=== PATIENT | male | born 1960 | race Caucasian/White ===

== ENCOUNTER 2016-08-04 09:12 | Inpatient (IN) | payer SELFPAY ==
[~2016-08-04] VITALS: Ht 175.3 cm; Wt 77.0 kg
[~2016-08-04 09:12] MED LIST: ANTI25TA2 PO; GLIP5 PO; GLUCTAB PO; LISI-360 PO; NOVORP2 SQ
[2016-08-04 09:14] VITALS: BP 140/90; PULSE 118; RESP 20; TEMP 98.6; O2SAT 99
[2016-08-04 09:53] LABS: AUTOMATED NEUTROPHIL # 10.4 TH/MM3 (1.8-7.7); BASOPHIL # 0.1 TH/MM3 (0-0.2); BASOPHIL % 0.4 % (0.0-2.0); EOSINOPHIL # 0.1 TH/MM3 (0-0.4); EOSINOPHIL % 0.9 % (0.0-4.0); HEMATOCRIT 39.4 % (39.0-51.0); HEMO FLAGS DIFF FINAL; LYMPHOCYTE # 1.9 TH/MM3 (1.0-4.8); MEAN CELL VOLUME 96.5 FL (80.0-100.0); MEAN CORPUSCULAR HEMOGLOBIN 32.5 PG (27.0-34.0); MEAN CORPUSCULAR HGB CONC 33.6 % (32.0-36.0); NEUT % 76.7 % (16.0-70.0); PLATELET COUNT 185 TH/MM3 (150-450); RED BLOOD COUNT 4.09 MIL/MM3 (4.50-5.90); RED CELL DISTRIBUTION WIDTH 13.2 % (11.6-17.2); WHITE BLOOD COUNT 13.6 TH/MM3 (4.0-11.0)
[2016-08-04 10:08] LABS: ANION GAP 11 MEQ/L (5-15); AST (GOT) 29 U/L (15-37); BICARBONATE 26.6 MEQ/L (21.0-32.0); BLOOD UREA NITROGEN 12 MG/DL (7-18); CHLORIDE 95 MEQ/L (98-107); GLOMERULAR FILTRATION RATE 100 ML/MIN (>89); POTASSIUM 4.1 MEQ/L (3.5-5.1); SODIUM (NA) 133 MEQ/L (136-145)
[2016-08-04 10:11] LABS: ALKALINE PHOSPHATASE 133 U/L (45-117); ALT (GPT) 22 U/L (12-78); TOTAL BILIRUBIN ADULT 1.5 MG/DL (0.2-1.0)
--- NOTE | 2016-08-04 10:43 | PD ---
HPI Chief Complaint: Syncope/Near-Syncope Time Seen by Provider: 10:19 Travel History International Travel<30 days: No Contact w/Intl Traveler<30days: No Traveled to known affect area: No History of Present Illness HPI This is a 55 year old male who presents to the emergency department with 6 months of hemoptysis with rust colored sputum, shortness of breath, worse with exertion, improved with rest associated with 25 pounds weight loss and generalized fatigue. Patient has a long smoking history. He has no primary care physician and doesn't have insurance. PFSH Past Medical History Cancer: No Cardiovascular Problems: Yes Diabetes: Yes Diminished Hearing: No Endocrine: Yes Gastrointestinal Disorders: No Genitourinary: No Hypertension: Yes (STATES SISTER HAS CHECKED IT OVER THE YEARS AND TOLD HIM IT WAS HIGH.) Implanted Vascular Access Dvce: No Musculoskeletal: No Neurologic: Yes Reproductive: No Respiratory: No Immunizations Current: Yes Social History Alcohol Use: Yes (1 [employer] DAILY) Tobacco Use: Yes (1 PPD) Substance Use: No Allergies-Medications (Allergen,Severity, Reaction): Coded Allergies: No Known Allergies (Unverified , 03/22/13) Reported Meds & Prescriptions Reported Meds & Active Scripts Active No Active Prescriptions or Reported Medications Review of Systems Except as stated in HPI: all other systems reviewed are Neg Physical Exam Narrative GENERAL: Thin in no acute distress SKIN: Focused skin assessment warm and dry. HEAD: Atraumatic. Normocephalic. EYES: Pupils equal and round. No injection or drainage. ENT: Moist mucous membranes NECK: Trachea midline. CARDIOVASCULAR: Regular rate and rhythm. No murmur appreciated. RESPIRATORY: Clear to auscultation. Breath sounds equal bilaterally. GASTROINTESTINAL: Abdomen soft, non-tender, nondistended. MUSCULOSKELETAL: No obvious deformities. NEUROLOGICAL: Awake and alert. No obvious cranial nerve deficits. Moving all extremities. PSYCHIATRIC: Appropriate mood and affect; insight and judgment normal. Data Data Last Documented VS Vital Signs Date Time Temp Pulse Resp B/P Pulse Ox O2 Delivery O2 Flow Rate FiO2 08/04/16 10:36 19 96 08/04/16 09:14 98.6 118 140/90 Room Air Orders Electrocardiogram (08/04/16 09:25) Complete Blood Count With Diff (08/04/16 09:25) Comprehensive Metabolic Panel (08/04/16 09:25) Iv Access Insert/Monitor (08/04/16 09:25) Ct Pulmonary Angiogram (08/04/16 ) B-Type Natriuretic Peptide (08/04/16 10:53) Iohexol 350 Inj (Omnipaque 350 Inj) (08/04/16 12:05) Admit Order (Ed Use Only) (08/04/16 13:24) Labs Laboratory Tests Test 08/04/16 08/04/16 09:34 10:55 White Blood Count 13.6 TH/MM3 Red Blood Count 4.09 MIL/MM3 Hemoglobin 13.3 GM/DL Hematocrit 39.4 % Mean Corpuscular Volume 96.5 FL Mean Corpuscular Hemoglobin 32.5 PG Mean Corpuscular Hemoglobin 33.6 % Concent Red Cell Distribution Width 13.2 % Platelet Count 185 TH/MM3 Mean Platelet Volume 9.7 FL Neutrophils (%) (Auto) 76.7 % Lymphocytes (%) (Auto) 14.0 % Monocytes (%) (Auto) 8.0 % Eosinophils (%) (Auto) 0.9 % Basophils (%) (Auto) 0.4 % Neutrophils # (Auto) 10.4 TH/MM3 Lymphocytes # (Auto) 1.9 TH/MM3 Monocytes # (Auto) 1.1 TH/MM3 Eosinophils # (Auto) 0.1 TH/MM3 Basophils # (Auto) 0.1 TH/MM3 CBC Comment DIFF FINAL Differential Comment Sodium Level 133 MEQ/L Potassium Level 4.1 MEQ/L Chloride Level 95 MEQ/L Carbon Dioxide Level 26.6 MEQ/L Anion Gap 11 MEQ/L Blood Urea Nitrogen 12 MG/DL Creatinine 0.80 MG/DL Estimat Glomerular Filtration 100 ML/MIN Rate Random Glucose 283 MG/DL Calcium Level 9.0 MG/DL Total Bilirubin 1.5 MG/DL Aspartate Amino Transf 29 U/L (AST/SGOT) Alanine Aminotransferase 22 U/L (ALT/SGPT) Alkaline Phosphatase 133 U/L Total Protein 9.0 GM/DL Albumin 2.6 GM/DL B-Type Natriuretic Peptide 52 PG/ML MDM Medical Decision Making Medical Screen Exam Complete: Yes Emergency Medical Condition: Yes Interpretation(s) Last [address] Angiography 08/04/16 0000 Signed Impressions: Service Date/Time: Thursday, August 04, 2016 11:47 - CONCLUSION: 1. No evidence of pulmonary embolism. 2. 5.5 cm right middle lobe mass suspicious for malignancy with possible metastatic adenopathy. This would be accessible to percutaneous biopsy. PET/CT scan is recommended to further evaluation if clinically indicated. Akash Wagner MD Differential Diagnosis Lung cancer, pulmonary embolism, pneumonia, abscess Narrative Course This is a 55-year-old male who presents to the emergency department with increasing cough with rest colored sputum associated with weight loss and malaise. CT scan was performed which demonstrates likely lung cancer with a 5 cm mass in the right lung. I spoke to Dr. Cm and he thought it was reasonable to observe the patient for a biopsy and to initiate contact with oncology given his limited resources. Diagnosis Primary Impression: Lung mass Admitting Information Admitting Physician Requests: Observation Scripts No Active Prescriptions or Reported Meds Rupali Vizcaino MD August 04, 2016 10:43
[2016-08-04] MEDS ORDERED: IOHEXOL 350 MG/ML 10 ML VIAL (for RAD DIAG) IV ONE (12:05)
--- NOTE | 2016-08-04 12:24 | EKG ---
Date Performed: 08/04/2016 Time Performed: 09:30:57 PTAGE: 55 years EKG: SINUS TACHYCARDIA ABNORMAL RHYTHM ECG PREVIOUS TRACING : 11/12/2012 18.56 DOCTOR: Quincy Youngblood Interpretating Date/Time 08/04/2016 12:22:35
--- NOTE | 2016-08-04 12:32 | RADRPT ---
EXAM DATE/TIME: 08/04/2016 11:47 [facility] COMPARISON: No previous studies available for comparison. INDICATIONS : Coughing up blood for three months. IV CONTRAST: 50 cc Omnipaque 350 (iohexol) IV RADIATION DOSE: 23.11 CTDIvol (mGy) MEDICAL HISTORY : Cardiovascular disease. Hypertension. Diabetes mellitus type 2. SURGICAL HISTORY : None. ENCOUNTER: Initial ACUITY: 3 months PAIN SCALE: 0/10 LOCATION: chest TECHNIQUE: Volumetric scanning of the chest was performed using a pulmonary embolism protocol MIP images were re constructed. Using automated exposure control and adjustment of the mA and/or kV according to patien t size, radiation dose was kept as low as reasonably achievable to obtain optimal diagnostic quality images. FINDINGS: Examination of the pulmonary vasculature demonstrates good filling of the main, lobar and segmental b ranches. There are no filling defects to suggest pulmonary embolism. Multiplanar reconstructions are also unremarkable. There is a 5.5 x 4.6 cm bilobular mass in the right middle lobe a portion of which demonstrate cavita tion characteristic of malignancy. This would be accessible to percutaneous biopsy. PET/CT scan is re commended to further evaluation if clinically indicated. There are borderline enlarged right paratrac heal and precarinal nodes. CONCLUSION: 1. No evidence of pulmonary embolism. 2. 5.5 cm right middle lobe mass suspicious for malignancy with possible metastatic adenopathy. This would be accessible to percutaneous biopsy. PET/CT scan is recommended to further evaluation if clini aubrey indicated. Akash Wagner MD on August 04, 2016 at 12:25 Board Certified Radiologist. This report was verified electronically.
[2016-08-04] MEDS ORDERED: ONDANSETRON HCL 4 MG/2 ML VIAL IVP PRN (13:45)
[2016-08-04] MEDS: DOCUSATE SODIUM 100 MG CAP PO SCH ×2 (13:45→21:00)
[2016-08-04] MEDS ORDERED: NALOXONE HCL 0.4 MG/ML AMP IV PRN (13:45)
[2016-08-04] MEDS ORDERED: BISACODYL 10 MG SUPP RECTAL PRN (13:45)
[2016-08-04] MEDS ORDERED: ACETAMINOPHEN 325 MG TAB PO PRN (13:45)
[2016-08-04] MEDS ORDERED: SODIUM CHLORIDE 0.9% FLUSH 10 ML FLUSH IV FLUSH PRN (13:45)
--- NOTE | 2016-08-04 13:50 | HHI.HP ---
[facility]ician No Primary Care Physician Admission Diagnosis lung mass Diagnoses: Chief Complaint: Hemoptysis Travel History International Travel<30 Days: No Contact w/Intl Traveler <30 Da: No Traveled to Known Affected Are: No History of Present Illness This is a 55 year old male who presents to the emergency department with 6 months of hemoptysis with rust colored sputum, shortness of breath, worse with exertion, improved with rest associated with 25 pounds weight loss and generalized fatigue. Patient has a long smoking history. He has no primary care physician and doesn't have insurance. Patient seen in ER, as per patient he states he started with Hemoptysis three months ago but was improving with time, he has productive cough, worsening Fatigue, and weakness with exertion. Shortness of breath. states has no insurance and no Medical Doctor, do not take anything for Diabetes. Review of Systems Respiratory: COMPLAINS OF: Hemoptysis Past Family Social History Past Medical History DM II Past Surgical History denies surgical history Reported Medications Reported Meds & Active Scripts Active No Active Prescriptions or Reported Medications Allergies: Coded Allergies: No Known Allergies (Unverified , 03/22/13) Active Ordered Medications Current Medications Medications (Trade) Dose Ordered Sig/Ernestina Route Start Time Stop Time Status Last Admin (NS 1000 ml Inj) 1,000 ml @ 100 mls/hr Q10H IV 08/04/16 13:31 UNV (NS Flush) 2 ml UNSCH PRN IV FLUSH 08/04/16 13:45 UNV (NS Flush) 2 ml BID IV FLUSH 08/04/16 21:00 UNV (Tylenol) 650 mg Q4H PRN PO 08/04/16 13:45 UNV (Zofran Inj) 4 mg Q6H PRN IVP 08/04/16 13:45 UNV Family History Father with Dementia and DM II Mother with CAD Brother with Cancer but he does not know which one. Social History Lives with his Mother Alcohol abuse 1 pint of liquor daily Tobacco dependence one pack per day since he was 14 years of age. Physical Exam Vital Signs Vital Signs Date Time Temp Pulse Resp B/P Pulse Ox O2 Delivery O2 Flow Rate FiO2 08/04/16 10:36 19 96 08/04/16 09:14 98.6 118 20 140/90 99 Room Air Physical Exam GENERAL: Thin in no acute distress SKIN: Focused skin assessment warm and dry. HEAD: Atraumatic. Normocephalic. EYES: Pupils equal and round. No injection or drainage. ENT: Moist mucous membranes NECK: Trachea midline. CARDIOVASCULAR: Regular rate and rhythm. No murmur appreciated. RESPIRATORY: Clear to auscultation. Breath sounds equal bilaterally. GASTROINTESTINAL: Abdomen soft, non-tender, nondistended. MUSCULOSKELETAL: No obvious deformities. NEUROLOGICAL: Awake and alert. No obvious cranial nerve deficits. Moving all extremities. PSYCHIATRIC: Appropriate mood and affect; insight and judgment normal. Laboratory Laboratory Tests Test 08/04/16 08/04/16 09:34 10:55 White Blood Count 13.6 Red Blood Count 4.09 Hemoglobin 13.3 Hematocrit 39.4 Mean Corpuscular Volume 96.5 Mean Corpuscular Hemoglobin 32.5 Mean Corpuscular Hemoglobin 33.6 Concent Red Cell Distribution Width 13.2 Platelet Count 185 Mean Platelet Volume 9.7 Neutrophils (%) (Auto) 76.7 Lymphocytes (%) (Auto) 14.0 Monocytes (%) (Auto) 8.0 Eosinophils (%) (Auto) 0.9 Basophils (%) (Auto) 0.4 Neutrophils # (Auto) 10.4 Lymphocytes # (Auto) 1.9 Monocytes # (Auto) 1.1 Eosinophils # (Auto) 0.1 Basophils # (Auto) 0.1 CBC Comment DIFF FINAL Differential Comment Sodium Level 133 Potassium Level 4.1 Chloride Level 95 Carbon Dioxide Level 26.6 Anion Gap 11 Blood Urea Nitrogen 12 Creatinine 0.80 Estimat Glomerular Filtration 100 Rate Random Glucose 283 Calcium Level 9.0 Total Bilirubin 1.5 Aspartate Amino Transf 29 (AST/SGOT) Alanine Aminotransferase 22 (ALT/SGPT) Alkaline Phosphatase 133 Total Protein 9.0 Albumin 2.6 B-Type Natriuretic Peptide 52 Result Diagram: 08/04/16 0934 08/04/[address] Angiography 08/04/16 0000 Signed Impressions: Service Date/Time: Thursday, August 04, 2016 11:47 - CONCLUSION: 1. No evidence of pulmonary embolism. 2. 5.5 cm right middle lobe mass suspicious for malignancy with possible metastatic adenopathy. This would be accessible to percutaneous biopsy. PET/CT scan is recommended to further evaluation if clinically indicated. Akash Wagner MD Assessment and Plan Assessment and Plan 1. Hemoptysis secondary to #2 2. Lung mass status post CTA has no pulmonary emboli, 5.5 CM right middle lobe mass suspicious for malignancy with possible Metastatic adenopathy. accessible to percutaneous biopsy. PET/CT scan recommended. extension specialist following doctor Chew. bronchodilator, Mucolytic and incentive spirometry 3 Tobacco dependence strongly recommended to stop smoking 4. Tobacco dependence strongly recommended to stop drinking alcohol CIWA protocol started 5. DM II started Insulin sliding scale will hold on long lasting insulin due to probable procedure tomorrow. Hemoglobin A1C As Always a pleasure to talk about Cases with Emergency Medicine Specialist Doctor Rupali Vizcaino her Input and Recommendations where highly appreciated. DVT prophylaxis SCDs. Code Status full Code. Discussed Condition With Patient and ER specialist. Physician Certification 2 Midnight Certification Type: Admission for Inpatient Services Order for Inpatient Services The services are ordered in accordance with Medicare regulations or non- Medicare payer requirements, as applicable. In the case of services not specified as inpatient-only, they are appropriately provided as inpatient services in accordance with the 2-midnight benchmark. Estimated LOS (days): 4 days is the estimated time the patient will need to remain in the hospital, assuming treatment plan goals are met and no additional complications. Post-Hospital Plan: Not yet determined Emil Powers MD August 04, 2016 13:49
[2016-08-04] MEDS ORDERED: HEPARIN SODIUM - SQ 10,000 UNITS/ML VIAL SQ SCH (14:00)
[2016-08-04] MEDS ORDERED: GLUCAGON 1 MG/ML VIAL OTHER PRN (14:15)
[2016-08-04] MEDS ORDERED: DEXTROSE 50% IN WATER 50 ML VIAL(D50) IV PUSH PRN (14:15)
[2016-08-04 14:59] LABS: APTT (PATIENT) 27.1 SEC (24.3-30.1); INTERNATIONAL NORMALIZED RATIO 1.3 RATIO; PROTHROMBIN TIME - PATIENT 14.9 SEC (9.8-11.6)
[2016-08-04] MEDS: SODIUM CHLOR 0.9% 1000 ML INJ 1,000 ML IV SCH ×2 (15:20→21:56)
[2016-08-04] MEDS: RESP: ALBUTEROL 2.5 MG/IPRATROPIUM 0.5 MG NEB (SCH) NEB ×2 (15:54→20:25)
[2016-08-04 17:13] LABS: FREE T4 1.33 NG/DL (0.76-1.46); HDL CHOLESTEROL 16.9 MG/DL (40.0-60.0); LDL CHOLESTEROL 101 MG/DL (0-99)
[2016-08-04] MEDS: THIAMINE INJ 100 MG in SODIUM CHLORIDE 0.9% INJ 100 ML IV SCH (17:23)
[2016-08-04] MEDS: INSULIN NovoLIN REGULAR SUPPLEMENTAL SCALE SQ SCH ×2 (17:40→22:07)
[2016-08-04 17:42] LABS: BLOOD, URINE NEG (NEG); COMMENT (UR) CULT NOT INDICATED; CULTURE IF INDICATED CULT NOT INDICATED; GLUCOSE,URINE 1000 mg/dL (NEG); KETONE, URINE 40 mg/dL (NEG); NITRITE,URINE NEG (NEG); SQUAMOUS EPITHELIAL CELL URINE <1 /hpf (0-5); URINE COLOR YELLOW (YELLW/STRAW)
[2016-08-04 17:58] LABS: HEMOGLOBIN A1a 1.4 %; HEMOGLOBIN Ao 75.2 %; HEMOGLOBIN F 2.7 %; HEMOGLOBIN LA1C 3.3 %
[2016-08-04] MEDS: MULTIVITAMIN INJ 10 ML, FOLIC ACID INJ 1 MG in SODIUM CHLORID 0.9% 500 ML INJ 500 ML IV SCH (19:12)
[2016-08-04 19:33] VITALS: BP 129/78; PULSE 106; RESP 18; O2SAT 97
[2016-08-04 20:00] VITALS: BP 131/78; PULSE 107; RESP 16; TEMP 98.7; O2SAT 93
[2016-08-04] MEDS ORDERED: DIATRIZOATE MEGLUM/DIATRIZOATE SOD 9 ML CUP PO ONE (20:00)
--- NOTE | 2016-08-04 20:40 | MB ---
cc: DILIP ANDERSON M.D. DATE OF CONSULTATION 08/04/[address] Patel REASON FOR CONSULTATION Oncology consulted to render opinion regarding patient with a lung mass. HISTORY OF PRESENT ILLNESS The patient is a 55-year-old male with more than 40 pack-year smoking history. Presented to the hospital with complaint of hemoptysis which has been going on for at least 3 months. 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 He has increased weakness and fatigue. He has increased weakness and fatigue. He has dyspnea on exertion and shortness of breath. He has lost about 25 pounds over the last few months. He also complained of pain in his kruse, thigh and arm which has been going on for more than three months. He denies any fever or chills, night sweats. Denies any chest pressure, palpitation. Denies any headache. Denies any visual changes. Denies nausea, vomiting, diarrhea, abdominal pain. Denies any dysuria, hematuria. He has lost his job and he has no insurance. He does not see a primary physician. He presented to the hospital and CT showed right middle lobe lung mass. PAST MEDICAL HISTORY 1. Diabetes mellitus. 2. Peripheral neuropathy. PAST SURGICAL HISTORY None. FAMILY HISTORY Brother had some kind of metastatic cancer involving the bone. Mother has coronary artery disease. Father had dementia. He has two daughters both healthy. SOCIAL HISTORY Lives with his mother and girlfriend. He used to drink a pint a day, now he drinks about four beer a day. He smoked about pack a day for at least 40 years. 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 ALLERGIES NO KNOWN DRUG ALLERGIES. CURRENT MEDICATIONS 1. Thiamine. 2. Guaifenesin. 3. Multivitamin. REVIEW OF SYSTEMS CONSTITUTIONAL: He has lost about 25 pounds. He has increased weakness. EYES: Denies any blurred vision, double vision. EAR, NOSE, AND THROAT: He denies mouth sores, voice changes. CARDIOVASCULAR: Denies any chest pressure, palpitations. RESPIRATORY: As above. GASTROINTESTINAL: Denies any nausea or vomiting, diarrhea or abdominal pain. GENITOURINARY: Denies any dysuria, hematuria. MUSCULOSKELETAL: As above. ENDOCRINE: Negative. HEMATOLOGIC: Negative. PSYCHIATRIC: Negative. NEUROLOGICAL: Negative. DERMATOLOGIC: He noted a cystic lesion on his scalp a few weeks ago. PHYSICAL EXAMINATION VITAL SIGNS: Afebrile. Blood pressure 140/90. O2 saturation 99% on room air. GENERAL: He is alert and oriented times three, in no acute distress. HEENT: Atraumatic, normocephalic. Pupils equal, round and reactive to light. Extraocular muscles intact. No scleral icterus. Oropharynx moist mucosa, no lesion, no thrush, no mucositis. NECK: No thyromegaly, no palpable mass. LYMPHATICS: No palpable cervical, clavicular, axillary or inguinal lymph nodes. CARDIOVASCULAR: Regular S1, S2. No murmur. LUNGS: Slight decreased breath sounds on the right upper lobe. No wheezing or rhonchi. ABDOMEN: Soft, nontender. Positive bowel sounds. I could not palpate liver or spleen. EXTREMITIES: No clubbing, cyanosis or edema. BACK: No paravertebral tenderness. SKIN: No rash or petechiae. NEUROLOGIC: Nonfocal. LABORATORY DATA Reviewed. ASSESSMENT 1. Right middle lobe lung mass measured 5.5 cm with central cavitation. CT also showed borderline enlarged right paratracheal and precarinal lymph node. He has more than 40 pack-year smoking history. This is a primary bronchogenic carcinoma until proven otherwise. Clinically he also complained of pain in his extremities which could be bone metastasis or hypertrophic osteoarthropathy. He also has significant constitutional symptom with weight loss. Clinically he has had hemoptysis for last 3 months. His hemoglobin is still normal. At this point I recommend getting a complete staging with CT of the abdomen, pelvis as well as bone scan. We will consult radiology to biopsy right middle lobe lung mass. He has no insurance. He will need a director of casework to help with discharge planning and arrange for followup outpatient clinic for treatment. 2. Diabetes mellitus. 3. Peripheral neuropathy due to diabetes. 4. Tobacco dependence. 5. Alcohol abuse. He has cut back to four beers a day. RECOMMENDATIONS 1. Extensive discussion with the patient, his girlfriend and his mother. Their questions were answered. 2. Arrange for a CT abdomen and pelvis as well as bone scan. 3. Consult radiology to biopsy the right lung mass. 4. Consult director of casework to arrange for outpatient followup. Thank you Dr. Patel for asking me to see this patient. MD REINA Mendes /7:13 PM /8:07 PM [email or web address]
[2016-08-04 20:45] VITALS: PULSE 106
[2016-08-04] MEDS: guaiFENesin E.R. 600 MG TAB PO SCH (21:53)
[2016-08-04] MEDS: LORazepam 2 MG/ML VIAL IV PUSH PRN (21:53)
[2016-08-04] MEDS: SODIUM CHLORIDE 0.9% FLUSH 10 ML FLUSH IV FLUSH SCH (21:54)
[2016-08-04] MEDS: INSULIN DETEMIR 100 UNITS/ML VIAL SQ SCH (22:08)
[2016-08-05] VITALS (14 sets, daily range): BP systolic 87–132; BP diastolic 55–88; PULSE 95–108; RESP 18–20; TEMP 98.2–99.7; O2SAT 93–99
[2016-08-05] MEDS: RESP: ALBUTEROL 2.5 MG/IPRATROPIUM 0.5 MG NEB (SCH) NEB ×6 (00:53→21:14)
[2016-08-05] MEDS ORDERED: IOHEXOL 350 MG/ML 10 ML VIAL (for RAD DIAG) IV ONE (01:25)
--- NOTE | 2016-08-05 01:56 | RADRPT ---
EXAM DATE/TIME: 08/05/2016 01:22 [facility] COMPARISON: CT PULMONARY ANGIOGRAM, August 04, 2016, 11:47. INDICATIONS : Evaluate for metastatic disease. Cavitary lung mass is a presumed carcinoma. IV CONTRAST: 50 cc Omnipaque 350 (iohexol) IV ORAL CONTRAST: Prescribed oral contrast ingested. RADIATION DOSE: 6.96 CTDIvol (mGy) MEDICAL HISTORY : Cardiovascular disease. Hypertension. Diabetes mellitus type 2. SURGICAL HISTORY : None. ENCOUNTER: Initial ACUITY: 1 day PAIN SCALE: 0/10 LOCATION: abdomen TECHNIQUE: Volumetric scanning of the abdomen and pelvis was performed. Using automated exposure control and ad justment of the mA and/or kV according to patient size, radiation dose was kept as low as reasonably achievable to obtain optimal diagnostic quality images. FINDINGS: LOWER LUNGS: The known cavitary mass in the right lung base is partially visualized. There is a mass or adenopathy in the right cardiophrenic angle region. LIVER: Liver is mildly inhomogeneous and decreased in attenuation mild lobular contours most characteristic of cirrhosis. There is no focal mass. There is a small amount of surrounding ascitic fluid. The gallb ladder is unremarkable. There is no biliary ductal dilatation. There is no dilation of the biliary tr ee. No calcified gallstones. SPLEEN: Normal size without lesion. PANCREAS: Within normal limits. KIDNEYS: Normal in size and shape. There is no mass, stone or hydronephrosis. ADRENAL GLANDS: Within normal limits. VASCULAR: There is no aortic aneurysm. BOWEL/MESENTERY: There are multiple gastric varices. The stomach and colon demonstrate no acute abnormality. There ar e multiple loops of nondilated air containing small bowel. There several small air-fluid levels. Ther e is no focal inflammatory change. There is no free intraperitoneal air or fluid. ABDOMINAL WALL: Within normal limits. RETROPERITONEUM: There is no lymphadenopathy. BLADDER: No wall thickening or mass. REPRODUCTIVE: Within normal limits. INGUINAL: There is no lymphadenopathy or hernia. MUSCULOSKELETAL: Within normal limits for patient age. CONCLUSION: 1. Cirrhotic appearing liver with fatty infiltration. 2. Multiple gastric varices. 3. Nonspecific, nonobstructive bowel gas pattern most consistent with an ileus. 4. The known cavitary mass and probable adenopathy are again visualized in the anterior right lung ba se. Vickey Medina MD on August 05, 2016 at 1:50 Board Certified Radiologist. This report was verified electronically.
[2016-08-05] MEDS: INSULIN NovoLIN REGULAR SUPPLEMENTAL SCALE SQ SCH ×4 (06:09→21:43)
[2016-08-05] MEDS ORDERED: LIDOCAINE 1%/EPINEPHrine 1:100,000 SOLN 20 ML VIAL ONE (08:27)
[2016-08-05] MEDS ORDERED: SODIUM BICARB 8.4% (PED) INJ 10 MEQ/10 ML SYR ONE (08:28)
[2016-08-05] MEDS ORDERED: FLUMAZENIL 0.5 MG/5 ML VIAL IV PUSH PRN (08:45)
[2016-08-05] MEDS ORDERED: LORazepam 2 MG TAB PO PRN (08:45)
[2016-08-05] MEDS ORDERED: chlordiazePOXIDE 25 MG CAP PO PRN (08:45)
[2016-08-05] MEDS ORDERED: LORazepam 2 MG/ML VIAL IV PUSH PRN ×4 (08:45)
[2016-08-05] MEDS ORDERED: LORazepam 1 MG TAB PO PRN (08:45)
[2016-08-05] MEDS: SODIUM CHLOR 0.9% 1000 ML INJ 1,000 ML IV SCH ×2 (08:46→18:01)
[2016-08-05] MEDS: SODIUM CHLORIDE 0.9% FLUSH 10 ML FLUSH IV FLUSH SCH ×2 (08:46→21:00)
[2016-08-05] MEDS: DOCUSATE SODIUM 100 MG CAP PO SCH ×2 (08:46→21:44)
[2016-08-05] MEDS ORDERED: fentaNYL CITRATE 250 MCG/5 ML AMP ONE (09:16)
[2016-08-05] MEDS ORDERED: MIDAZOLAM HCL 5 MG/5 ML VIAL ONE (09:16)
--- NOTE | 2016-08-05 09:23 | PD.ONC.PN ---
Subjective Subjective Remarks Afebrile overnight. Patient seen in room after lung mass biopsy and bone scan. he is anxious to know what the results of the biopsy are. Objective Data Date Time Temp Pulse Resp B/P Pulse Ox O2 Delivery O2 Flow Rate FiO2 08/05/16 07:51 98.3 104 18 114/58 98 08/05/16 04:00 98.3 108 18 132/88 99 08/05/16 00:57 98 21 08/05/16 00:00 98.2 99 18 115/72 98 08/04/16 20:45 106 08/04/16 20:00 98.7 107 16 131/78 93 08/04/16 19:33 106 18 129/78 97 Room Air 08/04/16 10:36 19 96 08/04/16 09:14 98.6 118 20 140/90 99 Room Air Result Diagram: 08/04/16 0934 08/04/16 0934 Laboratory Results Laboratory Tests Test 08/04/16 08/04/16 08/04/16 08/04/16 09:34 10:55 14:35 17:30 White Blood Count 13.6 TH/MM3 Red Blood Count 4.09 MIL/MM3 Hemoglobin 13.3 GM/DL Hematocrit 39.4 % Mean Corpuscular Volume 96.5 FL Mean Corpuscular Hemoglobin 32.5 PG Mean Corpuscular Hemoglobin 33.6 % Concent Red Cell Distribution Width 13.2 % Platelet Count 185 TH/MM3 Mean Platelet Volume 9.7 FL Neutrophils (%) (Auto) 76.7 % Lymphocytes (%) (Auto) 14.0 % Monocytes (%) (Auto) 8.0 % Eosinophils (%) (Auto) 0.9 % Basophils (%) (Auto) 0.4 % Neutrophils # (Auto) 10.4 TH/MM3 Lymphocytes # (Auto) 1.9 TH/MM3 Monocytes # (Auto) 1.1 TH/MM3 Eosinophils # (Auto) 0.1 TH/MM3 Basophils # (Auto) 0.1 TH/MM3 CBC Comment DIFF FINAL Differential Comment Sodium Level 133 MEQ/L Potassium Level 4.1 MEQ/L Chloride Level 95 MEQ/L Carbon Dioxide Level 26.6 MEQ/L Anion Gap 11 MEQ/L Blood Urea Nitrogen 12 MG/DL Creatinine 0.80 MG/DL Estimat Glomerular Filtration 100 ML/MIN Rate Random Glucose 283 MG/DL Hemoglobin A1c 12.2 % Calcium Level 9.0 MG/DL Total Bilirubin 1.5 MG/DL Aspartate Amino Transf 29 U/L (AST/SGOT) Alanine Aminotransferase 22 U/L (ALT/SGPT) Alkaline Phosphatase 133 U/L Total Protein 9.0 GM/DL Albumin 2.6 GM/DL Triglycerides Level 119 MG/DL Cholesterol Level 142 MG/DL LDL Cholesterol 101 MG/DL HDL Cholesterol 16.9 MG/DL Cholesterol/HDL Ratio 8.40 RATIO Free Thyroxine 1.33 NG/DL Thyroid Stimulating Hormone 1.570 uIU/ML 3rd Gen B-Type Natriuretic Peptide 52 PG/ML Prothrombin Time 14.9 SEC Prothromb Time International 1.3 RATIO Ratio Activated Partial 27.1 SEC Thromboplast Time Urine Color YELLOW Urine Turbidity CLEAR Urine pH 8.0 Urine Specific [place] 1.042 Urine Protein TRACE mg/dL Urine Glucose (UA) 1000 mg/dL Urine Ketones 40 mg/dL Urine Occult Blood NEG Urine Nitrite NEG Urine Bilirubin NEG Urine Urobilinogen 2.0 MG/DL Urine Leukocyte Esterase NEG Urine RBC 1 /hpf Urine WBC LESS THAN 1 /hpf Urine Squamous Epithelial <1 /hpf Cells Microscopic Urinalysis Comment CULT NOT INDICATED Imaging Studies Last 24 hours Impressions Abdomen/Pelvis CT 08/05/16 0000 Signed Impressions: Service Date/Time: July 01:22 - CONCLUSION: 1. Cirrhotic appearing liver with fatty infiltration. 2. Multiple gastric varices. 3. Nonspecific, nonobstructive bowel gas pattern most consistent with an ileus. 4. The known cavitary mass and probable adenopathy are again visualized in the anterior right lung base. Vickey Medina MD Administered Medications Medications (Trade) Dose Ordered Sig/Ernestina Route PRN Reason Start Time Stop Time Status Last Admin Dose Admin Sodium Chloride (NS 1000 ml Inj) 1,000 ml @ 100 mls/hr Q10H IV 08/04/16 13:31 08/04/16 21:56 Sodium Chloride (NS Flush) 2 ml BID IV FLUSH 08/04/16 21:00 08/04/16 21:54 Insulin Detemir (Levemir Inj) 10 units HS SQ 08/04/16 21:00 08/04/16 22:08 Guaifenesin 600 mg 600 mg BID PO 08/04/16 21:00 08/04/16 21:53 Multivitamins 10 ml/Folic Acid 1 mg/Sodium Chloride 510.2 ml @ 125 mls/hr Q24H IV 08/04/16 17:00 08/09/16 16:59 08/04/16 19:12 Thiamine HCl/ Sodium Chloride (Thiamine Inj/NS Inj) 101 ml @ 100 mls/hr Q24H IV 08/04/16 16:00 08/06/16 17:01 08/04/16 17:23 Lorazepam (Ativan Inj) 1 mg Q6H PRN IV PUSH MODERATE TO SEVERE ANXIETY 08/04/16 15:45 08/04/16 21:53 Objective Remarks GENERAL: Middle aged male, sitting up in bed eating lunch SKIN: Warm and dry. HEAD: Normocephalic. EYES: No scleral icterus. No injection or drainage. NECK: Supple, trachea midline. CARDIOVASCULAR: Regular rate and rhythm RESPIRATORY: diminished at bases, on 2L O2 via NC GASTROINTESTINAL: Abdomen soft, non-tender, nondistended. MUSCULOSKELETAL: No cyanosis NEURO: awake and alert. normal speech. Assessment/Plan Problem List: (1) Lung mass Status: Acute Plan: --Right middle lobe lung mass measured 5.5 cm with central cavitation. --CT also showed borderline enlarged right paratracheal and precarinal lymph node. ++40 pack-year smoking history. --is a primary bronchogenic carcinoma until proven otherwise. --Clinically he also complained of pain in his extremities which co --CT c/a/p: -- bone scan. --biopsy right middle lobe lung mass through IR --case management consulted--patient without insurance. Assessment 55y/o male with a lung mass. Presented to the hospital with complaint of hemoptysis x3 months + 25lb weight loss h/o Diabetes mellitus. Peripheral neuropathy. Plan 1. biopsy in IR today 2. await pathology 3. await bone scan Attending Statement The exam, history, and the medical decision-making described in the above note were completed with the assistance of the mid-level provider. I reviewed and agree with the findings presented. I attest that I had a [id number] encounter with the patient on the same day, and personally performed and documented my assessment and findings in the medical record.Reviewed CT with pt. CT noted cirrhotic liver with gastric varices. Possibly ETOH induced. Surveillance Sensor Operator to abstain from etoh. Check hepatitis panel. Await biopsy of lung lesion. Bone scan pending. Charlee Chaudhary August 05, 2016 09:23 Osvaldo Cm MD August 05, 2016 16:37
--- NOTE | 2016-08-05 10:40 | RADRPT ---
EXAM DATE/TIME: 08/05/2016 09:21 [facility] COMPARISON: No previous studies available for comparison. INDICATIONS : Right lung mass. SEDATION TIME: 20 minutes BIOPSY SITE: Right lung MEDICATION(S): 1.) 4 mg midazolam (Versed) IV 2.) 200 mcg fentanyl (Sublimaze) IV DEVICE(S): 1.) 18 gauge Temno core biopsy needle 9cm MEDICAL HISTORY : Hypertension, smoker, diabetes SURGICAL HISTORY : None. ENCOUNTER: Initial ACUITY: 1 day PAIN SCORE: 0/10 LOCATION: Right chest A total of three core specimen(s) were obtained and sent to the laboratory for pathologic evaluation. PROCEDURE: 1. CT guided lung biopsy. 2. Conscious sedation with continuous EKG and oximetry monitoring. Prior to the procedure informed consent was obtained. Any appropriate prior imaging studies were rev iewed. Using automated exposure control and adjustment of the mA and/or kV according to patient size, radiation dose was kept as low as reasonably achievable to obtain optimal diagnostic quality images. The site was prepped in a sterile fashion. Full sterile technique was used, including cap, mask, adolfo rile gloves and gown and a large sterile sheet. Hand hygiene and 2% chlorhexidine and/or betadine/al cohol prep was utilized per protocol for cutaneous antisepsis. The skin and subcutaneous tissues wer e infiltrated with local anesthetic solution. With CT guidance the previously identified target was localized. Biopsy was performed using the presc ribed needle as above. Adequate hemostasis was obtained with compression at the puncture site. Follow-up CT scan reveals no pneumothorax. Conscious sedation was performed with the prescribed dosages and duration as above in the presence of an independent trained radiology nurse to assist in the monitoring of the patient. EKG and oximetry remained stable throughout the procedure. The patient tolerated the procedure well and there were no complications. The patient was sent to Radiology Outpatient Unit in stable condition. CONCLUSION: Uncomplicated CT guided biopsy. Akash Wagner MD on August 05, 2016 at 10:39 Board Certified Radiologist. This report was verified electronically.
--- NOTE | 2016-08-05 11:18 | HHI.PR ---
Subjective Remarks This is a 55 year old male who presents to the emergency department with 6 months of hemoptysis with rust colored sputum, shortness of breath, worse with exertion, improved with rest associated with 25 pounds weight loss and generalized fatigue. Patient has a long smoking history. He has no primary care physician and doesn't have insurance. Patient seen in ER, as per patient he states he started with Hemoptysis three months ago but was improving with time, he has productive cough, worsening Fatigue, and weakness with exertion. Shortness of breath. states has no insurance and no Medical Doctor, do not take anything for Diabetes. 08/05: Stable in his bedroom status post CT guided biopsy no complaint, discussed with nurse miss Flores, no nausea, vomit or diarrhea. Objective Vital Signs Date Time Temp Pulse Resp B/P Pulse Ox O2 Delivery O2 Flow Rate FiO2 08/05/16 10:15 96 Nasal Cannula 2.00 08/05/16 07:58 103 08/05/16 07:51 98.3 104 18 114/58 98 08/05/16 04:00 98.3 108 18 132/88 99 08/05/16 00:57 98 21 08/05/16 00:00 98.2 99 18 115/72 98 08/04/16 20:45 106 08/04/16 20:00 98.7 107 16 131/78 93 08/04/16 19:33 106 18 129/78 97 Room Air I/O 08/04/16 08/04/16 08/04/16 08/05/16 08/05/16 08/05/16 07:00 15:00 23:00 07:00 15:00 23:00 Intake Total 321 ml 822 ml Balance 321 ml 822 ml Intake IV Total 321 ml 822 ml Result Diagram: 08/04/16 0934 08/04/16 0934 Imaging Last Impressions Abdomen/Pelvis CT 08/05/16 0000 Signed Impressions: Service Date/Time: July 01:22 - CONCLUSION: 1. Cirrhotic appearing liver with fatty infiltration. 2. Multiple gastric varices. 3. Nonspecific, nonobstructive bowel gas pattern most consistent with an ileus. 4. The known cavitary mass and probable adenopathy are again visualized in the anterior right lung base. Vickey Medina MD Lung Biopsy CT 08/04/16 0000 Signed Impressions: Service Date/Time: July 09:21 - CONCLUSION: Uncomplicated CT guided biopsy. Akash Wagner MD CT Angiography 08/04/16 0000 Signed Impressions: Service Date/Time: Thursday, August 04, 2016 11:47 - CONCLUSION: 1. No evidence of pulmonary embolism. 2. 5.5 cm right middle lobe mass suspicious for malignancy with possible metastatic adenopathy. This would be accessible to percutaneous biopsy. PET/CT scan is recommended to further evaluation if clinically indicated. Akash Wagner MD Procedures Status post Transbronchial Lung Biopsy Other Results Laboratory Tests Test 08/04/16 08/04/16 08/04/16 08/04/16 09:34 10:55 14:35 17:30 White Blood Count 13.6 TH/MM3 Red Blood Count 4.09 MIL/MM3 Hemoglobin 13.3 GM/DL Hematocrit 39.4 % Mean Corpuscular Volume 96.5 FL Mean Corpuscular Hemoglobin 32.5 PG Mean Corpuscular Hemoglobin 33.6 % Concent Red Cell Distribution Width 13.2 % Platelet Count 185 TH/MM3 Mean Platelet Volume 9.7 FL Neutrophils (%) (Auto) 76.7 % Lymphocytes (%) (Auto) 14.0 % Monocytes (%) (Auto) 8.0 % Eosinophils (%) (Auto) 0.9 % Basophils (%) (Auto) 0.4 % Neutrophils # (Auto) 10.4 TH/MM3 Lymphocytes # (Auto) 1.9 TH/MM3 Monocytes # (Auto) 1.1 TH/MM3 Eosinophils # (Auto) 0.1 TH/MM3 Basophils # (Auto) 0.1 TH/MM3 CBC Comment DIFF FINAL Differential Comment Sodium Level 133 MEQ/L Potassium Level 4.1 MEQ/L Chloride Level 95 MEQ/L Carbon Dioxide Level 26.6 MEQ/L Anion Gap 11 MEQ/L Blood Urea Nitrogen 12 MG/DL Creatinine 0.80 MG/DL Estimat Glomerular Filtration 100 ML/MIN Rate Random Glucose 283 MG/DL Hemoglobin A1c 12.2 % Calcium Level 9.0 MG/DL Total Bilirubin 1.5 MG/DL Aspartate Amino Transf 29 U/L (AST/SGOT) Alanine Aminotransferase 22 U/L (ALT/SGPT) Alkaline Phosphatase 133 U/L Total Protein 9.0 GM/DL Albumin 2.6 GM/DL Triglycerides Level 119 MG/DL Cholesterol Level 142 MG/DL LDL Cholesterol 101 MG/DL HDL Cholesterol 16.9 MG/DL Cholesterol/HDL Ratio 8.40 RATIO Free Thyroxine 1.33 NG/DL Thyroid Stimulating Hormone 1.570 uIU/ML 3rd Gen B-Type Natriuretic Peptide 52 PG/ML Prothrombin Time 14.9 SEC Prothromb Time International 1.3 RATIO Ratio Activated Partial 27.1 SEC Thromboplast Time Urine Color YELLOW Urine Turbidity CLEAR Urine pH 8.0 Urine Specific [place] 1.042 Urine Protein TRACE mg/dL Urine Glucose (UA) 1000 mg/dL Urine Ketones 40 mg/dL Urine Occult Blood NEG Urine Nitrite NEG Urine Bilirubin NEG Urine Urobilinogen 2.0 MG/DL Urine Leukocyte Esterase NEG Urine RBC 1 /hpf Urine WBC LESS THAN 1 /hpf Urine Squamous Epithelial <1 /hpf Cells Microscopic Urinalysis Comment CULT NOT INDICATED Objective Remarks GENERAL: Thin in no acute distress SKIN: Focused skin assessment warm and dry. HEAD: Atraumatic. Normocephalic. EYES: Pupils equal and round. No injection or drainage. ENT: Moist mucous membranes NECK: Trachea midline. CARDIOVASCULAR: Regular rate and rhythm. No murmur appreciated. RESPIRATORY: Clear to auscultation. Breath sounds equal bilaterally. GASTROINTESTINAL: Abdomen soft, non-tender, nondistended. MUSCULOSKELETAL: No obvious deformities. NEUROLOGICAL: Awake and alert. No obvious cranial nerve deficits. Moving all extremities. PSYCHIATRIC: Appropriate mood and affect; insight and judgment normal. Medications and IVs Current Medications Medications (Trade) Dose Ordered Sig/Ernestina Route Start Time Stop Time Status Last Admin (NS 1000 ml Inj) 1,000 ml @ 100 mls/hr Q10H IV 08/04/16 13:31 08/04/16 21:56 (NS Flush) 2 ml UNSCH PRN IV FLUSH 08/04/16 13:45 (NS Flush) 2 ml BID IV FLUSH 08/04/16 21:00 08/04/16 21:54 (Tylenol) 650 mg Q4H PRN PO 08/04/16 13:45 (Zofran Inj) 4 mg Q6H PRN IVP 08/04/16 13:45 (Dulcolax Supp) 10 mg DAILY PRN RECTAL 08/04/16 13:45 (Colace) 100 mg Q12HR PO 08/04/16 13:45 (Narcan Inj) 0.4 mg UNSCH PRN IV 08/04/16 13:45 (Levemir Inj) 10 units HS SQ 08/04/16 21:00 08/04/16 22:08 (D50w (Vial) Inj) 25 ml UNSCH PRN IV PUSH 08/04/16 14:15 (Glucagon Inj) 1 mg UNSCH PRN OTHER 08/04/16 14:15 Guaifenesin 600 mg 600 mg BID PO 08/04/16 21:00 08/04/16 21:53 Multivitamins 10 ml/Folic Acid 1 mg/Sodium Chloride 510.2 ml @ 125 mls/hr Q24H IV 08/04/16 17:00 08/09/16 16:59 08/04/16 19:12 (Thiamine Inj/NS Inj) 101 ml @ 100 mls/hr Q24H IV 08/04/16 16:00 08/06/16 17:01 08/04/16 17:23 (Vitamin B1) 100 mg DAILY PO 08/07/16 09:00 (Ativan Inj) 1 mg Q6H PRN IV PUSH 08/04/16 15:45 08/04/16 21:53 (Romazicon Inj) 0.2 mg Q1M PRN IV PUSH 08/05/16 08:45 (Ativan) 1 mg Q4H PRN PO 08/05/16 08:45 (Ativan Inj) 1 mg Q4H PRN IV PUSH 08/05/16 08:45 (Ativan) 2 mg Q2H PRN PO 08/05/16 08:45 (Ativan Inj) 2 mg Q2H PRN IV PUSH 08/05/16 08:45 (Ativan Inj) 2 mg Q1H PRN IV PUSH 08/05/16 08:45 (Ativan Inj) 2 mg Q15M PRN IV PUSH 08/05/16 08:45 (Librium) 25 mg TID PRN PO 08/05/16 08:45 A/P Assessment and Plan 1. Hemoptysis secondary to #2 2. Lung mass status post CTA has no pulmonary emboli, 5.5 CM right middle lobe mass suspicious for malignancy with possible Metastatic adenopathy. Status post CT guided percutaneous biopsy . PET/CT scan recommended. administrative program specialist following doctor Chew. bronchodilator, Mucolytic and incentive spirometry. 3 Tobacco dependence strongly recommended to stop smoking 4. Alcohol abuse and dependence strongly recommended to stop drinking alcohol CIWA protocol started 5. DM II started Insulin sliding scale will hold on long lasting insulin due to probable procedure tomorrow. Hemoglobin A1C 12.2 Poorly controlled continue insulin will follow he will start to eat again. DVT prophylaxis SCDs. Code Status full Code. Discussed Condition With Patient and nurse Miss Dominique all questions answered to the best of my abilities. Discharge Planning Once cleared by administrative program specialist. Emil Powers MD August 05, 2016 11:17
--- NOTE | 2016-08-05 12:29 | RADRPT ---
EXAM DATE/TIME: 08/05/2016 11:47 [facility] COMPARISON: No previous studies available for comparison. INDICATIONS : Post right side lung bx MEDICAL HISTORY : Cardiovascular disease. Hypertension Diabetes mellitus type II. SURGICAL HISTORY : None. ENCOUNTER: Initial ACUITY: 1 day PAIN SCORE: 0/10 LOCATION: Bilateral chest FINDINGS: The cardiac silhouette is normal in transverse diameter. The mass in the right base is unchanged. The re is no evidence of pneumothorax. The left lung is free of acute parenchymal opacity. CONCLUSION: 1. There is no evidence of pneumothorax. Akash Wagner MD on August 05, 2016 at 12:27 Board Certified Radiologist. This report was verified electronically.
[2016-08-05] MEDS: guaiFENesin E.R. 600 MG TAB PO SCH ×2 (14:10→21:44)
[2016-08-05] MEDS: LORazepam 2 MG/ML VIAL IV PUSH PRN ×2 (14:16→22:36)
[2016-08-05 14:33] LABS: AUTOMATED NEUTROPHIL # 8.8 TH/MM3 (1.8-7.7); BASOPHIL % 0.3 % (0.0-2.0); EOSINOPHIL # 0.1 TH/MM3 (0-0.4); EOSINOPHIL % 1.1 % (0.0-4.0); HEMATOCRIT 38.3 % (39.0-51.0); HEMO FLAGS DIFF FINAL; LYMPH % 16.3 % (9.0-44.0); LYMPHOCYTE # 1.9 TH/MM3 (1.0-4.8); MEAN CELL VOLUME 97.8 FL (80.0-100.0); MEAN CORPUSCULAR HEMOGLOBIN 32.1 PG (27.0-34.0); MEAN CORPUSCULAR HGB CONC 32.8 % (32.0-36.0); NEUT % 74.3 % (16.0-70.0); PLATELET COUNT 160 TH/MM3 (150-450); RED BLOOD COUNT 3.91 MIL/MM3 (4.50-5.90); RED CELL DISTRIBUTION WIDTH 13.2 % (11.6-17.2); WHITE BLOOD COUNT 11.8 TH/MM3 (4.0-11.0)
[2016-08-05 14:41] LABS: INTERNATIONAL NORMALIZED RATIO 1.3 RATIO; PROTHROMBIN TIME - PATIENT 14.7 SEC (9.8-11.6)
[2016-08-05 14:58] LABS: POTASSIUM 3.6 MEQ/L (3.5-5.1)
[2016-08-05] MEDS: THIAMINE INJ 100 MG in SODIUM CHLORIDE 0.9% INJ 100 ML IV SCH (15:27)
[2016-08-05] MEDS: MULTIVITAMIN INJ 10 ML, FOLIC ACID INJ 1 MG in SODIUM CHLORID 0.9% 500 ML INJ 500 ML IV SCH (15:27)
[2016-08-05] MEDS ORDERED: POTASSIUM CHLORIDE 20 MEQ CONTROLLED RELEASE TAB PO ONE (17:45)
[2016-08-05] MEDS: INSULIN DETEMIR 100 UNITS/ML VIAL SQ SCH (21:41)
[2016-08-05] MEDS: oxyCODONE/ACETAMINOPHEN 5 MG/325 MG TAB PO PRN (21:44)
[2016-08-06] VITALS (8 sets, daily range): BP systolic 99–127; BP diastolic 59–78; PULSE 88–108; RESP 16–20; TEMP 97.6–99.1; O2SAT 92–96
[2016-08-06] MEDS: RESP: ALBUTEROL 2.5 MG/IPRATROPIUM 0.5 MG NEB (SCH) NEB ×6 (00:33→19:20)
[2016-08-06] MEDS: oxyCODONE/ACETAMINOPHEN 5 MG/325 MG TAB PO PRN ×4 (01:55→18:35)
[2016-08-06] MEDS: SODIUM CHLOR 0.9% 1000 ML INJ 1,000 ML IV SCH (01:55)
[2016-08-06] MEDS: INSULIN NovoLIN REGULAR SUPPLEMENTAL SCALE SQ SCH ×4 (06:22→22:09)
[2016-08-06] MEDS: guaiFENesin E.R. 600 MG TAB PO SCH ×2 (09:00→22:04)
[2016-08-06] MEDS: DOCUSATE SODIUM 100 MG CAP PO SCH ×2 (09:00→22:04)
[2016-08-06] MEDS: SODIUM CHLORIDE 0.9% FLUSH 10 ML FLUSH IV FLUSH SCH ×2 (09:00→22:05)
--- NOTE | 2016-08-06 10:01 | HHI.PR ---
Subjective Remarks This is a 55 year old male who presents to the emergency department with 6 months of hemoptysis with rust colored sputum, shortness of breath, worse with exertion, improved with rest associated with 25 pounds weight loss and generalized fatigue. Patient has a long smoking history. He has no primary care physician and doesn't have insurance. Patient seen in ER, as per patient he states he started with Hemoptysis three months ago but was improving with time, he has productive cough, worsening Fatigue, and weakness with exertion. Shortness of breath. states has no insurance and no Medical Doctor, do not take anything for Diabetes. 08/05: Status post CT guided percutaneous Lung Biopsy. 08/06: Stable in her bedroom, no new issues, awaiting for pathology report and plan of care by specialists, his Girlfriend Miss Cortez in the room No nausea, vomit or diarrhea. Objective Vital Signs Date Time Temp Pulse Resp B/P Pulse Ox O2 Delivery O2 Flow Rate FiO2 08/06/16 08:00 97.7 103 16 99/65 95 08/06/16 04:00 Room Air 08/06/16 04:00 98.5 104 20 110/70 93 08/06/16 03:48 96 21 08/06/16 00:35 94 21 08/06/16 00:00 99.1 108 20 109/59 96 08/06/16 00:00 Room Air 08/05/16 21:17 98 21 08/05/16 20:29 108 08/05/16 20:00 99.3 107 20 116/70 94 08/05/16 20:00 Room Air 08/05/16 16:00 99.7 104 18 132/85 97 08/05/16 11:30 95 20 120/84 94 08/05/16 11:30 94 Nasal Cannula 2.00 08/05/16 11:00 97 Nasal Cannula 2.00 08/05/16 11:00 96 20 111/74 97 08/05/16 10:30 98 20 90/56 95 08/05/16 10:30 95 Nasal Cannula 2.00 08/05/16 10:15 100 18 90/56 94 08/05/16 10:15 96 Nasal Cannula 2.00 I/O 08/05/16 08/05/16 08/05/16 08/06/16 08/06/16 08/06/16 07:00 15:00 23:00 07:00 15:00 23:00 Intake Total 822 ml 120 ml 1877 ml 1171 ml Balance 822 ml 120 ml 1877 ml 1171 ml Intake Oral 120 ml 1000 ml 360 ml IV Total 822 ml 877 ml 811 ml # Voids 2 3 3 # Bowel Movements 0 0 0 Result Diagram: 08/05/16 1419 08/05/16 1419 Imaging Last Impressions Chest X-Ray 08/05/16 0000 Signed Impressions: Service Date/Time: July 11:47 - CONCLUSION: 1. There is no evidence of pneumothorax. Akash Wagner MD Abdomen/Pelvis CT 08/05/16 0000 Signed Impressions: Service Date/Time: July 01:22 - CONCLUSION: 1. Cirrhotic appearing liver with fatty infiltration. 2. Multiple gastric varices. 3. Nonspecific, nonobstructive bowel gas pattern most consistent with an ileus. 4. The known cavitary mass and probable adenopathy are again visualized in the anterior right lung base. Vickey Medina MD Lung Biopsy CT 08/04/16 0000 Signed Impressions: Service Date/Time: July 09:21 - CONCLUSION: Uncomplicated CT guided biopsy. Akash Wagner MD CT Angiography 08/04/16 0000 Signed Impressions: Service Date/Time: Thursday, August 04, 2016 11:47 - CONCLUSION: 1. No evidence of pulmonary embolism. 2. 5.5 cm right middle lobe mass suspicious for malignancy with possible metastatic adenopathy. This would be accessible to percutaneous biopsy. PET/CT scan is recommended to further evaluation if clinically indicated. Akash Wagner MD Procedures Status post Percutaneous CT guided Lung Biopsy 08/05/16 Other Results Laboratory Tests Test 08/04/16 08/04/16 08/04/16 08/04/16 09:34 10:55 14:35 17:30 Hemoglobin A1c 12.2 % Total Bilirubin 1.5 MG/DL Aspartate Amino Transf 29 U/L (AST/SGOT) Alanine Aminotransferase 22 U/L (ALT/SGPT) Alkaline Phosphatase 133 U/L Total Protein 9.0 GM/DL Albumin 2.6 GM/DL Triglycerides Level 119 MG/DL Cholesterol Level 142 MG/DL LDL Cholesterol 101 MG/DL HDL Cholesterol 16.9 MG/DL Cholesterol/HDL Ratio 8.40 RATIO Free Thyroxine 1.33 NG/DL Thyroid Stimulating Hormone 1.570 uIU/ML 3rd Gen B-Type Natriuretic Peptide 52 PG/ML Activated Partial 27.1 SEC Thromboplast Time Urine Color YELLOW Urine Turbidity CLEAR Urine pH 8.0 Urine Specific [place] 1.042 Urine Protein TRACE mg/dL Urine Glucose (UA) 1000 mg/dL Urine Ketones 40 mg/dL Urine Occult Blood NEG Urine Nitrite NEG Urine Bilirubin NEG Urine Urobilinogen 2.0 MG/DL Urine Leukocyte Esterase NEG Urine RBC 1 /hpf Urine WBC LESS THAN 1 /hpf Urine Squamous Epithelial <1 /hpf Cells Microscopic Urinalysis Comment CULT NOT INDICATED Test 08/05/16 14:19 White Blood Count 11.8 TH/MM3 Red Blood Count 3.91 MIL/MM3 Hemoglobin 12.6 GM/DL Hematocrit 38.3 % Mean Corpuscular Volume 97.8 FL Mean Corpuscular Hemoglobin 32.1 PG Mean Corpuscular Hemoglobin 32.8 % Concent Red Cell Distribution Width 13.2 % Platelet Count 160 TH/MM3 Mean Platelet Volume 9.1 FL Neutrophils (%) (Auto) 74.3 % Lymphocytes (%) (Auto) 16.3 % Monocytes (%) (Auto) 8.0 % Eosinophils (%) (Auto) 1.1 % Basophils (%) (Auto) 0.3 % Neutrophils # (Auto) 8.8 TH/MM3 Lymphocytes # (Auto) 1.9 TH/MM3 Monocytes # (Auto) 0.9 TH/MM3 Eosinophils # (Auto) 0.1 TH/MM3 Basophils # (Auto) 0.0 TH/MM3 CBC Comment DIFF FINAL Differential Comment Prothrombin Time 14.7 SEC Prothromb Time International 1.3 RATIO Ratio Sodium Level 134 MEQ/L Potassium Level 3.6 MEQ/L Chloride Level 98 MEQ/L Carbon Dioxide Level 28.0 MEQ/L Anion Gap 8 MEQ/L Blood Urea Nitrogen 8 MG/DL Creatinine 0.74 MG/DL Estimat Glomerular Filtration 110 ML/MIN Rate Random Glucose 244 MG/DL Calcium Level 8.8 MG/DL Objective Remarks GENERAL: Thin in no acute distress SKIN: Focused skin assessment warm and dry. HEAD: Atraumatic. Normocephalic. EYES: Pupils equal and round. No injection or drainage. ENT: Moist mucous membranes NECK: Trachea midline. CARDIOVASCULAR: Regular rate and rhythm. No murmur appreciated. RESPIRATORY: Clear to auscultation. Breath sounds equal bilaterally. GASTROINTESTINAL: Abdomen soft, non-tender, nondistended. MUSCULOSKELETAL: No obvious deformities. NEUROLOGICAL: Awake and alert. No obvious cranial nerve deficits. Moving all extremities. PSYCHIATRIC: Appropriate mood and affect; insight and judgment normal. Medications and IVs Current Medications Medications (Trade) Dose Ordered Sig/Ernestina Route Start Time Stop Time Status Last Admin (NS 1000 ml Inj) 1,000 ml @ 100 mls/hr Q10H IV 08/04/16 13:31 08/06/16 01:55 (NS Flush) 2 ml UNSCH PRN IV FLUSH 08/04/16 13:45 (NS Flush) 2 ml BID IV FLUSH 08/04/16 21:00 08/06/16 09:00 (Tylenol) 650 mg Q4H PRN PO 08/04/16 13:45 (Zofran Inj) 4 mg Q6H PRN IVP 08/04/16 13:45 (Dulcolax Supp) 10 mg DAILY PRN RECTAL 08/04/16 13:45 (Colace) 100 mg Q12HR PO 08/04/16 13:45 08/06/16 09:00 (Narcan Inj) 0.4 mg UNSCH PRN IV 08/04/16 13:45 (Levemir Inj) 10 units HS SQ 08/04/16 21:00 08/05/16 21:41 (D50w (Vial) Inj) 25 ml UNSCH PRN IV PUSH 08/04/16 14:15 (Glucagon Inj) 1 mg UNSCH PRN OTHER 08/04/16 14:15 Guaifenesin 600 mg 600 mg BID PO 08/04/16 21:00 08/06/16 09:00 Multivitamins 10 ml/Folic Acid 1 mg/Sodium Chloride 510.2 ml @ 125 mls/hr Q24H IV 08/04/16 17:00 08/09/16 16:59 08/05/16 15:27 (Thiamine Inj/NS Inj) 101 ml @ 100 mls/hr Q24H IV 08/04/16 16:00 08/06/16 17:01 08/05/16 15:27 (Vitamin B1) 100 mg DAILY PO 08/07/16 09:00 (Ativan Inj) 1 mg Q6H PRN IV PUSH 08/04/16 15:45 08/05/16 22:36 (Romazicon Inj) 0.2 mg Q1M PRN IV PUSH 08/05/16 08:45 (Ativan) 1 mg Q4H PRN PO 08/05/16 08:45 08/06/16 01:55 (Ativan Inj) 1 mg Q4H PRN IV PUSH 08/05/16 08:45 (Ativan) 2 mg Q2H PRN PO 08/05/16 08:45 (Ativan Inj) 2 mg Q2H PRN IV PUSH 08/05/16 08:45 (Ativan Inj) 2 mg Q1H PRN IV PUSH 08/05/16 08:45 (Ativan Inj) 2 mg Q15M PRN IV PUSH 08/05/16 08:45 (Librium) 25 mg TID PRN PO 08/05/16 08:45 (Percocet 5-325 Mg) 1 tab Q4H PRN PO 08/05/16 12:00 08/06/16 06:02 A/P Assessment and Plan 1. Hemoptysis secondary to #2 2. Lung mass status post CTA has no pulmonary emboli, 5.5 CM right middle lobe mass suspicious for malignancy with possible Metastatic adenopathy. Status post CT guided percutaneous biopsy . PET/CT scan recommended. materials specialist following doctor Chew. bronchodilator, Mucolytic and incentive spirometry. 3 Tobacco dependence strongly recommended to stop smoking 4. Alcohol abuse and dependence strongly recommended to stop drinking alcohol CIWA protocol started 5. DM II Poorly controlled Hemoglobin A1C 12.2 Uncontrolled blood sugar, increased Levemir to 15 units BID, started on Scheduled Regular Insulin to 5 units with every meal and continue Moderate sliding scale. DVT prophylaxis SCDs. Code Status full Code. Discussed Condition With Patient and nurse Miss Knott and with his Girlfriend Miss Cortez, all questions answered to the best of my abilities. Discharge Planning Once cleared by materials specialist. Emil Powers MD August 06, 2016 10:01
[2016-08-06] MEDS ORDERED: INSULIN DETEMIR 100 UNITS/ML VIAL SQ SCH (10:15)
--- NOTE | 2016-08-06 11:05 | PD.ONC.PN ---
Subjective Subjective Remarks Afebrile overnight. Patient complaining of pain in shins and forearms. He is eager to know the results of his biopsy. Denies bowel or bladder disturbance. Objective Data Date Time Temp Pulse Resp B/P Pulse Ox O2 Delivery O2 Flow Rate FiO2 08/06/16 08:00 97.7 103 16 99/65 95 08/06/16 07:00 95 Room Air 08/06/16 04:00 Room Air 08/06/16 04:00 98.5 104 20 110/70 93 08/06/16 03:48 96 21 08/06/16 00:35 94 21 08/06/16 00:00 99.1 108 20 109/59 96 08/06/16 00:00 Room Air 08/05/16 21:17 98 21 08/05/16 20:29 108 08/05/16 20:00 99.3 107 20 116/70 94 08/05/16 20:00 Room Air 08/05/16 16:00 99.7 104 18 132/85 97 08/05/16 11:30 95 20 120/84 94 08/05/16 11:30 94 Nasal Cannula 2.00 08/06/16 08/06/16 08/06/16 07:00 15:00 23:00 Intake Total 1171 ml Balance 1171 ml Result Diagram: 08/05/16 1419 08/05/16 1419 Laboratory Results Laboratory Tests Test 08/05/16 14:19 White Blood Count 11.8 TH/MM3 Red Blood Count 3.91 MIL/MM3 Hemoglobin 12.6 GM/DL Hematocrit 38.3 % Mean Corpuscular Volume 97.8 FL Mean Corpuscular Hemoglobin 32.1 PG Mean Corpuscular Hemoglobin 32.8 % Concent Red Cell Distribution Width 13.2 % Platelet Count 160 TH/MM3 Mean Platelet Volume 9.1 FL Neutrophils (%) (Auto) 74.3 % Lymphocytes (%) (Auto) 16.3 % Monocytes (%) (Auto) 8.0 % Eosinophils (%) (Auto) 1.1 % Basophils (%) (Auto) 0.3 % Neutrophils # (Auto) 8.8 TH/MM3 Lymphocytes # (Auto) 1.9 TH/MM3 Monocytes # (Auto) 0.9 TH/MM3 Eosinophils # (Auto) 0.1 TH/MM3 Basophils # (Auto) 0.0 TH/MM3 CBC Comment DIFF FINAL Differential Comment Prothrombin Time 14.7 SEC Prothromb Time International 1.3 RATIO Ratio Sodium Level 134 MEQ/L Potassium Level 3.6 MEQ/L Chloride Level 98 MEQ/L Carbon Dioxide Level 28.0 MEQ/L Anion Gap 8 MEQ/L Blood Urea Nitrogen 8 MG/DL Creatinine 0.74 MG/DL Estimat Glomerular Filtration 110 ML/MIN Rate Random Glucose 244 MG/DL Calcium Level 8.8 MG/DL Hepatitis A IgM Antibody NEGATIVE Hepatitis B Surface Antigen NEGATIVE Hepatitis B Core IgM Antibody NEGATIVE Hepatitis C Antibody NEGATIVE Administered Medications Medications (Trade) Dose Ordered Sig/Ernestina Route PRN Reason Start Time Stop Time Status Last Admin Dose Admin Sodium Chloride (NS Flush) 2 ml BID IV FLUSH 08/04/16 21:00 08/06/16 09:00 Docusate Sodium (Colace) 100 mg Q12HR PO 08/04/16 13:45 08/06/16 09:00 Insulin Detemir (Levemir Inj) 10 units HS SQ 08/04/16 21:00 08/05/16 21:41 Guaifenesin 600 mg 600 mg BID PO 08/04/16 21:00 08/06/16 09:00 Multivitamins 10 ml/Folic Acid 1 mg/Sodium Chloride 510.2 ml @ 125 mls/hr Q24H IV 08/04/16 17:00 08/09/16 16:59 08/05/16 15:27 Thiamine HCl/ Sodium Chloride (Thiamine Inj/NS Inj) 101 ml @ 100 mls/hr Q24H IV 08/04/16 16:00 08/06/16 17:01 08/05/16 15:27 Lorazepam (Ativan Inj) 1 mg Q6H PRN IV PUSH MODERATE TO SEVERE ANXIETY 08/04/16 15:45 08/05/16 22:36 Lorazepam (Ativan) 1 mg Q4H PRN PO CIWA 8 - 10 08/05/16 08:45 08/06/16 01:55 Oxycodone/ Acetaminophen (Percocet 5-325 Mg) 1 tab Q4H PRN PO PAIN SCALE 1 TO 10 08/05/16 12:00 08/06/16 06:02 Objective Remarks GENERAL: Middle aged male, sitting up in bed eating lunch SKIN: Warm and dry. HEAD: Normocephalic. EYES: No scleral icterus. No injection or drainage. NECK: Supple, trachea midline. CARDIOVASCULAR: Regular rate and rhythm RESPIRATORY: diminished at bases, on 2L O2 via NC GASTROINTESTINAL: Abdomen soft, non-tender, nondistended. MUSCULOSKELETAL: No cyanosis NEURO: awake and alert. normal speech. moving extremities. Assessment/Plan Problem List: (1) Lung mass Status: Acute Plan: --Right middle lobe lung mass measured 5.5 cm with central cavitation. --CT also showed borderline enlarged right paratracheal and precarinal lymph node. ++40 pack-year smoking history. --is a primary bronchogenic carcinoma until proven otherwise. --CT c/a/p: cirrhotic liver with fatty infiltration -- bone scan. --biopsy right middle lobe lung mass through IR --case management consulted--patient without insurance. Assessment 55y/o male with a lung mass. Presented to the hospital with complaint of hemoptysis x3 months + 25lb weight loss h/o Diabetes mellitus. Peripheral neuropathy. Plan 1. consult radiation oncology 2. await bone scan 3. continue supportive care Attending Statement The exam, history, and the medical decision-making described in the above note were completed with the assistance of the mid-level provider. I reviewed and agree with the findings presented. I attest that I had a [id number] encounter with the patient on the same day, and personally performed and documented my assessment and findings in the medical record. Hemoptysis stable. Bone scan pending. Final path pending. Will likely need XRT for hemoptysis. Consult Radiation oncology. Discussed with Dr. Wiseman. Charlee Chaudhary August 06, 2016 11:05 Osvaldo Cm MD August 06, 2016 18:50
--- NOTE | 2016-08-06 15:44 | RADRPT ---
EXAM DATE/TIME: 08/05/2016 12:27 [facility] COMPARISON: No previous studies available for comparison. PRIOR BONE SCANS: No correlative bone scan available for comparison. INDICATIONS : Lung cancer. DOSE: 31.7 mCi Tc99m MDP IV IMAGING: SPECT/CT imaging with fusion was performed. RADIATION DOSE: 4.67 CTDIvol (mGy) MEDICAL HISTORY : Diabetes mellitus type 2. Hypertension. Hypercholesterolemia. Smoker. SURGICAL HISTORY : None. ENCOUNTER: Initial ACUITY: 1 day PAIN SCALE: 0/10 LOCATION: Lungs. TECHNIQUE: Three hours post intravenous administration of radiotracer, whole body bone scan imaging was performe d. FINDINGS: Images demonstrate a homogeneous pattern of uptake in the soft tissue. No hyperemic areas are identi fied. Whole body bone scan demonstrates increased uptake in the right ribs laterally no evidence one of these is associated with an old fracture and no discrete mass is identified and this is likely tr aumatic. The kidneys and bladder appear normal. To further evaluate the rib abnormalities, SPECT imaging was performed in sagittal, axial and coronal planes. Attenuation correction was performed with computed tomography and both the attenuation alondra ection and non-attenuation corrected data sets were reviewed. The CT images demonstrate fracture at o ne of the levels with the other demonstrate increased activity at the costochondral junction. CONCLUSION: 1. No evidence of metastatic disease. 2. Traumatic changes involving the right ribs Akash Wagner MD on August 06, 2016 at 14:23 Board Certified Radiologist. This report was verified electronically.
[2016-08-06] MEDS: THIAMINE INJ 100 MG in SODIUM CHLORIDE 0.9% INJ 100 ML IV SCH (16:00)
[2016-08-06] MEDS: MULTIVITAMIN INJ 10 ML, FOLIC ACID INJ 1 MG in SODIUM CHLORID 0.9% 500 ML INJ 500 ML IV SCH (18:36)
[2016-08-06] MEDS: INSULIN DETEMIR 100 UNITS/ML VIAL SQ SCH (22:08)
[2016-08-06] MEDS: LORazepam 2 MG/ML VIAL IV PUSH PRN (22:10)
[2016-08-07] VITALS (7 sets, daily range): BP systolic 107–138; BP diastolic 71–83; PULSE 94–99; RESP 16–22; TEMP 97.9–98.6; O2SAT 91–96
[2016-08-07] MEDS: oxyCODONE/ACETAMINOPHEN 5 MG/325 MG TAB PO PRN ×4 (06:28→21:50)
[2016-08-07] MEDS: INSULIN NovoLIN REGULAR SUPPLEMENTAL SCALE SQ SCH ×4 (06:28→21:00)
[2016-08-07] MEDS: RESP: ALBUTEROL 2.5 MG/IPRATROPIUM 0.5 MG NEB (SCH) NEB ×5 (07:50→20:00)
[2016-08-07] MEDS: THIAMINE HCL 100 MG TAB PO SCH (09:00)
[2016-08-07] MEDS: SODIUM CHLORIDE 0.9% FLUSH 10 ML FLUSH IV FLUSH SCH ×2 (09:00→21:00)
[2016-08-07] MEDS: DOCUSATE SODIUM 100 MG CAP PO SCH ×2 (09:06→21:51)
[2016-08-07] MEDS: guaiFENesin E.R. 600 MG TAB PO SCH ×2 (09:06→21:51)
[2016-08-07] MEDS: INSULIN DETEMIR 100 UNITS/ML VIAL SQ SCH ×2 (09:40→21:54)
[2016-08-07] MEDS: INSULIN HUMAN REGULAR 1,000 UNITS/10 ML VIAL SQ SCH ×3 (09:41→16:33)
--- NOTE | 2016-08-07 11:23 | HHI.PR ---
Subjective Remarks This is a 55 year old male who presents to the emergency department with 6 months of hemoptysis with rust colored sputum, shortness of breath, worse with exertion, improved with rest associated with 25 pounds weight loss and generalized fatigue. Patient has a long smoking history. He has no primary care physician and doesn't have insurance. Patient seen in ER, as per patient he states he started with Hemoptysis three months ago but was improving with time, he has productive cough, worsening Fatigue, and weakness with exertion. Shortness of breath. states has no insurance and no Medical Doctor, do not take anything for Diabetes. 08/05: Status post CT guided percutaneous Lung Biopsy. 08/06: Stable in her bedroom, no new issues, awaiting for pathology report and plan of care by specialists, his Girlfriend Miss Cortez in the room 08/07: No signs of withdrawal, no complaint, no nausea, vomit or diarrhea. Objective Vital Signs Date Time Temp Pulse Resp B/P Pulse Ox O2 Delivery O2 Flow Rate FiO2 08/07/16 08:00 Room Air 08/07/16 07:50 97.9 96 20 125/82 91 08/07/16 04:00 98.6 99 20 135/83 93 08/07/16 04:00 Room Air 08/07/16 00:11 98.2 96 16 107/71 93 08/07/16 00:00 Room Air 08/06/16 20:00 Room Air 08/06/16 20:00 98.3 95 16 127/78 93 08/06/16 20:00 91 08/06/16 16:00 98.1 93 16 121/64 92 08/06/16 12:00 97.6 88 16 123/71 93 I/O 08/06/16 08/06/16 08/06/16 08/07/16 08/07/16 08/07/16 07:00 15:00 23:00 07:00 15:00 23:00 Intake Total 1171 ml 648 ml 720 ml 750 ml Output Total 300 ml Balance 1171 ml 648 ml 720 ml 450 ml Intake Oral 360 ml 648 ml 720 ml 750 ml IV Total 811 ml Output Urine Total 300 ml # Voids 3 2 2 # Bowel Movements 0 0 0 Result Diagram: 08/05/16 1419 08/05/16 1419 Imaging Last Impressions SPECT Scan-Bone Nuclear Medicine 08/05/16 0000 Signed Impressions: Service Date/Time: July 12:27 - CONCLUSION: 1. No evidence of metastatic disease. 2. Traumatic changes involving the right ribs Akash Wagner MD Chest X-Ray 08/05/16 0000 Signed Impressions: Service Date/Time: July 11:47 - CONCLUSION: 1. There is no evidence of pneumothorax. Akash Wagner MD Abdomen/Pelvis CT 08/05/16 0000 Signed Impressions: Service Date/Time: July 01:22 - CONCLUSION: 1. Cirrhotic appearing liver with fatty infiltration. 2. Multiple gastric varices. 3. Nonspecific, nonobstructive bowel gas pattern most consistent with an ileus. 4. The known cavitary mass and probable adenopathy are again visualized in the anterior right lung base. Vickey Medina MD Lung Biopsy CT 08/04/16 0000 Signed Impressions: Service Date/Time: July 09:21 - CONCLUSION: Uncomplicated CT guided biopsy. Akash Wagner MD CT Angiography 08/04/16 0000 Signed Impressions: Service Date/Time: Thursday, August 04, 2016 11:47 - CONCLUSION: 1. No evidence of pulmonary embolism. 2. 5.5 cm right middle lobe mass suspicious for malignancy with possible metastatic adenopathy. This would be accessible to percutaneous biopsy. PET/CT scan is recommended to further evaluation if clinically indicated. Akash Wagner MD Procedures Status post Percutaneous CT guided Lung Biopsy 08/05/16 Other Results Laboratory Tests Test 08/04/16 08/04/16 08/04/16 08/04/16 09:34 10:55 14:35 17:30 Hemoglobin A1c 12.2 % Total Bilirubin 1.5 MG/DL Aspartate Amino Transf 29 U/L (AST/SGOT) Alanine Aminotransferase 22 U/L (ALT/SGPT) Alkaline Phosphatase 133 U/L Total Protein 9.0 GM/DL Albumin 2.6 GM/DL Triglycerides Level 119 MG/DL Cholesterol Level 142 MG/DL LDL Cholesterol 101 MG/DL HDL Cholesterol 16.9 MG/DL Cholesterol/HDL Ratio 8.40 RATIO Free Thyroxine 1.33 NG/DL Thyroid Stimulating Hormone 1.570 uIU/ML 3rd Gen B-Type Natriuretic Peptide 52 PG/ML Activated Partial 27.1 SEC Thromboplast Time Urine Color YELLOW Urine Turbidity CLEAR Urine pH 8.0 Urine Specific [place] 1.042 Urine Protein TRACE mg/dL Urine Glucose (UA) 1000 mg/dL Urine Ketones 40 mg/dL Urine Occult Blood NEG Urine Nitrite NEG Urine Bilirubin NEG Urine Urobilinogen 2.0 MG/DL Urine Leukocyte Esterase NEG Urine RBC 1 /hpf Urine WBC LESS THAN 1 /hpf Urine Squamous Epithelial <1 /hpf Cells Microscopic Urinalysis Comment CULT NOT INDICATED Test 08/05/16 14:19 White Blood Count 11.8 TH/MM3 Red Blood Count 3.91 MIL/MM3 Hemoglobin 12.6 GM/DL Hematocrit 38.3 % Mean Corpuscular Volume 97.8 FL Mean Corpuscular Hemoglobin 32.1 PG Mean Corpuscular Hemoglobin 32.8 % Concent Red Cell Distribution Width 13.2 % Platelet Count 160 TH/MM3 Mean Platelet Volume 9.1 FL Neutrophils (%) (Auto) 74.3 % Lymphocytes (%) (Auto) 16.3 % Monocytes (%) (Auto) 8.0 % Eosinophils (%) (Auto) 1.1 % Basophils (%) (Auto) 0.3 % Neutrophils # (Auto) 8.8 TH/MM3 Lymphocytes # (Auto) 1.9 TH/MM3 Monocytes # (Auto) 0.9 TH/MM3 Eosinophils # (Auto) 0.1 TH/MM3 Basophils # (Auto) 0.0 TH/MM3 CBC Comment DIFF FINAL Differential Comment Prothrombin Time 14.7 SEC Prothromb Time International 1.3 RATIO Ratio Sodium Level 134 MEQ/L Potassium Level 3.6 MEQ/L Chloride Level 98 MEQ/L Carbon Dioxide Level 28.0 MEQ/L Anion Gap 8 MEQ/L Blood Urea Nitrogen 8 MG/DL Creatinine 0.74 MG/DL Estimat Glomerular Filtration 110 ML/MIN Rate Random Glucose 244 MG/DL Calcium Level 8.8 MG/DL Hepatitis A IgM Antibody NEGATIVE Hepatitis B Surface Antigen NEGATIVE Hepatitis B Core IgM Antibody NEGATIVE Hepatitis C Antibody NEGATIVE Objective Remarks GENERAL: Thin in no acute distress SKIN: Focused skin assessment warm and dry. HEAD: Atraumatic. Normocephalic. EYES: Pupils equal and round. No injection or drainage. ENT: Moist mucous membranes NECK: Trachea midline. CARDIOVASCULAR: Regular rate and rhythm. No murmur appreciated. RESPIRATORY: Clear to auscultation. Breath sounds equal bilaterally. GASTROINTESTINAL: Abdomen soft, non-tender, nondistended. MUSCULOSKELETAL: No obvious deformities. NEUROLOGICAL: Awake and alert. No obvious cranial nerve deficits. Moving all extremities. PSYCHIATRIC: Appropriate mood and affect; insight and judgment normal. Medications and IVs Current Medications Medications (Trade) Dose Ordered Sig/Ernestina Route Start Time Stop Time Status Last Admin (NS Flush) 2 ml UNSCH PRN IV FLUSH 08/04/16 13:45 (NS Flush) 2 ml BID IV FLUSH 08/04/16 21:00 08/07/16 09:00 (Tylenol) 650 mg Q4H PRN PO 08/04/16 13:45 (Zofran Inj) 4 mg Q6H PRN IVP 08/04/16 13:45 (Dulcolax Supp) 10 mg DAILY PRN RECTAL 08/04/16 13:45 (Colace) 100 mg Q12HR PO 08/04/16 13:45 08/07/16 09:06 (Narcan Inj) 0.4 mg UNSCH PRN IV 08/04/16 13:45 (D50w (Vial) Inj) 25 ml UNSCH PRN IV PUSH 08/04/16 14:15 (Glucagon Inj) 1 mg UNSCH PRN OTHER 08/04/16 14:15 Guaifenesin 600 mg 600 mg BID PO 08/04/16 21:00 08/07/16 09:06 (Mvi-12 Inj/ Folvite Inj/NS 500 ml Inj) 510.2 ml @ 125 mls/hr Q24H IV 08/04/16 17:00 08/09/16 16:59 08/06/16 18:36 (Vitamin B1) 100 mg DAILY PO 08/07/16 09:00 08/07/16 09:00 (Ativan Inj) 1 mg Q6H PRN IV PUSH 08/04/16 15:45 08/06/16 22:10 (Romazicon Inj) 0.2 mg Q1M PRN IV PUSH 08/05/16 08:45 (Ativan) 1 mg Q4H PRN PO 08/05/16 08:45 08/06/16 01:55 (Ativan Inj) 1 mg Q4H PRN IV PUSH 08/05/16 08:45 (Ativan) 2 mg Q2H PRN PO 08/05/16 08:45 (Ativan Inj) 2 mg Q2H PRN IV PUSH 08/05/16 08:45 (Ativan Inj) 2 mg Q1H PRN IV PUSH 08/05/16 08:45 (Ativan Inj) 2 mg Q15M PRN IV PUSH 08/05/16 08:45 (Percocet 5-325 Mg) 1 tab Q4H PRN PO 08/05/16 12:00 08/07/16 06:28 (Levemir Inj) 15 units HS SQ 08/06/16 21:00 08/06/16 22:08 (Levemir Inj) 15 units DAILYAC SQ 08/07/16 08:00 08/07/16 09:40 (NovoLIN R INJ) 5 units TIDAC SQ 08/07/16 08:00 08/07/16 09:41 (Librium) 10 mg TID PRN PO 08/07/16 11:30 UNV A/P Assessment and Plan 1. Hemoptysis secondary to #2 2. Lung mass status post CTA has no pulmonary emboli, 5.5 CM right middle lobe mass suspicious for malignancy with possible Metastatic adenopathy. Status post CT guided percutaneous biopsy . PET/CT scan recommended. psychiatric specialist following doctor Chew. bronchodilator, Mucolytic and incentive spirometry. 3 Tobacco dependence strongly recommended to stop smoking 4. Alcohol abuse and dependence strongly recommended to stop drinking alcohol CIWA protocol started, no signs of Withdrawal 5. DM II Poorly controlled Hemoglobin A1C 12.2 better control today continue Levemir to 15 units BID, Schedule Regular Insulin to 5 units with every meal and continue Moderate sliding scale. DVT prophylaxis SCDs. Code Status full Code. Discussed Condition With Patient, all questions answered to the best of my abilities. Removed Telemetry and Encourage activity. Discharge Planning Once cleared by psychiatric specialist. Emil Powers MD August 07, 2016 11:23
[2016-08-07] MEDS: MULTIVITAMIN INJ 10 ML, FOLIC ACID INJ 1 MG in SODIUM CHLORID 0.9% 500 ML INJ 500 ML IV SCH (16:44)
[2016-08-07] MEDS: chlordiazePOXIDE 25 MG CAP PO PRN (21:51)
[2016-08-08] VITALS: BP 96/56; PULSE 92; RESP 20; O2SAT 96
[2016-08-08] MEDS: RESP: ALBUTEROL 2.5 MG/IPRATROPIUM 0.5 MG NEB (SCH) NEB ×4 (01:04→12:35)
[2016-08-08] MEDS: oxyCODONE/ACETAMINOPHEN 5 MG/325 MG TAB PO PRN ×5 (02:27→20:08)
[2016-08-08] MEDS: INSULIN NovoLIN REGULAR SUPPLEMENTAL SCALE SQ SCH ×4 (05:23→20:08)
[2016-08-08 06:00] VITALS: BP 110/60; PULSE 95; RESP 20; TEMP 98.6; O2SAT 96
[2016-08-08 08:00] VITALS: BP 112/69; PULSE 95; RESP 18; TEMP 97.9; O2SAT 94
[2016-08-08] MEDS: INSULIN HUMAN REGULAR 1,000 UNITS/10 ML VIAL SQ SCH ×3 (08:00→16:20)
[2016-08-08] MEDS: SODIUM CHLORIDE 0.9% FLUSH 10 ML FLUSH IV FLUSH SCH ×2 (08:42→20:08)
[2016-08-08] MEDS: guaiFENesin E.R. 600 MG TAB PO SCH ×2 (08:42→20:08)
[2016-08-08] MEDS: THIAMINE HCL 100 MG TAB PO SCH (08:42)
[2016-08-08] MEDS: DOCUSATE SODIUM 100 MG CAP PO SCH ×2 (08:42→20:08)
[2016-08-08] MEDS: INSULIN DETEMIR 100 UNITS/ML VIAL SQ SCH ×2 (08:46→20:08)
[2016-08-08 12:00] VITALS: BP 113/68; PULSE 90; RESP 18; TEMP 98.2; O2SAT 94
--- NOTE | 2016-08-08 15:23 | HHI.PR ---
Subjective Remarks patient no pain complains, no further hemoptysis but having dark yellow colored sputum no pain complains at this moment Objective Vitals Vital Signs Date Time Temp Pulse Resp B/P Pulse Ox O2 Delivery O2 Flow Rate FiO2 08/08/16 12:00 98.2 90 18 113/68 94 08/08/16 08:00 Room Air 2.00 08/08/16 08:00 97.9 95 18 112/69 94 08/08/16 06:00 98.6 95 20 110/60 96 08/08/16 00:00 92 20 96/56 96 08/07/16 21:30 Room Air 08/07/16 20:00 98.3 99 22 118/76 95 08/07/16 15:50 98.1 94 20 138/81 96 I/O 08/07/16 08/07/16 08/07/16 08/08/16 08/08/16 08/08/16 07:00 15:00 23:00 07:00 15:00 23:00 Intake Total 750 ml 480 ml 242 ml 80 ml Output Total 300 ml 200 ml 600 ml Balance 450 ml 280 ml 242 ml -520 ml Intake Oral 750 ml 480 ml 240 ml IV Total 2 ml 80 ml Output Urine Total 300 ml 200 ml 600 ml # Voids 3 2 # Bowel Movements 0 0 0 Result Diagram: 08/05/16 1419 08/05/16 1419 Imaging Last Impressions SPECT Scan-Bone Nuclear Medicine 08/05/16 0000 Signed Impressions: Service Date/Time: July 12:27 - CONCLUSION: 1. No evidence of metastatic disease. 2. Traumatic changes involving the right ribs Akash Wagner MD Chest X-Ray 08/05/16 0000 Signed Impressions: Service Date/Time: July 11:47 - CONCLUSION: 1. There is no evidence of pneumothorax. Akash Wagner MD Abdomen/Pelvis CT 08/05/16 0000 Signed Impressions: Service Date/Time: July 01:22 - CONCLUSION: 1. Cirrhotic appearing liver with fatty infiltration. 2. Multiple gastric varices. 3. Nonspecific, nonobstructive bowel gas pattern most consistent with an ileus. 4. The known cavitary mass and probable adenopathy are again visualized in the anterior right lung base. Vickey Medina MD Lung Biopsy CT 08/04/16 0000 Signed Impressions: Service Date/Time: July 09:21 - CONCLUSION: Uncomplicated CT guided biopsy. Akash Wagner MD CT Angiography 08/04/16 0000 Signed Impressions: Service Date/Time: Thursday, August 04, 2016 11:47 - CONCLUSION: 1. No evidence of pulmonary embolism. 2. 5.5 cm right middle lobe mass suspicious for malignancy with possible metastatic adenopathy. This would be accessible to percutaneous biopsy. PET/CT scan is recommended to further evaluation if clinically indicated. Akash Wagner MD Objective Remarks awake and alert, NAD anicteric no supraclavicular or axillary lymphadenopathy no rales or wheezes regular rhythm abdomen soft, nontender extremities no edema, no calf tenderness neuro exam- unremarkable Procedures CT guided lung biopsy A/P Assessment and Plan 55 years old male, smoke, chronic cough + weight loss admitted for 1. Hemoptysis secondary to #2- no further episodes 2. Lung mass status post CTA has no pulmonary emboli, 5.5 CM right middle lobe mass suspicious for malignancy with possible Metastatic adenopathy. Status post CT guided percutaneous biopsy . PET/CT scan recommended. plant specialist following doctor Chew. bronchodilator, Mucolytic and incentive spirometry. pathology still pending 3 Tobacco dependence strongly recommended to stop smoking 4. Alcohol abuse and dependence strongly recommended to stop drinking alcohol CIWA protocol started, no signs of Withdrawal 5. DM II Poorly controlled Hemoglobin A1C 12.2 better control today continue Levemir to 15 units BID, Schedule Regular Insulin to 5 units with every meal and continue Moderate sliding scale. dietitian consult and diabetes teaching/education continue current regimen and adjust patient up and ambulating- encouraged consult field nurse case manager- needs resources- self pay DVT prophylaxis JASPREETsEvelyn Dillon MD August 08, 2016 3:23 pm
[2016-08-08 16:00] VITALS: BP 132/64; PULSE 88; RESP 18; TEMP 97.9; O2SAT 93
[2016-08-08] MEDS: MULTIVITAMIN INJ 10 ML, FOLIC ACID INJ 1 MG in SODIUM CHLORID 0.9% 500 ML INJ 500 ML IV SCH (16:20)
[2016-08-08 20:00] VITALS: BP 130/81; PULSE 93; RESP 18; TEMP 98.5; O2SAT 96
[2016-08-09] VITALS: BP 110/72; PULSE 119; PULSE 90; RESP 18; TEMP 98.6; O2SAT 94
[2016-08-09] MEDS: oxyCODONE/ACETAMINOPHEN 5 MG/325 MG TAB PO PRN ×6 (00:14→20:46)
[2016-08-09 04:00] VITALS: BP 98/58; PULSE 90; RESP 18; TEMP 98.6; O2SAT 95
[2016-08-09] MEDS: INSULIN NovoLIN REGULAR SUPPLEMENTAL SCALE SQ SCH ×4 (04:23→20:46)
[2016-08-09 08:00] VITALS: BP 110/63; PULSE 90; RESP 16; TEMP 98.1; O2SAT 96
[2016-08-09] MEDS: INSULIN DETEMIR 100 UNITS/ML VIAL SQ SCH ×2 (08:00→20:50)
[2016-08-09] MEDS: INSULIN HUMAN REGULAR 1,000 UNITS/10 ML VIAL SQ SCH ×3 (08:00→16:28)
[2016-08-09] MEDS: THIAMINE HCL 100 MG TAB PO SCH (08:09)
[2016-08-09] MEDS: guaiFENesin E.R. 600 MG TAB PO SCH (08:09)
[2016-08-09] MEDS: SODIUM CHLORIDE 0.9% FLUSH 10 ML FLUSH IV FLUSH SCH ×2 (09:00→20:46)
[2016-08-09] MEDS: DOCUSATE SODIUM 100 MG CAP PO SCH ×2 (09:00→20:46)
--- NOTE | 2016-08-09 11:23 | PD.ONC.PN ---
Subjective Subjective Remarks Afebrile overnight. Patient resting comfortably without complaint. pathology remains pending. Objective Data Date Time Temp Pulse Resp B/P Pulse Ox O2 Delivery O2 Flow Rate FiO2 08/09/16 08:00 98.1 90 16 110/63 96 08/09/16 04:00 98.6 90 18 98/58 95 08/09/16 00:00 98.6 90 18 110/72 94 08/08/16 21:35 Room Air 08/08/16 20:00 98.5 93 18 130/81 96 08/08/16 16:00 97.9 88 18 132/64 93 08/08/16 12:00 98.2 90 18 113/68 94 08/09/16 08/09/16 08/09/16 07:00 15:00 23:00 Intake Total 240 ml Balance 240 ml Result Diagram: 08/05/16 1419 08/05/16 1419 Administered Medications Medications (Trade) Dose Ordered Sig/Ernestina Route PRN Reason Start Time Stop Time Status Last Admin Dose Admin Sodium Chloride (NS Flush) 2 ml BID IV FLUSH 08/04/16 21:00 08/08/16 20:08 Docusate Sodium (Colace) 100 mg Q12HR PO 08/04/16 13:45 08/08/16 20:08 Guaifenesin 600 mg 600 mg BID PO 08/04/16 21:00 08/09/16 08:09 Multivitamins/ Folic Acid/Sodium Chloride (Mvi-12 Inj/ Folvite Inj/NS 500 ml Inj) 510.2 ml @ 125 mls/hr Q24H IV 08/04/16 17:00 08/09/16 16:59 08/08/16 16:20 Thiamine HCl (Vitamin B1) 100 mg DAILY PO 08/07/16 09:00 08/09/16 08:09 Oxycodone/ Acetaminophen (Percocet 5-325 Mg) 1 tab Q4H PRN PO PAIN SCALE 1 TO 10 08/05/16 12:00 08/09/16 08:10 Insulin Detemir (Levemir Inj) 15 units HS SQ 08/06/16 21:00 08/07/16 21:54 Insulin Detemir (Levemir Inj) 15 units DAILYAC SQ 08/07/16 08:00 08/08/16 08:46 Insulin Human Regular (NovoLIN R INJ) 5 units TIDAC SQ 08/07/16 08:00 08/08/16 16:20 Chlordiazepoxide (Librium) 10 mg TID PRN PO SEVERE ANXIETY OR AGITATION 08/07/16 12:00 08/07/16 21:51 Objective Remarks GENERAL: Middle aged male, lying in bed. SKIN: Warm and dry. HEAD: Normocephalic. EYES: No scleral icterus. No injection or drainage. NECK: Supple, trachea midline. CARDIOVASCULAR: Regular rate and rhythm RESPIRATORY: diminished at bases, occasional rhonchi GASTROINTESTINAL: Abdomen soft, non-tender, nondistended. MUSCULOSKELETAL: No cyanosis NEURO: aox3. normal speech. moving all extremities. Assessment/Plan Problem List: (1) Lung mass Status: Acute Plan: --Right middle lobe lung mass measured 5.5 cm with central cavitation. --CT also showed borderline enlarged right paratracheal and precarinal lymph node. ++40 pack-year smoking history. --is a primary bronchogenic carcinoma until proven otherwise. --CT c/a/p: cirrhotic liver with fatty infiltration --bone scan: no mets --biopsy right middle lobe lung mass through IR --case management consulted--patient without insurance. Assessment 55y/o male with a lung mass. Presented to the hospital with complaint of hemoptysis x3 months + 25lb weight loss h/o Diabetes mellitus. Peripheral neuropathy. Plan 1. await pathology 2. will consult IR for port placement once pathology returns Attending Statement The exam, history, and the medical decision-making described in the above note were completed with the assistance of the mid-level provider. I reviewed and agree with the findings presented. I attest that I had a [id number] encounter with the patient on the same day, and personally performed and documented my assessment and findings in the medical record. Mild hemoptysis stable. Await final path. Likely will need Chemo/XRT if he has lung cancer. Will consult IR for port placement. Discussed with radiation oncology . Charlee Chaudhary August 09, 2016 11:23 Osvaldo Cm MD August 09, 2016 11:48
[2016-08-09 12:00] VITALS: BP 100/63; PULSE 93; RESP 18; TEMP 97.8; O2SAT 96
--- NOTE | 2016-08-09 14:18 | RC ---
cc: SHILOH FRANK MD,MD REENA VAZQUEZ,DILIP HINSON MD, M.D. DATE OF SERVICE August 06, 2016 DATE OF [address] Cm DIAGNOSIS Probable locally advanced lung carcinoma unknown type at the present time. STAGE Most likely a T4 N2 M0, grouping IIIB CHIEF COMPLAINT Hemoptysis, shortness of breath, loss of weight. REASON FOR VISIT The patient being evaluated for possible definitive radiotherapy treatment options. HISTORY OF PRESENT ILLNESS This 55-year-old white male which according to him, probably last three months, started having hemoptysis, usually more pronounced in the morning and as the day went through it got better. He also started complaining of increased weakness, increased shortness of breath, loss of weight. Due to the progressive symptoms he decided to come into the hospital and was evaluated and noted to have a lung mass. A biopsy has been performed and it is pending. I have discussed this case with Dr. Cm for possible radiation therapy and there is no need for emergent radiation therapy. I have been asked to see the patient in consult for recommendations regarding radiotherapy. PAST MEDICAL HISTORY As above. Also: 1. History of peripheral neuropathy. 2. And diabetes mellitus. MEDICATIONS 1. Thiamine. 2. Insulin. 3. Oxycodone. 4. Flumazenil. 5. Ativan. 6. Librium. 7. Nasonex. ALLERGIES NO KNOWN DRUG ALLERGIES. FAMILY HISTORY Brother with some sort of metastatic carcinoma. Does not remember. Father also apparently had some sort of carcinoma but apparently of dementia. I believe he stated also had a sister which had some sort carcinoma but he does not recall the type. SOCIAL HISTORY The patient says he drinks four beers a day. He also smokes a pack of cigarettes per day and has done so for the last 40 years. REVIEW OF SYSTEMS CONSTITUTIONAL: The patient admits to decrease in appetite and loss of weight. Denies any fevers or chills. ALLERGIES Has not had an allergic reaction recently. EYES: Unremarkable. ENT: Unremarkable. NECK: Unremarkable. INTEGUMENT: Unremarkable. CARDIOVASCULAR: Unremarkable. Denies any chest pain. No clinical signs of OR. No palpitations. RESPIRATORY: The patient with shortness of breath with exertion. Also with hemoptysis, more so in the morning than in the afternoon. GASTROINTESTINAL: Unremarkable. GENITOURINARY: Unremarkable. MUSCULOSKELETAL: The patient states that he feels like he has bone pain in the bilateral arms as well as the bilateral thighs. This has been going on for about three months. NEUROLOGIC: The patient says he has some headaches once in a while. Denies any nausea or vomiting. No motor function deficits. No decrease in cognitive functions. PSYCHIATRIC: Denies any suicidal thoughts or depression. ENDOCRINE: Diabetes. HEMATOLOGIC: Unremarkable. DERMATOLOGIC: Unremarkable. PHYSICAL EXAMINATION GENERAL: The patient alert and oriented times three. No major acute distress or discomfort at the present time. VITAL SIGNS: Temperature 98.5, pulse 104, respiratory rate 20, blood pressure 110/70, pulse ox 93% on oxygen. LUNGS: To auscultation there is decreased ventilatory respiratory effort which is quite noticeable but is equal and bilateral. Perhaps more in the right upper lobe but this is minimal compared to the other side. No rhonchus or wheezes were detected. HEART: Appears to be regular rate and rhythm. No murmurs. NECK: Palpation of the neck and bilateral supraclavicular areas free. ABDOMEN: To palpation of the abdominal cavity no hepatosplenomegaly was palpated. No pain elicited. NODES: Inguinal areas are free. EXTREMITIES: No lower extremity edema detected. NEUROLOGIC: The patient with no neurological deficit. Cognitive functions preserved. Motor functions preserved. Surgical pathology: biopsy of the lung performed, pending. IMAGING Radiology, repeat angiography 08/04/2016. Impression. No evidence of pulmonary embolism. A 5.5 right middle lobe mass suspicious for malignancy with possible metastatic adenopathy. This will be accessible to percutaneous biopsy. PET scan is recommended for evaluation and clinically indicated. Bone scan 08/06/2016. Impression. No evidence of metastatic disease, traumatic changes along the right ribs. Abdomen and pelvis CT. Impression. Cirrhotic appearing liver with fatty infiltration, multiple gastric varices. Nonspecific, nonobstructive bowel gas pattern most consistent with an ileus. And known cavitary mass and probable adenopathy are again visualized anterior to the right lung base. ASSESSMENT A 55-year-old white male diagnosis of locally advanced lung carcinoma. Biopsies pending. The patient being evaluated for possible radiotherapy treatment options. DISCUSSION AND PLAN An extensive discussion with the patient in regards to his present symptoms and condition. I have reviewed the CT of the chest. I discussed this case with Dr. Cm. I advised the patient that in his case surgical resection would not be a possibility and that if he has disease confined to the chest, then he could consider definite curative radiotherapy for cure. I explored the merits of the radiation therapy as well as the side effects and complications of the radiation therapy to include but not limited to weakness and fatigue,decreased blood counts, edema of the skin, necrosis of the skin, difficulty and pain when swallowing, esophageal strictures, lung damage, lung fibrosis, lung pneumonitis , the possibility of becoming oxygen dependent and pulmonary cripple, heart damage, nerve damage, spinal cord damage, bleeding. After a thorough discussion, he understood what was explained. He said that he wanted to be as aggressive as possible, wanted to get treated. I advised the patient if he continues to have issues with headaches to let me know and I will perform MRI of the brain. Probably we will wait until the patient get discharged since his hemoptysis has been somewhat stable and perform a PET scan also as part of the workup. The patient advised that I would also like to obtain a pulmonary function test. Per discussion we will proceed accordingly. The patient advised that if I could be of any further assistance to please let me know. Dr. Cm thank you much for referral of the patient and allowing me to participate in his care. Should you have any questions or concerns please do not hesitate to contact me. Shiloh Frank MD Radiation Oncologist CHRISTY SANTANA/ROBBIE /6:08 PM /2:10 PM VALERIA
[2016-08-09 16:00] VITALS: BP 117/81; PULSE 88; RESP 16; TEMP 98.5; O2SAT 94
--- NOTE | 2016-08-09 17:04 | HHI.PR ---
Subjective Remarks good readings with blood sugars minimal blood streaked sputum no cough or chest discomforts Objective Vitals Vital Signs Date Time Temp Pulse Resp B/P Pulse Ox O2 Delivery O2 Flow Rate FiO2 08/09/16 12:00 97.8 93 18 100/63 96 08/09/16 08:00 98.1 90 16 110/63 96 08/09/16 04:00 98.6 90 18 98/58 95 08/09/16 00:00 98.6 90 18 110/72 94 08/08/16 21:35 Room Air 08/08/16 20:00 98.5 93 18 130/81 96 I/O 08/08/16 08/08/16 08/08/16 08/09/16 08/09/16 08/09/16 07:00 15:00 23:00 07:00 15:00 23:00 Intake Total 80 ml 480 ml 742 ml 240 ml Output Total 600 ml Balance -520 ml 480 ml 742 ml 240 ml Intake Oral 480 ml 240 ml 240 ml IV Total 80 ml 502 ml Output Urine Total 600 ml # Voids 2 1 1 # Bowel Movements 0 0 0 Result Diagram: 08/05/16 1419 08/05/16 1419 Imaging Last Impressions SPECT Scan-Bone Nuclear Medicine 08/05/16 0000 Signed Impressions: Service Date/Time: July 12:27 - CONCLUSION: 1. No evidence of metastatic disease. 2. Traumatic changes involving the right ribs Akash Wagner MD Chest X-Ray 08/05/16 0000 Signed Impressions: Service Date/Time: July 11:47 - CONCLUSION: 1. There is no evidence of pneumothorax. Akash Wagner MD Abdomen/Pelvis CT 08/05/16 0000 Signed Impressions: Service Date/Time: July 01:22 - CONCLUSION: 1. Cirrhotic appearing liver with fatty infiltration. 2. Multiple gastric varices. 3. Nonspecific, nonobstructive bowel gas pattern most consistent with an ileus. 4. The known cavitary mass and probable adenopathy are again visualized in the anterior right lung base. Vickey Medina MD Lung Biopsy CT 08/04/16 0000 Signed Impressions: Service Date/Time: July 09:21 - CONCLUSION: Uncomplicated CT guided biopsy. Akash Wagner MD CT Angiography 08/04/16 0000 Signed Impressions: Service Date/Time: Thursday, August 04, 2016 11:47 - CONCLUSION: 1. No evidence of pulmonary embolism. 2. 5.5 cm right middle lobe mass suspicious for malignancy with possible metastatic adenopathy. This would be accessible to percutaneous biopsy. PET/CT scan is recommended to further evaluation if clinically indicated. Akash Wagner MD Objective Remarks awake and alert, NAD anicteric no supraclavicular or axillary lymphadenopathy no rales or wheezes regular rhythm abdomen soft, nontender extremities no edema, no calf tenderness neuro exam- unremarkable Procedures CT guided lung biopsy A/P Assessment and Plan 55 years old male, smoke, chronic cough + weight loss admitted for Hemoptysis secondary to #2- no further episodes Lung mass status post CTA has no pulmonary emboli, 5.5 CM right middle lobe mass suspicious for malignancy with possible Metastatic adenopathy. Status post CT guided percutaneous biopsy . PET/CT scan recommended. physical medicine specialist following doctor Chew. bronchodilator, Mucolytic and incentive spirometry. pathology still pending. plan for port Tobacco dependence strongly recommended to stop smoking Alcohol abuse and dependence strongly recommended to stop drinking alcohol CIWA protocol started, no signs of Withdrawal DM II Poorly controlled Hemoglobin A1C 12.2 better control continue Levemir to 15 units BID, Schedule Regular Insulin to 5 units with every meal and continue Moderate sliding scale. dietitian consult and diabetes teaching/education- done continue current regimen and adjust patient up and ambulating- encouraged consult corrections caseworker- needs resources- self pay DVT prophylaxis SCDs.- up and ambulating Evelyn Dove MD August 09, 2016 17:04
[2016-08-09 20:00] VITALS: BP 107/63; PULSE 90; RESP 18; TEMP 98.6; O2SAT 94
[2016-08-09] MEDS: CHLORPHENIR/HYDROCOD LIQUID 8 MG/10 MG/5 ML CUP PO SCH (20:43)
[2016-08-09] MEDS: chlordiazePOXIDE 25 MG CAP PO PRN (20:46)
[2016-08-10 00:56] VITALS: BP 109/66; PULSE 93; RESP 18; TEMP 97.9; O2SAT 95
[2016-08-10] MEDS: oxyCODONE/ACETAMINOPHEN 5 MG/325 MG TAB PO PRN ×6 (01:17→21:53)
[2016-08-10 04:00] VITALS: BP 113/74; PULSE 88; RESP 18; TEMP 97.9; O2SAT 95
[2016-08-10] MEDS: INSULIN NovoLIN REGULAR SUPPLEMENTAL SCALE SQ SCH ×4 (06:49→22:36)
[2016-08-10 08:00] VITALS: BP 108/67; PULSE 86; RESP 18; TEMP 97.9; O2SAT 92
[2016-08-10] MEDS: THIAMINE HCL 100 MG TAB PO SCH (08:15)
[2016-08-10] MEDS: CHLORPHENIR/HYDROCOD LIQUID 8 MG/10 MG/5 ML CUP PO SCH ×2 (08:15→21:54)
[2016-08-10] MEDS: DOCUSATE SODIUM 100 MG CAP PO SCH ×2 (08:16→21:54)
[2016-08-10] MEDS: INSULIN DETEMIR 100 UNITS/ML VIAL SQ SCH ×2 (08:23→22:35)
[2016-08-10] MEDS: SODIUM CHLORIDE 0.9% FLUSH 10 ML FLUSH IV FLUSH SCH ×2 (08:24→22:11)
[2016-08-10 08:51] LABS: AUTOMATED NEUTROPHIL # 7.6 TH/MM3 (1.8-7.7); BASOPHIL # 0.1 TH/MM3 (0-0.2); BASOPHIL % 0.6 % (0.0-2.0); EOSINOPHIL # 0.3 TH/MM3 (0-0.4); EOSINOPHIL % 2.3 % (0.0-4.0); HEMATOCRIT 35.3 % (39.0-51.0); HEMO FLAGS DIFF FINAL; LYMPH % 15.6 % (9.0-44.0); LYMPHOCYTE # 1.7 TH/MM3 (1.0-4.8); MEAN CELL VOLUME 98.3 FL (80.0-100.0); MEAN CORPUSCULAR HEMOGLOBIN 31.7 PG (27.0-34.0); MEAN CORPUSCULAR HGB CONC 32.2 % (32.0-36.0); MONO % 13.2 % (0.0-8.0); NEUT % 68.3 % (16.0-70.0); PLATELET COUNT 158 TH/MM3 (150-450); RED BLOOD COUNT 3.59 MIL/MM3 (4.50-5.90); RED CELL DISTRIBUTION WIDTH 13.3 % (11.6-17.2); WHITE BLOOD COUNT 11.1 TH/MM3 (4.0-11.0)
--- NOTE | 2016-08-10 10:00 | HHI.PR ---
Subjective Remarks no complains, no further hemoptysis up ambulating, no chest pains or shortness of breath Objective Vitals Vital Signs Date Time Temp Pulse Resp B/P Pulse Ox O2 Delivery O2 Flow Rate FiO2 08/10/16 08:00 97.9 86 18 108/67 92 08/10/16 04:00 97.9 88 18 113/74 95 08/10/16 00:56 97.9 93 18 109/66 95 08/09/16 20:11 Room Air 08/09/16 20:00 98.6 90 18 107/63 94 08/09/16 16:00 98.5 88 16 117/81 94 08/09/16 12:00 97.8 93 18 100/63 96 I/O 08/09/16 08/09/16 08/09/16 08/10/16 08/10/16 08/10/16 07:00 15:00 23:00 07:00 15:00 23:00 Intake Total 240 ml 600 ml 2 ml Balance 240 ml 600 ml 2 ml Intake Oral 240 ml 600 ml IV Total 2 ml # Voids 1 4 4 3 # Bowel Movements 0 1 0 0 Result Diagram: 08/10/16 0808 Imaging Last Impressions SPECT Scan-Bone Nuclear Medicine 08/05/16 0000 Signed Impressions: Service Date/Time: July 12:27 - CONCLUSION: 1. No evidence of metastatic disease. 2. Traumatic changes involving the right ribs Akash Wagner MD Chest X-Ray 08/05/16 0000 Signed Impressions: Service Date/Time: July 11:47 - CONCLUSION: 1. There is no evidence of pneumothorax. Akash Wagner MD Abdomen/Pelvis CT 08/05/16 0000 Signed Impressions: Service Date/Time: July 01:22 - CONCLUSION: 1. Cirrhotic appearing liver with fatty infiltration. 2. Multiple gastric varices. 3. Nonspecific, nonobstructive bowel gas pattern most consistent with an ileus. 4. The known cavitary mass and probable adenopathy are again visualized in the anterior right lung base. Vickey Medina MD Lung Biopsy CT 08/04/16 0000 Signed Impressions: Service Date/Time: July 09:21 - CONCLUSION: Uncomplicated CT guided biopsy. Akash Wagner MD CT Angiography 08/04/16 0000 Signed Impressions: Service Date/Time: Thursday, August 04, 2016 11:47 - CONCLUSION: 1. No evidence of pulmonary embolism. 2. 5.5 cm right middle lobe mass suspicious for malignancy with possible metastatic adenopathy. This would be accessible to percutaneous biopsy. PET/CT scan is recommended to further evaluation if clinically indicated. Akash Wagner MD Objective Remarks awake and alert, NAD anicteric no supraclavicular or axillary lymphadenopathy no rales or wheezes regular rhythm abdomen soft, nontender extremities no edema, no calf tenderness neuro exam- unremarkable Procedures CT guided lung biopsy A/P Assessment and Plan 55 years old male, smoke, chronic cough + weight loss admitted for Hemoptysis secondary to #2- no further episodes Lung mass status post CTA has no pulmonary emboli, 5.5 CM right middle lobe mass suspicious for malignancy with possible Metastatic adenopathy. Status post CT guided percutaneous biopsy . PET/CT scan recommended. certified technician specialist following doctor Chew. bronchodilator, pathology still pending. plan for port eventually Tobacco dependence strongly recommended to stop smoking Alcohol abuse and dependence strongly recommended to stop drinking alcohol CIWA protocol started, no signs of Withdrawal DM II uncontrolled. Hemoglobin A1C 12.2 better control continue Levemir to 15 units BID, Schedule Regular Insulin to 5 units with every meal and continue Moderate sliding scale. dietitian consult and diabetes teaching/education- done BS reviewed. We will DC scheduled Novolog tid AC. Monitor on BId scheduled Levemir patient up and ambulating- encouraged d/w [place]yler director case- needs resources- self pay- application place DVT prophylaxis SCDs.- up and ambulating Evelyn Dove MD August 10, 2016 9:59 am
--- NOTE | 2016-08-10 11:15 | PD.ONC.PN ---
Subjective Subjective Remarks Afebrile overnight. Patient resting comfortably in bed. No complaints. Waiting on pathology. Objective Data Date Time Temp Pulse Resp B/P Pulse Ox O2 Delivery O2 Flow Rate FiO2 08/10/16 08:00 97.9 86 18 108/67 92 08/10/16 04:00 97.9 88 18 113/74 95 08/10/16 00:56 97.9 93 18 109/66 95 08/09/16 20:11 Room Air 08/09/16 20:00 98.6 90 18 107/63 94 08/09/16 16:00 98.5 88 16 117/81 94 08/09/16 12:00 97.8 93 18 100/63 96 08/10/16 08/10/16 08/10/16 06:59 14:59 22:59 Intake Total 2 ml Balance 2 ml Result Diagram: 08/10/16 0808 Laboratory Results Laboratory Tests Test 08/10/16 08:08 White Blood Count 11.1 TH/MM3 Red Blood Count 3.59 MIL/MM3 Hemoglobin 11.4 GM/DL Hematocrit 35.3 % Mean Corpuscular Volume 98.3 FL Mean Corpuscular Hemoglobin 31.7 PG Mean Corpuscular Hemoglobin 32.2 % Concent Red Cell Distribution Width 13.3 % Platelet Count 158 TH/MM3 Mean Platelet Volume 9.2 FL Neutrophils (%) (Auto) 68.3 % Lymphocytes (%) (Auto) 15.6 % Monocytes (%) (Auto) 13.2 % Eosinophils (%) (Auto) 2.3 % Basophils (%) (Auto) 0.6 % Neutrophils # (Auto) 7.6 TH/MM3 Lymphocytes # (Auto) 1.7 TH/MM3 Monocytes # (Auto) 1.5 TH/MM3 Eosinophils # (Auto) 0.3 TH/MM3 Basophils # (Auto) 0.1 TH/MM3 CBC Comment DIFF FINAL Differential Comment Administered Medications Medications (Trade) Dose Ordered Sig/Ernestina Route PRN Reason Start Time Stop Time Status Last Admin Dose Admin Sodium Chloride (NS Flush) 2 ml BID IV FLUSH 08/04/16 21:00 08/10/16 08:24 Docusate Sodium (Colace) 100 mg Q12HR PO 08/04/16 13:45 08/10/16 08:16 Thiamine HCl (Vitamin B1) 100 mg DAILY PO 08/07/16 09:00 5/23/17 08:15 Oxycodone/ Acetaminophen (Percocet 5-325 Mg) 1 tab Q4H PRN PO PAIN SCALE 1 TO 10 08/05/16 12:00 08/10/16 09:50 Insulin Detemir (Levemir Inj) 15 units HS SQ 08/06/16 21:00 08/09/16 20:50 Insulin Detemir (Levemir Inj) 15 units DAILYAC SQ 08/07/16 08:00 08/10/16 08:23 Chlordiazepoxide (Librium) 10 mg TID PRN PO SEVERE ANXIETY OR AGITATION 08/07/16 12:00 08/09/16 20:46 Chlorphenir/ Hydrocodone Polistirex (Tussionex Liq) 5 ml Q12HR PO 08/09/16 21:00 08/10/16 08:15 Objective Remarks GENERAL: Middle aged male, upright in bed dressed in street clothes SKIN: Warm and dry. HEAD: Normocephalic. EYES: No scleral icterus. No injection or drainage. NECK: Supple, trachea midline. CARDIOVASCULAR: Regular rate and rhythm RESPIRATORY: diminished at bases, scattered rhonchi GASTROINTESTINAL: Abdomen soft, non-tender, nondistended. MUSCULOSKELETAL: No cyanosis NEURO: awake and alert, normal speech. moving all extremities. Assessment/Plan Problem List: (1) Lung mass Status: Acute Plan: --Right middle lobe lung mass measured 5.5 cm with central cavitation. --CT also showed borderline enlarged right paratracheal and precarinal lymph node. ++40 pack-year smoking history. --is a primary bronchogenic carcinoma until proven otherwise. --CT c/a/p: cirrhotic liver with fatty infiltration --bone scan: no mets --biopsy right middle lobe lung mass through IR --case management consulted--patient without insurance. Assessment 55y/o male with a lung mass. Presented to the hospital with complaint of hemoptysis x3 months + 25lb weight loss h/o Diabetes mellitus. Peripheral neuropathy. Plan 1. awaiting pathology--UPDATE: Dr. Cm spoke with pathology, the pathology is inconclusive, may or may not be malignancy. will consult CTS for their opinion about possible resection 2. supportive care 3. once pathology returns--will consult IR for port Attending Statement The exam, history, and the medical decision-making described in the above note were completed with the assistance of the mid-level provider. I reviewed and agree with the findings presented. I attest that I had a [id number] encounter with the patient on the same day, and personally performed and documented my assessment and findings in the medical record. Hemoptysis stable. Discussed with pathology at tumor board. The biopsy +spindle cells and hemorrhage. FUrther stains pending but it could be an organizing pneumonia and not malignancy. Will consult CT surgery to see if pt will need resection of this mass. Charlee Chaudhary August 10, 2016 11:14 Osvaldo Cm MD August 10, 2016 16:39
[2016-08-10 12:00] VITALS: BP 113/58; PULSE 94; RESP 18; TEMP 97.8; O2SAT 93
[2016-08-10 16:00] VITALS: BP 128/80; PULSE 93; RESP 18; TEMP 98.1; O2SAT 98
[2016-08-10 20:00] VITALS: BP 105/58; PULSE 98; RESP 21; TEMP 97.6; O2SAT 97
[2016-08-11] VITALS: BP_SYST 110; BP_SYST 92; BP_DIAS 54; BP_DIAS 59; PULSE 96; RESP 20; TEMP 98.6; O2SAT 96
[2016-08-11] MEDS: oxyCODONE/ACETAMINOPHEN 5 MG/325 MG TAB PO PRN ×5 (03:03→20:48)
[2016-08-11 04:00] VITALS: BP 104/50; PULSE 95; RESP 20; TEMP 98.6; O2SAT 98
[2016-08-11] MEDS: INSULIN NovoLIN REGULAR SUPPLEMENTAL SCALE SQ SCH ×4 (06:04→20:36)
[2016-08-11 08:00] VITALS: BP 90/60; PULSE 94; RESP 18; TEMP 98; O2SAT 97
[2016-08-11] MEDS: CHLORPHENIR/HYDROCOD LIQUID 8 MG/10 MG/5 ML CUP PO SCH ×2 (08:57→20:38)
[2016-08-11] MEDS: DOCUSATE SODIUM 100 MG CAP PO SCH ×3 (08:57→20:36)
[2016-08-11] MEDS: THIAMINE HCL 100 MG TAB PO SCH (08:57)
[2016-08-11] MEDS: INSULIN DETEMIR 100 UNITS/ML VIAL SQ SCH ×2 (08:59→20:53)
[2016-08-11] MEDS: SODIUM CHLORIDE 0.9% FLUSH 10 ML FLUSH IV FLUSH SCH ×2 (08:59→20:39)
[2016-08-11 12:00] VITALS: BP 122/77; PULSE 89; RESP 18; TEMP 98.3; O2SAT 97
--- NOTE | 2016-08-11 15:09 | HHI.PR ---
Subjective Remarks cough minimal sputum, no hemoptysis Objective Vitals Vital Signs Date Time Temp Pulse Resp B/P Pulse Ox O2 Delivery O2 Flow Rate FiO2 08/11/16 12:00 98.3 89 18 122/77 97 08/11/16 08:45 Room Air 08/11/16 08:00 98.0 94 18 90/60 97 08/11/16 04:00 98.6 95 20 104/50 98 08/11/16 00:00 98.6 96 20 92/54 96 110/59 08/10/16 21:30 Room Air 08/10/16 20:00 97.6 98 21 105/58 97 08/10/16 16:00 98.1 93 18 128/80 98 I/O 08/10/16 08/10/16 08/10/16 08/11/16 08/11/16 08/11/16 07:00 15:00 23:00 07:00 15:00 23:00 Intake Total 2 ml 960 ml 2 ml 4 ml Balance 2 ml 960 ml 2 ml 4 ml Intake Oral 960 ml IV Total 2 ml 2 ml 4 ml # Voids 3 3 # Bowel Movements 0 1 Result Diagram: 08/10/16 0808 Imaging Last Impressions SPECT Scan-Bone Nuclear Medicine 08/05/16 0000 Signed Impressions: Service Date/Time: July 12:27 - CONCLUSION: 1. No evidence of metastatic disease. 2. Traumatic changes involving the right ribs Akash Wagner MD Chest X-Ray 08/05/16 0000 Signed Impressions: Service Date/Time: July 11:47 - CONCLUSION: 1. There is no evidence of pneumothorax. Akash Wagner MD Abdomen/Pelvis CT 08/05/16 0000 Signed Impressions: Service Date/Time: July 01:22 - CONCLUSION: 1. Cirrhotic appearing liver with fatty infiltration. 2. Multiple gastric varices. 3. Nonspecific, nonobstructive bowel gas pattern most consistent with an ileus. 4. The known cavitary mass and probable adenopathy are again visualized in the anterior right lung base. Vickey Medina MD Lung Biopsy CT 08/04/16 0000 Signed Impressions: Service Date/Time: July 09:21 - CONCLUSION: Uncomplicated CT guided biopsy. Akash Wagner MD CT Angiography 08/04/16 0000 Signed Impressions: Service Date/Time: Thursday, August 04, 2016 11:47 - CONCLUSION: 1. No evidence of pulmonary embolism. 2. 5.5 cm right middle lobe mass suspicious for malignancy with possible metastatic adenopathy. This would be accessible to percutaneous biopsy. PET/CT scan is recommended to further evaluation if clinically indicated. Akash Wagner MD Objective Remarks awake and alert, NAD anicteric no supraclavicular or axillary lymphadenopathy no rales or wheezes regular rhythm abdomen soft, nontender extremities no edema, no calf tenderness neuro exam- unremarkable Procedures CT guided lung biopsy A/P Assessment and Plan 55 years old male, smoke, chronic cough + weight loss admitted for Hemoptysis secondary to #2- no further episodes Lung mass status post CTA has no pulmonary emboli, 5.5 CM right middle lobe mass suspicious for malignancy with possible Metastatic adenopathy. Status post CT guided percutaneous biopsy .- pathology inconclusive Dr. Cm ff. CTS consulted for evaluation Tobacco dependence strongly recommended to stop smoking.- likely with underlying COPD. get PFTs Alcohol abuse and dependence strongly recommended to stop drinking alcohol CIWA protocol started, no signs of Withdrawal DM II uncontrolled. Hemoglobin A1C 12.2- good readings continue Levemir to 15 units BID, diabetes teaching/education- done BS reviewed. We will DC scheduled Novolog tid AC. Monitor on BId scheduled Levemir patient up and ambulating- encouraged d/w Twyler test case developer- needs resources- self pay- application place DVT prophylaxis SCDs.- up and ambulating Evelyn Dove MD August 11, 2016 15:09
--- NOTE | 2016-08-11 15:35 | MB ---
cc: SHANNA SANCHEZ MD DATE OF CONSULTATION: 08/11/2016 DATE OF : 1960 HISTORY OF PRESENT ILLNESS A 55-year-old male who presented to the emergency room complaining of increased weakness and fatigue. He has a [id number] history of tobacco abuse. He complained of hemoptysis which has been going on for the last three months, usually starts in the morning when he coughs up bright red blood and then throughout the day gets more like a anya color. He has lost about 25 pounds over the last few months. Denies having any fever, chills, night sweats, has been complaining of some pain in his shins, thighs and arms. No nausea, vomiting, diarrhea. Apparently he has lost his job and has no current insurance, no primary care physician. They did a CT of his chest which showed a 5.5 cm right middle lobe mass suspicious for malignancy with probably metastatic adenopathy. He underwent a CT-guided lung biopsy of the right lung mass which per the notes from Dr. Cm did speak to the pathology and at this point the path is inconclusive per his notes. CT abdomen and pelvis shows some cirrhotic liver with fatty infiltration. Bone scan was negative, no evidence for metastasis. At this point Dr. Cm felt this was primary bronchogenic carcinoma unless proven otherwise. We were consulted to evaluate for possible resection and reevaluation for biopsy. PAST MEDICAL HISTORY 1. Diabetes mellitus. 2. Peripheral neuropathy. ALLERGIES He has no known allergies. MEDICATIONS No home medications. FAMILY HISTORY His brother has some type of metastatic cancer involving the bone. Mother has coronary artery disease. Father had dementia. He has two daughters whom are relatively healthy. SOCIAL HISTORY Lives with his mother and girlfriend. He used to drink heavily, a pint a day, now drinks about four beers a day. He has smoked for at least 40 years. He used to work in [employer] until he lost his job. REVIEW OF SYSTEMS GENERAL: In general he has lost about 25 pounds, has increased weakness and fatigue. HEENT: No blurred vision or hearing loss. RESPIRATORY: Positive for occasional cough. He does have some hemoptysis. CARDIOVASCULAR: No chest pain or paroxysmal nocturnal dyspnea. GASTROINTESTINAL: No diarrhea or vomiting. GENITOURINARY: No burning frequency, urgency. DOUBLE END SEWER: No history of TIA, CVA, seizure disorder. ENDOCRINE: Positive for diabetes and some neuropathy. PHYSICAL EXAMINATION VITAL SIGNS: Blood pressure 122/70, heart rate 80, afebrile. GENERAL: Patient is awake and alert, in no acute distress. HEENT: Normocephalic, atraumatic. Pupils equal and reactive. Oral mucosa pink and moist. NECK: Supple. No JVD. HEART: Heart sounds S1, S2, regular rate and rhythm. No rubs, murmurs or gallops. LUNGS: Clear to auscultation. No wheezes, rales or rhonchi. ABDOMEN: Soft, nontender. No masses or organomegaly. EXTREMITIES: No cyanosis, clubbing or edema. LABORATORY Lab work shows hemoglobin of 11, hematocrit 35, white cell count of 11, platelet count of 158, sodium 134, potassium 3.6, BUN of 8, creatinine 0.74, glucose 244, TSH 1.5, INR 1.3. Urinalysis unremarkable. Hepatitis negative. Path report completely pending except for the inconclusive report from pathology to Dr. Cm. IMPRESSION This is a 55-year-old male with a right middle lobe lung mass measuring 5.5 cm with central cavitation, also some right paratracheal and pericarinal lymph nodes, and long-term tobacco abuse. RECOMMENDATIONS At this time do recommend PET scan if possible, if not patient needs to undergo PFTs to evaluate for possible need for right thoracotomy with possible middle lobe lobectomy, upper lobe lobectomy and related procedures. Will await his pulmonary function testing at this time. by Dr. Seaman will be covering for Dr. Shanna Sanchez and further plan pending as per the outcome of the PFTs. Dictated by: PARKER Morris Shanna VALERO /1:56 PM /3:37 PM
[2016-08-11 16:00] VITALS: BP 108/78; PULSE 89; RESP 18; TEMP 98.2; O2SAT 97
--- NOTE | 2016-08-11 16:17 | PD.ONC.PN ---
Subjective Subjective Remarks Hemoptysis no change. No SOB. Objective Data Date Time Temp Pulse Resp B/P Pulse Ox O2 Delivery O2 Flow Rate FiO2 08/11/16 12:00 98.3 89 18 122/77 97 08/11/16 08:45 Room Air 08/11/16 08:00 98.0 94 18 90/60 97 08/11/16 04:00 98.6 95 20 104/50 98 08/11/16 00:00 98.6 96 20 92/54 96 110/59 08/10/16 21:30 Room Air 08/10/16 20:00 97.6 98 21 105/58 97 08/11/16 08/11/16 08/11/16 07:00 15:00 23:00 Intake Total 4 ml Balance 4 ml Result Diagram: 08/10/16 0808 Administered Medications Medications (Trade) Dose Ordered Sig/Ernestina Route PRN Reason Start Time Stop Time Status Last Admin Dose Admin Sodium Chloride (NS Flush) 2 ml BID IV FLUSH 08/04/16 21:00 08/11/16 08:59 Docusate Sodium (Colace) 100 mg Q12HR PO 08/04/16 13:45 08/10/16 21:54 Thiamine HCl (Vitamin B1) 100 mg DAILY PO 08/07/16 09:00 08/11/16 08:57 Oxycodone/ Acetaminophen (Percocet 5-325 Mg) 1 tab Q4H PRN PO PAIN SCALE 1 TO 10 08/05/16 12:00 08/11/16 12:18 Insulin Detemir (Levemir Inj) 15 units HS SQ 08/06/16 21:00 08/10/16 22:35 Insulin Detemir (Levemir Inj) 15 units DAILYAC SQ 08/07/16 08:00 08/11/16 08:59 Chlorphenir/ Hydrocodone Polistirex (Tussionex Liq) 5 ml Q12HR PO 08/09/16 21:00 08/11/16 08:57 Chlordiazepoxide (Librium) 10 mg TID PRN PO SEVERE ANXIETY/AGITATION 08/10/16 21:15 08/10/16 22:38 Objective Remarks GENERAL: Well-nourished, well-developed patient. SKIN: Warm and dry. HEAD: Normocephalic. EYES: No scleral icterus. No injection or drainage. NECK: Supple, trachea midline. No JVD or lymphadenopathy. LYMPHATIC: No adenopathy. CARDIOVASCULAR: Regular rate and rhythm without murmurs. RESPIRATORY: Breath sounds equal bilaterally. No accessory muscle use. Cough intermittently. GASTROINTESTINAL: Abdomen soft, non-tender, nondistended. EXTREMITIES: No cyanosis, or edema. MUSCULOSKELETAL: Adequate muscle tone. NEUROLOGICAL: No obvious focal deficit. Awake, alert, and oriented x3. PSYCHIATRIC: Appropriate mood and affect; insight and judgment normal. Assessment/Plan Problem List: (1) Lung mass Status: Acute Plan: --Final path is pending. Discussed with pathologist at the tumor board , preliminary path showed some spindle cells with hemorrhages but inconclusive for malignancy. Further staining is pending. Discussed with pt and he is frustrated that the path is still not finalized yet. --Right middle lobe lung mass measured 5.5 cm with central cavitation. --CT also showed borderline enlarged right paratracheal and precarinal lymph node. ++40 pack-year smoking history. --is a primary bronchogenic carcinoma until proven otherwise. --CT c/a/p: cirrhotic liver with fatty infiltration --bone scan: no mets --biopsy right middle lobe lung mass through IR --case management consulted--patient without insurance. Assessment 55y/o male with a lung mass. Presented to the hospital with complaint of hemoptysis x3 months + 25lb weight loss h/o Diabetes mellitus. Peripheral neuropathy. Plan 1. awaiting pathology, the preliminary pathology is inconclusive, may or may not be malignancy. will consult CTS for their opinion about possible resection given pt's symptoms. Discussed with pt. 2. supportive care Osvaldo Cm MD August 11, 2016 16:17
[2016-08-11 20:00] VITALS: BP 92/64; PULSE 94; RESP 18; TEMP 99.2; O2SAT 95
[2016-08-12] VITALS (8 sets, daily range): BP systolic 89–114; BP diastolic 53–74; PULSE 87–100; RESP 12–16; TEMP 97.7–99.1; O2SAT 92–97
[2016-08-12] MEDS: oxyCODONE/ACETAMINOPHEN 5 MG/325 MG TAB PO PRN ×5 (01:34→21:02)
[2016-08-12] MEDS: INSULIN NovoLIN REGULAR SUPPLEMENTAL SCALE SQ SCH ×5 (04:04→21:01)
[2016-08-12 07:46] LABS: AUTOMATED NEUTROPHIL # 7.3 TH/MM3 (1.8-7.7); BASOPHIL # 0.1 TH/MM3 (0-0.2); BASOPHIL % 0.7 % (0.0-2.0); EOSINOPHIL # 0.2 TH/MM3 (0-0.4); EOSINOPHIL % 1.8 % (0.0-4.0); HEMATOCRIT 35.5 % (39.0-51.0); HEMO FLAGS DIFF FINAL; LYMPH % 14.9 % (9.0-44.0); LYMPHOCYTE # 1.6 TH/MM3 (1.0-4.8); MEAN CORPUSCULAR HEMOGLOBIN 32.7 PG (27.0-34.0); MEAN CORPUSCULAR HGB CONC 33.7 % (32.0-36.0); MONO % 13.1 % (0.0-8.0); NEUT % 69.5 % (16.0-70.0); PLATELET COUNT 180 TH/MM3 (150-450); RED BLOOD COUNT 3.66 MIL/MM3 (4.50-5.90); RED CELL DISTRIBUTION WIDTH 13.8 % (11.6-17.2); WHITE BLOOD COUNT 10.6 TH/MM3 (4.0-11.0)
[2016-08-12] MEDS: THIAMINE HCL 100 MG TAB PO SCH (08:23)
[2016-08-12] MEDS: CHLORPHENIR/HYDROCOD LIQUID 8 MG/10 MG/5 ML CUP PO SCH ×2 (08:24→21:02)
[2016-08-12] MEDS: SODIUM CHLORIDE 0.9% FLUSH 10 ML FLUSH IV FLUSH SCH ×2 (08:25→21:00)
[2016-08-12] MEDS: DOCUSATE SODIUM 100 MG CAP PO SCH ×3 (08:27→21:02)
[2016-08-12] MEDS: INSULIN DETEMIR 100 UNITS/ML VIAL SQ SCH ×2 (08:30→21:01)
[2016-08-12 08:47] LABS: WESTERGREN SEDIMENTATION RATE 74 mm/hr (0-20)
--- NOTE | 2016-08-12 09:44 | PD.ONC.PN ---
Subjective Subjective Remarks +Hemoptysis, no CP. Objective Data Date Time Temp Pulse Resp B/P Pulse Ox O2 Delivery O2 Flow Rate FiO2 08/12/16 08:00 98.0 87 12 103/65 97 92/70 08/12/16 04:33 98.6 88 16 92 08/12/16 04:01 108/58 08/12/16 01:28 104/62 08/12/16 00:00 98.6 91 16 89/53 95 08/11/16 20:00 99.2 94 18 92/64 95 08/11/16 20:00 Room Air 08/11/16 16:00 98.2 89 18 108/78 97 08/11/16 12:00 98.3 89 18 122/77 97 08/12/16 08/12/16 08/12/16 07:00 15:00 23:00 Intake Total 600 ml Balance 600 ml Result Diagram: 08/12/16 0607 Laboratory Results Laboratory Tests Test 08/12/16 06:07 White Blood Count 10.6 TH/MM3 Red Blood Count 3.66 MIL/MM3 Hemoglobin 12.0 GM/DL Hematocrit 35.5 % Mean Corpuscular Volume 97.0 FL Mean Corpuscular Hemoglobin 32.7 PG Mean Corpuscular Hemoglobin 33.7 % Concent Red Cell Distribution Width 13.8 % Platelet Count 180 TH/MM3 Mean Platelet Volume 9.2 FL Neutrophils (%) (Auto) 69.5 % Lymphocytes (%) (Auto) 14.9 % Monocytes (%) (Auto) 13.1 % Eosinophils (%) (Auto) 1.8 % Basophils (%) (Auto) 0.7 % Neutrophils # (Auto) 7.3 TH/MM3 Lymphocytes # (Auto) 1.6 TH/MM3 Monocytes # (Auto) 1.4 TH/MM3 Eosinophils # (Auto) 0.2 TH/MM3 Basophils # (Auto) 0.1 TH/MM3 CBC Comment DIFF FINAL Differential Comment Erythrocyte Sedimentation Rate 74 mm/hr Administered Medications Medications (Trade) Dose Ordered Sig/Ernestina Route PRN Reason Start Time Stop Time Status Last Admin Dose Admin Sodium Chloride (NS Flush) 2 ml BID IV FLUSH 08/04/16 21:00 08/12/16 08:25 Docusate Sodium (Colace) 100 mg Q12HR PO 08/04/16 13:45 08/10/16 21:54 Thiamine HCl (Vitamin B1) 100 mg DAILY PO 08/07/16 09:00 08/12/16 08:23 Oxycodone/ Acetaminophen (Percocet 5-325 Mg) 1 tab Q4H PRN PO PAIN SCALE 1 TO 10 08/05/16 12:00 08/12/16 07:13 Insulin Detemir (Levemir Inj) 15 units HS SQ 08/06/16 21:00 08/11/16 20:53 Insulin Detemir (Levemir Inj) 15 units DAILYAC SQ 08/07/16 08:00 08/12/16 08:30 Chlorphenir/ Hydrocodone Polistirex (Tussionex Liq) 5 ml Q12HR PO 08/09/16 21:00 08/12/16 08:24 Chlordiazepoxide (Librium) 10 mg TID PRN PO SEVERE ANXIETY/AGITATION 08/10/16 21:15 08/11/16 20:58 Objective Remarks GENERAL: Well-nourished, well-developed patient. SKIN: Warm and dry. HEAD: Normocephalic. EYES: No scleral icterus. No injection or drainage. NECK: Supple, trachea midline. No JVD or lymphadenopathy. LYMPHATIC: No adenopathy. CARDIOVASCULAR: Regular rate and rhythm without murmurs. RESPIRATORY: Breath sounds equal bilaterally. No accessory muscle use. Cough intermittently GASTROINTESTINAL: Abdomen soft, non-tender, nondistended. EXTREMITIES: No cyanosis, or edema. MUSCULOSKELETAL: Adequate muscle tone. NEUROLOGICAL: No obvious focal deficit. Awake, alert, and oriented x3. PSYCHIATRIC: Appropriate mood and affect; insight and judgment normal. 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 ? tumefective organizing pneumonia vs reaction to chronic abscess.. Discussed with pt. I told him malignancy can not be totally ruled out but the path is inconclusive. Await CT surgery opinion regarding resection vs open biopsy. --Right middle lobe lung mass measured 5.5 cm with central cavitation. --CT also showed borderline enlarged right paratracheal and precarinal lymph node. ++40 pack-year smoking history. --is a primary bronchogenic carcinoma until proven otherwise. --CT c/a/p: cirrhotic liver with fatty infiltration --bone scan: no mets --biopsy right middle lobe lung mass through IR --case management consulted--patient without insurance. Assessment 55y/o male with a lung mass. Presented to the hospital with complaint of hemoptysis x3 months + 25lb weight loss h/o Diabetes mellitus. Peripheral neuropathy. Plan 1. Reviewed pathology with pt. Await CTS opinion about possible resection vs open biopsy. Await PFT. Extensive discussion with pt. 2. supportive care Osvaldo Cm MD August 12, 2016 09:44
--- NOTE | 2016-08-12 13:39 | HHI.PR ---
Subjective Remarks patient up and ambulating- still with mild hemoptysis no shortness of breath good po appetite Objective Vitals Vital Signs Date Time Temp Pulse Resp B/P Pulse Ox O2 Delivery O2 Flow Rate FiO2 08/12/16 12:00 97.7 100 12 90/69 94 08/12/16 08:25 Room Air 08/12/16 08:00 98.0 87 12 103/65 97 92/70 08/12/16 04:33 98.6 88 16 92 08/12/16 04:01 108/58 08/12/16 01:28 104/62 08/12/16 00:00 98.6 91 16 89/53 95 08/11/16 20:00 99.2 94 18 92/64 95 08/11/16 20:00 Room Air 08/11/16 16:00 98.2 89 18 108/78 97 I/O 08/11/16 08/11/16 08/11/16 08/12/16 08/12/16 08/12/16 06:59 14:59 22:59 06:59 14:59 22:59 Intake Total 4 ml 960 ml 600 ml Balance 4 ml 960 ml 600 ml Intake Oral 960 ml 600 ml IV Total 4 ml # Voids 3 3 # Bowel Movements 1 1 Result Diagram: 08/12/16 0607 Imaging Last Impressions SPECT Scan-Bone Nuclear Medicine 08/05/16 0000 Signed Impressions: Service Date/Time: July 12:27 - CONCLUSION: 1. No evidence of metastatic disease. 2. Traumatic changes involving the right ribs Akash Wagner MD Chest X-Ray 08/05/16 0000 Signed Impressions: Service Date/Time: July 11:47 - CONCLUSION: 1. There is no evidence of pneumothorax. Akash Wagner MD Abdomen/Pelvis CT 08/05/16 0000 Signed Impressions: Service Date/Time: July 01:22 - CONCLUSION: 1. Cirrhotic appearing liver with fatty infiltration. 2. Multiple gastric varices. 3. Nonspecific, nonobstructive bowel gas pattern most consistent with an ileus. 4. The known cavitary mass and probable adenopathy are again visualized in the anterior right lung base. Vickey Medina MD Lung Biopsy CT 08/04/16 0000 Signed Impressions: Service Date/Time: July 09:21 - CONCLUSION: Uncomplicated CT guided biopsy. Akash Wagner MD CT Angiography 08/04/16 0000 Signed Impressions: Service Date/Time: Thursday, August 04, 2016 11:47 - CONCLUSION: 1. No evidence of pulmonary embolism. 2. 5.5 cm right middle lobe mass suspicious for malignancy with possible metastatic adenopathy. This would be accessible to percutaneous biopsy. PET/CT scan is recommended to further evaluation if clinically indicated. Akash Wagner MD Objective Remarks awake and alert, NAD anicteric no supraclavicular or axillary lymphadenopathy no rales or wheezes regular rhythm abdomen soft, nontender extremities no edema, no calf tenderness neuro exam- unremarkable Procedures 08/04- CT guided lung biopsy A/P Assessment and Plan 55 years old male, smoke, chronic cough + weight loss admitted for Hemoptysis right middle lobe Lung mass status post CTA has no pulmonary emboli suspicious for malignancy with metastatic adenopathy still with some mild hemoptysis Status post CT guided percutaneous biopsy .- pathology inconclusive Dr. Cm ff. - oncology ff CTS consulted- recommended PET scan- but we don't do it here. we will get PFTs. Possible plan for eventual thoracotomy per CTS notes Tobacco dependence strongly recommended to stop smoking.- likely with underlying COPD. get PFTs Alcohol abuse and dependence no signs of Withdrawal. patient denies chornic alcohol use. Librium prn for anxiety DM II uncontrolled. Hemoglobin A1C 12.2- on Levemir to 15 units BID with sliding scale regimen- better readings diabetes teaching/education/nutrition counselling- done will need OP PCP ff up for this patient up and ambulating- encouraged needs a PCP as OP d/w Giovani keycase assembler- needs resources- self pay- application place DVT prophylaxis SCDs.- up and ambulating Evelyn Dove MD August 12, 2016 13:39
--- NOTE | 2016-08-12 15:52 | PD.CAR.PN ---
CVT Progress Note Subjective/Hospital Course: pt unable to perform PFT per RT and pt himself, pt starting having coughing episode with some hemoptysis will need to discuss with Dr Seaman, covering for Dr Main regarding timing for possible right thoracotomy, right middle lobectomy, right upper lobectomy Objective: GENERAL: SKIN: Warm and dry. HEAD: Normocephalic. EYES: No scleral icterus. No injection or drainage. NECK: Supple, trachea midline. No JVD or lymphadenopathy. CARDIOVASCULAR: Regular rate and rhythm without murmurs, gallops, or rubs. RESPIRATORY: Breath sounds equal bilaterally. No accessory muscle use. GASTROINTESTINAL: Abdomen soft, non-tender, nondistended. MUSCULOSKELETAL: No cyanosis, or edema. BACK: Nontender without obvious deformity. No CVA tenderness. Vital Signs Date Time Temp Pulse Resp B/P Pulse Ox O2 Delivery O2 Flow Rate FiO2 08/12/16 12:00 97.7 100 12 90/69 94 08/12/16 08:25 Room Air 08/12/16 08:00 98.0 87 12 103/65 97 92/70 08/12/16 04:33 98.6 88 16 92 08/12/16 04:01 108/58 08/12/16 01:28 104/62 08/12/16 00:00 98.6 91 16 89/53 95 08/11/16 20:00 99.2 94 18 92/64 95 08/11/16 20:00 Room Air 08/11/16 16:00 98.2 89 18 108/78 97 Labs: Laboratory Tests Test 08/12/16 06:07 White Blood Count 10.6 TH/MM3 (4.0-11.0) Red Blood Count 3.66 MIL/MM3 (4.50-5.90) Hemoglobin 12.0 GM/DL (13.0-17.0) Hematocrit 35.5 % (39.0-51.0) Mean Corpuscular Volume 97.0 FL (80.0-100.0) Mean Corpuscular Hemoglobin 32.7 PG (27.0-34.0) Mean Corpuscular Hemoglobin 33.7 % Concent (32.0-36.0) Red Cell Distribution Width 13.8 % (11.6-17.2) Platelet Count 180 TH/MM3 (150-450) Mean Platelet Volume 9.2 FL (7.0-11.0) Neutrophils (%) (Auto) 69.5 % (16.0-70.0) Lymphocytes (%) (Auto) 14.9 % (9.0-44.0) Monocytes (%) (Auto) 13.1 % (0.0-8.0) Eosinophils (%) (Auto) 1.8 % (0.0-4.0) Basophils (%) (Auto) 0.7 % (0.0-2.0) Neutrophils # (Auto) 7.3 TH/MM3 (1.8-7.7) Lymphocytes # (Auto) 1.6 TH/MM3 (1.0-4.8) Monocytes # (Auto) 1.4 TH/MM3 (0-0.9) Eosinophils # (Auto) 0.2 TH/MM3 (0-0.4) Basophils # (Auto) 0.1 TH/MM3 (0-0.2) CBC Comment DIFF FINAL Differential Comment Erythrocyte Sedimentation Rate 74 mm/hr (0-20) Result Diagram: 08/12/16 0607 (1) Lung mass Plan: unable to perform PFT will discuss with Nisha Mckenna August 12, 2016 15:52
[2016-08-13] VITALS: BP 91/65; PULSE 90; RESP 18; TEMP 97.9; O2SAT 95
[2016-08-13] MEDS: oxyCODONE/ACETAMINOPHEN 5 MG/325 MG TAB PO PRN ×5 (01:39→21:07)
[2016-08-13 04:00] VITALS: BP 111/66; PULSE 88; RESP 18; TEMP 97.6; O2SAT 95
[2016-08-13] MEDS: INSULIN NovoLIN REGULAR SUPPLEMENTAL SCALE SQ SCH ×4 (05:35→21:00)
[2016-08-13] MEDS: DOCUSATE SODIUM 100 MG CAP PO SCH ×2 (08:15→21:00)
[2016-08-13] MEDS: CHLORPHENIR/HYDROCOD LIQUID 8 MG/10 MG/5 ML CUP PO SCH ×2 (08:15→21:06)
[2016-08-13] MEDS: THIAMINE HCL 100 MG TAB PO SCH (08:15)
[2016-08-13] MEDS: SODIUM CHLORIDE 0.9% FLUSH 10 ML FLUSH IV FLUSH SCH ×2 (08:16→21:00)
[2016-08-13] MEDS: INSULIN DETEMIR 100 UNITS/ML VIAL SQ SCH ×2 (08:18→21:10)
--- NOTE | 2016-08-13 08:25 | PD.ONC.PN ---
Subjective Subjective Remarks Hemoptysis no change. Could not complete PFT due to cough and hemoptysis. Objective Data Date Time Temp Pulse Resp B/P Pulse Ox O2 Delivery O2 Flow Rate FiO2 08/13/16 04:00 97.6 88 18 111/66 95 08/13/16 00:00 97.9 90 18 91/65 95 08/12/16 21:35 Room Air 08/12/16 21:04 97.9 92 16 114/74 94 Manual Cuff/Auscultation 08/12/16 16:00 99.1 95 16 96/64 94 08/12/16 12:00 97.7 100 12 90/69 94 08/12/16 08:25 Room Air 08/13/16 08/13/16 08/13/16 07:00 15:00 23:00 Intake Total 2 ml Balance 2 ml Result Diagram: 08/12/16 0607 Administered Medications Medications (Trade) Dose Ordered Sig/Ernestina Route PRN Reason Start Time Stop Time Status Last Admin Dose Admin Sodium Chloride (NS Flush) 2 ml BID IV FLUSH 08/04/16 21:00 08/13/16 08:16 Docusate Sodium (Colace) 100 mg Q12HR PO 08/04/16 13:45 08/10/16 21:54 Thiamine HCl (Vitamin B1) 100 mg DAILY PO 08/07/16 09:00 08/13/16 08:15 Oxycodone/ Acetaminophen (Percocet 5-325 Mg) 1 tab Q4H PRN PO PAIN SCALE 1 TO 10 08/05/16 12:00 08/13/16 05:32 Insulin Detemir (Levemir Inj) 15 units HS SQ 08/06/16 21:00 08/12/16 21:01 Insulin Detemir (Levemir Inj) 15 units DAILYAC SQ 08/07/16 08:00 08/13/16 08:18 Chlorphenir/ Hydrocodone Polistirex (Tussionex Liq) 5 ml Q12HR PO 08/09/16 21:00 08/13/16 08:15 Chlordiazepoxide (Librium) 10 mg TID PRN PO SEVERE ANXIETY/AGITATION 08/10/16 21:15 08/12/16 21:02 Objective Remarks GENERAL: Well-nourished, well-developed patient. SKIN: Warm and dry. HEAD: Normocephalic. EYES: No scleral icterus. No injection or drainage. NECK: Supple, trachea midline. No JVD or lymphadenopathy. LYMPHATIC: No adenopathy. CARDIOVASCULAR: Regular rate and rhythm without murmurs. RESPIRATORY: Breath sounds equal bilaterally. No accessory muscle use. GASTROINTESTINAL: Abdomen soft, non-tender, nondistended. EXTREMITIES: No cyanosis, or edema. MUSCULOSKELETAL: Adequate muscle tone. NEUROLOGICAL: No obvious focal deficit. Awake, alert, and oriented x3. PSYCHIATRIC: Appropriate mood and affect; insight and judgment normal. 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 ? tumefective organizing pneumonia vs reaction to chronic abscess.. Discussed with pt. I told him malignancy can not be totally ruled out but the path is inconclusive. Await CT surgery opinion regarding resection vs open biopsy. --Right middle lobe lung mass measured 5.5 cm with central cavitation. --CT also showed borderline enlarged right paratracheal and precarinal lymph node. ++40 pack-year smoking history. --is a primary bronchogenic carcinoma until proven otherwise. --CT c/a/p: cirrhotic liver with fatty infiltration --bone scan: no mets --biopsy right middle lobe lung mass through IR --case management consulted--patient without insurance. Assessment 55y/o male with a lung mass. Presented to the hospital with complaint of hemoptysis x3 months + 25lb weight loss h/o Diabetes mellitus. Peripheral neuropathy. Plan 1. Pt could not complete PFT. Await CTS opinion about possible resection vs open biopsy. Extensive discussion with pt. 2. No other oncologic recommendation at this time. Await further biopsy or resection per CTS. I will be away next 2 weeks, cross cover available if pt has the diagnosis of cancer. Osvaldo Cm MD August 13, 2016 08:25
[2016-08-13 08:45] VITALS: BP 108/62; PULSE 88; RESP 12; TEMP 98.2; O2SAT 95
--- NOTE | 2016-08-13 10:04 | HHI.PR ---
Subjective Remarks This is a 55 year old male who presents to the emergency department with 6 months of hemoptysis with rust colored sputum, shortness of breath, worse with exertion, improved with rest associated with 25 pounds weight loss and generalized fatigue. Patient has a long smoking history. He has no primary care physician and doesn't have insurance. Patient seen in ER, as per patient he states he started with Hemoptysis three months ago but was improving with time, he has productive cough, worsening Fatigue, and weakness with exertion. Shortness of breath. states has no insurance and no Medical Doctor, do not take anything for Diabetes. 08/13: had CT Guided Percutaneous Lung Biopsy on 08/05/16, : Status post CT guided percutaneous Lung Biopsy. positive for Mixed Spindle Cell, in his bedroom seen with nurse Miss Zaragoza, no nausea, vomit or diarrhea, no further Hemoptysis. Objective Vital Signs Date Time Temp Pulse Resp B/P Pulse Ox O2 Delivery O2 Flow Rate FiO2 08/13/16 08:45 98.2 88 12 108/62 95 08/13/16 04:00 97.6 88 18 111/66 95 08/13/16 00:00 97.9 90 18 91/65 95 08/12/16 21:35 Room Air 08/12/16 21:04 97.9 92 16 114/74 94 Manual Cuff/Auscultation 08/12/16 16:00 99.1 95 16 96/64 94 08/12/16 12:00 97.7 100 12 90/69 94 I/O 08/12/16 08/12/16 08/12/16 08/13/16 08/13/16 08/13/16 07:00 15:00 23:00 07:00 15:00 23:00 Intake Total 600 ml 482 ml 345 ml 2 ml Balance 600 ml 482 ml 345 ml 2 ml Intake Oral 600 ml 480 ml 240 ml IV Total 2 ml 105 ml TPN/PPN 2 ml # Voids 3 6 # Bowel Movements 1 0 1 Result Diagram: 08/12/16 0607 Imaging Last Impressions SPECT Scan-Bone Nuclear Medicine 08/05/16 0000 Signed Impressions: Service Date/Time: July 12:27 - CONCLUSION: 1. No evidence of metastatic disease. 2. Traumatic changes involving the right ribs Akash Wagner MD Chest X-Ray 08/05/16 0000 Signed Impressions: Service Date/Time: July 11:47 - CONCLUSION: 1. There is no evidence of pneumothorax. Akash Wagner MD Abdomen/Pelvis CT 08/05/16 0000 Signed Impressions: Service Date/Time: July 01:22 - CONCLUSION: 1. Cirrhotic appearing liver with fatty infiltration. 2. Multiple gastric varices. 3. Nonspecific, nonobstructive bowel gas pattern most consistent with an ileus. 4. The known cavitary mass and probable adenopathy are again visualized in the anterior right lung base. Vickey Medina MD Lung Biopsy CT 08/04/16 0000 Signed Impressions: Service Date/Time: July 09:21 - CONCLUSION: Uncomplicated CT guided biopsy. Akash Wagner MD CT Angiography 08/04/16 0000 Signed Impressions: Service Date/Time: Thursday, August 04, 2016 11:47 - CONCLUSION: 1. No evidence of pulmonary embolism. 2. 5.5 cm right middle lobe mass suspicious for malignancy with possible metastatic adenopathy. This would be accessible to percutaneous biopsy. PET/CT scan is recommended to further evaluation if clinically indicated. Akash Wagner MD Procedures Status post Percutaneous CT guided Lung Biopsy 08/05/16 Other Results Laboratory Tests Test 08/12/16 06:07 White Blood Count 10.6 TH/MM3 Red Blood Count 3.66 MIL/MM3 Hemoglobin 12.0 GM/DL Hematocrit 35.5 % Mean Corpuscular Volume 97.0 FL Mean Corpuscular Hemoglobin 32.7 PG Mean Corpuscular Hemoglobin 33.7 % Concent Red Cell Distribution Width 13.8 % Platelet Count 180 TH/MM3 Mean Platelet Volume 9.2 FL Neutrophils (%) (Auto) 69.5 % Lymphocytes (%) (Auto) 14.9 % Monocytes (%) (Auto) 13.1 % Eosinophils (%) (Auto) 1.8 % Basophils (%) (Auto) 0.7 % Neutrophils # (Auto) 7.3 TH/MM3 Lymphocytes # (Auto) 1.6 TH/MM3 Monocytes # (Auto) 1.4 TH/MM3 Eosinophils # (Auto) 0.2 TH/MM3 Basophils # (Auto) 0.1 TH/MM3 CBC Comment DIFF FINAL Differential Comment Erythrocyte Sedimentation Rate 74 mm/hr Objective Remarks GENERAL: Thin in no acute distress SKIN: Focused skin assessment warm and dry. HEAD: Atraumatic. Normocephalic. EYES: Pupils equal and round. No injection or drainage. ENT: Moist mucous membranes NECK: Trachea midline. CARDIOVASCULAR: Regular rate and rhythm. No murmur appreciated. RESPIRATORY: Clear to auscultation. Breath sounds equal bilaterally. GASTROINTESTINAL: Abdomen soft, non-tender, nondistended. MUSCULOSKELETAL: No obvious deformities. NEUROLOGICAL: Awake and alert. No obvious cranial nerve deficits. Moving all extremities. PSYCHIATRIC: Appropriate mood and affect; insight and judgment normal. Medications and IVs Current Medications Medications (Trade) Dose Ordered Sig/Ernestina Route Start Time Stop Time Status Last Admin (NS Flush) 2 ml UNSCH PRN IV FLUSH 08/04/16 13:45 (NS Flush) 2 ml BID IV FLUSH 08/04/16 21:00 08/13/16 08:16 (Tylenol) 650 mg Q4H PRN PO 08/04/16 13:45 (Zofran Inj) 4 mg Q6H PRN IVP 08/04/16 13:45 (Dulcolax Supp) 10 mg DAILY PRN RECTAL 08/04/16 13:45 (Colace) 100 mg Q12HR PO 08/04/16 13:45 08/10/16 21:54 (Narcan Inj) 0.4 mg UNSCH PRN IV 08/04/16 13:45 (D50w (Vial) Inj) 25 ml UNSCH PRN IV PUSH 08/04/16 14:15 (Glucagon Inj) 1 mg UNSCH PRN OTHER 08/04/16 14:15 (Vitamin B1) 100 mg DAILY PO 08/07/16 09:00 08/13/16 08:15 (Romazicon Inj) 0.2 mg Q1M PRN IV PUSH 08/05/16 08:45 (Percocet 5-325 Mg) 1 tab Q4H PRN PO 08/05/16 12:00 08/13/16 05:32 (Levemir Inj) 15 units HS SQ 08/06/16 21:00 08/12/16 21:01 (Levemir Inj) 15 units DAILYAC SQ 08/07/16 08:00 08/13/16 08:18 (Tussionex Liq) 5 ml Q12HR PO 08/09/16 21:00 08/13/16 08:15 (Librium) 10 mg TID PRN PO 08/10/16 21:15 08/12/16 21:02 A/P Assessment and Plan 1. Hemoptysis secondary to #2 Improved. 2. Lung mass status post CTA has no pulmonary emboli, 5.5 CM right middle lobe mass suspicious for malignancy with possible Metastatic adenopathy. 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 3 Tobacco dependence strongly recommended to stop smoking 4. Alcohol abuse and dependence strongly recommended to stop drinking alcohol. no signs of withdrawal. 5. DM II Poorly controlled Hemoglobin A1C 12.2 better control. continue sliding scale. Levemir DVT prophylaxis SCDs. Code Status full Code. Discussed Condition With Patient, all questions answered to the best of my abilities. Removed Telemetry and Encourage activity. Discharge Planning Once cleared by clinical nurse specialist. Emil Powers MD August 13, 2016 10:04
[2016-08-13 12:00] VITALS: BP 116/67; PULSE 90; RESP 12; TEMP 98.2; O2SAT 96
[2016-08-13] MEDS ORDERED: CEFAZOLIN INJ 500 MG in SODIUM CHLORIDE 0.9% IRR BTL 500 ML IRRIGATION SCH (12:15)
[2016-08-13] MEDS ORDERED: SODIUM CHLORIDE 0.9% FLUSH 10 ML FLUSH IV FLUSH PRN (12:15)
[2016-08-13] MEDS ORDERED: CHLORHEXIDINE GLUCONATE 4% SOLN 120 ML BTL TOPICAL SCH (12:15)
[2016-08-13] MEDS ORDERED: ceFAZolin 2 GM PREMIX 50 ML IV SCH (12:15)
--- NOTE | 2016-08-13 12:23 | PD.CAR.PN ---
CVT Progress Note Subjective/Hospital Course: partial PFT obtained FEV1 2.02 will schedule for surgery on per Dr Seaman, covering for Dr Main for Right thoracotomy pulmonary resection, bronchoscopy r Objective: GENERAL: SKIN: Warm and dry. HEAD: Normocephalic. EYES: No scleral icterus. No injection or drainage. NECK: Supple, trachea midline. No JVD or lymphadenopathy. CARDIOVASCULAR: Regular rate and rhythm without murmurs, gallops, or rubs. RESPIRATORY: Breath sounds equal bilaterally. No accessory muscle use. still coughing up some anya sputum GASTROINTESTINAL: Abdomen soft, non-tender, nondistended. MUSCULOSKELETAL: No cyanosis, or edema. BACK: Nontender without obvious deformity. No CVA tenderness. Vital Signs Date Time Temp Pulse Resp B/P Pulse Ox O2 Delivery O2 Flow Rate FiO2 08/13/16 08:45 98.2 88 12 108/62 95 08/13/16 04:00 97.6 88 18 111/66 95 08/13/16 00:00 97.9 90 18 91/65 95 08/12/16 21:35 Room Air 08/12/16 21:04 97.9 92 16 114/74 94 Manual Cuff/Auscultation 08/12/16 16:00 99.1 95 16 96/64 94 Result Diagram: 08/12/16 0607 (1) Lung mass Plan: FEV1 2.02 will schedule for surgery on Tuesday Nisha Todd August 13, 2016 12:22
[2016-08-13 15:45] VITALS: BP 107/62; PULSE 90; RESP 12; TEMP 98.4; O2SAT 95
[2016-08-13 20:00] VITALS: BP 102/57; PULSE 91; RESP 18; TEMP 98.4; O2SAT 93
[2016-08-14] VITALS (7 sets, daily range): BP systolic 83–119; BP diastolic 52–68; PULSE 85–95; RESP 18–20; TEMP 97.5–99.2; O2SAT 93–97
[2016-08-14] MEDS: oxyCODONE/ACETAMINOPHEN 5 MG/325 MG TAB PO PRN ×5 (01:28→22:44)
[2016-08-14] MEDS: INSULIN NovoLIN REGULAR SUPPLEMENTAL SCALE SQ SCH ×4 (05:29→21:00)
[2016-08-14] MEDS: DOCUSATE SODIUM 100 MG CAP PO SCH ×2 (09:04→21:00)
[2016-08-14] MEDS: THIAMINE HCL 100 MG TAB PO SCH (09:04)
[2016-08-14] MEDS: CHLORPHENIR/HYDROCOD LIQUID 8 MG/10 MG/5 ML CUP PO SCH ×2 (09:04→22:39)
[2016-08-14] MEDS: SODIUM CHLORIDE 0.9% FLUSH 10 ML FLUSH IV FLUSH SCH ×2 (09:06→21:00)
[2016-08-14] MEDS: INSULIN DETEMIR 100 UNITS/ML VIAL SQ SCH ×2 (09:06→22:43)
--- NOTE | 2016-08-14 17:58 | HHI.PR ---
Subjective Remarks This is a 55 year old male who presents to the emergency department with 6 months of hemoptysis with rust colored sputum, shortness of breath, worse with exertion, improved with rest associated with 25 pounds weight loss and generalized fatigue. Patient has a long smoking history. He has no primary care physician and doesn't have insurance. Patient seen in ER, as per patient he states he started with Hemoptysis three months ago but was improving with time, he has productive cough, worsening Fatigue, and weakness with exertion. Shortness of breath. states has no insurance and no Medical Doctor, do not take anything for Diabetes. 08/14: he is been evaluated in his bedroom, no nausea, vomit or diarrhea, awaiting final recommendations by Cardiothoracic surgery for next week, no Hemoptysis. Objective Vital Signs Date Time Temp Pulse Resp B/P Pulse Ox O2 Delivery O2 Flow Rate FiO2 08/14/16 16:00 98.0 95 20 102/68 96 08/14/16 16:00 94 Room Air 08/14/16 12:00 97.5 90 20 85/53 94 08/14/16 10:20 18 08/14/16 08:00 98.3 85 20 83/53 95 08/14/16 06:35 96/64 08/14/16 06:09 Room Air 08/14/16 04:00 98.4 88 18 86/52 93 08/14/16 01:18 Room Air 08/14/16 00:00 99.2 90 18 105/55 94 08/13/16 21:55 Room Air 08/13/16 20:00 98.4 91 18 102/57 93 I/O 08/13/16 08/13/16 08/13/16 08/14/16 08/14/16 08/14/16 07:00 15:00 23:00 07:00 15:00 23:00 Intake Total 2 ml 2 ml 250 ml Balance 2 ml 2 ml 250 ml IV Total 2 ml 250 ml TPN/PPN 2 ml # Voids 6 1 # Bowel Movements 1 2 Result Diagram: 08/12/16 0607 Imaging Last Impressions SPECT Scan-Bone Nuclear Medicine 08/05/16 0000 Signed Impressions: Service Date/Time: July 12:27 - CONCLUSION: 1. No evidence of metastatic disease. 2. Traumatic changes involving the right ribs Akash B. Turetsky, MD Chest X-Ray 08/05/16 0000 Signed Impressions: Service Date/Time: July 11:47 - CONCLUSION: 1. There is no evidence of pneumothorax. Akash Wagner MD Abdomen/Pelvis CT 08/05/16 0000 Signed Impressions: Service Date/Time: July 01:22 - CONCLUSION: 1. Cirrhotic appearing liver with fatty infiltration. 2. Multiple gastric varices. 3. Nonspecific, nonobstructive bowel gas pattern most consistent with an ileus. 4. The known cavitary mass and probable adenopathy are again visualized in the anterior right lung base. Vickey Medina MD Lung Biopsy CT 08/04/16 0000 Signed Impressions: Service Date/Time: July 09:21 - CONCLUSION: Uncomplicated CT guided biopsy. Akash Wagner MD CT Angiography 08/04/16 0000 Signed Impressions: Service Date/Time: Thursday, August 04, 2016 11:47 - CONCLUSION: 1. No evidence of pulmonary embolism. 2. 5.5 cm right middle lobe mass suspicious for malignancy with possible metastatic adenopathy. This would be accessible to percutaneous biopsy. PET/CT scan is recommended to further evaluation if clinically indicated. Akash Wagner MD Procedures Status post Percutaneous CT guided Lung Biopsy 08/05/16 Other Results Laboratory Tests Test 08/12/16 06:07 White Blood Count 10.6 TH/MM3 Red Blood Count 3.66 MIL/MM3 Hemoglobin 12.0 GM/DL Hematocrit 35.5 % Mean Corpuscular Volume 97.0 FL Mean Corpuscular Hemoglobin 32.7 PG Mean Corpuscular Hemoglobin 33.7 % Concent Red Cell Distribution Width 13.8 % Platelet Count 180 TH/MM3 Mean Platelet Volume 9.2 FL Neutrophils (%) (Auto) 69.5 % Lymphocytes (%) (Auto) 14.9 % Monocytes (%) (Auto) 13.1 % Eosinophils (%) (Auto) 1.8 % Basophils (%) (Auto) 0.7 % Neutrophils # (Auto) 7.3 TH/MM3 Lymphocytes # (Auto) 1.6 TH/MM3 Monocytes # (Auto) 1.4 TH/MM3 Eosinophils # (Auto) 0.2 TH/MM3 Basophils # (Auto) 0.1 TH/MM3 CBC Comment DIFF FINAL Differential Comment Erythrocyte Sedimentation Rate 74 mm/hr Objective Remarks GENERAL: Thin in no acute distress SKIN: Focused skin assessment warm and dry. HEAD: Atraumatic. Normocephalic. EYES: Pupils equal and round. No injection or drainage. ENT: Moist mucous membranes NECK: Trachea midline. CARDIOVASCULAR: Regular rate and rhythm. No murmur appreciated. RESPIRATORY: Clear to auscultation. Breath sounds equal bilaterally. GASTROINTESTINAL: Abdomen soft, non-tender, nondistended. MUSCULOSKELETAL: No obvious deformities. NEUROLOGICAL: Awake and alert. No obvious cranial nerve deficits. Moving all extremities. PSYCHIATRIC: Appropriate mood and affect; insight and judgment normal. Medications and IVs Current Medications Medications (Trade) Dose Ordered Sig/Ernestina Route Start Time Stop Time Status Last Admin (Tylenol) 650 mg Q4H PRN PO 08/04/16 13:45 (Zofran Inj) 4 mg Q6H PRN IVP 08/04/16 13:45 (Dulcolax Supp) 10 mg DAILY PRN RECTAL 08/04/16 13:45 (Colace) 100 mg Q12HR PO 08/04/16 13:45 08/14/16 09:04 (Narcan Inj) 0.4 mg UNSCH PRN IV 08/04/16 13:45 (D50w (Vial) Inj) 25 ml UNSCH PRN IV PUSH 08/04/16 14:15 (Glucagon Inj) 1 mg UNSCH PRN OTHER 08/04/16 14:15 (Vitamin B1) 100 mg DAILY PO 08/07/16 09:00 08/14/16 09:04 (Romazicon Inj) 0.2 mg Q1M PRN IV PUSH 08/05/16 08:45 (Percocet 5-325 Mg) 1 tab Q4H PRN PO 08/05/16 12:00 08/14/16 16:51 (Levemir Inj) 15 units HS SQ 08/06/16 21:00 08/13/16 21:10 (Levemir Inj) 15 units DAILYAC SQ 08/07/16 08:00 08/14/16 09:06 (Tussionex Liq) 5 ml Q12HR PO 08/09/16 21:00 08/14/16 09:04 (Librium) 10 mg TID PRN PO 08/10/16 21:15 08/13/16 21:07 (NS Flush) 2 ml BID IV FLUSH 08/13/16 21:00 08/14/16 09:06 (NS Flush) 2 ml UNSCH PRN IV FLUSH 08/13/16 12:15 A/P Assessment and Plan 1. Hemoptysis secondary to #2 Improved. 2. Lung mass status post CTA has no pulmonary emboli, 5.5 CM right middle lobe mass suspicious for malignancy with possible Metastatic adenopathy. 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 Scheduled procedure for TuesdayAugust 17 3 Tobacco dependence strongly recommended to stop smoking 4. Alcohol abuse and dependence strongly recommended to stop drinking alcohol. no signs of withdrawal. 5. DM II Poorly controlled Hemoglobin A1C 12.2 better control. continue sliding scale. Levemir DVT prophylaxis SCDs. Code Status full Code. Discussed Condition With Patient and nurse Miss Renner, all questions answered to the best of my abilities. Discharge Planning Once cleared by nurse specialist. Emil Powers MD August 14, 2016 17:58
[2016-08-15] VITALS: BP 98/64; PULSE 88; RESP 20; TEMP 98.2; O2SAT 97
[2016-08-15] MEDS: oxyCODONE/ACETAMINOPHEN 5 MG/325 MG TAB PO PRN ×5 (03:17→23:55)
[2016-08-15 04:00] VITALS: BP 100/52; PULSE 88; RESP 20; TEMP 98.3; O2SAT 97
[2016-08-15] MEDS: INSULIN NovoLIN REGULAR SUPPLEMENTAL SCALE SQ SCH ×4 (06:45→20:36)
[2016-08-15 08:00] VITALS: BP 149/83; PULSE 73; RESP 20; TEMP 97.6; O2SAT 93
--- NOTE | 2016-08-15 08:38 | HHI.PR ---
Subjective Remarks This is a 55 year old male who presents to the emergency department with 6 months of hemoptysis with rust colored sputum, shortness of breath, worse with exertion, improved with rest associated with 25 pounds weight loss and generalized fatigue. Patient has a long smoking history. He has no primary care physician and doesn't have insurance. Patient seen in ER, as per patient he states he started with Hemoptysis three months ago but was improving with time, he has productive cough, worsening Fatigue, and weakness with exertion. Shortness of breath. states has no insurance and no Medical Doctor, do not take anything for Diabetes. 08/15: he is been evaluated in his bedroom, no nausea, vomit or diarrhea, awaiting final recommendations by Cardiothoracic surgery for next week, no Hemoptysis. Objective Vital Signs Date Time Temp Pulse Resp B/P Pulse Ox O2 Delivery O2 Flow Rate FiO2 08/15/16 08:00 97.6 73 20 149/83 93 08/15/16 04:17 21 08/15/16 04:00 98.3 88 20 100/52 97 08/15/16 00:00 98.2 88 20 98/64 97 08/14/16 21:10 Room Air 08/14/16 20:00 97.9 89 20 119/52 97 08/14/16 16:00 98.0 95 20 102/68 96 08/14/16 16:00 94 Room Air 08/14/16 12:00 97.5 90 20 85/53 94 I/O 08/14/16 08/14/16 08/14/16 08/15/16 08/15/16 08/15/16 07:00 15:00 23:00 07:00 15:00 23:00 Intake Total 360 ml Balance 360 ml Intake Oral 360 ml # Voids 1 3 # Bowel Movements 2 Result Diagram: 08/12/16 0607 Imaging Last Impressions SPECT Scan-Bone Nuclear Medicine 08/05/16 0000 Signed Impressions: Service Date/Time: July 12:27 - CONCLUSION: 1. No evidence of metastatic disease. 2. Traumatic changes involving the right ribs Akash Wagner MD Chest X-Ray 08/05/16 0000 Signed Impressions: Service Date/Time: July 11:47 - CONCLUSION: 1. There is no evidence of pneumothorax. Akash Wagner MD Abdomen/Pelvis CT 08/05/16 0000 Signed Impressions: Service Date/Time: July 01:22 - CONCLUSION: 1. Cirrhotic appearing liver with fatty infiltration. 2. Multiple gastric varices. 3. Nonspecific, nonobstructive bowel gas pattern most consistent with an ileus. 4. The known cavitary mass and probable adenopathy are again visualized in the anterior right lung base. Vickey Medina MD Lung Biopsy CT 08/04/16 0000 Signed Impressions: Service Date/Time: July 09:21 - CONCLUSION: Uncomplicated CT guided biopsy. Akash Wagner MD CT Angiography 08/04/16 0000 Signed Impressions: Service Date/Time: Thursday, August 04, 2016 11:47 - CONCLUSION: 1. No evidence of pulmonary embolism. 2. 5.5 cm right middle lobe mass suspicious for malignancy with possible metastatic adenopathy. This would be accessible to percutaneous biopsy. PET/CT scan is recommended to further evaluation if clinically indicated. Akash Wagner MD Procedures Status post Percutaneous CT guided Lung Biopsy 08/05/16 Other Results Laboratory Tests Test 08/12/16 06:07 White Blood Count 10.6 TH/MM3 Red Blood Count 3.66 MIL/MM3 Hemoglobin 12.0 GM/DL Hematocrit 35.5 % Mean Corpuscular Volume 97.0 FL Mean Corpuscular Hemoglobin 32.7 PG Mean Corpuscular Hemoglobin 33.7 % Concent Red Cell Distribution Width 13.8 % Platelet Count 180 TH/MM3 Mean Platelet Volume 9.2 FL Neutrophils (%) (Auto) 69.5 % Lymphocytes (%) (Auto) 14.9 % Monocytes (%) (Auto) 13.1 % Eosinophils (%) (Auto) 1.8 % Basophils (%) (Auto) 0.7 % Neutrophils # (Auto) 7.3 TH/MM3 Lymphocytes # (Auto) 1.6 TH/MM3 Monocytes # (Auto) 1.4 TH/MM3 Eosinophils # (Auto) 0.2 TH/MM3 Basophils # (Auto) 0.1 TH/MM3 CBC Comment DIFF FINAL Differential Comment Erythrocyte Sedimentation Rate 74 mm/hr Objective Remarks GENERAL: Thin in no acute distress SKIN: Focused skin assessment warm and dry. HEAD: Atraumatic. Normocephalic. EYES: Pupils equal and round. No injection or drainage. ENT: Moist mucous membranes NECK: Trachea midline. CARDIOVASCULAR: Regular rate and rhythm. No murmur appreciated. RESPIRATORY: Clear to auscultation. Breath sounds equal bilaterally. GASTROINTESTINAL: Abdomen soft, non-tender, nondistended. MUSCULOSKELETAL: No obvious deformities. NEUROLOGICAL: Awake and alert. No obvious cranial nerve deficits. Moving all extremities. PSYCHIATRIC: Appropriate mood and affect; insight and judgment normal. Medications and IVs Current Medications Medications (Trade) Dose Ordered Sig/Ernestina Route Start Time Stop Time Status Last Admin (Tylenol) 650 mg Q4H PRN PO 08/04/16 13:45 (Zofran Inj) 4 mg Q6H PRN IVP 08/04/16 13:45 (Dulcolax Supp) 10 mg DAILY PRN RECTAL 08/04/16 13:45 (Colace) 100 mg Q12HR PO 08/04/16 13:45 08/14/16 09:04 (Narcan Inj) 0.4 mg UNSCH PRN IV 08/04/16 13:45 (D50w (Vial) Inj) 25 ml UNSCH PRN IV PUSH 08/04/16 14:15 (Glucagon Inj) 1 mg UNSCH PRN OTHER 08/04/16 14:15 (Vitamin B1) 100 mg DAILY PO 08/07/16 09:00 08/14/16 09:04 (Romazicon Inj) 0.2 mg Q1M PRN IV PUSH 08/05/16 08:45 (Percocet 5-325 Mg) 1 tab Q4H PRN PO 08/05/16 12:00 08/15/16 03:17 (Levemir Inj) 15 units HS SQ 08/06/16 21:00 08/14/16 22:43 (Levemir Inj) 15 units DAILYAC SQ 08/07/16 08:00 08/14/16 09:06 (Tussionex Liq) 5 ml Q12HR PO 08/09/16 21:00 08/14/16 22:39 (Librium) 10 mg TID PRN PO 08/10/16 21:15 08/13/16 21:07 (NS Flush) 2 ml BID IV FLUSH 08/13/16 21:00 08/14/16 09:06 (NS Flush) 2 ml UNSCH PRN IV FLUSH 08/13/16 12:15 A/P Assessment and Plan 1. Hemoptysis secondary to #2 Improved. 2. Lung mass status post CTA has no pulmonary emboli, 5.5 CM right middle lobe mass suspicious for malignancy with possible Metastatic adenopathy. 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 Scheduled procedure for TuesdayAugust 17 3 Tobacco dependence strongly recommended to stop smoking 4. Alcohol abuse and dependence strongly recommended to stop drinking alcohol. no signs of withdrawal. 5. DM II Poorly controlled Hemoglobin A1C 12.2 better control. continue sliding scale. Levemir DVT prophylaxis SCDs. Code Status full Code. Discussed Condition With Patient and nurse Miss Renner, all questions answered to the best of my abilities. Discharge Planning Once cleared by ergonomic specialist. Emil Powers MD August 15, 2016 08:38
[2016-08-15] MEDS: CHLORPHENIR/HYDROCOD LIQUID 8 MG/10 MG/5 ML CUP PO SCH ×2 (08:50→20:34)
[2016-08-15] MEDS: THIAMINE HCL 100 MG TAB PO SCH (08:51)
[2016-08-15] MEDS: SODIUM CHLORIDE 0.9% FLUSH 10 ML FLUSH IV FLUSH SCH ×2 (08:52→20:36)
[2016-08-15] MEDS: DOCUSATE SODIUM 100 MG CAP PO SCH ×2 (08:52→20:35)
[2016-08-15] MEDS: INSULIN DETEMIR 100 UNITS/ML VIAL SQ SCH ×2 (08:52→20:35)
[2016-08-15 12:00] VITALS: BP_SYST 102; BP_SYST 136; BP_DIAS 68; BP_DIAS 84; PULSE 86; PULSE 95; RESP 20; TEMP 97.8; TEMP 98.1; O2SAT 95; O2SAT 96
[2016-08-15 16:00] VITALS: BP 110/65; PULSE 69; RESP 20; TEMP 97.8; O2SAT 94
[2016-08-15 20:48] VITALS: BP 81/51; PULSE 89; RESP 20; TEMP 98.5; O2SAT 94
[2016-08-16 00:51] VITALS: BP 104/58; PULSE 87; RESP 20; TEMP 97.9; O2SAT 93
[2016-08-16] MEDS: oxyCODONE/ACETAMINOPHEN 5 MG/325 MG TAB PO PRN ×4 (05:35→21:34)
[2016-08-16 05:47] VITALS: BP 108/54; PULSE 92; RESP 20; TEMP 98.3; O2SAT 93
[2016-08-16] MEDS: INSULIN NovoLIN REGULAR SUPPLEMENTAL SCALE SQ SCH ×4 (06:14→21:00)
[2016-08-16 08:00] VITALS: BP 109/74; PULSE 88; RESP 20; TEMP 98.1; O2SAT 95
[2016-08-16] MEDS: SODIUM CHLORIDE 0.9% FLUSH 10 ML FLUSH IV FLUSH SCH ×2 (08:21→21:34)
[2016-08-16] MEDS: CHLORPHENIR/HYDROCOD LIQUID 8 MG/10 MG/5 ML CUP PO SCH ×2 (08:21→21:33)
[2016-08-16] MEDS: THIAMINE HCL 100 MG TAB PO SCH (08:21)
[2016-08-16] MEDS: DOCUSATE SODIUM 100 MG CAP PO SCH ×2 (08:21→21:00)
[2016-08-16 09:02] LABS: INTERNATIONAL NORMALIZED RATIO 1.5 RATIO; PROTHROMBIN TIME - PATIENT 17.2 SEC (9.8-11.6)
[2016-08-16 09:21] LABS: BICARBONATE 25.3 MEQ/L (21.0-32.0); POTASSIUM 3.8 MEQ/L (3.5-5.1)
[2016-08-16] MEDS: INSULIN DETEMIR 100 UNITS/ML VIAL SQ SCH ×2 (09:35→21:33)
--- NOTE | 2016-08-16 11:38 | PD.CAR.PN ---
CVT Progress Note Subjective/Hospital Course: partial PFT obtained FEV1 2.02 will schedule for surgery on Tues am per Dr Seaman, covering for Dr Main for Right thoracotomy pulmonary resection, bronchoscopy r 08/16/16 No complaints, stable Objective: Vital Signs Date Time Temp Pulse Resp B/P Pulse Ox O2 Delivery O2 Flow Rate FiO2 08/16/16 08:00 98.1 88 20 109/74 95 08/16/16 07:22 18 08/16/16 07:15 95 Room Air 08/16/16 05:47 98.3 92 20 108/54 93 08/16/16 00:51 97.9 87 20 104/58 93 08/15/16 20:48 98.5 89 20 81/51 94 08/15/16 19:45 Room Air 08/15/16 16:00 97.8 69 20 110/65 94 08/15/16 12:00 97.8 86 20 102/68 96 Labs: Laboratory Tests Test 08/16/16 08:07 Prothrombin Time 17.2 SEC (9.8-11.6) Prothromb Time International 1.5 RATIO Ratio Sodium Level 135 MEQ/L (136-145) Potassium Level 3.8 MEQ/L (3.5-5.1) Chloride Level 100 MEQ/L (98-107) Carbon Dioxide Level 25.3 MEQ/L (21.0-32.0) Anion Gap 10 MEQ/L (5-15) Blood Urea Nitrogen 16 MG/DL (7-18) Creatinine 0.59 MG/DL (0.60-1.30) Estimat Glomerular Filtration 143 ML/MIN Rate (>89) Random Glucose 104 MG/DL (74-106) Calcium Level 8.4 MG/DL (8.5-10.1) Blood Type AB POSITIVE Antibody Screen NEGATIVE Blood Bank Comment Result Diagram: 08/12/16 0607 08/16/16 0807 Imaging: Last Impressions SPECT Scan-Bone Nuclear Medicine 08/05/16 0000 Signed Impressions: Service Date/Time: July 12:27 - CONCLUSION: 1. No evidence of metastatic disease. 2. Traumatic changes involving the right ribs Akash Wagner MD Chest X-Ray 08/05/16 0000 Signed Impressions: Service Date/Time: July 11:47 - CONCLUSION: 1. There is no evidence of pneumothorax. Akash Wagner MD Abdomen/Pelvis CT 08/05/16 0000 Signed Impressions: Service Date/Time: July 01:22 - CONCLUSION: 1. Cirrhotic appearing liver with fatty infiltration. 2. Multiple gastric varices. 3. Nonspecific, nonobstructive bowel gas pattern most consistent with an ileus. 4. The known cavitary mass and probable adenopathy are again visualized in the anterior right lung base. Vickey Medina MD Lung Biopsy CT 08/04/16 0000 Signed Impressions: Service Date/Time: July 09:21 - CONCLUSION: Uncomplicated CT guided biopsy. Akash Wagner MD CT Angiography 08/04/16 0000 Signed Impressions: Service Date/Time: Thursday, August 04, 2016 11:47 - CONCLUSION: 1. No evidence of pulmonary embolism. 2. 5.5 cm right middle lobe mass suspicious for malignancy with possible metastatic adenopathy. This would be accessible to percutaneous biopsy. PET/CT scan is recommended to further evaluation if clinically indicated. Akash Wagner MD Cardiovascular: RRR Telemetry: NSR Pulmonary: CTA GI/: NABS, NT Plan: Plan right thoracotomy for pulmonary resection in AM. I discussed plan with the patient and answered his questions/concerns. (1) Lung mass Plan: FEV1 2.02 will schedule for surgery on Tuesday Dara Seaman MD August 16, 2016 11:38
[2016-08-16 12:00] VITALS: BP 93/55; PULSE 85; RESP 20; TEMP 98.4; O2SAT 95
--- NOTE | 2016-08-16 18:13 | HHI.PR ---
Subjective Remarks This is a 55 year old male who presents to the emergency department with 6 months of hemoptysis with rust colored sputum, shortness of breath, worse with exertion, improved with rest associated with 25 pounds weight loss and generalized fatigue. Patient has a long smoking history. He has no primary care physician and doesn't have insurance. Patient seen in ER, as per patient he states he started with Hemoptysis three months ago but was improving with time, he has productive cough, worsening Fatigue, and weakness with exertion. Shortness of breath. states has no insurance and no Medical Doctor, do not take anything for Diabetes. 08/16: Stable in his bedroom, no complaint, sleeping in bed, not asking for pain medicine. Objective Vital Signs Date Time Temp Pulse Resp B/P Pulse Ox O2 Delivery O2 Flow Rate FiO2 08/16/16 13:00 20 08/16/16 12:00 98.4 85 20 93/55 95 08/16/16 08:00 98.1 88 20 109/74 95 08/16/16 07:15 95 Room Air 08/16/16 05:47 98.3 92 20 108/54 93 08/16/16 00:51 97.9 87 20 104/58 93 08/15/16 20:48 98.5 89 20 81/51 94 08/15/16 19:45 Room Air I/O 08/15/16 08/15/16 08/15/16 08/16/16 08/16/16 08/16/16 06:59 14:59 22:59 06:59 14:59 22:59 Intake Total 720 ml 720 ml Balance 720 ml 720 ml Intake Oral 720 ml 720 ml # Voids 4 1 1 # Bowel Movements 1 Result Diagram: 08/12/16 0607 08/16/16 0807 Imaging Last Impressions SPECT Scan-Bone Nuclear Medicine 08/05/16 0000 Signed Impressions: Service Date/Time: July 12:27 - CONCLUSION: 1. No evidence of metastatic disease. 2. Traumatic changes involving the right ribs Akash Wagner MD Chest X-Ray 08/05/16 0000 Signed Impressions: Service Date/Time: July 11:47 - CONCLUSION: 1. There is no evidence of pneumothorax. Akash Wagner MD Abdomen/Pelvis CT 08/05/16 0000 Signed Impressions: Service Date/Time: July 01:22 - CONCLUSION: 1. Cirrhotic appearing liver with fatty infiltration. 2. Multiple gastric varices. 3. Nonspecific, nonobstructive bowel gas pattern most consistent with an ileus. 4. The known cavitary mass and probable adenopathy are again visualized in the anterior right lung base. Vickey Medina MD Lung Biopsy CT 08/04/16 0000 Signed Impressions: Service Date/Time: July 09:21 - CONCLUSION: Uncomplicated CT guided biopsy. Akash Wagner MD CT Angiography 08/04/16 0000 Signed Impressions: Service Date/Time: Thursday, August 04, 2016 11:47 - CONCLUSION: 1. No evidence of pulmonary embolism. 2. 5.5 cm right middle lobe mass suspicious for malignancy with possible metastatic adenopathy. This would be accessible to percutaneous biopsy. PET/CT scan is recommended to further evaluation if clinically indicated. Akash Wagner MD Procedures Status post Percutaneous CT guided Lung Biopsy 08/05/16 Other Results Laboratory Tests Test 08/12/16 08/16/16 06:07 08:07 White Blood Count 10.6 TH/MM3 Red Blood Count 3.66 MIL/MM3 Hemoglobin 12.0 GM/DL Hematocrit 35.5 % Mean Corpuscular Volume 97.0 FL Mean Corpuscular Hemoglobin 32.7 PG Mean Corpuscular Hemoglobin 33.7 % Concent Red Cell Distribution Width 13.8 % Platelet Count 180 TH/MM3 Mean Platelet Volume 9.2 FL Neutrophils (%) (Auto) 69.5 % Lymphocytes (%) (Auto) 14.9 % Monocytes (%) (Auto) 13.1 % Eosinophils (%) (Auto) 1.8 % Basophils (%) (Auto) 0.7 % Neutrophils # (Auto) 7.3 TH/MM3 Lymphocytes # (Auto) 1.6 TH/MM3 Monocytes # (Auto) 1.4 TH/MM3 Eosinophils # (Auto) 0.2 TH/MM3 Basophils # (Auto) 0.1 TH/MM3 CBC Comment DIFF FINAL Differential Comment Erythrocyte Sedimentation Rate 74 mm/hr Prothrombin Time 17.2 SEC Prothromb Time International 1.5 RATIO Ratio Sodium Level 135 MEQ/L Potassium Level 3.8 MEQ/L Chloride Level 100 MEQ/L Carbon Dioxide Level 25.3 MEQ/L Anion Gap 10 MEQ/L Blood Urea Nitrogen 16 MG/DL Creatinine 0.59 MG/DL Estimat Glomerular Filtration 143 ML/MIN Rate Random Glucose 104 MG/DL Calcium Level 8.4 MG/DL Blood Type AB POSITIVE Antibody Screen NEGATIVE Blood Bank Comment Objective Remarks GENERAL: Thin in no acute distress SKIN: Focused skin assessment warm and dry. HEAD: Atraumatic. Normocephalic. EYES: Pupils equal and round. No injection or drainage. ENT: Moist mucous membranes NECK: Trachea midline. CARDIOVASCULAR: Regular rate and rhythm. No murmur appreciated. RESPIRATORY: Clear to auscultation. Breath sounds equal bilaterally. GASTROINTESTINAL: Abdomen soft, non-tender, nondistended. MUSCULOSKELETAL: No obvious deformities. NEUROLOGICAL: Awake and alert. No obvious cranial nerve deficits. Moving all extremities. PSYCHIATRIC: Appropriate mood and affect; insight and judgment normal. Medications and IVs Current Medications Medications (Trade) Dose Ordered Sig/Ernestina Route Start Time Stop Time Status Last Admin (Tylenol) 650 mg Q4H PRN PO 08/04/16 13:45 (Zofran Inj) 4 mg Q6H PRN IVP 08/04/16 13:45 (Dulcolax Supp) 10 mg DAILY PRN RECTAL 08/04/16 13:45 (Colace) 100 mg Q12HR PO 08/04/16 13:45 08/14/16 09:04 (Narcan Inj) 0.4 mg UNSCH PRN IV 08/04/16 13:45 (D50w (Vial) Inj) 25 ml UNSCH PRN IV PUSH 08/04/16 14:15 (Glucagon Inj) 1 mg UNSCH PRN OTHER 08/04/16 14:15 (Vitamin B1) 100 mg DAILY PO 08/07/16 09:00 08/16/16 08:21 (Romazicon Inj) 0.2 mg Q1M PRN IV PUSH 08/05/16 08:45 (Percocet 5-325 Mg) 1 tab Q4H PRN PO 08/05/16 12:00 08/16/16 17:24 (Levemir Inj) 15 units HS SQ 08/06/16 21:00 08/15/16 20:35 (Levemir Inj) 15 units DAILYAC SQ 08/07/16 08:00 08/16/16 09:35 (Tussionex Liq) 5 ml Q12HR PO 08/09/16 21:00 08/16/16 08:21 (NS Flush) 2 ml BID IV FLUSH 08/13/16 21:00 08/16/16 08:21 (NS Flush) 2 ml UNSCH PRN IV FLUSH 08/13/16 12:15 (Librium) 5 mg TID PRN PO 08/15/16 09:00 A/P Assessment and Plan 1. Hemoptysis secondary to #2 Improved. 2. Lung mass status post CTA has no pulmonary emboli, 5.5 CM right middle lobe mass suspicious for malignancy with possible Metastatic adenopathy. 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 Scheduled procedure for TuesdayAugust 17 3 Tobacco dependence strongly recommended to stop smoking 4. Alcohol abuse and dependence strongly recommended to stop drinking alcohol. no signs of withdrawal. 5. DM II Poorly controlled Hemoglobin A1C 12.2 better control. continue sliding scale. Levemir DVT prophylaxis SCDs. Code Status full Code. Discussed Condition With Patient and nurse Miss Renner, all questions answered to the best of my abilities. No changes to anterior assessment Discharge Planning Once cleared by sales enablement specialist. Emil Powers MD August 16, 2016 18:13
[2016-08-16 20:00] VITALS: BP 97/59; PULSE 81; RESP 20; TEMP 98.1; O2SAT 95
[2016-08-17] VITALS (11 sets, daily range): BP systolic 85–118; BP diastolic 51–76; PULSE 83–97; RESP 15–18; TEMP 96.2–98.2; O2SAT 92–99
[2016-08-17] MEDS: oxyCODONE/ACETAMINOPHEN 5 MG/325 MG TAB PO PRN ×2 (02:07→06:05)
[2016-08-17] MEDS: INSULIN NovoLIN REGULAR SUPPLEMENTAL SCALE SQ SCH (06:05)
[2016-08-17] MEDS ORDERED: BUPIVACAINE HCL PF 0.5% 30 ML VIAL ONE (06:41)
[2016-08-17] MEDS ORDERED: ceFAZolin 2 GM PREMIX 50 ML ONE (06:41)
[2016-08-17] MEDS ORDERED: MIDAZOLAM HCL 2 MG/2 ML VIAL ONE (07:17)
[2016-08-17] MEDS ORDERED: FAMOTIDINE 20 MG/2 ML VIAL ONE (07:18)
[2016-08-17] MEDS: INSULIN DETEMIR 100 UNITS/ML VIAL SQ SCH ×2 (08:00→20:16)
[2016-08-17] MEDS ORDERED: ceFAZolin INJ 1,000 MG VIAL IV ONE (08:08)
[2016-08-17] MEDS: CHLORPHENIR/HYDROCOD LIQUID 8 MG/10 MG/5 ML CUP PO SCH ×2 (09:00→20:16)
[2016-08-17] MEDS: THIAMINE HCL 100 MG TAB PO SCH (09:00)
[2016-08-17] MEDS: SODIUM CHLORIDE 0.9% FLUSH 10 ML FLUSH IV FLUSH SCH ×2 (09:00→20:15)
[2016-08-17] MEDS: DOCUSATE SODIUM 100 MG CAP PO SCH (09:00)
[2016-08-17] MEDS ORDERED: MISC INFORMATION OTHER ONE (11:15)
[2016-08-17] MEDS ORDERED: DEXTROSE 50% IN WATER 50 ML VIAL(D50) IV PRN (11:15)
[2016-08-17] MEDS ORDERED: GLUCAGON 1 MG/ML VIAL IV PRN (11:15)
[2016-08-17] MEDS ORDERED: NALOXONE HCL 0.4 MG/ML AMP IV PRN (11:15)
[2016-08-17] MEDS ORDERED: ONDANSETRON HCL 4 MG/2 ML VIAL IV PUSH PRN (11:15)
[2016-08-17] MEDS ORDERED: SODIUM CHLORIDE 0.9% FLUSH 10 ML FLUSH IV FLUSH PRN (11:15)
[2016-08-17] MEDS ORDERED: ACETAMINOPHEN 325 MG TAB PO PRN (11:15)
--- NOTE | 2016-08-17 11:37 | PD.OP ---
cc: Osvaldo Cm MD; Dara Seaman MD Operative Report Date of Surgery: August 17, 2016 Preoperative Diagnosis: (1) Lung mass (2) Hemoptysis Postoperative Diagnosis: same Procedure: Right thoracotomy, right upper and middle lobectomy, lysis of adhesions, lymph node dissection Anesthesia: Dr. Schaefer Surgeon: Dara Seaman Hvac Operations Technician(s): ERIN Rubin Operation and Findings: After adequate general anesthesia the patient was placed in the left lateral decubitus position and the right chest was prepped and draped in usual manner. A small lateral thoracotomy incision was performed and electrocautery was used to obtain hemostasis and carry the dissection down through the latissimus dorsi. The serratus anterior was retracted anteriorly and the 5th intercostal space was entered under direct vision and selective single lung ventilation. A retractor was placed after shingling the 5th rib posteriorly. Exploration of the right hemithorax was significant for a large mass in the right middle lobe grossly invading the mediastinum adjacent to the pericardium and right phrenic nerve. This mass also involved the upper lobe via the minor fissure. The major fissure was developed using electrocautery and sharp dissection. The pleural reflection was divided anteriorly from the major fissure up and around posteriorly. Dense adhesions between the mass and mediastinum were lysed using electrocautery and blunt dissection. Once these adhesions were divided, the hilar structures anteriorly were accessible. The segmental arterial branches were ligated and divided using a vascular stapler. The right superior pulmonary vein was isolated and divided using a endo-MARIAELENA vascular stapler. The right upper and middle lobe bronchi was isolated and divided individually using an TA 30 stapler. The specimen was submitted to pathology for permanent section. Additionally, dissection was carried out to resect a level 5 subcarinal lymph node. A 28 and 32 Cuban chest tubes was then placed through separate stab incisions anteriorly and each secured with 0 silk suture. An On Q pump was placed for postoperative analgesia. The lung was ventilated and no significant air leaks were found. The wound was closed in layers approximately in the ribs initially with a 2. Vicryl [id number] suture. The latissimus dorsi was reapproximated using a running 0 Vicryl suture. The subcutaneous tissues approximated running 2-0 Vicryl suture and the skin was approximated using running 4-0 Monocryl subcuticular stitch. All sponges history counts were correct at the close the procedure and the patient was transferred to the PACU for recovery purposes. Specimen: right upper and middle lobes, pleural fluid for cytology and cultures , level [address] LN[address] THE TUMOR GROSSLY INVADED THE MEDIATINUM (T4, NX, MX) Dara Seaman MD August 17, 2016 11:37
[2016-08-17] MEDS ORDERED: Post-op Orders (for Pharmacy) MISC OTHER ONE (11:43)
[2016-08-17] MEDS ORDERED: *morphine SULFATE 8 MG/ML PERIprocedure ONLY ONE (11:50)
[2016-08-17] MEDS ORDERED: fentaNYL CITRATE 250 MCG/5 ML AMP ONE (11:53)
[2016-08-17] MEDS ORDERED: *MEPERIDINE 25 MG INJ VIAL PERIprocedural Use ONLY ONE (12:00)
[2016-08-17] MEDS: INSULIN ASPART SUPPLEMENTAL SCALE SQ SCH ×3 (12:00→23:27)
[2016-08-17] MEDS ORDERED: DO NOT ADM ANY ANTICOAGULANT DRUGS PRN (12:00)
[2016-08-17] MEDS: KETOROLAC TROMETHAMINE 30 MG/ML (IVP) VIAL IV PUSH SCH ×3 (12:30→23:27)
--- NOTE | 2016-08-17 12:35 | RADRPT ---
EXAM DATE/TIME: 08/17/2016 12:03 [facility] COMPARISON: CHEST EXPIRATION ONLY, August 05, 2016, 11:47. INDICATIONS : Post thoracotomy. Right side chest tube. MEDICAL HISTORY : Cardiovascular disease. Hypertension Diabetes mellitus type II. SURGICAL HISTORY : None. ENCOUNTER: Initial ACUITY: 1 day PAIN SCORE: 8/10 LOCATION: Right chest FINDINGS: 2 large bore chest tubes are seen in the right side. A pneumothorax is not seen. There is subcutaneou s emphysema seen over the superior and lateral aspect of the right chest. There is apparent postopera tive change at the right fifth rib. There is volume loss with shift of the heart and mediastinal stru ctures towards the right. The left lung is clear. No effusion is seen. CONCLUSION: Post operative change from partial right pneumonectomy. Pneumothorax is not seen. Dexter Ellsworth MD on August 17, 2016 at 12:32 Board Certified Radiologist. This report was verified electronically.
[2016-08-17 12:45] LABS: HEMATOCRIT 31.5 % (39.0-51.0); REVIEW FLAG FINAL
--- NOTE | 2016-08-17 13:09 | HHI.PR ---
Subjective Remarks Mr. Price is status post right thoracotomy with right upper and middle lobectomy. She is drowsy when seen. Chest tubes in place. Respiratory status is stable. No acute complaints when seen Objective Vital Signs Date Time Temp Pulse Resp B/P Pulse Ox O2 Delivery O2 Flow Rate FiO2 08/17/16 04:00 98.1 83 18 93/54 92 08/17/16 00:00 98.2 91 18 108/70 08/16/16 20:30 Room Air 08/16/16 20:00 98.1 81 20 97/59 95 08/16/16 18:38 18 I/O 08/16/16 08/16/16 08/16/16 08/17/16 08/17/16 08/17/16 07:00 15:00 23:00 07:00 15:00 23:00 Intake Total 720 ml 240 ml 2000 ml Output Total 1 ml 1250 ml Balance 720 ml -1 ml 240 ml 750 ml Intake Oral 720 ml 240 ml Other 2000 ml Output Urine Total 1 ml 700 ml Chest Tube Drainage Total 50 ml Other 500 ml # Voids 1 3 # Bowel Movements 0 Result Diagram: 08/17/16 1221 08/16/16 0807 Imaging Last Impressions Chest X-Ray 08/17/16 0000 Signed Impressions: Service Date/Time: Wednesday, August 17, 2016 12:03 - CONCLUSION: Post operative change from partial right pneumonectomy. Pneumothorax is not seen. Dexter Ellsworth MD SPECT Scan-Bone Nuclear Medicine 08/05/16 0000 Signed Impressions: Service Date/Time: July 12:27 - CONCLUSION: 1. No evidence of metastatic disease. 2. Traumatic changes involving the right ribs Akash Wagner MD Abdomen/Pelvis CT 08/05/16 0000 Signed Impressions: Service Date/Time: July 01:22 - CONCLUSION: 1. Cirrhotic appearing liver with fatty infiltration. 2. Multiple gastric varices. 3. Nonspecific, nonobstructive bowel gas pattern most consistent with an ileus. 4. The known cavitary mass and probable adenopathy are again visualized in the anterior right lung base. Vickey Medina MD Lung Biopsy CT 08/04/16 0000 Signed Impressions: Service Date/Time: July 09:21 - CONCLUSION: Uncomplicated CT guided biopsy. Akash Wagner MD CT Angiography 08/04/16 0000 Signed Impressions: Service Date/Time: Thursday, August 04, 2016 11:47 - CONCLUSION: 1. No evidence of pulmonary embolism. 2. 5.5 cm right middle lobe mass suspicious for malignancy with possible metastatic adenopathy. This would be accessible to percutaneous biopsy. PET/CT scan is recommended to further evaluation if clinically indicated. Akash Wagner MD Procedures Status post Percutaneous CT guided Lung Biopsy 08/05/16 Objective Remarks GENERAL: NAD, A&Ox1, drowsy SKIN: Warm and dry. HEAD: Normocephalic. EYES: No scleral icterus. No injection or drainage. NECK: Supple, trachea midline. No JVD or lymphadenopathy. CARDIOVASCULAR: Regular rate and rhythm without murmurs, gallops, or rubs. RESPIRATORY: Breath sounds equal bilaterally. No accessory muscle use. Right- sided chest tube in place. GASTROINTESTINAL: Abdomen soft, non-tender, nondistended. MUSCULOSKELETAL: No cyanosis, or edema. Medications and IVs Administered Medications Medications (Trade) Dose Ordered Sig/Ernestina Route PRN Reason Start Time Stop Time Status Last Admin Dose Admin Thiamine HCl (Vitamin B1) 100 mg DAILY PO 08/07/16 09:00 08/16/16 08:21 Oxycodone/ Acetaminophen (Percocet 5-325 Mg) 1 tab Q4H PRN PO PAIN SCALE 1 TO 10 08/05/16 12:00 08/17/16 06:05 Insulin Detemir (Levemir Inj) 15 units HS SQ 08/06/16 21:00 08/16/16 21:33 Insulin Detemir (Levemir Inj) 15 units DAILYAC SQ 08/07/16 08:00 08/16/16 09:35 Chlorphenir/ Hydrocodone Polistirex (Tussionex Liq) 5 ml Q12HR PO 08/09/16 21:00 08/16/16 21:33 Ketorolac Tromethamine (Toradol Inj) 15 mg Q6H IV PUSH 08/17/16 13:00 08/18/16 07:01 08/17/16 12:30 A/P Problem List: (1) Lung mass ICD Code: R91.8 (2) Hemoptysis ICD Code: R04.2 Assessment and Plan Assessment and Plan 55-year-old male admitted with hemoptysis and right lung mass Hemoptysis Resolved Folder for recurrence Right-sided lung mass Lung cancer suspected Status post right thoracotomy with right sided upper and middle lobectomy Following in CVICU Follow pathology Cardiothoracic surgeon following Nicotine dependence Patient counseled to quit Alcohol abuse and dependence Patient counseled to quit Noted delirium tremens Diabetes mellitus type 2 Insulin sliding scale Levemir Diabetic diet Follow blood sugars DVT prophylaxis SCDs given recent surgery and hemoptysis Arpit Ramirez MD August 17, 2016 13:09
[2016-08-17] MEDS ORDERED: NEOSTIGMINE 3 MG/3 ML SYR IV ONE (13:27)
[2016-08-17] MEDS ORDERED: PROPOFOL 200 MG/20 ML AMP IV ONE (13:27)
[2016-08-17] MEDS ORDERED: ONDANSETRON HCL 4 MG/2 ML VIAL IV PUSH ONE (13:27)
[2016-08-17] MEDS ORDERED: NORMOSOL R INJ 1,000 ML IV ONE (13:27)
[2016-08-17] MEDS ORDERED: SODIUM CHLORID 0.9% 500 ML INJ 500 ML IV ONE (13:27)
[2016-08-17] MEDS ORDERED: LACTATED RINGER'S 1000 ML INJ 1,000 ML IV ONE (13:27)
[2016-08-17] MEDS ORDERED: PHENYLEPH/NS 1000 MCG/10 ML SYR IV ONE (13:27)
[2016-08-17] MEDS: PCA - TOTAL MG MORPHINE DELIVERED PER SHIFT SCH ×2 (14:00→22:00)
[2016-08-17] MEDS: MORPHINE SULFATE 30 MG/30 ML PCA IV SCH (15:21)
[2016-08-17] MEDS: RESP: ALBUTEROL 2.5 MG/3 ML NEB (SCH) NEB ×2 (16:00→21:28)
[2016-08-17] MEDS: PANTOPRAZOLE SOD 40 MG DELAYED RELEASE TAB PO SCH (20:15)
[2016-08-17] MEDS: DOCUSATE CALCIUM 240 MG CAP PO SCH (20:15)
[2016-08-18] VITALS (12 sets, daily range): BP systolic 84–115; BP diastolic 55–77; PULSE 87–101; RESP 15–18; TEMP 98–98.6; O2SAT 93–98
[2016-08-18] MEDS: RESP: ALBUTEROL 2.5 MG/3 ML NEB (SCH) NEB ×4 (03:17→21:47)
[2016-08-18 05:04] LABS: AUTOMATED NEUTROPHIL # 10.9 TH/MM3 (1.8-7.7); BASOPHIL # 0.1 TH/MM3 (0-0.2); BASOPHIL % 0.5 % (0.0-2.0); EOSINOPHIL # 0.1 TH/MM3 (0-0.4); EOSINOPHIL % 0.7 % (0.0-4.0); HEMATOCRIT 30.9 % (39.0-51.0); HEMO FLAGS DIFF FINAL; LYMPHOCYTE # 2.2 TH/MM3 (1.0-4.8); MEAN CELL VOLUME 96.3 FL (80.0-100.0); MEAN CORPUSCULAR HEMOGLOBIN 30.9 PG (27.0-34.0); MEAN CORPUSCULAR HGB CONC 32.1 % (32.0-36.0); MONO % 9.6 % (0.0-8.0); NEUT % 74.2 % (16.0-70.0); PLATELET COUNT 170 TH/MM3 (150-450); RED BLOOD COUNT 3.21 MIL/MM3 (4.50-5.90); RED CELL DISTRIBUTION WIDTH 13.6 % (11.6-17.2); WHITE BLOOD COUNT 14.7 TH/MM3 (4.0-11.0)
[2016-08-18 05:33] LABS: BICARBONATE 25.2 MEQ/L (21.0-32.0)
[2016-08-18] MEDS: INSULIN ASPART SUPPLEMENTAL SCALE SQ SCH ×4 (06:00→22:39)
[2016-08-18] MEDS: PCA - TOTAL MG MORPHINE DELIVERED PER SHIFT SCH ×3 (06:00→22:00)
[2016-08-18] MEDS: KETOROLAC TROMETHAMINE 30 MG/ML (IVP) VIAL IV PUSH SCH (06:05)
--- NOTE | 2016-08-18 08:26 | RADRPT ---
EXAM DATE/TIME: 08/18/2016 04:15 [facility] COMPARISON: CHEST SINGLE AP, August 17, 2016, 12:03. INDICATIONS : Shortness of breath. MEDICAL HISTORY : Cardiovascular disease. Hypertension Diabetes mellitus type II SURGICAL HISTORY : Chest tube ENCOUNTER: Subsequent ACUITY: 2 days PAIN SCORE: 9/10 LOCATION: Bilateral chest FINDINGS: Right thoracostomy tubes are stable in position. The lungs are stable and grossly clear. Cardiac cont ours are unchanged. CONCLUSION: Stable chest appearance Dexter Lemus MD on August 18, 2016 at 4:38 Board Certified Radiologist. This report was verified electronically.
--- NOTE | 2016-08-18 09:03 | HHI.PR ---
Subjective Remarks Doing well status post procedure. Some relative hypotension is present. Patient has received fluid boluses for this. What pressure is in the 90s systolic. She had some hypotension issues prior to his procedure, during this hospital stay. Complaints of pain and difficulty coughing are within normal limits for his recent surgery. He is recovering well. Objective Vital Signs Date Time Temp Pulse Resp B/P Pulse Ox O2 Delivery O2 Flow Rate FiO2 08/18/16 07:00 93 08/18/16 07:00 95 Room Air 08/18/16 07:00 98.3 97 17 84/62 97 84/56 08/18/16 06:11 16 08/18/16 06:00 14 08/18/16 03:18 98 Nasal Cannula 2.00 08/18/16 03:18 98.0 88 15 92/69 98 109/59 08/18/16 03:00 87 08/17/16 23:51 98.2 93 15 85/62 99 94/54 08/17/16 23:51 98 Nasal Cannula 3.00 08/17/16 23:00 89 08/17/16 22:13 15 08/17/16 22:00 14 08/17/16 21:29 99 Nasal Cannula 3.00 08/17/16 19:21 98 Nasal Cannula 3.00 08/17/16 19:14 98.0 97 17 93/51 98 118/75 Manual Cuff/Auscultation 08/17/16 19:00 90 08/17/16 16:26 97.6 88 18 90/52 99 103/74 08/17/16 15:37 17 08/17/16 15:21 16 08/17/16 14:34 99 Nasal Cannula 3.00 08/17/16 14:30 17 08/17/16 14:00 17 08/17/16 13:00 96.2 93 17 96/76 99 98/54 08/17/16 13:00 17 08/17/16 12:40 92 22 113/66 92 Nasal Cannula 3 08/17/16 12:30 92 22 106/62 94 Nasal Cannula 3 08/17/16 12:15 91 22 91/52 98 Nasal Cannula 3 08/17/16 12:00 91 22 136/75 100 Nasal Cannula 3 08/17/16 11:45 96.7 91 22 83/56 100 Nasal Cannula 3 I/O 08/17/16 08/17/16 08/17/16 08/18/16 08/18/16 08/18/16 07:00 15:00 23:00 07:00 15:00 23:00 Intake Total 240 ml 3000 ml 1400 ml 1296 ml Output Total 1425 ml 100 ml 490 ml Balance 240 ml 1575 ml 1300 ml 806 ml Intake Oral 240 ml 250 ml 480 ml IV Total 1000 ml 1150 ml 816 ml Other 2000 ml Output Urine Total 850 ml 100 ml 200 ml Chest Tube Drainage Total 75 ml 290 ml Other 500 ml # Voids 3 # Bowel Movements 0 0 Result Diagram: 08/18/16 0446 08/18/16 0446 Procedures Status post Percutaneous CT guided Lung Biopsy 08/05/16 Objective Remarks GENERAL: NAD, A&Ox1, drowsy SKIN: Warm and dry. HEAD: Normocephalic. EYES: No scleral icterus. No injection or drainage. NECK: Supple, trachea midline. No JVD or lymphadenopathy. CARDIOVASCULAR: Regular rate and rhythm without murmurs, gallops, or rubs. RESPIRATORY: Breath sounds equal bilaterally. No accessory muscle use. Right- sided chest tube in place. GASTROINTESTINAL: Abdomen soft, non-tender, nondistended. MUSCULOSKELETAL: No cyanosis, or edema. Thoracotomy wound on right side, bandaged. A/P Problem List: (1) Lung mass ICD Code: R91.8 (2) Hemoptysis ICD Code: R04.2 Assessment and Plan Assessment and Plan 55-year-old male admitted with hemoptysis and right lung mass. He is status post thoracotomy on 08/17/16. Fluid boluses provided for hypotension this morning. We'll monitor blood pressures. Transfer back to [facility] surgical be considered only after blood pressure stabilize. Hypotension Fluid boluses Follow blood pressure Consider pressors if this condition worsens or cannot be stabilized with fluid boluses Hemoptysis Resolved Right-sided lung mass Lung cancer suspected Status post right thoracotomy with right sided upper and middle lobectomy Recovering well Following in CVICU Follow pathology Cardiothoracic surgeon following Nicotine dependence Patient counseled to quit Alcohol abuse and dependence Patient counseled to quit Noted delirium tremens Diabetes mellitus type 2 Insulin sliding scale Levemir Diabetic diet Follow blood sugars DVT prophylaxis SCDs given recent surgery and hemoptysis Arpit Ramirez MD August 18, 2016 9:03 am
[2016-08-18] MEDS: CHLORPHENIR/HYDROCOD LIQUID 8 MG/10 MG/5 ML CUP PO SCH ×2 (09:14→22:34)
[2016-08-18] MEDS: THIAMINE HCL 100 MG TAB PO SCH (09:14)
[2016-08-18] MEDS: INSULIN DETEMIR 100 UNITS/ML VIAL SQ SCH ×2 (09:17→22:38)
[2016-08-18] MEDS: SODIUM CHLORIDE 0.9% FLUSH 10 ML FLUSH IV FLUSH SCH ×2 (09:18→22:34)
--- NOTE | 2016-08-18 09:21 | RSPPFT ---
DATE OF PROCEDURE: 08/12/16 COMMENTS: VOLUMES DYNAMIC: FVC and FEV1 moderately reduced. FLOWS: FEV1% normal; FEF 25-75 moderately reduced. IMPRESSION: Moderately severe obstructive ventilatory defect with significant improvement post-bronchodilator.
--- NOTE | 2016-08-18 12:56 | PD.CAR.PN ---
CVT Progress Note Subjective/Hospital Course: 55yr / old male 40pk year hx of tobacco abuse presented to ED with hemoptysis x 3 months / 25lbs recent weight loss No, PCP ( lost his insurance) , CT chest showed right middle lobe lung mass PMH: DM , peripheral neuropathy, partial PFT obtained FEV1 2.02 will schedule for surgery on Tues am per Dr Seaman, covering for Dr Main for Right thoracotomy pulmonary resection, bronchoscopy r 08/16/16 No complaints, stable 08/17 surgery: Right thoracotomy, right upper and middle lobectomy, lysis of adhesions , lymph node dissection EBL 500ml 2000cc crystalloid 08/18 pt had some transient hypotension this am , given 250cc fluid bolus now improved, will transfer to stepdown later today resume long acting insulin and, continue pain control with soil field technician Objective: GENERAL: SKIN: Warm and dry.dressing in place to right posterolateral chest wall HEAD: Normocephalic. EYES: No scleral icterus. No injection or drainage. NECK: Supple, trachea midline. No JVD or lymphadenopathy. CARDIOVASCULAR: Regular rate and rhythm without murmurs, gallops, or rubs. RESPIRATORY: Breath sounds/ coarse on right / chest tube to wall suction/ no air leak / drained 290cc/ 12 hrs No accessory muscle use. GASTROINTESTINAL: Abdomen soft, non-tender, nondistended. MUSCULOSKELETAL: No cyanosis, or edema. BACK: Nontender without obvious deformity. No CVA tenderness. Vital Signs Date Time Temp Pulse Resp B/P Pulse Ox O2 Delivery O2 Flow Rate FiO2 08/18/16 11:17 97 08/18/16 11:17 95 Room Air 08/18/16 11:17 98.6 98 18 112/62 93 112/55 08/18/16 09:08 98 21 08/18/16 07:00 93 08/18/16 07:00 95 Room Air 08/18/16 07:00 98.3 97 17 84/62 97 84/56 08/18/16 06:11 16 08/18/16 06:00 14 08/18/16 03:18 98 Nasal Cannula 2.00 08/18/16 03:18 98.0 88 15 92/69 98 109/59 08/18/16 03:00 87 08/17/16 23:51 98.2 93 15 85/62 99 94/54 08/17/16 23:51 98 Nasal Cannula 3.00 08/17/16 23:00 89 08/17/16 22:13 15 08/17/16 22:00 14 08/17/16 21:29 99 Nasal Cannula 3.00 08/17/16 19:21 98 Nasal Cannula 3.00 08/17/16 19:14 98.0 97 17 93/51 98 118/75 Manual Cuff/Auscultation 08/17/16 19:00 90 08/17/16 16:26 97.6 88 18 90/52 99 103/74 08/17/16 15:37 17 08/17/16 15:21 16 08/17/16 14:34 99 Nasal Cannula 3.00 08/17/16 14:30 17 08/17/16 14:00 17 08/17/16 13:00 96.2 93 17 96/76 99 98/54 08/17/16 13:00 17 Labs: Laboratory Tests Test 08/18/16 04:46 White Blood Count 14.7 TH/MM3 (4.0-11.0) Red Blood Count 3.21 MIL/MM3 (4.50-5.90) Hemoglobin 9.9 GM/DL (13.0-17.0) Hematocrit 30.9 % (39.0-51.0) Mean Corpuscular Volume 96.3 FL (80.0-100.0) Mean Corpuscular Hemoglobin 30.9 PG (27.0-34.0) Mean Corpuscular Hemoglobin 32.1 % Concent (32.0-36.0) Red Cell Distribution Width 13.6 % (11.6-17.2) Platelet Count 170 TH/MM3 (150-450) Mean Platelet Volume 9.4 FL (7.0-11.0) Neutrophils (%) (Auto) 74.2 % (16.0-70.0) Lymphocytes (%) (Auto) 15.0 % (9.0-44.0) Monocytes (%) (Auto) 9.6 % (0.0-8.0) Eosinophils (%) (Auto) 0.7 % (0.0-4.0) Basophils (%) (Auto) 0.5 % (0.0-2.0) Neutrophils # (Auto) 10.9 TH/MM3 (1.8-7.7) Lymphocytes # (Auto) 2.2 TH/MM3 (1.0-4.8) Monocytes # (Auto) 1.4 TH/MM3 (0-0.9) Eosinophils # (Auto) 0.1 TH/MM3 (0-0.4) Basophils # (Auto) 0.1 TH/MM3 (0-0.2) CBC Comment DIFF FINAL Differential Comment Sodium Level 136 MEQ/L (136-145) Potassium Level 4.0 MEQ/L (3.5-5.1) Chloride Level 102 MEQ/L (98-107) Carbon Dioxide Level 25.2 MEQ/L (21.0-32.0) Anion Gap 9 MEQ/L (5-15) Blood Urea Nitrogen 19 MG/DL (7-18) Creatinine 0.63 MG/DL (0.60-1.30) Estimat Glomerular Filtration 132 ML/MIN Rate (>89) Random Glucose 143 MG/DL (74-106) Calcium Level 8.0 MG/DL (8.5-10.1) Result Diagram: 08/18/16 0446 08/18/16 0446 Telemetry: NSR (1) Lung mass Plan: FEV1 2.02 will schedule for surgery on Tuesday (2) Right thoracotomy, right upper and middle lobectomy, lysis of adhesions, lymph node dissection Plan: pulmonary toileting , nebs, ezpap acapella OOB/ ambulate await path keep chest tube in place (3) Hemoptysis (4) Tobacco abuse Plan: smoking cessation Nisha Todd August 18, 2016 12:56
[2016-08-18] MEDS: DOCUSATE CALCIUM 240 MG CAP PO SCH (21:00)
[2016-08-18] MEDS: PANTOPRAZOLE SOD 40 MG DELAYED RELEASE TAB PO SCH (22:34)
[2016-08-19] VITALS (21 sets, daily range): BP systolic 94–129; BP diastolic 64–92; PULSE 84–110; RESP 15–20; TEMP 97.5–98.5; O2SAT 94–99
[2016-08-19] MEDS: MORPHINE SULFATE 30 MG/30 ML PCA IV SCH (01:11)
[2016-08-19] MEDS: RESP: ALBUTEROL 2.5 MG/3 ML NEB (SCH) NEB ×4 (04:01→21:04)
[2016-08-19] MEDS: PCA - TOTAL MG MORPHINE DELIVERED PER SHIFT SCH ×3 (06:00→22:00)
[2016-08-19] MEDS: INSULIN ASPART SUPPLEMENTAL SCALE SQ SCH ×3 (06:00→17:28)
[2016-08-19 06:06] LABS: HEMATOCRIT 32.1 % (39.0-51.0); MEAN CELL VOLUME 95.1 FL (80.0-100.0); MEAN CORPUSCULAR HEMOGLOBIN 32.1 PG (27.0-34.0); MEAN CORPUSCULAR HGB CONC 33.7 % (32.0-36.0); PLATELET COUNT 177 TH/MM3 (150-450); RED BLOOD COUNT 3.37 MIL/MM3 (4.50-5.90); RED CELL DISTRIBUTION WIDTH 13.9 % (11.6-17.2); REVIEW FLAG FINAL; WHITE BLOOD COUNT 14.2 TH/MM3 (4.0-11.0)
[2016-08-19 06:21] LABS: BICARBONATE 25.3 MEQ/L (21.0-32.0); POTASSIUM 3.9 MEQ/L (3.5-5.1)
[2016-08-19] MEDS: THIAMINE HCL 100 MG TAB PO SCH (08:16)
[2016-08-19] MEDS: CHLORPHENIR/HYDROCOD LIQUID 8 MG/10 MG/5 ML CUP PO SCH ×2 (08:16→21:15)
[2016-08-19] MEDS: INSULIN DETEMIR 100 UNITS/ML VIAL SQ SCH ×2 (08:17→21:17)
[2016-08-19] MEDS: SODIUM CHLORIDE 0.9% FLUSH 10 ML FLUSH IV FLUSH SCH ×2 (08:27→21:16)
[2016-08-19] MEDS ORDERED: MAGNESIUM HYDROXIDE SUSP 30 ML CUP PO PRN (09:15)
--- NOTE | 2016-08-19 09:22 | PD.CAR.PN ---
CVT Progress Note CVT: POD #: 2 Subjective/Hospital Course: 55yr / old male 40pk year hx of tobacco abuse presented to ED with hemoptysis x 3 months / 25lbs recent weight loss No, PCP ( lost his insurance) , CT chest showed right middle lobe lung mass PMH: DM , peripheral neuropathy, partial PFT obtained FEV1 2.02 will schedule for surgery on Tues am per Dr Seaman, covering for Dr Main for Right thoracotomy pulmonary resection, bronchoscopy r 08/16/16 No complaints, stable 08/17 surgery: Right thoracotomy, right upper and middle lobectomy, lysis of adhesions , lymph node dissection EBL 500ml 2000cc crystalloid 08/18 pt had some transient hypotension this am , given 250cc fluid bolus now improved, will transfer to stepdown later today resume long acting insulin and, continue pain control with inside sales person 08/19 knutson cath reinserted last pm/ bladder scan 400cc/ will check UA re-attempt removal today leave chest tube in place / drained 320cc/ 12 hrs continue aggressive pulm toileting , path report pending no further hypotension / pt encouraged to take po fluid Objective: GENERAL: SKIN: Warm and dry.incision intact right posterolateral chest wall / onq pump in place HEAD: Normocephalic. EYES: No scleral icterus. No injection or drainage. NECK: Supple, trachea midline. No JVD or lymphadenopathy. CARDIOVASCULAR: Regular rate and rhythm without murmurs, gallops, or rubs. RESPIRATORY: Breath sounds equal bilaterally. No accessory muscle use. diminished right lower lobe GASTROINTESTINAL: Abdomen soft, non-tender, nondistended. MUSCULOSKELETAL: No cyanosis, or edema. BACK: Nontender without obvious deformity. No CVA tenderness. : knutson cath in place gallito urine Vital Signs Date Time Temp Pulse Resp B/P Pulse Ox O2 Delivery O2 Flow Rate FiO2 08/19/16 07:49 97 21 08/19/16 07:47 97.7 98 20 129/92 97 08/19/16 07:47 97 Room Air 08/19/16 07:36 100 08/19/16 06:11 15 08/19/16 06:00 17 08/19/16 03:22 96 Room Air 08/19/16 03:22 98.0 102 15 94/70 96 08/19/16 03:22 101 08/19/16 01:11 14 08/18/16 23:24 100 08/18/16 23:24 98.5 100 15 112/77 96 08/18/16 23:24 96 Room Air 08/18/16 22:34 21 08/18/16 22:00 16 08/18/16 22:00 16 08/18/16 19:21 96 Room Air 08/18/16 19:12 98.3 101 16 109/74 96 08/18/16 19:00 100 08/18/16 16:04 101 08/18/16 16:04 93 Room Air 08/18/16 16:04 98.0 101 18 115/72 95 Arterial Line 08/18/16 14:07 15 08/18/16 11:17 97 08/18/16 11:17 95 Room Air 08/18/16 11:17 98.6 98 18 112/62 93 112/55 Labs: Laboratory Tests Test 08/19/16 05:25 White Blood Count 14.2 TH/MM3 (4.0-11.0) Red Blood Count 3.37 MIL/MM3 (4.50-5.90) Hemoglobin 10.8 GM/DL (13.0-17.0) Hematocrit 32.1 % (39.0-51.0) Mean Corpuscular Volume 95.1 FL (80.0-100.0) Mean Corpuscular Hemoglobin 32.1 PG (27.0-34.0) Mean Corpuscular Hemoglobin 33.7 % Concent (32.0-36.0) Red Cell Distribution Width 13.9 % (11.6-17.2) Platelet Count 177 TH/MM3 (150-450) Mean Platelet Volume 9.3 FL (7.0-11.0) Sodium Level 133 MEQ/L (136-145) Potassium Level 3.9 MEQ/L (3.5-5.1) Chloride Level 100 MEQ/L (98-107) Carbon Dioxide Level 25.3 MEQ/L (21.0-32.0) Anion Gap 8 MEQ/L (5-15) Blood Urea Nitrogen 19 MG/DL (7-18) Creatinine 0.56 MG/DL (0.60-1.30) Estimat Glomerular Filtration 151 ML/MIN Rate (>89) Random Glucose 130 MG/DL (74-106) Calcium Level 7.8 MG/DL (8.5-10.1) Result Diagram: 08/19/1652408/19/16524 (1) Lung mass Plan: FEV1 2.02 path pending no growth in cultures to date (2) Right thoracotomy, right upper and middle lobectomy, lysis of adhesions, lymph node dissection Plan: pulmonary toileting , nebs, ezpap acapella OOB/ ambulate await path keep chest tube in place / keep to suction leave OnQ pump in place dc morphine HOURLY CAREGIVER, per pt request add bowel regimen (3) Hemoptysis (4) Tobacco abuse Plan: smoking cessation (5) Urinary retention Plan: knutson cath reinserted last pm check ua dc inside sales person start flomax Nisha Todd Aug 19, 2016 09:22
[2016-08-19] MEDS ORDERED: oxyCODONE/ACETAMINOPHEN 5 MG/325 MG TAB PO PRN (09:30)
[2016-08-19] MEDS: POLYETHYLENE GLYCOL 17 GM PKG PO SCH (10:19)
[2016-08-19] MEDS: TAMSULOSIN HCL 0.4 MG CAP PO SCH (10:19)
[2016-08-19] MEDS: DOCUSATE SODIUM 100 MG CAP PO SCH ×3 (10:19→21:15)
[2016-08-19 14:05] LABS: BACTERIA, URINE RARE /hpf; BLOOD, URINE MOD (NEG); GLUCOSE,URINE NEG (NEG); KETONE, URINE NEG (NEG); MUCUS URINE FEW /lpf (OCC); NITRITE,URINE NEG (NEG); PH, URINE 6.5 (5.0-8.5); URINE COLOR YELLOW (YELLW/STRAW)
[2016-08-19 14:08] LABS: COMMENT (UR) CATH-CULTURE IND; CULTURE IF INDICATED CATH CULTURE IND
--- NOTE | 2016-08-19 14:31 | HHI.FF ---
Face to Face Verification Diagnosis: (1) Lung mass (2) Hemoptysis (3) Tobacco abuse (4) Right thoracotomy, right upper and middle lobectomy, lysis of adhesions, lymph node dissection (5) Urinary retention Home Health Nursing Order: Wound care and dressing changes Nursing assessment with vital signs Instructions: Incentive spirometry Q1 hr x 10, while awake, also use acapella device hourly whole awake chest wall precautions : NO pushing or pulling, ( pt must use chest pillow to support chest with all activities and with coughing Daily incision care: ok to shower daily, no tub bath. Wash all incisions with liquid dial soap, clean wash cloth to each site, rinse and pat dry. Observe for any signs of infection, such as drainage which is dark yellow, garcia, green or foul smelling. Immediately report to the surgeon any drainage from the chest incision, or legs, and for any abnormal drainage from the chest tube sites. Notify surgeon if any temp >101.5 degrees F. When specialty dressing removed/ or if you do not have one, continue to shower daily as above, then rinse and pat incision dry and paint with betadine daily x 5 days. Allow steri strips to fall off if you have any. Avoid lotions, creams, salves, oils, etc. for the first month For Dr. Seaman patients , please obtain PA & Lat CXR in 2 weeks, results to Dr. Seaman ( prescription will be given) ( ) (Tele: ) , F/U appointment: as per [place] instructions: PCP in 2 weeks, CV surgeon 2 weeks, oncologist 3-4 weeks For any questions regarding incisions/ dressing / meds / post op care or above Symptoms, Tuesday 8am-5pm Heart & Vascular Surgery Office ( Dr. Main & Dr. Seaman), After Hours / Nights (5pm -8am) Weekends and Holidays Please call [facility] ([facility]) Charge Nurse I have seen patient Chris Price on 08/19/16. My clinical findings support the need for the requested home health care services because: Deconditioned w/ increased weakness I certify that my clinical findings support that this patient is homebound because: Post-op weakness Nisha Todd Aug 19, 2016 14:31
--- NOTE | 2016-08-19 15:10 | HHI.PR ---
Subjective Remarks Pathology shows a noncancerous finding on biopsy. Patient is recovering well from thoracotomy and lobectomy. Transferred out of ICU today. Objective Vital Signs Date Time Temp Pulse Resp B/P Pulse Ox O2 Delivery O2 Flow Rate FiO2 08/19/16 14:35 95 08/19/16 13:00 89 08/19/16 12:02 91 08/19/16 11:26 97 Room Air 08/19/16 11:26 97.5 98 18 124/92 97 08/19/16 11:26 108 08/19/16 11:25 16 08/19/16 10:00 96 08/19/16 09:26 96 08/19/16 07:49 97 21 08/19/16 07:47 97.7 98 20 129/92 97 08/19/16 07:47 97 Room Air 08/19/16 07:36 100 08/19/16 06:11 15 08/19/16 06:00 17 08/19/16 03:22 96 Room Air 08/19/16 03:22 98.0 102 15 94/70 96 08/19/16 03:22 101 08/19/16 01:11 14 08/18/16 23:24 100 08/18/16 23:24 98.5 100 15 112/77 96 08/18/16 23:24 96 Room Air 08/18/16 22:34 21 08/18/16 22:00 16 08/18/16 22:00 16 08/18/16 19:21 96 Room Air 08/18/16 19:12 98.3 101 16 109/74 96 08/18/16 19:00 100 08/18/16 16:04 101 08/18/16 16:04 93 Room Air 08/18/16 16:04 98.0 101 18 115/72 95 Arterial Line I/O 08/18/16 08/18/16 08/18/16 08/19/16 08/19/16 08/19/16 07:00 15:00 23:00 07:00 15:00 23:00 Intake Total 1296 ml 1422 ml 840 ml Output Total 490 ml 400 ml 920 ml Balance 806 ml 1022 ml -80 ml Intake Oral 480 ml 750 ml 480 ml IV Total 816 ml 672 ml 360 ml Output Urine Total 200 ml 0 ml 600 ml Chest Tube Drainage Total 290 ml 400 ml 320 ml Bladder Scan Volume Amount 119 ml 155 ml 403 ml # Bowel Movements 0 0 0 Result Diagram: 08/19/1625 08/19/16 0525 Procedures Status post Percutaneous CT guided Lung Biopsy 08/05/16 Objective Remarks GENERAL: NAD, A&Ox1, drowsy SKIN: Warm and dry. HEAD: Normocephalic. EYES: No scleral icterus. No injection or drainage. NECK: Supple, trachea midline. No JVD or lymphadenopathy. CARDIOVASCULAR: Regular rate and rhythm without murmurs, gallops, or rubs. RESPIRATORY: Breath sounds equal bilaterally. No accessory muscle use. Right- sided chest tube in place. GASTROINTESTINAL: Abdomen soft, non-tender, nondistended. MUSCULOSKELETAL: No cyanosis, or edema. Thoracotomy wound on right side, bandaged. A/P Problem List: (1) Lung mass ICD Code: R91.8 (2) Hemoptysis ICD Code: R04.2 Assessment and Plan Assessment and Plan 55-year-old male admitted with hemoptysis and right lung mass. He is status post thoracotomy on 08/17/16. Hypotension resolved. Follow for further improvement. Transfer out of ICU. Hypotension Resolved Hemoptysis Resolved Right-sided lung mass No lung cancer on pathology Status post right thoracotomy with right sided upper and middle lobectomy Recovering well Following in CVICU Follow pathology Cardiothoracic surgeon following Nicotine dependence Patient counseled to quit Alcohol abuse and dependence Patient counseled to quit Noted delirium tremens Diabetes mellitus type 2 Insulin sliding scale Levemir Diabetic diet Follow blood sugars DVT prophylaxis SCDs given recent surgery and hemoptysis Arpit Ramirez MD Aug 19, 2016 3:10 pm
[2016-08-19] MEDS: PANTOPRAZOLE SOD 40 MG DELAYED RELEASE TAB PO SCH (21:16)
[2016-08-19] MEDS: oxyCODONE/ACETAMINOPHEN 5 MG/325 MG TAB PO PRN (21:23)
[2016-08-20] VITALS (32 sets, daily range): BP systolic 90–108; BP diastolic 42–72; PULSE 94–107; RESP 16–22; TEMP 97.6–99.1; O2SAT 85–98
[2016-08-20] MEDS: oxyCODONE/ACETAMINOPHEN 5 MG/325 MG TAB PO PRN ×2 (01:18→09:19)
[2016-08-20] MEDS: PCA - TOTAL MG MORPHINE DELIVERED PER SHIFT SCH (04:11)
[2016-08-20] MEDS: RESP: ALBUTEROL 2.5 MG/3 ML NEB (SCH) NEB ×4 (04:19→20:09)
[2016-08-20] MEDS: INSULIN ASPART SUPPLEMENTAL SCALE SQ SCH ×5 (05:40→23:07)
[2016-08-20 06:41] LABS: HEMATOCRIT 31.5 % (39.0-51.0); MEAN CORPUSCULAR HGB CONC 32.2 % (32.0-36.0); PLATELET COUNT 182 TH/MM3 (150-450); RED BLOOD COUNT 3.28 MIL/MM3 (4.50-5.90); RED CELL DISTRIBUTION WIDTH 14.2 % (11.6-17.2); REVIEW FLAG FINAL; WHITE BLOOD COUNT 24.8 TH/MM3 (4.0-11.0)
[2016-08-20 07:13] LABS: BICARBONATE 25.1 MEQ/L (21.0-32.0); POTASSIUM 4.4 MEQ/L (3.5-5.1)
[2016-08-20] MEDS: POLYETHYLENE GLYCOL 17 GM PKG PO SCH (09:00)
[2016-08-20] MEDS: SODIUM CHLORIDE 0.9% FLUSH 10 ML FLUSH IV FLUSH SCH ×2 (09:15→21:04)
[2016-08-20] MEDS: cefTRIAXone INJ 1,000 MG in SODIUM CHLORIDE 0.9% INJ 100 ML IV SCH (09:17)
[2016-08-20] MEDS: TAMSULOSIN HCL 0.4 MG CAP PO SCH (09:19)
[2016-08-20] MEDS: DOCUSATE SODIUM 100 MG CAP PO SCH ×2 (09:19→21:00)
[2016-08-20] MEDS: THIAMINE HCL 100 MG TAB PO SCH (09:19)
[2016-08-20] MEDS: CHLORPHENIR/HYDROCOD LIQUID 8 MG/10 MG/5 ML CUP PO SCH ×2 (09:20→21:03)
--- NOTE | 2016-08-20 09:39 | RADRPT ---
EXAM DATE/TIME: 08/20/2016 08:15 [facility] COMPARISON: CHEST SINGLE AP, August 18, 2016, 4:15. INDICATIONS : Shortness of breath, evaluate for atelectasis. MEDICAL HISTORY : Hypertension. Cardiovascular disease. Diabetes mellitus type II. SURGICAL HISTORY : Chest tube. Lung mass removal, right. ENCOUNTER: Initial ACUITY: 2 days PAIN SCORE: 4/10 LOCATION: Right chest FINDINGS: Two chest tubes are in place on the right. Minimal subcutaneous emphysema is present. The left lung is clear. Heart and pulmonary vascularity are normal. CONCLUSION: 1. Trace subcutaneous emphysema on the right. 2. There is no pneumothorax with two chest tubes in good position. Remberto Coyle MD FACR on August 20, 2016 at 8:55 Board Certified Radiologist. This report was verified electronically.
--- NOTE | 2016-08-20 10:48 | PD.CAR.PN ---
CVT Progress Note Subjective/Hospital Course: 55yr / old male 40pk year hx of tobacco abuse presented to ED with hemoptysis x 3 months / 25lbs recent weight loss No, PCP ( lost his insurance) , CT chest showed right middle lobe lung mass PMH: DM , peripheral neuropathy, partial PFT obtained FEV1 2.02 will schedule for surgery on Tues am per Dr Seaman, covering for Dr Main for Right thoracotomy pulmonary resection, bronchoscopy r 08/16/16 No complaints, stable 08/17 surgery: Right thoracotomy, right upper and middle lobectomy, lysis of adhesions , lymph node dissection EBL 500ml 2000cc crystalloid 08/18 pt had some transient hypotension this am , given 250cc fluid bolus now improved, will transfer to stepdown later today resume long acting insulin and, continue pain control with double cutter 08/19 knutson cath reinserted last pm/ bladder scan 400cc/ will check UA re-attempt removal today leave chest tube in place / drained 320cc/ 12 hrs continue aggressive pulm toileting , path report pending no further hypotension / pt encouraged to take po fluid 08/20 pt has poor cough effort c/o of mouth pain, difficulty swallowing / + UTI on reocephin WBC 24K check BC , continue pulm toileting, OOB, ambulate decrease pain meds , consult PT/ OT Objective: GENERAL: pt feels weak, c/o of mouth pain , pt states he has voided since knutson cath removed yesterday SKIN: Warm and dry. HEAD: Normocephalic./ tongue has some thrush EYES: No scleral icterus. No injection or drainage. NECK: Supple, trachea midline. No JVD or lymphadenopathy. CARDIOVASCULAR: Regular rate and rhythm without murmurs, gallops, or rubs. RESPIRATORY: Breath sounds diminished on right lower lobe, no air leak to water seal No accessory muscle use. GASTROINTESTINAL: Abdomen soft, non-tender, nondistended. MUSCULOSKELETAL: No cyanosis, or edema. BACK: Nontender without obvious deformity. No CVA tenderness. Vital Signs Date Time Temp Pulse Resp B/P Pulse Ox O2 Delivery O2 Flow Rate FiO2 08/20/16 08:59 94 08/20/16 07:30 97.8 102 20 94/72 95 08/20/16 07:30 95 Room Air 08/20/16 07:00 100 08/20/16 06:13 103 08/20/16 05:00 105 08/20/16 04:20 95 08/20/16 04:00 104 08/20/16 03:17 95 Room Air 08/20/16 03:17 99.1 103 18 97/65 96 08/20/16 03:00 101 08/20/16 02:00 101 08/20/16 01:00 107 08/20/16 00:00 100 08/19/16 23:00 101 08/19/16 23:00 99 Room Air 08/19/16 23:00 98.5 84 18 113/64 99 08/19/16 22:00 101 08/19/16 21:00 106 08/19/16 20:00 110 08/19/16 19:00 97.7 104 18 109/83 95 08/19/16 19:00 95 Room Air 08/19/16 19:00 98 08/19/16 18:02 101 08/19/16 17:03 98 08/19/16 16:19 100 08/19/16 15:15 94 21 08/19/16 15:00 100 08/19/16 15:00 99 Room Air 08/19/16 15:00 97.7 106 18 100/71 99 08/19/16 14:35 95 08/19/16 13:00 89 08/19/16 12:02 91 08/19/16 11:26 97 Room Air 08/19/16 11:26 97.5 98 18 124/92 97 08/19/16 11:26 108 08/19/16 11:25 16 Labs: Laboratory Tests Test 08/20/16 06:23 White Blood Count 24.8 TH/MM3 (4.0-11.0) Red Blood Count 3.28 MIL/MM3 (4.50-5.90) Hemoglobin 10.2 GM/DL (13.0-17.0) Hematocrit 31.5 % (39.0-51.0) Mean Corpuscular Volume 96.0 FL (80.0-100.0) Mean Corpuscular Hemoglobin 31.0 PG (27.0-34.0) Mean Corpuscular Hemoglobin 32.2 % Concent (32.0-36.0) Red Cell Distribution Width 14.2 % (11.6-17.2) Platelet Count 182 TH/MM3 (150-450) Mean Platelet Volume 9.5 FL (7.0-11.0) Sodium Level 134 MEQ/L (136-145) Potassium Level 4.4 MEQ/L (3.5-5.1) Chloride Level 102 MEQ/L (98-107) Carbon Dioxide Level 25.1 MEQ/L (21.0-32.0) Anion Gap 7 MEQ/L (5-15) Blood Urea Nitrogen 18 MG/DL (7-18) Creatinine 0.55 MG/DL (0.60-1.30) Estimat Glomerular Filtration 155 ML/MIN Rate (>89) Random Glucose 88 MG/DL (74-106) Calcium Level 7.7 MG/DL (8.5-10.1) Result Diagram: 08/20/1662208/20/16622 (1) Lung mass Plan: FEV1 2.02 path pending no growth in cultures to date path from [place] no evidence of malignancy (2) Right thoracotomy, right upper and middle lobectomy, lysis of adhesions, lymph node dissection Plan: pulmonary toileting , nebs, ezpap acapella OOB/ ambulate await path keep chest tube in place / water seal anterior chest tube removed without difficulty DC OnQ pump add bowel regimen add magic mouthwash per PCP for oral thrush (3) Hemoptysis (4) Tobacco abuse Plan: smoking cessation (5) Urinary retention Plan: pt has voided since knutson removed UA + large leukoestrase / started on rocephin await full C&S flomax repeat bladder scan this afternoon >500cc replace knutson cath / consult urology may need to go home with leg bag and outpt follow up Nisha Todd Aug 20, 2016 10:48
[2016-08-20] MEDS: NYSTAT/DIPHENHY/LIDO MOUTHWASH (Adult) 120ML SWISH-SWAL SCH ×3 (13:22→21:18)
[2016-08-20] MEDS: NYSTATIN SUSP 500,000 U/5 ML CUP SWISH-SWAL SCH ×3 (13:23→21:04)
--- NOTE | 2016-08-20 13:27 | HHI.PR ---
Subjective Remarks Complaints of mouth pain today. Additionally he has an elevation in his white blood cell count. Urinary tract infection is found Objective Vital Signs Date Time Temp Pulse Resp B/P Pulse Ox O2 Delivery O2 Flow Rate FiO2 08/20/16 11:00 98 Room Air 08/20/16 11:00 97.6 103 20 92/42 98 08/20/16 10:00 100 08/20/16 09:00 94 08/20/16 08:59 94 08/20/16 08:00 102 08/20/16 07:30 97.8 102 20 94/72 95 08/20/16 07:30 95 Room Air 08/20/16 07:00 100 08/20/16 06:13 103 08/20/16 05:00 105 08/20/16 04:20 95 08/20/16 04:00 104 08/20/16 03:17 95 Room Air 08/20/16 03:17 99.1 103 18 97/65 96 08/20/16 03:00 101 08/20/16 02:00 101 08/20/16 01:00 107 08/20/16 00:00 100 08/19/16 23:00 101 08/19/16 23:00 99 Room Air 08/19/16 23:00 98.5 84 18 113/64 99 08/19/16 22:00 101 08/19/16 21:00 106 08/19/16 20:00 110 08/19/16 19:00 97.7 104 18 109/83 95 08/19/16 19:00 95 Room Air 08/19/16 19:00 98 08/19/16 18:02 101 08/19/16 17:03 98 08/19/16 16:19 100 08/19/16 15:15 94 21 08/19/16 15:00 100 08/19/16 15:00 99 Room Air 08/19/16 15:00 97.7 106 18 100/71 99 08/19/16 14:35 95 I/O 08/19/16 08/19/16 08/19/16 08/20/16 08/20/16 08/20/16 07:00 15:00 23:00 07:00 15:00 23:00 Intake Total 840 ml 480 ml 720 ml Output Total 920 ml 655 ml 150 ml Balance -80 ml -175 ml 570 ml Intake Oral 480 ml 480 ml 720 ml IV Total 360 ml Output Urine Total 600 ml 425 ml Chest Tube Drainage Total 320 ml 230 ml 150 ml Bladder Scan Volume Amount 403 ml # Voids 1 # Bowel Movements 0 0 Result Diagram: 08/20/16 0623 08/20/16 0623 Procedures Status post Percutaneous CT guided Lung Biopsy 08/05/16 Objective Remarks GENERAL: NAD, A&Ox1, drowsy SKIN: Warm and dry. HEAD: Normocephalic. EYES: No scleral icterus. No injection or drainage. NECK: Supple, trachea midline. No JVD or lymphadenopathy. CARDIOVASCULAR: Regular rate and rhythm without murmurs, gallops, or rubs. RESPIRATORY: Breath sounds equal bilaterally. No accessory muscle use. Right- sided chest tube in place. GASTROINTESTINAL: Abdomen soft, non-tender, nondistended. MUSCULOSKELETAL: No cyanosis, or edema. Thoracotomy wound on right side, bandaged. A/P Problem List: (1) Lung mass ICD Code: R91.8 (2) Hemoptysis ICD Code: R04.2 Assessment and Plan Assessment and Plan 55-year-old male admitted with hemoptysis and right lung mass. He is status post thoracotomy on 08/17/16. Urinary tract infection is found. Rocephin started. Nystatin started to treat oral candidiasis. Magic mouthwash provided for pain relief. Potential removal of chest tube tomorrow. Hypotension Resolved Hemoptysis Resolved Right-sided lung mass No lung cancer on pathology Status post right thoracotomy with right sided upper and middle lobectomy Recovering well Following in CVICU Follow pathology Cardiothoracic surgeon following Nicotine dependence Patient counseled to quit Alcohol abuse and dependence Patient counseled to quit Noted delirium tremens Diabetes mellitus type 2 Insulin sliding scale Levemir Diabetic diet Follow blood sugars DVT prophylaxis SCDs given recent surgery and hemoptysis Arpit Ramirez MD Aug 20, 2016 1:27 pm
[2016-08-20] MEDS: ACETAMINOPHEN/HYDROcodone 325 MG/5 MG TAB PO PRN ×2 (15:29→19:44)
[2016-08-20] MEDS: PANTOPRAZOLE SOD 40 MG DELAYED RELEASE TAB PO SCH (21:03)
[2016-08-20] MEDS: INSULIN DETEMIR 100 UNITS/ML VIAL SQ SCH (23:06)
[2016-08-20] MEDS: RESP: ALBUTEROL 2.5 MG/3 ML NEB (PRN) NEB (23:23)
[2016-08-21] VITALS (28 sets, daily range): BP systolic 89–107; BP diastolic 51–88; PULSE 91–138; RESP 17–20; TEMP 97.4–99.4; O2SAT 92–99
[2016-08-21] MEDS: KETOROLAC TROMETHAMINE 30 MG/ML (IVP) VIAL IV PUSH PRN (00:39)
[2016-08-21] MEDS: RESP: ALBUTEROL 2.5 MG/3 ML NEB (SCH) NEB ×3 (03:22→15:57)
[2016-08-21] MEDS: ACETAMINOPHEN/HYDROcodone 325 MG/5 MG TAB PO PRN ×3 (03:51→15:44)
--- NOTE | 2016-08-21 04:19 | RADRPT ---
EXAM DATE/TIME: 08/21/2016 03:40 [facility] COMPARISON: CHEST SINGLE AP, August 20, 2016, 8:15. INDICATIONS : Shortness of breath, possible pulmonary disease. MEDICAL HISTORY : Hypertension. Cardiovascular disease. Diabetes mellitus type II. SURGICAL HISTORY : None. ENCOUNTER: Subsequent ACUITY: 3 days PAIN SCORE: 5/10 LOCATION: Right chest FINDINGS: Macrorightchesttube there is dense parenchymal consolidation in the right lung diffusely not present previously. The left lung is clear. The rest of the examination has not significantly changed. CONCLUSION: Interval development of dense consolidation involving the right lung diffusely not present previously worse in the right mid and lower lung chiu. Eric Abarca MD on August 21, 2016 at 4:16 Board Certified Radiologist. This report was verified electronically.
[2016-08-21] MEDS: INSULIN ASPART SUPPLEMENTAL SCALE SQ SCH ×3 (05:33→18:11)
[2016-08-21 05:35] LABS: AUTOMATED NEUTROPHIL # 13.4 TH/MM3 (1.8-7.7); BASOPHIL # 0.1 TH/MM3 (0-0.2); BASOPHIL % 0.6 % (0.0-2.0); EOSINOPHIL # 0.2 TH/MM3 (0-0.4); EOSINOPHIL % 1.5 % (0.0-4.0); HEMATOCRIT 29.4 % (39.0-51.0); HEMO FLAGS DIFF FINAL; LYMPHOCYTE # 1.5 TH/MM3 (1.0-4.8); MEAN CELL VOLUME 96.8 FL (80.0-100.0); MEAN CORPUSCULAR HEMOGLOBIN 31.6 PG (27.0-34.0); MEAN CORPUSCULAR HGB CONC 32.6 % (32.0-36.0); MONO % 6.7 % (0.0-8.0); NEUT % 82.2 % (16.0-70.0); PLATELET COUNT 148 TH/MM3 (150-450); RED BLOOD COUNT 3.04 MIL/MM3 (4.50-5.90); RED CELL DISTRIBUTION WIDTH 14.2 % (11.6-17.2); WHITE BLOOD COUNT 16.3 TH/MM3 (4.0-11.0)
[2016-08-21 05:43] LABS: BICARBONATE 25.6 MEQ/L (21.0-32.0); POTASSIUM 3.9 MEQ/L (3.5-5.1)
--- NOTE | 2016-08-21 08:07 | PD.CAR.PN ---
CVT Progress Note Subjective/Hospital Course: 55yr / old male 40pk year hx of tobacco abuse presented to ED with hemoptysis x 3 months / 25lbs recent weight loss No, PCP ( lost his insurance) , CT chest showed right middle lobe lung mass PMH: DM , peripheral neuropathy, partial PFT obtained FEV1 2.02 will schedule for surgery on Tu am per Dr Seaman, covering for Dr Main for Right thoracotomy pulmonary resection, bronchoscopy r 08/16/16 No complaints, stable 08/17 surgery: Right thoracotomy, right upper and middle lobectomy, lysis of adhesions , lymph node dissection EBL 500ml 2000cc crystalloid 08/18 pt had some transient hypotension this am , given 250cc fluid bolus now improved, will transfer to stepdown later today resume long acting insulin and, continue pain control with program director substance abuse 08/19 knutson cath reinserted last pm/ bladder scan 400cc/ will check UA re-attempt removal today leave chest tube in place / drained 320cc/ 12 hrs continue aggressive pulm toileting , path report pending no further hypotension / pt encouraged to take po fluid 08/20 pt has poor cough effort c/o of mouth pain, difficulty swallowing / + UTI on reocephin WBC 24K check BC , continue pulm toileting, OOB, ambulate decrease pain meds , consult PT/ OT 08/21 Needs aggressive pulmonary toiletry and ambulation Maintain CT to suction Objective: Vital Signs Date Time Temp Pulse Resp B/P Pulse Ox O2 Delivery O2 Flow Rate FiO2 08/21/16 06:00 100 08/21/16 05:00 102 08/21/16 04:00 104 08/21/16 03:45 96 Nasal Cannula 4.00 08/21/16 03:45 103 20 99/67 97 08/21/16 03:00 102 08/21/16 02:00 102 08/21/16 01:00 108 08/21/16 00:00 110 08/20/16 23:20 92 Non-Rebreather 15.00 08/20/16 23:20 105 18 94/64 91 08/20/16 23:10 93 Non-Rebreather 12.00 08/20/16 23:00 105 08/20/16 23:00 85 Nasal Cannula 3.00 08/20/16 23:00 93 15.00 08/20/16 22:00 100 6/2/17 21:00 98 08/20/16 20:11 95 Nasal Cannula 3.00 08/20/16 20:00 94 08/20/16 19:30 98.0 96 16 90/52 95 08/20/16 19:30 95 Nasal Cannula 3.00 08/20/16 19:00 103 08/20/16 18:00 105 08/20/16 17:00 97 08/20/16 16:34 20 08/20/16 16:00 101 08/20/16 15:00 97.6 104 22 108/70 88 08/20/16 15:00 97 08/20/16 15:00 88 Nasal Cannula 4.00 08/20/16 14:00 99 08/20/16 13:00 98 08/20/16 12:00 106 08/20/16 11:00 98 Room Air 08/20/16 11:00 97 08/20/16 11:00 97.6 103 20 92/42 98 08/20/16 10:00 100 08/20/16 09:00 94 08/20/16 08:59 94 Labs: Laboratory Tests Test 08/21/16 05:02 White Blood Count 16.3 TH/MM3 (4.0-11.0) Red Blood Count 3.04 MIL/MM3 (4.50-5.90) Hemoglobin 9.6 GM/DL (13.0-17.0) Hematocrit 29.4 % (39.0-51.0) Mean Corpuscular Volume 96.8 FL (80.0-100.0) Mean Corpuscular Hemoglobin 31.6 PG (27.0-34.0) Mean Corpuscular Hemoglobin 32.6 % Concent (32.0-36.0) Red Cell Distribution Width 14.2 % (11.6-17.2) Platelet Count 148 TH/MM3 (150-450) Mean Platelet Volume 9.4 FL (7.0-11.0) Neutrophils (%) (Auto) 82.2 % (16.0-70.0) Lymphocytes (%) (Auto) 9.0 % (9.0-44.0) Monocytes (%) (Auto) 6.7 % (0.0-8.0) Eosinophils (%) (Auto) 1.5 % (0.0-4.0) Basophils (%) (Auto) 0.6 % (0.0-2.0) Neutrophils # (Auto) 13.4 TH/MM3 (1.8-7.7) Lymphocytes # (Auto) 1.5 TH/MM3 (1.0-4.8) Monocytes # (Auto) 1.1 TH/MM3 (0-0.9) Eosinophils # (Auto) 0.2 TH/MM3 (0-0.4) Basophils # (Auto) 0.1 TH/MM3 (0-0.2) CBC Comment DIFF FINAL Differential Comment Sodium Level 134 MEQ/L (136-145) Potassium Level 3.9 MEQ/L (3.5-5.1) Chloride Level 100 MEQ/L (98-107) Carbon Dioxide Level 25.6 MEQ/L (21.0-32.0) Anion Gap 8 MEQ/L (5-15) Blood Urea Nitrogen 21 MG/DL (7-18) Creatinine 0.69 MG/DL (0.60-1.30) Estimat Glomerular Filtration 119 ML/MIN Rate (>89) Random Glucose 174 MG/DL (74-106) Calcium Level 7.9 MG/DL (8.5-10.1) Result Diagram: 08/21/16 0502 08/21/16 0502 (1) Lung mass Plan: FEV1 2.02 path pending no growth in cultures to date path from OR no evidence of malignancy (2) Right thoracotomy, right upper and middle lobectomy, lysis of adhesions, lymph node dissection Plan: pulmonary toileting , nebs, ezpap acapella OOB/ ambulate await path keep chest tube in place / water seal anterior chest tube removed without difficulty DC OnQ pump add bowel regimen add magic mouthwash per PCP for oral thrush (3) Hemoptysis (4) Tobacco abuse Plan: smoking cessation (5) Urinary retention Plan: pt has voided since knutson removed UA + large leukoestrase / started on rocephin await full C&S flomax repeat bladder scan this afternoon >500cc replace knutson cath / consult urology may need to go home with leg bag and outpt follow up Penelope Main MD Aug 21, 2016 08:07
[2016-08-21] MEDS: THIAMINE HCL 100 MG TAB PO SCH (08:29)
[2016-08-21] MEDS: DOCUSATE SODIUM 100 MG CAP PO SCH ×2 (08:29→21:24)
[2016-08-21] MEDS: NYSTATIN SUSP 500,000 U/5 ML CUP SWISH-SWAL SCH ×4 (08:29→21:24)
[2016-08-21] MEDS: SODIUM CHLORIDE 0.9% FLUSH 10 ML FLUSH IV FLUSH SCH ×2 (08:30→21:00)
[2016-08-21] MEDS: POLYETHYLENE GLYCOL 17 GM PKG PO SCH (08:30)
[2016-08-21] MEDS: cefTRIAXone INJ 1,000 MG in SODIUM CHLORIDE 0.9% INJ 100 ML IV SCH (08:30)
[2016-08-21] MEDS: CHLORPHENIR/HYDROCOD LIQUID 8 MG/10 MG/5 ML CUP PO SCH ×2 (08:30→21:25)
[2016-08-21] MEDS: TAMSULOSIN HCL 0.4 MG CAP PO SCH (08:30)
[2016-08-21] MEDS: NYSTAT/DIPHENHY/LIDO MOUTHWASH (Adult) 120ML SWISH-SWAL SCH ×4 (08:31→21:00)
[2016-08-21] MEDS: INSULIN DETEMIR 100 UNITS/ML VIAL SQ SCH ×2 (08:39→21:00)
--- NOTE | 2016-08-21 10:49 | RADRPT ---
EXAM DATE/TIME: 08/21/2016 09:58 [facility] COMPARISON: CHEST SINGLE AP, August 21, 2016, 3:40. INDICATIONS : Shortness of breath. MEDICAL HISTORY : Hypertension. Cardiovascular disease. Diabetes mellitus type II. SURGICAL HISTORY : None. ENCOUNTER: Subsequent ACUITY: 3 days PAIN SCORE: 0/10 LOCATION: Bilateral chest FINDINGS: Single AP view of the chest. Right-sided chest tube again seen. Large area of opacity of the right court ng again seen. Shift of the mediastinum to the right unchanged. No evidence of pneumothorax. CONCLUSION: Large area of right lung consolidation/collapse again seen. Rick Lopez MD on August 21, 2016 at 10:45 Board Certified Radiologist. This report was verified electronically.
--- NOTE | 2016-08-21 10:55 | HHI.PR ---
Subjective Remarks Increasing shortness of breath overnight. Graduating oxygen. His morning patient has acute dyspnea and needs upgrade to BiPAP. Imaging shows evidence of fluid accumulation and pneumothorax on his right side. He is placed on BiPAP and his chest tubes returned to suction. His transfer to CVICU. Treatment thus far has improved patient's symptoms. White blood cell count has improved so UTI is being treated adequately with Rocephin. No other complaints. Objective Vital Signs Date Time Temp Pulse Resp B/P Pulse Ox O2 Delivery O2 Flow Rate FiO2 08/21/16 10:30 99 100 08/21/16 10:04 138 08/21/16 09:30 18 08/21/16 09:14 95 Nasal Cannula 3.00 08/21/16 09:13 104 08/21/16 08:00 99 08/21/16 08:00 97.4 103 18 107/88 95 08/21/16 08:00 95 Nasal Cannula 5.00 08/21/16 06:00 100 08/21/16 05:00 102 08/21/16 04:00 104 08/21/16 03:45 96 Nasal Cannula 4.00 08/21/16 03:45 103 20 99/67 97 08/21/16 03:00 102 08/21/16 02:00 102 08/21/16 01:00 108 08/21/16 00:00 110 08/20/16 23:20 92 Non-Rebreather 15.00 08/20/16 23:20 105 18 94/64 91 08/20/16 23:10 93 Non-Rebreather 12.00 08/20/16 23:00 105 08/20/16 23:00 85 Nasal Cannula 3.00 08/20/16 23:00 93 15.00 08/20/16 22:00 100 08/20/16 21:00 98 08/20/16 20:11 95 Nasal Cannula 3.00 08/20/16 20:00 94 08/20/16 19:30 98.0 96 16 90/52 95 08/20/16 19:30 95 Nasal Cannula 3.00 08/20/16 19:00 103 08/20/16 18:00 105 08/20/16 17:00 97 08/20/16 16:00 101 08/20/16 15:00 97.6 104 22 108/70 88 08/20/16 15:00 97 08/20/16 15:00 88 Nasal Cannula 4.00 08/20/16 14:00 99 08/20/16 13:00 98 08/20/16 12:00 106 08/20/16 11:00 98 Room Air 08/20/16 11:00 97 08/20/16 11:00 97.6 103 20 92/42 98 I/O 08/20/16 08/20/16 08/20/16 08/21/16 08/21/16 08/21/16 07:00 15:00 23:00 07:00 15:00 23:00 Intake Total 720 ml 480 ml 240 ml Output Total 150 ml 810 ml 560 ml Balance 570 ml -330 ml -320 ml Intake Oral 720 ml 480 ml 240 ml Output Urine Total 550 ml 400 ml Chest Tube Drainage Total 150 ml 260 ml 160 ml # Voids 1 Result Diagram: 08/21/16 0502 08/21/16 0502 Procedures Status post Percutaneous CT guided Lung Biopsy 08/05/16 Objective Remarks GENERAL: NAD, A&Ox1, drowsy SKIN: Warm and dry. HEAD: Normocephalic. EYES: No scleral icterus. No injection or drainage. NECK: Supple, trachea midline. No JVD or lymphadenopathy. CARDIOVASCULAR: Regular rate and rhythm without murmurs, gallops, or rubs. RESPIRATORY: Breath sounds equal bilaterally. No accessory muscle use. Right- sided chest tube in place. GASTROINTESTINAL: Abdomen soft, non-tender, nondistended. MUSCULOSKELETAL: No cyanosis, or edema. Thoracotomy wound on right side, bandaged. A/P Problem List: (1) Lung mass ICD Code: R91.8 (2) Hemoptysis ICD Code: R04.2 Assessment and Plan Assessment and Plan 55-year-old male admitted with hemoptysis and right lung mass. He is status post thoracotomy on 08/17/16. Return to CV ICU today secondary to hypoxia from pneumothorax. Chest tube returned to suction. Patient placed on BiPAP. Monitor in CVICU. Continue treating UTI with Rocephin, white blood cell count improving. Hypotension Resolved Hemoptysis Resolved Right-sided lung mass No lung cancer on pathology Status post right thoracotomy with right sided upper and middle lobectomy Recovering well Following in CVICU Follow pathology Cardiothoracic surgeon following Nicotine dependence Patient counseled to quit Alcohol abuse and dependence Patient counseled to quit Noted delirium tremens Diabetes mellitus type 2 Insulin sliding scale Levemir Diabetic diet Follow blood sugars DVT prophylaxis SCDs given recent surgery and hemoptysis Arpit Ramirez MD Aug 21, 2016 10:55
[2016-08-21] MEDS: PANTOPRAZOLE SOD 40 MG DELAYED RELEASE TAB PO SCH (21:24)
[2016-08-21] MEDS: RESP: ALBUTEROL 2.5 MG/3 ML NEB (PRN) NEB (22:05)
[2016-08-22] VITALS (13 sets, daily range): BP systolic 79–109; BP diastolic 51–73; PULSE 90–102; RESP 18–25; TEMP 97.5–98.2; O2SAT 93–98
[2016-08-22] MEDS: ACETAMINOPHEN/HYDROcodone 325 MG/5 MG TAB PO PRN ×3 (00:37→22:32)
[2016-08-22] MEDS: KETOROLAC TROMETHAMINE 30 MG/ML (IVP) VIAL IV PUSH PRN (06:22)
[2016-08-22] MEDS: INSULIN ASPART SUPPLEMENTAL SCALE SQ SCH ×5 (06:23→22:00)
--- NOTE | 2016-08-22 08:26 | PD.CAR.PN ---
CVT Progress Note Subjective/Hospital Course: 55yr / old male 40pk year hx of tobacco abuse presented to ED with hemoptysis x 3 months / 25lbs recent weight loss No, PCP ( lost his insurance) , CT chest showed right middle lobe lung mass PMH: DM , peripheral neuropathy, partial PFT obtained FEV1 2.02 will schedule for surgery on am per Dr Seaman, covering for Dr Main for Right thoracotomy pulmonary resection, bronchoscopy r 08/16/16 No complaints, stable 08/17 surgery: Right thoracotomy, right upper and middle lobectomy, lysis of adhesions , lymph node dissection EBL 500ml 2000cc crystalloid 08/18 pt had some transient hypotension this am , given 250cc fluid bolus now improved, will transfer to stepdown later today resume long acting insulin and, continue pain control with [employer] administrator 08/19 knutson cath reinserted last pm/ bladder scan 400cc/ will check UA re-attempt removal today leave chest tube in place / drained 320cc/ 12 hrs continue aggressive pulm toileting , path report pending no further hypotension / pt encouraged to take po fluid 08/20 pt has poor cough effort c/o of mouth pain, difficulty swallowing / + UTI on reocephin WBC 24K check BC , continue pulm toileting, OOB, ambulate decrease pain meds , consult PT/ OT 08/21 Needs aggressive pulmonary toiletry and ambulation Maintain CT to suction 08/22 Transferred to CVICU yesterday afternoon for progressive hypoxia. Sats in the 80 's on NRB. Initiated BiPAP with improvement. Presently on NC and maintaining acceptable saturations. Needs encouragement for incentive spirometry Repeat CXR in am Objective: Vital Signs Date Time Temp Pulse Resp B/P Pulse Ox O2 Delivery O2 Flow Rate FiO2 08/22/16 07:54 93 Nasal Cannula 6.00 08/22/16 07:00 102 08/22/16 07:00 96 Nasal Cannula 6.00 08/22/16 07:00 98.0 97 25 86/56 96 08/22/16 06:00 95 08/22/16 05:00 94 08/22/16 04:00 95 08/22/16 03:00 98.2 99 20 90/57 96 08/22/16 03:00 96 Nasal Cannula 6.00 08/22/16 03:00 99 08/22/16 02:00 96 08/22/16 01:00 99 08/22/16 00:00 102 08/21/16 23:00 98 Nasal Cannula 6.00 08/21/16 23:00 99 08/21/16 23:00 98.0 99 20 91/60 97 08/21/16 22:05 97 Nasal Cannula 6.00 08/21/16 22:00 91 08/21/16 21:00 94 08/21/16 20:00 98 08/21/16 19:00 97 Nasal Cannula 6.00 08/21/16 19:00 98 08/21/16 19:00 97.7 92 20 94/51 92 08/21/16 17:04 102 08/21/16 17:03 18 08/21/16 16:05 101 08/21/16 15:10 98.6 107 18 89/57 94 08/21/16 15:08 94 Nasal Cannula 6.00 08/21/16 15:05 107 08/21/16 14:04 107 08/21/16 13:02 121 08/21/16 12:08 116 08/21/16 11:22 99.4 117 17 89/63 99 08/21/16 11:16 99 Bi-Pap 70 08/21/16 11:10 119 08/21/16 10:30 99 100 08/21/16 10:04 138 08/21/16 09:14 95 Nasal Cannula 3.00 08/21/16 09:13 104 Result Diagram: 08/21/16 0502 08/21/16 0502 (1) Lung mass Plan: FEV1 2.02 path pending no growth in cultures to date path from OR no evidence of malignancy (2) Right thoracotomy, right upper and middle lobectomy, lysis of adhesions, lymph node dissection Plan: pulmonary toileting , nebs, ezpap acapella OOB/ ambulate await path keep chest tube in place / water seal anterior chest tube removed without difficulty DC OnQ pump add bowel regimen add magic mouthwash per PCP for oral thrush (3) Hemoptysis (4) Tobacco abuse Plan: smoking cessation (5) Urinary retention Plan: pt has voided since knutson removed UA + large leukoestrase / started on rocephin await full C&S flomax repeat bladder scan this afternoon >500cc replace knutson cath / consult urology may need to go home with leg bag and outpt follow up Penelope Main MD Aug 22, 2016 08:26
[2016-08-22 08:32] LABS: HEMATOCRIT 31.2 % (39.0-51.0); MEAN CELL VOLUME 97.2 FL (80.0-100.0); MEAN CORPUSCULAR HEMOGLOBIN 31.4 PG (27.0-34.0); MEAN CORPUSCULAR HGB CONC 32.3 % (32.0-36.0); PLATELET COUNT 155 TH/MM3 (150-450); RED BLOOD COUNT 3.21 MIL/MM3 (4.50-5.90); RED CELL DISTRIBUTION WIDTH 14.3 % (11.6-17.2); REVIEW FLAG FINAL; WHITE BLOOD COUNT 21.8 TH/MM3 (4.0-11.0)
[2016-08-22 08:33] LABS: BICARBONATE 23.7 MEQ/L (21.0-32.0); POTASSIUM 4.8 MEQ/L (3.5-5.1)
[2016-08-22] MEDS: TAMSULOSIN HCL 0.4 MG CAP PO SCH (08:33)
[2016-08-22] MEDS: CHLORPHENIR/HYDROCOD LIQUID 8 MG/10 MG/5 ML CUP PO SCH ×2 (08:33→21:16)
[2016-08-22] MEDS: THIAMINE HCL 100 MG TAB PO SCH (08:33)
[2016-08-22] MEDS: SODIUM CHLORIDE 0.9% FLUSH 10 ML FLUSH IV FLUSH SCH ×2 (08:33→21:16)
[2016-08-22] MEDS: POLYETHYLENE GLYCOL 17 GM PKG PO SCH (08:33)
[2016-08-22] MEDS: DOCUSATE SODIUM 100 MG CAP PO SCH ×2 (08:33→21:16)
[2016-08-22] MEDS: cefTRIAXone INJ 1,000 MG in SODIUM CHLORIDE 0.9% INJ 100 ML IV SCH (08:34)
[2016-08-22] MEDS: NYSTATIN SUSP 500,000 U/5 ML CUP SWISH-SWAL SCH ×4 (08:34→21:17)
[2016-08-22] MEDS: INSULIN DETEMIR 100 UNITS/ML VIAL SQ SCH ×2 (08:46→22:32)
[2016-08-22] MEDS: NYSTAT/DIPHENHY/LIDO MOUTHWASH (Adult) 120ML SWISH-SWAL SCH ×4 (09:00→21:00)
--- NOTE | 2016-08-22 11:02 | HHI.PR ---
Subjective Remarks Improved compared to yesterday. He is off BiPAP since last night. Blood pressures remain low. No need for pressors or boluses at this time. Further monitoring of blood pressures this plan. Objective Vital Signs Date Time Temp Pulse Resp B/P Pulse Ox O2 Delivery O2 Flow Rate FiO2 08/22/16 08:34 22 08/22/16 07:54 93 Nasal Cannula 6.00 08/22/16 07:00 102 08/22/16 07:00 96 Nasal Cannula 6.00 08/22/16 07:00 98.0 97 25 86/56 96 08/22/16 06:00 95 08/22/16 05:00 94 08/22/16 04:00 95 08/22/16 03:00 98.2 99 20 90/57 96 08/22/16 03:00 96 Nasal Cannula 6.00 08/22/16 03:00 99 08/22/16 02:00 96 08/22/16 01:00 99 08/22/16 00:00 102 08/21/16 23:00 98 Nasal Cannula 6.00 08/21/16 23:00 99 08/21/16 23:00 98.0 99 20 91/60 97 08/21/16 22:05 97 Nasal Cannula 6.00 08/21/16 22:00 91 08/21/16 21:00 94 08/21/16 20:00 98 08/21/16 19:00 97 Nasal Cannula 6.00 08/21/16 19:00 98 08/21/16 19:00 97.7 92 20 94/51 92 08/21/16 17:04 102 08/21/16 17:03 18 08/21/16 16:05 101 08/21/16 15:10 98.6 107 18 89/57 94 08/21/16 15:08 94 Nasal Cannula 6.00 08/21/16 15:05 107 08/21/16 14:04 107 08/21/16 13:02 121 08/21/16 12:08 116 08/21/16 11:22 99.4 117 17 89/63 99 08/21/16 11:16 99 Bi-Pap 70 08/21/16 11:10 119 I/O 08/21/16 08/21/16 08/21/16 08/22/16 08/22/16 08/22/16 07:00 15:00 23:00 07:00 15:00 23:00 Intake Total 240 ml 370 ml 1800 ml 500 ml Output Total 560 ml 590 ml 460 ml Balance -320 ml 370 ml 1210 ml 40 ml Intake Oral 240 ml 240 ml 800 ml 500 ml IV Total 130 ml 1000 ml Output Urine Total 400 ml 200 ml 250 ml Chest Tube Drainage Total 160 ml 390 ml 210 ml # Bowel Movements 0 Result Diagram: 08/22/16 0629 08/22/16 0629 Procedures Status post Percutaneous CT guided Lung Biopsy 08/05/16 Objective Remarks GENERAL: NAD, A&Ox1, drowsy SKIN: Warm and dry. HEAD: Normocephalic. EYES: No scleral icterus. No injection or drainage. NECK: Supple, trachea midline. No JVD or lymphadenopathy. CARDIOVASCULAR: Regular rate and rhythm without murmurs, gallops, or rubs. RESPIRATORY: Breath sounds equal bilaterally. No accessory muscle use. Right- sided chest tube in place. GASTROINTESTINAL: Abdomen soft, non-tender, nondistended. MUSCULOSKELETAL: No cyanosis, or edema. Thoracotomy wound on right side, bandaged. A/P Problem List: (1) Lung mass ICD Code: R91.8 (2) Hemoptysis ICD Code: R04.2 Assessment and Plan Assessment and Plan 55-year-old male admitted with hemoptysis and right lung mass. He is status post thoracotomy on 08/17/16. Return to CV ICU today secondary to hypoxia from pneumothorax. Now more stable. Continue to monitor in CVICU until blood pressures improved. Oral hydration right now. Hypotension Resolved Hemoptysis Resolved Right-sided lung mass No lung cancer on pathology Status post right thoracotomy with right sided upper and middle lobectomy Recovering well Following in CVICU Follow pathology Cardiothoracic surgeon following Nicotine dependence Patient counseled to quit Alcohol abuse and dependence Patient counseled to quit Noted delirium tremens Diabetes mellitus type 2 Insulin sliding scale Levemir Diabetic diet Follow blood sugars DVT prophylaxis SCDs given recent surgery and hemoptysis Arpit Ramirez MD Aug 22, 2016 11:01
--- NOTE | 2016-08-22 12:02 | RADRPT ---
EXAM DATE/TIME: 08/22/2016 11:29 [facility] COMPARISON: CHEST SINGLE AP, August 21, 2016, 9:58. INDICATIONS : Short of breath MEDICAL HISTORY : Hypertension. Cardiovascular disease. Diabetes mellitus type II. SURGICAL HISTORY : None. ENCOUNTER: Subsequent ACUITY: 4 - 6 days PAIN SCORE: 0/10 LOCATION: Bilateral chest FINDINGS: A single portable frontal view of the chest shows interval removal of the right thoracostomy tube. A right apical pneumothorax is now seen. The right hemithorax is otherwise opacified. The heart is shif dk towards the right. Left lung is hyperinflated and clear. CONCLUSION: 1. Removal of the right thoracostomy tube with small right apical pneumothorax. 2. Complete opacification of the right hemithorax without any aerated lung appreciated. Chris Richardson Jr., MD on August 22, 2016 at 11:58 Board Certified Radiologist. This report was verified electronically.
[2016-08-22] MEDS: RESP: ALBUTEROL 2.5 MG/3 ML NEB (PRN) NEB (20:23)
[2016-08-22] MEDS: PANTOPRAZOLE SOD 40 MG DELAYED RELEASE TAB PO SCH (21:16)
[2016-08-23] VITALS (19 sets, daily range): BP systolic 83–109; BP diastolic 57–77; PULSE 86–103; RESP 16–21; TEMP 97.5–98.4; O2SAT 93–98
--- NOTE | 2016-08-23 04:36 | RADRPT ---
EXAM DATE/TIME: 08/23/2016 03:32 [facility] COMPARISON: CHEST SINGLE AP, August 22, 2016, 11:29. INDICATIONS : Shortness of breath, possible pulmonary disease. MEDICAL HISTORY : Hypertension. Cardiovascular disease. Diabetes mellitus type II. SURGICAL HISTORY : None. ENCOUNTER: Subsequent ACUITY: 1 week PAIN SCORE: 0/10 LOCATION: Bilateral chest FINDINGS: A single view of the chest demonstrates near-complete persistent opacification of the right lung. The re is a lucency in the right upper lobe could be a small pneumothorax. Left lung is grossly clear. Fi fth and sixth rib fractures are stable. CONCLUSION: Persistent near-complete opacification of the right lung. Left lung is clear. Persistent tortuosity o f the trachea and deviation to the right may indicate additional volume loss. Quincy Antoine MD on August 23, 2016 at 4:33 Board Certified Radiologist. This report was verified electronically.
[2016-08-23] MEDS: INSULIN ASPART SUPPLEMENTAL SCALE SQ SCH ×4 (06:00→23:49)
[2016-08-23] MEDS: ACETAMINOPHEN/HYDROcodone 325 MG/5 MG TAB PO PRN ×4 (07:24→21:58)
[2016-08-23] MEDS: CHLORPHENIR/HYDROCOD LIQUID 8 MG/10 MG/5 ML CUP PO SCH ×2 (08:43→21:50)
[2016-08-23] MEDS: cefTRIAXone INJ 1,000 MG in SODIUM CHLORIDE 0.9% INJ 100 ML IV SCH (08:43)
[2016-08-23] MEDS: TAMSULOSIN HCL 0.4 MG CAP PO SCH (08:43)
[2016-08-23] MEDS: NYSTATIN SUSP 500,000 U/5 ML CUP SWISH-SWAL SCH ×4 (08:43→21:50)
[2016-08-23] MEDS: THIAMINE HCL 100 MG TAB PO SCH (08:44)
[2016-08-23] MEDS: POLYETHYLENE GLYCOL 17 GM PKG PO SCH (08:44)
[2016-08-23] MEDS: DOCUSATE SODIUM 100 MG CAP PO SCH ×2 (08:44→21:50)
[2016-08-23] MEDS: INSULIN DETEMIR 100 UNITS/ML VIAL SQ SCH ×2 (08:53→21:00)
[2016-08-23] MEDS: SODIUM CHLORIDE 0.9% FLUSH 10 ML FLUSH IV FLUSH SCH ×2 (08:55→21:00)
[2016-08-23] MEDS: NYSTAT/DIPHENHY/LIDO MOUTHWASH (Adult) 120ML SWISH-SWAL SCH ×4 (08:56→21:50)
[2016-08-23] MEDS ORDERED: Vancomycin Consult Pharmacy 1 EA OTHER SCH (09:45)
--- NOTE | 2016-08-23 09:50 | PD.CAR.PN ---
CVT Progress Note Subjective/Hospital Course: 55yr / old male 40pk year hx of tobacco abuse presented to ED with hemoptysis x 3 months / 25lbs recent weight loss No, PCP ( lost his insurance) , CT chest showed right middle lobe lung mass PMH: DM , peripheral neuropathy, partial PFT obtained FEV1 2.02 will schedule for surgery on am per Dr Seaman, covering for Dr Main for Right thoracotomy pulmonary resection, bronchoscopy r 08/16/16 No complaints, stable 08/17 surgery: Right thoracotomy, right upper and middle lobectomy, lysis of adhesions , lymph node dissection EBL 500ml 2000cc crystalloid 08/18 pt had some transient hypotension this am , given 250cc fluid bolus now improved, will transfer to stepdown later today resume long acting insulin and, 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 Sats in the 80 's on NRB. Initiated BiPAP with improvement. Presently on NC and maintaining acceptable saturations. Needs encouragement for incentive spirometry Repeat CXR in am 08/23 pt up in chair, cxr noted, complete opacification right lung/ s/p right thoracotomy, right upper and middle lobectomy, minimal breath sounds on right, pt has had poor cough effort since surgery, concern for mucus plug, will consult pulmonology aggressive pulm toileting , await labs/ may need HCAP treatment / check sputum consult pulm for possible bronch Objective: GENERAL: slightly pale SKIN: Warm and dry. HEAD: Normocephalic. EYES: No scleral icterus. No injection or drainage. NECK: Supple, trachea midline. No JVD or lymphadenopathy. CARDIOVASCULAR: Regular rate and rhythm without murmurs, gallops, or rubs. RESPIRATORY: very diminished right lung/ poor cough effort No accessory muscle use. GASTROINTESTINAL: Abdomen soft, non-tender, nondistended. MUSCULOSKELETAL: No cyanosis, or edema. BACK: Nontender without obvious deformity. No CVA tenderness. Vital Signs Date Time Temp Pulse Resp B/P Pulse Ox O2 Delivery O2 Flow Rate FiO2 08/23/16 09:24 93 21 08/23/16 08:55 16 08/23/16 04:00 92 08/23/16 04:00 98.4 92 20 83/57 98 08/23/16 04:00 98 Nasal Cannula 5.00 08/23/16 00:00 96 Nasal Cannula 5.00 08/23/16 00:00 94 16 92/59 96 08/23/16 00:00 94 08/22/16 21:00 97 Nasal Cannula 5.00 08/22/16 20:23 97 Nasal Cannula 6.00 08/22/16 20:00 98.0 90 18 109/73 98 08/22/16 20:00 90 08/22/16 20:00 98 Nasal Cannula 6.00 08/22/16 15:00 96 Nasal Cannula 6.00 08/22/16 15:00 96 08/22/16 15:00 98.0 92 22 93/56 96 08/22/16 11:00 102 08/22/16 11:00 98 Nasal Cannula 6.00 08/22/16 11:00 97.5 98 23 79/51 96 Result Diagram: 08/22/16 0629 08/22/16 0629 (1) Lung mass Plan: FEV1 2.02 path no growth in cultures to date path from OR no evidence of malignancy (2) Right thoracotomy, right upper and middle lobectomy, lysis of adhesions, lymph node dissection Plan: pulmonary toileting , nebs, ezpap acapella OOB/ ambulate path neg chest tube accidently removed yesterday cxr noted , complete opacification right lung/ change to HCAP abx , check sputum , continue nebs consult pulm / may need bronch Bipap at night and prn (3) Hemoptysis (4) Tobacco abuse Plan: smoking cessation (5) Urinary retention Plan: UA + large leukoestrase / no growth in cultures flomax repeat bladder scan this afternoon >500cc knutson cathreplaced / total of 3 times urology consult pending july need to go home with leg bag and outpt follow up Nisha Todd Aug 23, 2016 09:50
[2016-08-23] MEDS ORDERED: PIPERACIL-TAZO 3.375 GM PREMIX 50 ML IV SCH ×2 (11:00→16:00)
--- NOTE | 2016-08-23 11:29 | RADRPT ---
EXAM DATE/TIME: 08/23/2016 10:53 [facility] COMPARISON: No previous studies available for comparison. INDICATIONS : Complete opacification of right lung, evaluate for mucus plug RADIATION DOSE: 5.10 CTDIvol (mGy) MEDICAL HISTORY : Cardiovascular disease. Hypertension. Diabetes mellitus type 1. SURGICAL HISTORY : Thoracotomy, right ENCOUNTER: Initial ACUITY: 1 day PAIN SCALE: 5/10 LOCATION: Right chest TECHNIQUE: Volumetric scanning of the chest was performed. Using automated exposure control and adjustment of the mA and/or kV according to patient size, radiation dose was kept as low as reasonab ly achievable to obtain optimal diagnostic quality images. FINDINGS: Dense consolidative changes are present in the right lung with a thick lined pleura around the lung. There is a small loculated pneumothorax in the apex of the right lung. There is parenchymal consolidation in the lung base with what looks like a loculated air collection in the base sitting between lung and diaphr agm. Very minimal airspace disease is seen scattered in the left lung. Heart and pulmonary vascularity ar e normal. Portion of the liver, spleen identified are free of focal defects. Minimal nonspecific medi astinal adenopathy persists. There is no axillary adenopathy. Portion of bony skeleton visualized unremarka ble. CONCLUSION: 1. Thick lined pleura around a small contracted right lung with moderate airspace disease within the lung. 2. Adenopathy in mediastinum, stable in the interval. 3. Loculated air and fluid both in the apex and base that are in the pleural space.. Remberto Coyle MD FACR on August 23, 2016 at 11:04 Board Certified Radiologist. This report was verified electronically.
--- NOTE | 2016-08-23 11:38 | HHI.PR ---
Subjective Remarks Seen in follow-up for lung mass status post resection. He is seen sitting up in the chair, stable on room air. Chest x-ray slightly worse today with right sided whiteout. He is coughing some thick sputum. Using an incentive spirometer and Acapella. Objective Vitals Vital Signs Date Time Temp Pulse Resp B/P Pulse Ox O2 Delivery O2 Flow Rate FiO2 08/23/16 09:24 93 21 08/23/16 08:55 16 08/23/16 07:00 97.8 89 18 100/64 98 08/23/16 07:00 98 Nasal Cannula 3.00 08/23/16 07:00 89 08/23/16 04:00 92 08/23/16 04:00 98.4 92 20 83/57 98 08/23/16 04:00 98 Nasal Cannula 5.00 08/23/16 00:00 96 Nasal Cannula 5.00 08/23/16 00:00 94 16 92/59 96 08/23/16 00:00 94 08/22/16 21:00 97 Nasal Cannula 5.00 08/22/16 20:23 97 Nasal Cannula 6.00 08/22/16 20:00 98.0 90 18 109/73 98 08/22/16 20:00 90 08/22/16 20:00 98 Nasal Cannula 6.00 08/22/16 15:00 96 Nasal Cannula 6.00 08/22/16 15:00 96 08/22/16 15:00 98.0 92 22 93/56 96 I/O 08/22/16 08/22/16 08/22/16 08/23/16 08/23/16 08/23/16 07:00 15:00 23:00 07:00 15:00 23:00 Intake Total 500 ml 1000 ml 680 ml Output Total 460 ml 400 ml 400 ml Balance 40 ml 600 ml 280 ml Intake Oral 500 ml 1000 ml 680 ml Output Urine Total 250 ml 200 ml 400 ml Chest Tube Drainage Total 210 ml 200 ml # Bowel Movements 0 0 Result Diagram: 08/22/1662808/22/16628 Imaging Last Impressions Chest X-Ray 08/23/16599 Signed Impressions: Service Date/Time: Tuesday, August 23, 2016 03:32 - CONCLUSION: Persistent near-complete opacification of the right lung. Left lung is clear. Persistent tortuosity of the trachea and deviation to the right may indicate additional volume loss. Quincy Antoine MD SPECT Scan-Bone Nuclear Medicine 08/05/16 0000 Signed Impressions: Service Date/Time: July 12:27 - CONCLUSION: 1. No evidence of metastatic disease. 2. Traumatic changes involving the right ribs Akash Wagner MD Abdomen/Pelvis CT 08/05/16 0000 Signed Impressions: Service Date/Time: July 01:22 - CONCLUSION: 1. Cirrhotic appearing liver with fatty infiltration. 2. Multiple gastric varices. 3. Nonspecific, nonobstructive bowel gas pattern most consistent with an ileus. 4. The known cavitary mass and probable adenopathy are again visualized in the anterior right lung base. Vickey Medina MD Lung Biopsy CT 08/04/16 0000 Signed Impressions: Service Date/Time: July 09:21 - CONCLUSION: Uncomplicated CT guided biopsy. Akash Wagner MD CT Angiography 08/04/16 0000 Signed Impressions: Service Date/Time: Thursday, August 04, 2016 11:47 - CONCLUSION: 1. No evidence of pulmonary embolism. 2. 5.5 cm right middle lobe mass suspicious for malignancy with possible metastatic adenopathy. This would be accessible to percutaneous biopsy. PET/CT scan is recommended to further evaluation if clinically indicated. Akash Wagner MD Objective Remarks GENERAL: Patient appearing older than stated age, in no acute distress. CARDIOVASCULAR: Normal rate and regular rhythm without murmurs, gallops, or rubs. RESPIRATORY: Good respiratory efforts. Fair air movement on the right upper lung field, right mid to lower lung chiu with absent breath sounds. The rest of the lung chiu clear to auscultation. GASTROINTESTINAL: Abdomen soft, non-tender, non-distended. Normal active bowel sounds MUSCULOSKELETAL: Extremities without cyanosis, or edema. NEURO: Alert & Oriented x4 to person, place, time, situation. Moves all ext x4 PSYCH: Appropriate mood and affect. Procedures 08/04- CT guided lung biopsy A/P Assessment and Plan 55-year-old male admitted with hemoptysis and right lung mass. He is status post thoracotomy on 08/17/16. Patient was transferred to CVICU on 08/22/16 secondary to hypoxia from pneumothorax. Patient is stabilizing. However right lung imaging finding is worse. Agree with CT surgery, concern for mucous plugging and hospital-acquired pneumonia. Possible hospital-acquired pneumonia, worsening chest x-ray, patient is status post thoracotomy. CT surgery following. Agree with treatment for possible hospital-acquired pneumonia with vancomycin and Zosyn Continue incentive spirometer and Acapella. He is bringing up some thick mucus , hopefully he will continue to do that. Continue Mucomyst. Pulmonology consulted Follow-up chest x-ray in a.m. Hypotension Resolved Hemoptysis Resolved Right-sided lung mass No lung cancer on pathology Status post right thoracotomy with right sided upper and middle lobectomy Recovering Following in CVICU Follow pathology Cardiothoracic surgeon following Nicotine dependence Patient counseled to quit Alcohol abuse and dependence Patient counseled to quit Noted delirium tremens Diabetes mellitus type 2 Insulin sliding scale Levemir Diabetic diet Follow blood sugars DVT prophylaxis SCDs given recent surgery and hemoptysis Doreen Russo MD Aug 23, 2016 11:38
[2016-08-23] MEDS: VANCOMYCIN INJ 1,250 MG in SODIUM CHLOR 0.9% 250 ML INJ 250 ML IV SCH (14:53)
--- NOTE | 2016-08-23 15:39 | MB ---
cc: KISHORE DAVIES MD DATE OF CONSULTATION: 08/23/2016 REASON FOR CONSULTATION 1. Recurrent urinary retention. 2. LUTS. HISTORY OF PRESENT ILLNESS The patient is a 55-year-old male who underwent a laparoscopic thoracotomy on 08/17/2016, who presents with recurrent urinary retention. The patient has had the catheter removed several times but is unable to urinate and the catheter has been subsequently replaced, most recently as of yesterday. The patient states prior to surgery he did have moderate LUTS including nocturia times five, occasional excessive dribbling and feeling of incomplete emptying. However, he did state he had a strong stream and did not leak on himself. He denied dysuria, hematuria or history of urinary tract infections. He currently denies any pain but he does complain of constipation, he has not had a bowel movement in several days. He usually has a bowel movement daily. Denies history of kidney stones or family history of prostate cancer. Denies fevers, chills, nausea, vomiting, flank pain at this time. PAST MEDICAL HISTORY Diabetes, peripheral neuropathy. PAST SURGICAL HISTORY Status post laparoscopic thoracotomy. FAMILY HISTORY Denies genitourinary malignancies or urolithiasis. ALLERGIES No known drug allergies. MEDICATIONS 1. Thiamine. 2. Multivitamin. SOCIAL HISTORY He lives with his mother and girlfriend. He drinks about four beers a day. He smokes about a pack a day for the last 40 years. Denies illicit drug use. REVIEW OF SYSTEMS See HPI, otherwise all systems reviewed otherwise were negative. PHYSICAL EXAMINATION VITAL SIGNS: Temperature 97.5, pulse 100, respiratory rate 18, BP 85/68, sating 98% on room air. GENERAL: He is alert and oriented x3. No apparent distress. Pleasant, cooperative gentleman who appears his stated age. HEAD: Head is normocephalic, atraumatic. EYES: No scleral icterus. Extraocular muscles are intact. SKIN: No ulcers or rashes. Mucous membranes pink and moist. NECK: Neck is supple. Trachea is midline. No JVD. LUNGS: Clear to auscultation bilaterally. No wheezes, rales or rhonchi. HEART: Regular rate and rhythm. No murmurs, gallops, rubs. ABDOMEN: Soft, nontender, nondistended. Positive bowel sounds. GENITOURINARY: His penis is uncircumcised. Testes descended bilaterally, normal in size and consistency. ___ meatus normal. RECTAL EXAM: Deferred at this time. EXTREMITIES: Nontender, no clubbing, cyanosis or edema. PSYCHE: Normal affect. NEUROLOGIC: Cranial nerves II-XII intact. Strength 5/5 in all four extremities. Rcouch catheter draining clear yellow urine. LABORATORY DATA Labs show a white count 21.8, hemoglobin 10.1, hematocrit 31.2, platelet count 155, sodium 134, potassium 4.8, chloride 102, bicarb 23.7, BUN 26, creatinine __ glucose 148. Urine showed large leukocyte esterase, moderate blood with 4 red blood cells. Urine culture is currently negative at this time. ASSESSMENT AND PLAN The patient is a 55-year-old male status post laparoscopic thoracotomy with recurrent urinary retention. Starting the patient on Flomax 0.4 mg daily. Continue Crouch catheter. He can be void trial on an outpatient basis. Thank you for this consult, please call if any questions. Kishore Davies MD [facility]/KUNAL /1:11 PM /3:05 PM
[2016-08-23 16:19] LABS: AUTOMATED NEUTROPHIL # 14.3 TH/MM3 (1.8-7.7); BASOPHIL # 0.1 TH/MM3 (0-0.2); BASOPHIL % 0.7 % (0.0-2.0); EOSINOPHIL # 0.2 TH/MM3 (0-0.4); EOSINOPHIL % 1.4 % (0.0-4.0); HEMATOCRIT 32.5 % (39.0-51.0); HEMO FLAGS DIFF FINAL; LYMPH % 6.2 % (9.0-44.0); LYMPHOCYTE # 1.1 TH/MM3 (1.0-4.8); MEAN CELL VOLUME 98.3 FL (80.0-100.0); MEAN CORPUSCULAR HEMOGLOBIN 31.2 PG (27.0-34.0); MEAN CORPUSCULAR HGB CONC 31.7 % (32.0-36.0); MONO % 9.1 % (0.0-8.0); NEUT % 82.6 % (16.0-70.0); PLATELET COUNT 148 TH/MM3 (150-450); RED BLOOD COUNT 3.31 MIL/MM3 (4.50-5.90); RED CELL DISTRIBUTION WIDTH 14.4 % (11.6-17.2); WHITE BLOOD COUNT 17.3 TH/MM3 (4.0-11.0)
[2016-08-23] MEDS: PIPERACIL-TAZO 3.375 GM PREMIX 50 ML IV SCH ×2 (16:20→21:58)
[2016-08-23 16:39] LABS: BICARBONATE 23.1 MEQ/L (21.0-32.0); MAGNESIUM 2.1 MG/DL (1.5-2.5); POTASSIUM 4.5 MEQ/L (3.5-5.1)
[2016-08-23] MEDS: MAGNESIUM HYDROXIDE SUSP 30 ML CUP PO PRN (18:31)
[2016-08-23] MEDS: RESP: ACETYLCYSTEINE 20% 30 ML NEB NEB SCH (20:42)
[2016-08-23] MEDS: RESP: ALBUTEROL 2.5 MG/IPRATROPIUM 0.5 MG NEB (SCH) NEB (20:42)
[2016-08-23] MEDS: PANTOPRAZOLE SOD 40 MG DELAYED RELEASE TAB PO SCH (21:51)
[2016-08-24] VITALS (28 sets, daily range): BP systolic 95–114; BP diastolic 64–79; PULSE 84–114; RESP 20–21; TEMP 98.1–98.4; O2SAT 96–98
[2016-08-24] MEDS: VANCOMYCIN INJ 1,250 MG in SODIUM CHLOR 0.9% 250 ML INJ 250 ML IV SCH ×2 (02:00→13:07)
[2016-08-24] MEDS: RESP: ACETYLCYSTEINE 20% 30 ML NEB NEB SCH ×4 (02:58→20:32)
[2016-08-24] MEDS: RESP: ALBUTEROL 2.5 MG/3 ML NEB (PRN) NEB ×2 (02:58→15:44)
[2016-08-24] MEDS: PIPERACIL-TAZO 3.375 GM PREMIX 50 ML IV SCH ×4 (03:24→21:44)
[2016-08-24] MEDS: ACETAMINOPHEN/HYDROcodone 325 MG/5 MG TAB PO PRN ×5 (03:25→21:44)
--- NOTE | 2016-08-24 05:55 | RADRPT ---
EXAM DATE/TIME: 08/24/2016 04:33 . Left lung remains clear without pneumothorax or fracture MEDICAL HISTORY : Hypertension. Cardiovascular disease. Diabetes mellitus type II. SURGICAL HISTORY : None. ENCOUNTER: Subsequent ACUITY: 1 week PAIN SCORE: 0/10 LOCATION: Bilateral chest FINDINGS: A single view of the chest demonstrates again near complete opacification of the right lung. There is some aerated lung in the right lung apex and inferiorly unchanged. There is a right fifth rib fractu re. Osseous structures are intact. CONCLUSION: Almost complete opacification of the right lung with small area of lung at the apex and a small round ed area in over the lower lobe. Quincy Antoine MD on August 24, 2016 at 5:52 Board Certified Radiologist. This report was verified electronically.
[2016-08-24] MEDS: INSULIN ASPART SUPPLEMENTAL SCALE SQ SCH ×3 (06:00→17:34)
[2016-08-24] MEDS: RESP: ALBUTEROL 2.5 MG/IPRATROPIUM 0.5 MG NEB (SCH) NEB ×3 (07:41→20:32)
--- NOTE | 2016-08-24 08:33 | HHI.PR ---
Subjective Remarks Pt complains of pain on the right of the chest. states pain meds does control it. coughing up phlegm, whitish. no nausea or vomiting. feels weak Objective Vitals Vital Signs Date Time Temp Pulse Resp B/P Pulse Ox O2 Delivery O2 Flow Rate FiO2 08/24/16 07:22 18 08/24/16 07:00 96 08/24/16 05:00 93 08/24/16 04:00 86 08/24/16 04:00 97 Room Air 08/24/16 03:15 98.1 89 21 95/64 96 08/24/16 03:00 88 08/24/16 02:00 84 08/24/16 01:00 84 08/24/16 00:00 86 08/23/16 23:40 97.8 88 21 97/65 96 08/23/16 23:40 97 Room Air 08/23/16 23:00 90 08/23/16 22:00 96 08/23/16 21:00 92 08/23/16 20:47 96 21 08/23/16 20:00 86 08/23/16 19:35 97.8 92 21 94/67 96 08/23/16 19:00 97 08/23/16 18:00 93 08/23/16 17:00 93 08/23/16 16:00 100 08/23/16 15:00 96 Room Air 08/23/16 15:00 103 08/23/16 15:00 97.5 99 21 109/77 96 08/23/16 14:00 100 08/23/16 12:00 97.5 100 18 85/68 98 08/23/16 11:38 100 08/23/16 11:38 96 Nasal Cannula 08/23/16 11:38 98.1 100 20 105/77 96 08/23/16 09:24 93 21 I/O 08/23/16 08/23/16 08/23/16 08/24/16 08/24/16 08/24/16 07:00 15:00 23:00 07:00 15:00 23:00 Intake Total 680 ml 480 ml 480 ml Output Total 400 ml 425 ml 400 ml Balance 280 ml 55 ml 80 ml Intake Oral 680 ml 480 ml 480 ml Output Urine Total 400 ml 425 ml 400 ml # Bowel Movements 0 Result Diagram: 08/23/16 1605 08/23/16 1605 Imaging Last Impressions Chest X-Ray 08/24/16 0600 Signed Impressions: Service Date/Time: Wednesday, August 24, 2016 04:33 - CONCLUSION: Almost complete opacification of the right lung with small area of lung at the apex and a small rounded area in over the lower lobe. Quincy Antoine MD Chest CT 08/23/16 0000 Signed Impressions: Service Date/Time: Tuesday, August 23, 2016 10:53 - CONCLUSION: 1. Thick lined pleura around a small contracted right lung with moderate airspace disease within the lung. 2. Adenopathy in mediastinum, stable in the interval. 3. Loculated air and fluid both in the apex and base that are in the pleural space.. Remberto Coyle MD FACR SPECT Scan-Bone Nuclear Medicine 08/05/16 0000 Signed Impressions: Service Date/Time: July 12:27 - CONCLUSION: 1. No evidence of metastatic disease. 2. Traumatic changes involving the right ribs Akash Wagner MD Abdomen/Pelvis CT 08/05/16 0000 Signed Impressions: Service Date/Time: July 01:22 - CONCLUSION: 1. Cirrhotic appearing liver with fatty infiltration. 2. Multiple gastric varices. 3. Nonspecific, nonobstructive bowel gas pattern most consistent with an ileus. 4. The known cavitary mass and probable adenopathy are again visualized in the anterior right lung base. Vickey Medina MD Lung Biopsy CT 08/04/16 0000 Signed Impressions: Service Date/Time: July 09:21 - CONCLUSION: Uncomplicated CT guided biopsy. Akash Wagner MD CT Angiography 08/04/16 0000 Signed Impressions: Service Date/Time: Thursday, August 04, 2016 11:47 - CONCLUSION: 1. No evidence of pulmonary embolism. 2. 5.5 cm right middle lobe mass suspicious for malignancy with possible metastatic adenopathy. This would be accessible to percutaneous biopsy. PET/CT scan is recommended to further evaluation if clinically indicated. Akash Wagner MD Objective Remarks GENERAL: Patient appearing older than stated age, in no acute distress. CARDIOVASCULAR: Normal rate and regular rhythm without murmurs RESPIRATORY: decreased air movement on the right upper lung field, right mid to lower lung chiu with absent breath sounds. The rest of the lung chiu w faint crackles GASTROINTESTINAL: Abdomen soft, non-tender, non-distended. Normal active bowel sounds MUSCULOSKELETAL: Extremities without edema. NEURO: Alert & Oriented x4 to person, place, time, situation. has difficulty moving the right upper extremity due to pain on the chest area PSYCH: Appropriate mood and affect. Procedures 08/04- CT guided lung biopsy A/P Assessment and Plan 55-year-old male admitted with hemoptysis and right lung mass. He is status post thoracotomy on 08/17/16. Patient was transferred to CVICU on 08/22/16 secondary to hypoxia from pneumothorax. Patient is stabilizing. However right lung imaging finding is worse. Agree with CT surgery, concern for mucous plugging and hospital-acquired pneumonia. Possible hospital-acquired pneumonia, worsening chest x-ray, patient is status post thoracotomy. CT surgery following. on vancomycin and Zosyn Continue incentive spirometer and Acapella. bringing up some thick mucus, hopefully he will continue to do that. Continue Mucomyst. Pulmonology consulted yesterday chest x-ray reviewed by me and shows complete opacification of the right lung Hypotension Resolved Hemoptysis Resolved Right-sided lung mass No lung cancer on pathology Status post right thoracotomy with right sided upper and middle lobectomy Cardiothoracic surgeon following pulm following Nicotine dependence Patient counseled to quit Alcohol abuse and dependence Patient counseled to quit Noted delirium tremens Diabetes mellitus type 2 Insulin sliding scale Levemir Diabetic diet Follow blood sugars Discharge Planning DVT prophylaxis SCDs given recent surgery and hemoptysis Encourage ambulation consult PT Teena Fleming MD Aug 24, 2016 08:33
[2016-08-24 08:46] LABS: HEMATOCRIT 29.9 % (39.0-51.0); MEAN CELL VOLUME 95.7 FL (80.0-100.0); MEAN CORPUSCULAR HGB CONC 33.5 % (32.0-36.0); PLATELET COUNT 137 TH/MM3 (150-450); RED BLOOD COUNT 3.12 MIL/MM3 (4.50-5.90); RED CELL DISTRIBUTION WIDTH 14.2 % (11.6-17.2); REVIEW FLAG FINAL; WHITE BLOOD COUNT 10.4 TH/MM3 (4.0-11.0)
[2016-08-24] MEDS: INSULIN DETEMIR 100 UNITS/ML VIAL SQ SCH ×2 (08:53→21:51)
[2016-08-24] MEDS: NYSTAT/DIPHENHY/LIDO MOUTHWASH (Adult) 120ML SWISH-SWAL SCH ×4 (09:00→21:44)
[2016-08-24 09:06] LABS: BICARBONATE 24.9 MEQ/L (21.0-32.0); POTASSIUM 4.1 MEQ/L (3.5-5.1)
[2016-08-24] MEDS: NYSTATIN SUSP 500,000 U/5 ML CUP SWISH-SWAL SCH ×4 (09:31→21:45)
[2016-08-24] MEDS: THIAMINE HCL 100 MG TAB PO SCH (09:31)
[2016-08-24] MEDS: MAGNESIUM HYDROXIDE SUSP 30 ML CUP PO PRN (09:31)
[2016-08-24] MEDS: TAMSULOSIN HCL 0.4 MG CAP PO SCH (09:31)
[2016-08-24] MEDS: POLYETHYLENE GLYCOL 17 GM PKG PO SCH (09:32)
[2016-08-24] MEDS: CHLORPHENIR/HYDROCOD LIQUID 8 MG/10 MG/5 ML CUP PO SCH ×2 (09:32→21:45)
[2016-08-24] MEDS: DOCUSATE SODIUM 100 MG CAP PO SCH ×2 (09:32→21:45)
[2016-08-24] MEDS: SODIUM CHLORIDE 0.9% FLUSH 10 ML FLUSH IV FLUSH SCH ×2 (09:32→21:00)
--- NOTE | 2016-08-24 10:14 | PD.CAR.PN ---
CVT Progress Note Subjective/Hospital Course: 55yr / old male 40pk year hx of tobacco abuse presented to ED with hemoptysis x 3 months / 25lbs recent weight loss No, PCP ( lost his insurance) , CT chest showed right middle lobe lung mass PMH: DM , peripheral neuropathy, partial PFT obtained FEV1 2.02 will schedule for surgery on am per Dr Seaman, covering for Dr Main for Right thoracotomy pulmonary resection, bronchoscopy r 08/16/16 No complaints, stable 08/17 surgery: Right thoracotomy, right upper and middle lobectomy, lysis of adhesions , lymph node dissection EBL 500ml 2000cc crystalloid 08/18 pt had some transient hypotension this am , given 250cc fluid bolus now improved, will transfer to stepdown later today resume long acting insulin and, continue pain control with utility person 08/19 knutson cath reinserted last pm/ bladder scan 400cc/ will check UA re-attempt removal today leave chest tube in place / drained 320cc/ 12 hrs continue aggressive pulm toileting , path report pending no further hypotension / pt encouraged to take po fluid 08/20 pt has poor cough effort c/o of mouth pain, difficulty swallowing / + UTI on reocephin WBC 24K check BC , continue pulm toileting, OOB, ambulate decrease pain meds , consult PT/ OT 08/21 Needs aggressive pulmonary toiletry and ambulation Maintain CT to suction 08/22 Transferred to CVICU yesterday afternoon for progressive hypoxia. Sats in the 80 's on NRB. Initiated BiPAP with improvement. Presently on NC and maintaining acceptable saturations. Needs encouragement for incentive spirometry Repeat CXR in am 08/23 pt up in chair, cxr noted, complete opacification right lung/ s/p right thoracotomy, right upper and middle lobectomy, minimal breath sounds on right, pt has had poor cough effort since surgery, concern for mucus plug, will consult pulmonology aggressive pulm toileting , await labs/ may need HCAP treatment / check sputum consult pulm for possible bronch 08/24 pt remains om room air, continue aggressive pulm toileting OOB , ambulate per Nursing staff, pt was seen by Dr Mejía last pm, await consultation note CXR noted no real improvement , however, pt is coughing up thick tenacious sputum leukocytosis improved continue current abx Objective: Vital Signs Date Time Temp Pulse Resp B/P Pulse Ox O2 Delivery O2 Flow Rate FiO2 08/24/16 07:41 97 21 08/24/16 07:22 18 08/24/16 07:00 96 08/24/16 05:00 93 08/24/16 04:00 86 08/24/16 04:00 97 Room Air 08/24/16 03:15 98.1 89 21 95/64 96 08/24/16 03:00 88 08/24/16 02:00 84 08/24/16 01:00 84 08/24/16 00:00 86 08/23/16 23:40 97.8 88 21 97/65 96 08/23/16 23:40 97 Room Air 08/23/16 23:00 90 08/23/16 22:00 96 08/23/16 21:00 92 08/23/16 20:47 96 21 08/23/16 20:00 86 08/23/16 19:35 97.8 92 21 94/67 96 08/23/16 19:00 97 08/23/16 18:00 93 08/23/16 17:00 93 08/23/16 16:00 100 08/23/16 15:00 96 Room Air 08/23/16 15:00 103 08/23/16 15:00 97.5 99 21 109/77 96 08/23/16 14:00 100 08/23/16 12:00 97.5 100 18 85/68 98 08/23/16 11:38 100 08/23/16 11:38 96 Nasal Cannula 08/23/16 11:38 98.1 100 20 105/77 96 Labs: Laboratory Tests Test 08/24/16 07:37 White Blood Count 10.4 TH/MM3 (4.0-11.0) Red Blood Count 3.12 MIL/MM3 (4.50-5.90) Hemoglobin 10.0 GM/DL (13.0-17.0) Hematocrit 29.9 % (39.0-51.0) Mean Corpuscular Volume 95.7 FL (80.0-100.0) Mean Corpuscular Hemoglobin 32.0 PG (27.0-34.0) Mean Corpuscular Hemoglobin 33.5 % Concent (32.0-36.0) Red Cell Distribution Width 14.2 % (11.6-17.2) Platelet Count 137 TH/MM3 (150-450) Mean Platelet Volume 9.9 FL (7.0-11.0) Sodium Level 135 MEQ/L (136-145) Potassium Level 4.1 MEQ/L (3.5-5.1) Chloride Level 102 MEQ/L (98-107) Carbon Dioxide Level 24.9 MEQ/L (21.0-32.0) Anion Gap 8 MEQ/L (5-15) Blood Urea Nitrogen 24 MG/DL (7-18) Creatinine 0.65 MG/DL (0.60-1.30) Estimat Glomerular Filtration 127 ML/MIN Rate (>89) Random Glucose 101 MG/DL (74-106) Calcium Level 8.1 MG/DL (8.5-10.1) Result Diagram: 08/24/1673608/24/16736 (1) Lung mass Plan: FEV1 2.02 path no growth in cultures to date path from OR no evidence of malignancy (2) Right thoracotomy, right upper and middle lobectomy, lysis of adhesions, lymph node dissection Plan: pulmonary toileting , nebs, ezpap acapella OOB/ ambulate path neg continue antibiotics, pt seen and eval by pulm last pm nursing spoke to Dr Mejía , [place] bronch at this time aggressive pulm toileting and antibiotics (3) Hemoptysis (4) Tobacco abuse Plan: smoking cessation (5) Urinary retention Plan: appreciate urology in put, will need to go home with knutson bag and f/u appointment with Dr Gillis for trial removal repeat bladder scan this afternoon >500cc knutson cathreplaced / total of 3 times urology consult pending may need to go home with leg bag and outpt follow up Nisha Todd Aug 24, 2016 10:14
--- NOTE | 2016-08-24 13:06 | PD.ID.CON ---
History of Present Illness Service ID Consult Requested By Reason for Consult Evaluation and Mment of possible empyema, right lung white out. Primary Care Physician No Primary Care Physician Diagnoses: History of Present Illness Mr. Price is a 56-year-old male with past medical history significant for [id number] history of tobacco use, chronic alcohol abuse(1 pint daily per reports), DM with neuropathy who was admitted on 08/04/16. Patient presented to the emergency room complaining of increased weakness and fatigue. On admission he complained of hemoptysis which has been going on for the last three months, usually starts in the morning when he coughs up bright red blood and then throughout the day gets more like a anya color. He has lost about 25 pounds over the last few months. Cardiothoracic surgery was consulted and the patient underwent Right thoracotomy, right upper and middle lobectomy, lysis of adhesions, lymph node dissection. Intraoperative cultures showed normal respiratory deb. Pathology of the right lung demonstrates a spindle cell proliferation makes with the matrix cells possible abscess patient. The right upper and middle lobe biopsy was suggestive of bronchiolitis , severe acute suppurative and chronic organizing pneumonitis and pleuritis and pleural abscess formation but negative for neoplasia. Denies having any fever, chills, night sweats, has been complaining of some pain in his shins, thighs and arms. No nausea, vomiting, diarrhea. ID consulted for evaluation and Mment of possible empyema, health care associated pneumonia. Review of Systems ROS Limitations: Poor Historian Constitutional: DENIES: Diaphoretic episodes, Fatigue, Fever, Weight gain, Weight loss, Chills, Dizziness, Change in appetite, Night Sweats Endocrine: DENIES: Heat/cold intolerance, Polydipsia, Polyuria, Polyphagia Eyes: DENIES: Blurred vision, Diplopia, Eye inflammation, Eye pain, Vision loss , Photosensitivity, Double Vision Ears, nose, mouth, throat: DENIES: Tinnitus, Hearing loss, Vertigo, Nasal discharge, Oral lesions, Throat pain, Hoarseness, Ear Pain, Running Nose, Epistaxis, Sinus Pain, Toothache, Odynophagia Respiratory: COMPLAINS OF: Cough, Hemoptysis, Sputum production, DENIES: Apneas, Snoring, Wheezing, Shortness of breath Cardiovascular: DENIES: Chest pain, Palpitations, Syncope, Dyspnea on Exertion , PND, Lower Extremity Edema, Orthopnea, Claudication Gastrointestinal: DENIES: Abdominal pain, Black stools, Bloody stools, Constipation, Diarrhea, Nausea, Vomiting, Difficulty Swallowing, Anorexia Genitourinary: DENIES: Sexual dysfunction, Urinary frequency, Urinary incontinence, Urgency, Hematuria, Dysuria, Nocturia, Penile Discharge, Testicular Pain, Testicular Swelling Musculoskeletal: DENIES: Joint pain, Muscle aches, Stiffness, Joint Swelling, Back pain, Neck pain Integumentary: DENIES: Abnormal pigmentation, Nail changes, Pruritus, Rash Hematologic/lymphatic: DENIES: Bruising, Lymphadenopathy Immunologic/allergic: DENIES: Eczema, Urticaria Neurologic: DENIES: Abnormal gait, Headache, Localized weakness, Paresthesias, Seizures, Speech Problems, Tremor, Poor Balance Psychiatric: DENIES: Anxiety, Confusion, Mood changes, Depression, Hallucinations, Agitation, Suicidal Ideation, Homicidal Ideation, Delusions Except as stated in HPI: all other systems reviewed are Neg Past Family Social History Allergies: Coded Allergies: No Known Allergies (Unverified , 03/22/13) Past Medical History DM II Neuropathy Past Surgical History Right thoracotomy, right upper and middle lobectomy, lysis of adhesions, lymph node dissection on August 18, 2016. Reported Medications Reported Meds & Active Scripts Active No Active Prescriptions or Reported Medications Active Ordered Medications Current Medications Medications (Trade) Dose Ordered Sig/Ernestina Route Start Time Stop Time Status Last Admin (Dulcolax Supp) 10 mg DAILY PRN RECTAL 08/04/16 13:45 (Vitamin B1) 100 mg DAILY PO 08/07/16 09:00 08/24/16 09:31 (Romazicon Inj) 0.2 mg Q1M PRN IV PUSH 08/05/16 08:45 (Tussionex Liq) 5 ml Q12HR PO 08/09/16 21:00 08/24/16 09:32 (NS Flush) 2 ml BID IV FLUSH 08/17/16 21:00 08/24/16 09:32 (NS Flush) 2 ml UNSCH PRN IV FLUSH 08/17/16 11:15 (Protonix) 40 mg HS PO 08/17/16 21:00 08/23/16 21:51 (Zofran Inj) 4 mg Q6H PRN IV PUSH 08/17/16 11:15 (Milk Of Magnesia Liq) 30 ml DAILY PRN PO 08/17/16 11:15 08/24/16 09:31 (Tylenol) 650 mg Q4H PRN PO 08/17/16 11:15 (NovoLOG SUPPLEMENTAL SCALE) 1 Q6HR SQ 08/17/16 12:00 08/23/16 17:38 (D50w (Vial) Inj) 50 ml UNSCH PRN IV 08/17/16 11:15 (Glucagon Inj) 1 mg UNSCH PRN IV 08/17/16 11:15 (Colace) 100 mg BID PO 08/19/16 10:00 08/24/16 09:32 (Miralax) 17 gm DAILY PO 08/19/16 10:00 08/24/16 09:32 (Milk Of Magnesia Liq) 30 ml DAILY PRN PO 08/19/16 09:15 (Flomax) 0.4 mg DAILY PO 08/19/16 10:00 08/24/16 09:31 (Levemir Inj) 10 units HS SQ 08/20/16 21:00 08/23/16 21:00 (Levemir Inj) 10 units DAILYAC SQ 08/21/16 08:00 08/24/16 08:53 (Peterson 5-325 Mg) 1 tab Q4H PRN PO 08/20/16 10:45 08/24/16 09:31 (Magic Mouthwash Adult Liq) 10 ml QID SWISH-SWAL 08/20/16 13:00 08/24/16 09:00 Nystatin 5 ml 5 ml QID SWISH-SWAL 08/20/16 13:00 08/24/16 09:31 Pharmacy Profile Note 0 ml @ 0 mls/hr UNSCH OTHER 08/23/16 09:45 (Vancomycin Inj/ NS 250 ml Inj) 262.5 ml @ 262.5 mls/ hr Q12H IV 08/23/16 13:00 08/24/16 02:00 Miscellaneous Information SPECIFIC LAB TO BE ... ONCE ONCE .XX 08/25/16 00:45 08/25/16 00:46 (Zosyn 3.375 Gm Premix) 50 ml @ 100 mls/hr Q6H IV 08/23/16 16:00 08/24/16 09:31 Family History Father with Dementia and DM II Mother with CAD Brother with Cancer but he does not know which one. Social History Lives with his Mother Alcohol abuse 1 pint of liquor daily Tobacco dependence one pack per day since he was 14 years of age. Physical Exam Vital Signs Vital Signs Date Time Temp Pulse Resp B/P Pulse Ox O2 Delivery O2 Flow Rate FiO2 08/24/16 12:00 93 08/24/16 11:51 18 08/24/16 11:00 97 Room Air 08/24/16 11:00 105 08/24/16 11:00 98.1 95 20 113/79 97 08/24/16 10:00 100 08/24/16 09:00 92 08/24/16 08:00 86 08/24/16 08:00 98.4 95 20 100/68 96 08/24/16 08:00 96 Room Air 08/24/16 07:41 97 21 08/24/16 07:00 96 08/24/16 05:00 93 08/24/16 04:00 86 08/24/16 04:00 97 Room Air 08/24/16 03:15 98.1 89 21 95/64 96 08/24/16 03:00 88 08/24/16 02:00 84 08/24/16 01:00 84 08/24/16 00:00 86 08/23/16 23:40 97.8 88 21 97/65 96 08/23/16 23:40 97 Room Air 08/23/16 23:00 90 08/23/16 22:00 96 08/23/16 21:00 92 08/23/16 20:47 96 21 08/23/16 20:00 86 08/23/16 19:35 97.8 92 21 94/67 96 08/23/16 19:00 97 08/23/16 18:00 93 08/23/16 17:00 93 08/23/16 16:00 100 08/23/16 15:00 96 Room Air 08/23/16 15:00 103 08/23/16 15:00 97.5 99 21 109/77 96 08/23/16 14:00 100 Physical Exam GENERAL: This is a well-nourished, well-developed patient, in no apparent distress. SKIN: No rashes, ecchymoses or lesions. Cool and dry. HEAD: Atraumatic. Normocephalic. No temporal or scalp tenderness. EYES: Pupils equal round and reactive. Extraocular motions intact. No scleral icterus. No injection or drainage. ENT: Nose without bleeding, purulent drainage or septal hematoma. Throat without erythema, tonsillar hypertrophy or exudate. Uvula midline. Airway patent. NECK: Trachea midline. No JVD or lymphadenopathy. Supple, nontender, no meningeal signs. CARDIOVASCULAR: Regular rate and rhythm without murmurs, gallops, or rubs. RESPIRATORY: Clear to auscultation. Breath sounds equal bilaterally. No wheezes , rales, or rhonchi. GASTROINTESTINAL: Abdomen soft, non-tender, nondistended. No hepato-splenomegaly , or palpable masses. No guarding. MUSCULOSKELETAL: Extremities without clubbing, cyanosis, or edema. No joint tenderness, effusion, or edema noted. No calf tenderness. Negative Homans sign bilaterally. NEUROLOGICAL: Awake and alert. Cranial nerves II through XII intact. Motor and sensory grossly within normal limits. Five out of 5 muscle strength in all muscle groups. Normal speech. Laboratory Laboratory Tests Test 08/23/16 08/24/16 16:05 07:37 White Blood Count 17.3 10.4 Red Blood Count 3.31 3.12 Hemoglobin 10.3 10.0 Hematocrit 32.5 29.9 Mean Corpuscular Volume 98.3 95.7 Mean Corpuscular Hemoglobin 31.2 32.0 Mean Corpuscular Hemoglobin 31.7 33.5 Concent Red Cell Distribution Width 14.4 14.2 Platelet Count 148 137 Mean Platelet Volume 10.2 9.9 Neutrophils (%) (Auto) 82.6 Lymphocytes (%) (Auto) 6.2 Monocytes (%) (Auto) 9.1 Eosinophils (%) (Auto) 1.4 Basophils (%) (Auto) 0.7 Neutrophils # (Auto) 14.3 Lymphocytes # (Auto) 1.1 Monocytes # (Auto) 1.6 Eosinophils # (Auto) 0.2 Basophils # (Auto) 0.1 CBC Comment DIFF FINAL Differential Comment Sodium Level 134 135 Potassium Level 4.5 4.1 Chloride Level 103 102 Carbon Dioxide Level 23.1 24.9 Anion Gap 8 8 Blood Urea Nitrogen 31 24 Creatinine 0.73 0.65 Estimat Glomerular Filtration 112 127 Rate Random Glucose 136 101 Calcium Level 7.9 8.1 Phosphorus Level 4.3 Magnesium Level 2.1 Date/Time Procedure Status Source Growth 08/23/16 09:00 Gram Stain - Final Resulted Sputum Expectorated Sputum 08/23/16 09:00 Sputum Culture - Preliminary Resulted Sputum Expectorated Sputum MODERATE GROWTH NORMAL RESPIRATORY FL... 08/20/16 11:20 Aerobic Blood Culture - Preliminary Resulted Blood Peripheral NO GROWTH IN 4 DAYS 08/20/16 11:20 Anaerobic Blood Culture - Preliminary Resulted Blood Peripheral NO GROWTH IN 4 DAYS 08/19/16 13:49 Urine Culture - Final Complete Urine Catheterized Urine NO GROWTH IN 48 HOURS. Result Diagram: 08/24/16 0737 08/24/16 0737 Imaging Last Impressions Chest X-Ray 08/24/16 0600 Signed Impressions: Service Date/Time: Wednesday, August 24, 2016 04:33 - CONCLUSION: Almost complete opacification of the right lung with small area of lung at the apex and a small rounded area in over the lower lobe. Quincy Antoine MD Chest CT 08/23/16 0000 Signed Impressions: Service Date/Time: Tuesday, August 23, 2016 10:53 - CONCLUSION: 1. Thick lined pleura around a small contracted right lung with moderate airspace disease within the lung. 2. Adenopathy in mediastinum, stable in the interval. 3. Loculated air and fluid both in the apex and base that are in the pleural space.. Remberto Coyle MD FACR SPECT Scan-Bone Nuclear Medicine 08/05/16 0000 Signed Impressions: Service Date/Time: July 12:27 - CONCLUSION: 1. No evidence of metastatic disease. 2. Traumatic changes involving the right ribs Akash Wagner MD Abdomen/Pelvis CT 08/05/16 0000 Signed Impressions: Service Date/Time: July 01:22 - CONCLUSION: 1. Cirrhotic appearing liver with fatty infiltration. 2. Multiple gastric varices. 3. Nonspecific, nonobstructive bowel gas pattern most consistent with an ileus. 4. The known cavitary mass and probable adenopathy are again visualized in the anterior right lung base. Vickey Medina MD Lung Biopsy CT 08/04/16 0000 Signed Impressions: Service Date/Time: July 09:21 - CONCLUSION: Uncomplicated CT guided biopsy. Akash Wagner MD CT Angiography 08/04/16 0000 Signed Impressions: Service Date/Time: Thursday, August 04, 2016 11:47 - CONCLUSION: 1. No evidence of pulmonary embolism. 2. 5.5 cm right middle lobe mass suspicious for malignancy with possible metastatic adenopathy. This would be accessible to percutaneous biopsy. PET/CT scan is recommended to further evaluation if clinically indicated. Akash Wagner MD Assessment and Plan Assessment and Plan Lung empyema in setting of alcoholism, possible lung mass/cancer. Possible aspiration pneumonia as primary etiology or post obstructive pneumonia. Normal resp deb points in favor of aspiration. Chronic smoker Chronic alcoholism (1 pint per day per records) Weight loss can be from infection as well as malignancy. Recs Continue Zosyn IV Continue Vanco IV (target 15-20) Follow cultures Follow clinically reviewed sputum cultures and intraop specimen. d/w CTS CMA and : in view of worsening CXR s.o lung collapse recommend bronchoscopy diagnostic and therapeutic. d.w patient and RN. Kenna Moran MD Aug 24, 2016 13:06
--- NOTE | 2016-08-24 19:07 | HHI.PR ---
Subjective Remarks 56 YOWM with DM,HTN, Empyema, s/p Thoracotomy CXR white out right lung not able to expacrtorate no fever Objective Vital Signs Vital Signs Date Time Temp Pulse Resp B/P Pulse Ox O2 Delivery O2 Flow Rate FiO2 08/24/16 18:36 18 08/24/16 15:00 87 08/24/16 14:00 91 08/24/16 13:00 92 08/24/16 12:00 93 08/24/16 11:00 97 Room Air 08/24/16 11:00 105 08/24/16 11:00 98.1 95 20 113/79 97 08/24/16 10:00 100 08/24/16 09:00 92 08/24/16 08:00 86 08/24/16 08:00 98.4 95 20 100/68 96 08/24/16 08:00 96 Room Air 08/24/16 07:41 97 21 08/24/16 07:00 96 08/24/16 05:00 93 08/24/16 04:00 86 08/24/16 04:00 97 Room Air 08/24/16 03:15 98.1 89 21 95/64 96 08/24/16 03:00 88 08/24/16 02:00 84 08/24/16 01:00 84 08/24/16 00:00 86 08/23/16 23:40 97.8 88 21 97/65 96 08/23/16 23:40 97 Room Air 08/23/16 23:00 90 08/23/16 22:00 96 08/23/16 21:00 92 08/23/16 20:47 96 21 08/23/16 20:00 86 08/23/16 19:35 97.8 92 21 94/67 96 I/O 08/23/16 08/23/16 08/23/16 08/24/16 08/24/16 08/24/16 07:00 15:00 23:00 07:00 15:00 23:00 Intake Total 680 ml 480 ml 480 ml Output Total 400 ml 425 ml 400 ml Balance 280 ml 55 ml 80 ml Intake Oral 680 ml 480 ml 480 ml Output Urine Total 400 ml 425 ml 400 ml # Bowel Movements 0 Result Diagram: 08/24/1673608/24/16736 Objective Remarks GENERAL: MBMN WM,NAD SKIN: Warm and dry. HEAD: Normocephalic. EYES: No scleral icterus. No injection or drainage. NECK: Supple, trachea midline. No JVD or lymphadenopathy. CARDIOVASCULAR: Regular rate and rhythm without murmurs, gallops, or rubs. RESPIRATORY: Breath sounds equal bilaterally. No accessory muscle use. Decreased BS right GASTROINTESTINAL: Abdomen soft, non-tender, nondistended. MUSCULOSKELETAL: No cyanosis, or edema. BACK: Nontender without obvious deformity. No CVA tenderness. A/P Assessment and Plan White out right lung, atelactesis, ? mucous plugging S/P Right Thoracotomy Empyema PLAN: DW Pt DW Dr.Tanuja James Will nani for bronch Explained pt procedure and possible complications he agrees to procedd with bronch. Cy Mejía MD Aug 24, 2016 19:07
[2016-08-24] MEDS: PANTOPRAZOLE SOD 40 MG DELAYED RELEASE TAB PO SCH (21:45)
[2016-08-25] VITALS (25 sets, daily range): BP systolic 90–123; BP diastolic 63–87; PULSE 82–110; RESP 20–21; TEMP 97.7–98.4; O2SAT 96–98
[2016-08-25] MEDS ORDERED: PHARMACY ORDERED LAB ONE (00:45)
[2016-08-25] MEDS: VANCOMYCIN INJ 1,250 MG in SODIUM CHLOR 0.9% 250 ML INJ 250 ML IV SCH (01:39)
[2016-08-25] MEDS: ACETAMINOPHEN/HYDROcodone 325 MG/5 MG TAB PO PRN ×4 (01:39→19:46)
[2016-08-25] MEDS: RESP: ACETYLCYSTEINE 20% 30 ML NEB NEB SCH ×2 (03:36→07:49)
[2016-08-25] MEDS: PIPERACIL-TAZO 3.375 GM PREMIX 50 ML IV SCH ×4 (04:00→21:39)
[2016-08-25] MEDS: INSULIN ASPART SUPPLEMENTAL SCALE SQ SCH ×4 (06:00→18:00)
[2016-08-25 06:48] LABS: AUTOMATED NEUTROPHIL # 6.5 TH/MM3 (1.8-7.7); BASOPHIL # 0.1 TH/MM3 (0-0.2); BASOPHIL % 0.8 % (0.0-2.0); EOSINOPHIL # 0.3 TH/MM3 (0-0.4); EOSINOPHIL % 2.9 % (0.0-4.0); HEMATOCRIT 29.8 % (39.0-51.0); HEMO FLAGS DIFF FINAL; LYMPH % 15.1 % (9.0-44.0); LYMPHOCYTE # 1.4 TH/MM3 (1.0-4.8); MEAN CELL VOLUME 95.5 FL (80.0-100.0); MEAN CORPUSCULAR HGB CONC 32.4 % (32.0-36.0); MONO % 10.8 % (0.0-8.0); NEUT % 70.4 % (16.0-70.0); PLATELET COUNT 120 TH/MM3 (150-450); RED BLOOD COUNT 3.12 MIL/MM3 (4.50-5.90); RED CELL DISTRIBUTION WIDTH 14.3 % (11.6-17.2); WHITE BLOOD COUNT 9.3 TH/MM3 (4.0-11.0)
[2016-08-25 07:08] LABS: BICARBONATE 27.4 MEQ/L (21.0-32.0); POTASSIUM 4.1 MEQ/L (3.5-5.1)
[2016-08-25] MEDS: RESP: ALBUTEROL 2.5 MG/IPRATROPIUM 0.5 MG NEB (SCH) NEB ×3 (07:48→19:48)
[2016-08-25] MEDS: INSULIN DETEMIR 100 UNITS/ML VIAL SQ SCH ×2 (08:00→21:38)
[2016-08-25] MEDS: NYSTAT/DIPHENHY/LIDO MOUTHWASH (Adult) 120ML SWISH-SWAL SCH ×4 (09:00→21:39)
[2016-08-25] MEDS: CHLORPHENIR/HYDROCOD LIQUID 8 MG/10 MG/5 ML CUP PO SCH ×2 (09:01→21:37)
[2016-08-25] MEDS: NYSTATIN SUSP 500,000 U/5 ML CUP SWISH-SWAL SCH ×4 (09:01→21:36)
[2016-08-25] MEDS: DOCUSATE SODIUM 100 MG CAP PO SCH ×2 (09:02→21:00)
[2016-08-25] MEDS: POLYETHYLENE GLYCOL 17 GM PKG PO SCH (09:02)
[2016-08-25] MEDS: SODIUM CHLORIDE 0.9% FLUSH 10 ML FLUSH IV FLUSH SCH ×2 (09:02→21:00)
[2016-08-25] MEDS: TAMSULOSIN HCL 0.4 MG CAP PO SCH (09:02)
[2016-08-25] MEDS: THIAMINE HCL 100 MG TAB PO SCH (09:02)
--- NOTE | 2016-08-25 10:31 | HHI.PR ---
Subjective Remarks Pt feels better today. still having pain on the right but able now to move right arm more. no nausea or vomiting. no worsening SOB Objective Vitals Vital Signs Date Time Temp Pulse Resp B/P Pulse Ox O2 Delivery O2 Flow Rate FiO2 08/25/16 08:00 98.1 96 20 102/73 97 08/25/16 08:00 97 Room Air 08/25/16 08:00 96 08/25/16 07:00 82 08/25/16 06:00 86 08/25/16 05:00 84 08/25/16 04:00 82 08/25/16 03:20 96 Room Air 08/25/16 03:20 98.4 83 21 101/73 96 08/25/16 03:00 84 08/25/16 02:00 86 08/25/16 01:00 84 08/25/16 00:00 88 08/24/16 23:19 98.1 96 21 99/69 96 08/24/16 23:19 96 Room Air 08/24/16 23:00 93 08/24/16 22:00 114 08/24/16 21:00 94 08/24/16 20:33 98 21 08/24/16 20:00 102 08/24/16 19:30 96 Room Air 08/24/16 19:30 98.1 92 21 111/75 97 08/24/16 19:00 92 08/24/16 18:36 18 08/24/16 18:00 94 08/24/16 17:00 91 08/24/16 16:00 96 Room Air 08/24/16 16:00 86 08/24/16 16:00 98.2 91 20 114/76 96 08/24/16 15:00 87 08/24/16 14:00 91 08/24/16 13:00 92 08/24/16 12:00 93 08/24/16 11:00 97 Room Air 08/24/16 11:00 105 08/24/16 11:00 98.1 95 20 113/79 97 I/O 08/24/16 08/24/16 08/24/16 08/25/16 08/25/16 08/25/16 07:00 15:00 23:00 07:00 15:00 23:00 Intake Total 480 ml 690 ml 480 ml Output Total 400 ml 350 ml 300 ml Balance 80 ml 340 ml 180 ml Intake Oral 480 ml 240 ml 480 ml IV Total 450 ml Output Urine Total 400 ml 350 ml 300 ml # Bowel Movements 0 Result Diagram: 08/25/1660508/25/16605 Imaging Last Impressions Chest X-Ray 08/24/16 0600 Signed Impressions: Service Date/Time: Wednesday, August 24, 2016 04:33 - CONCLUSION: Almost complete opacification of the right lung with small area of lung at the apex and a small rounded area in over the lower lobe. Quincy Antoine MD Chest CT 08/23/16 0000 Signed Impressions: Service Date/Time: Tuesday, August 23, 2016 10:53 - CONCLUSION: 1. Thick lined pleura around a small contracted right lung with moderate airspace disease within the lung. 2. Adenopathy in mediastinum, stable in the interval. 3. Loculated air and fluid both in the apex and base that are in the pleural space.. Remberto Coyle MD FACR SPECT Scan-Bone Nuclear Medicine 08/05/16 0000 Signed Impressions: Service Date/Time: July 12:27 - CONCLUSION: 1. No evidence of metastatic disease. 2. Traumatic changes involving the right ribs Akash Wagner MD Abdomen/Pelvis CT 08/05/16 0000 Signed Impressions: Service Date/Time: July 01:22 - CONCLUSION: 1. Cirrhotic appearing liver with fatty infiltration. 2. Multiple gastric varices. 3. Nonspecific, nonobstructive bowel gas pattern most consistent with an ileus. 4. The known cavitary mass and probable adenopathy are again visualized in the anterior right lung base. Vickey Medina MD Lung Biopsy CT 08/04/16 0000 Signed Impressions: Service Date/Time: July 09:21 - CONCLUSION: Uncomplicated CT guided biopsy. Akash Wagner MD CT Angiography 08/04/16 0000 Signed Impressions: Service Date/Time: Thursday, August 04, 2016 11:47 - CONCLUSION: 1. No evidence of pulmonary embolism. 2. 5.5 cm right middle lobe mass suspicious for malignancy with possible metastatic adenopathy. This would be accessible to percutaneous biopsy. PET/CT scan is recommended to further evaluation if clinically indicated. Akash Wagner MD Objective Remarks GENERAL: Patient appearing older than stated age, in no acute distress. CARDIOVASCULAR: Normal rate and regular rhythm without murmurs RESPIRATORY: air movement seems slightly more improved on the right upper lung field, right mid to lower lung chiu with absent breath sounds. The rest of the lung chiu w faint crackles GASTROINTESTINAL: Abdomen soft, non-tender, non-distended. Normal active bowel sounds MUSCULOSKELETAL: Extremities without edema. NEURO: Alert & Oriented x4 to person, place, time, situation. has difficulty moving the right upper extremity due to pain on the chest area PSYCH: Appropriate mood and affect. Procedures 08/04- CT guided lung biopsy A/P Assessment and Plan 55-year-old male admitted with hemoptysis and right lung mass. He is status post thoracotomy on 08/17/16. Patient was transferred to CVICU on 08/22/16 secondary to hypoxia from pneumothorax. Patient is stabilizing. However right lung imaging finding is worse. Possible hospital-acquired pneumonia, worsening chest x-ray, patient is status post thoracotomy. CT surgery following. on vancomycin and Zosyn. ID following and recommends keeping current abx. I personally spoke w Dr. Moran on case this morning. Continue incentive spirometer and Acapella. bringing up some thick mucus, hopefully he will continue to do that. Continue Mucomyst. Pulmonology following, pt scheduled for bronchoscopy today around 3pm Hypotension Resolved Hemoptysis Resolved Right-sided lung mass No lung cancer on pathology Status post right thoracotomy with right sided upper and middle lobectomy Cardiothoracic surgeon following pulm following Nicotine dependence Patient counseled to quit Alcohol abuse and dependence Patient counseled to quit Noted delirium tremens Diabetes mellitus type 2 Insulin sliding scale Levemir Diabetic diet Follow blood sugars Discharge Planning DVT prophylaxis SCDs given recent surgery and hemoptysis Encourage ambulation PT following recommending PT at rehab vs home health PT. Teena Fleming MD Aug 25, 2016 10:31
--- NOTE | 2016-08-25 11:51 | PD.CAR.PN ---
CVT Progress Note Subjective/Hospital Course: 55yr / old male 40pk year hx of tobacco abuse presented to ED with hemoptysis x 3 months / 25lbs recent weight loss No, PCP ( lost his insurance) , CT chest showed right middle lobe lung mass PMH: DM , peripheral neuropathy, partial PFT obtained FEV1 2.02 will schedule for surgery on am per Dr Seaman, covering for Dr Main for Right thoracotomy pulmonary resection, bronchoscopy r 08/16/16 No complaints, stable 08/17 surgery: Right thoracotomy, right upper and middle lobectomy, lysis of adhesions , lymph node dissection EBL 500ml 2000cc crystalloid 08/18 pt had some transient hypotension this am , given 250cc fluid bolus now improved, will transfer to stepdown later today resume long acting insulin and, continue pain control with coil builder 08/19 knutson cath reinserted last pm/ bladder scan 400cc/ will check UA re-attempt removal today leave chest tube in place / drained 320cc/ 12 hrs continue aggressive pulm toileting , path report pending no further hypotension / pt encouraged to take po fluid 08/20 pt has poor cough effort c/o of mouth pain, difficulty swallowing / + UTI on reocephin WBC 24K check BC , continue pulm toileting, OOB, ambulate decrease pain meds , consult PT/ OT 08/21 Needs aggressive pulmonary toiletry and ambulation Maintain CT to suction 08/22 Transferred to CVICU yesterday afternoon for progressive hypoxia. Sats in the 80 's on NRB. Initiated BiPAP with improvement. Presently on NC and maintaining acceptable saturations. Needs encouragement for incentive spirometry Repeat CXR in am 08/23 pt up in chair, cxr noted, complete opacification right lung/ s/p right thoracotomy, right upper and middle lobectomy, minimal breath sounds on right, pt has had poor cough effort since surgery, concern for mucus plug, will consult pulmonology aggressive pulm toileting , await labs/ may need HCAP treatment / check sputum consult pulm for possible bronch 08/24 pt remains om room air, continue aggressive pulm toileting OOB , ambulate per Nursing staff, pt was seen by Dr Mejía last pm, await consultation note CXR noted no real improvement , however, pt is coughing up thick tenacious sputum leukocytosis improved continue current abx 08/25 pt for bronchoscopy today sputum culture no growth / possible aspiration on broad spectrum coverage continue pulm toileting Objective: GENERAL: SKIN: Warm and dry. incision intact and well approximated to right posterolateral chest HEAD: Normocephalic. EYES: No scleral icterus. No injection or drainage. NECK: Supple, trachea midline. No JVD or lymphadenopathy. CARDIOVASCULAR: Regular rate and rhythm without murmurs, gallops, or rubs. RESPIRATORY: coarse breath sounds on right No accessory muscle use. GASTROINTESTINAL: Abdomen soft, non-tender, nondistended. MUSCULOSKELETAL: No cyanosis, or edema. BACK: Nontender without obvious deformity. No CVA tenderness. Vital Signs Date Time Temp Pulse Resp B/P Pulse Ox O2 Delivery O2 Flow Rate FiO2 08/25/16 11:00 100 08/25/16 10:00 94 08/25/16 09:00 96 08/25/16 08:00 98.1 96 20 102/73 97 08/25/16 08:00 97 Room Air 08/25/16 08:00 96 08/25/16 07:00 82 08/25/16 06:00 86 08/25/16 05:00 84 08/25/16 04:00 82 08/25/16 03:20 96 Room Air 08/25/16 03:20 98.4 83 21 101/73 96 08/25/16 03:00 84 08/25/16 02:00 86 08/25/16 01:00 84 08/25/16 00:00 88 08/24/16 23:19 98.1 96 21 99/69 96 08/24/16 23:19 96 Room Air 08/24/16 23:00 93 08/24/16 22:00 114 08/24/16 21:00 94 08/24/16 20:33 98 21 08/24/16 20:00 102 08/24/16 19:30 96 Room Air 08/24/16 19:30 98.1 92 21 111/75 97 08/24/16 19:00 92 08/24/16 18:36 18 08/24/16 18:00 94 08/24/16 17:00 91 08/24/16 16:00 96 Room Air 08/24/16 16:00 86 08/24/16 16:00 98.2 91 20 114/76 96 08/24/16 15:00 87 08/24/16 14:00 91 08/24/16 13:00 92 08/24/16 12:00 93 Labs: Laboratory Tests Test 08/25/16 08/25/16 01:20 06:06 Vancomycin Level Trough 13.8 MCG/ML (5.0-10.0) White Blood Count 9.3 TH/MM3 (4.0-11.0) Red Blood Count 3.12 MIL/MM3 (4.50-5.90) Hemoglobin 9.7 GM/DL (13.0-17.0) Hematocrit 29.8 % (39.0-51.0) Mean Corpuscular Volume 95.5 FL (80.0-100.0) Mean Corpuscular Hemoglobin 31.0 PG (27.0-34.0) Mean Corpuscular Hemoglobin 32.4 % Concent (32.0-36.0) Red Cell Distribution Width 14.3 % (11.6-17.2) Platelet Count 120 TH/MM3 (150-450) Mean Platelet Volume 9.6 FL (7.0-11.0) Neutrophils (%) (Auto) 70.4 % (16.0-70.0) Lymphocytes (%) (Auto) 15.1 % (9.0-44.0) Monocytes (%) (Auto) 10.8 % (0.0-8.0) Eosinophils (%) (Auto) 2.9 % (0.0-4.0) Basophils (%) (Auto) 0.8 % (0.0-2.0) Neutrophils # (Auto) 6.5 TH/MM3 (1.8-7.7) Lymphocytes # (Auto) 1.4 TH/MM3 (1.0-4.8) Monocytes # (Auto) 1.0 TH/MM3 (0-0.9) Eosinophils # (Auto) 0.3 TH/MM3 (0-0.4) Basophils # (Auto) 0.1 TH/MM3 (0-0.2) CBC Comment DIFF FINAL Differential Comment Sodium Level 137 MEQ/L (136-145) Potassium Level 4.1 MEQ/L (3.5-5.1) Chloride Level 103 MEQ/L (98-107) Carbon Dioxide Level 27.4 MEQ/L (21.0-32.0) Anion Gap 7 MEQ/L (5-15) Blood Urea Nitrogen 21 MG/DL (7-18) Creatinine 0.62 MG/DL (0.60-1.30) Estimat Glomerular Filtration 134 ML/MIN Rate (>89) Random Glucose 92 MG/DL (74-106) Calcium Level 7.8 MG/DL (8.5-10.1) Result Diagram: 08/25/1660508/25/16605 Telemetry: NSR (1) Lung mass Plan: FEV1 2.02 path no growth in cultures to date path from OR no evidence of malignancy (2) Right thoracotomy, right upper and middle lobectomy, lysis of adhesions, lymph node dissection Plan: pulmonary toileting , nebs, ezpap acapella OOB/ ambulate path neg continue antibiotics, for bronch today aggressive pulm toileting and antibiotics (3) Hemoptysis Plan: resolved (4) Tobacco abuse Plan: smoking cessation (5) Urinary retention Plan: appreciate urology in put, will need to go home with knutson bag and f/u appointment with Dr Gillis for trial removal repeat bladder scan this afternoon >500cc knutson cathreplaced / total of 3 times urology consult pending may need to go home with leg bag and outpt follow up Nisha Todd Aug 25, 2016 11:51
[2016-08-25] MEDS ORDERED: PROPOFOL 200 MG/20 ML AMP IV ONE (12:00)
[2016-08-25] MEDS: VANCOMYCIN INJ 1,500 MG in SODIUM CHLORID 0.9% 500 ML INJ 500 ML IV SCH (12:29)
--- NOTE | 2016-08-25 16:23 | HHI.PR ---
Addendum to Inpatient Note Addendum Reason: Additional Documentation Additional Information Case d/w Plan for bronchoscopy today. It is important that even if cultures show normal respiratory deb a regimen with anaerobic coverage be constructed. Please call ID solution developer once cultures finalized. I will be OOT from 08/26 to 08/29/16. to cover for me 08/26 to 08/27. to cover for me this weekend. Kenna Moran MD Aug 25, 2016 16:23
--- NOTE | 2016-08-25 18:17 | HHI.PR ---
Subjective Remarks 56 YOWM with DM,HTN, Empyema, s/p Thoracotomy CXR white out right lung not able to expacrtorate no fever Anxious to have Bronch done Objective Vital Signs Vital Signs Date Time Temp Pulse Resp B/P Pulse Ox O2 Delivery O2 Flow Rate FiO2 08/25/16 17:00 90 08/25/16 16:35 18 08/25/16 16:00 97.7 98 20 102/76 96 08/25/16 16:00 94 08/25/16 16:00 96 Room Air 08/25/16 15:00 103 08/25/16 14:00 94 08/25/16 13:00 91 08/25/16 12:00 97 Room Air 08/25/16 12:00 96 08/25/16 12:00 98.2 94 20 108/66 96 08/25/16 11:00 100 08/25/16 10:00 94 08/25/16 09:00 96 08/25/16 08:00 98.1 96 20 102/73 97 08/25/16 08:00 97 Room Air 08/25/16 08:00 96 08/25/16 07:00 82 08/25/16 06:00 86 08/25/16 05:00 84 08/25/16 04:00 82 08/25/16 03:20 96 Room Air 08/25/16 03:20 98.4 83 21 101/73 96 08/25/16 03:00 84 08/25/16 02:00 86 08/25/16 01:00 84 08/25/16 00:00 88 08/24/16 23:19 98.1 96 21 99/69 96 08/24/16 23:19 96 Room Air 08/24/16 23:00 93 08/24/16 22:00 114 08/24/16 21:00 94 08/24/16 20:33 98 21 08/24/16 20:00 102 08/24/16 19:30 96 Room Air 08/24/16 19:30 98.1 92 21 111/75 97 08/24/16 19:00 92 I/O 08/24/16 08/24/16 08/24/16 08/25/16 08/25/16 08/25/16 07:00 15:00 23:00 07:00 15:00 23:00 Intake Total 480 ml 690 ml 480 ml Output Total 400 ml 350 ml 300 ml Balance 80 ml 340 ml 180 ml Intake Oral 480 ml 240 ml 480 ml IV Total 450 ml Output Urine Total 400 ml 350 ml 300 ml # Bowel Movements 0 Result Diagram: 08/25/1660508/25/16605 Objective Remarks GENERAL: MBMN WM,NAD SKIN: Warm and dry. HEAD: Normocephalic. EYES: No scleral icterus. No injection or drainage. NECK: Supple, trachea midline. No JVD or lymphadenopathy. CARDIOVASCULAR: Regular rate and rhythm without murmurs, gallops, or rubs. RESPIRATORY: Breath sounds equal bilaterally. No accessory muscle use. Decreased BS right GASTROINTESTINAL: Abdomen soft, non-tender, nondistended. MUSCULOSKELETAL: No cyanosis, or edema. BACK: Nontender without obvious deformity. No CVA tenderness. A/P Assessment and Plan White out right lung, atelactesis, ? mucous plugging S/P Right Thoracotomy Empyema PLAN: DW Pt DW Dr.Tanuja James Will [facility] for bronch Explained pt procedure and possible complications he agrees to procedd with bronch. Bronch today Cy Mejía MD Aug 25, 2016 18:17
[2016-08-25] MEDS ORDERED: SODIUM CHLORIDE 0.9% 20 ML VIAL ONE (18:53)
[2016-08-25] MEDS ORDERED: LIDOCAINE HCL 2% 50 ML VIAL ONE (18:54)
[2016-08-25] MEDS ORDERED: EPINEPHrine HCL (1:1000) 1 MG/ML VIAL ONE (18:54)
[2016-08-25] MEDS ORDERED: *RESP: ALBUTEROL 2.5 MG/3 ML NEB (PRN) PERIprocedural Use ONLY NEB ONE (20:47)
[2016-08-25] MEDS ORDERED: DO NOT ADM ANY ANTICOAGULANT DRUGS PRN (21:30)
[2016-08-25] MEDS: PANTOPRAZOLE SOD 40 MG DELAYED RELEASE TAB PO SCH (21:36)
[2016-08-26] VITALS (25 sets, daily range): BP systolic 101–115; BP diastolic 53–75; PULSE 60–97; RESP 17–18; TEMP 97.9–98.5; O2SAT 94–97
[2016-08-26] MEDS: ACETAMINOPHEN/HYDROcodone 325 MG/5 MG TAB PO PRN ×6 (00:26→23:01)
[2016-08-26] MEDS: VANCOMYCIN INJ 1,500 MG in SODIUM CHLORID 0.9% 500 ML INJ 500 ML IV SCH ×2 (01:20→12:19)
[2016-08-26] MEDS: PIPERACIL-TAZO 3.375 GM PREMIX 50 ML IV SCH ×4 (05:38→20:22)
[2016-08-26] MEDS: INSULIN ASPART SUPPLEMENTAL SCALE SQ SCH ×5 (06:00→23:12)
[2016-08-26 06:36] LABS: AUTOMATED NEUTROPHIL # 4.8 TH/MM3 (1.8-7.7); BASOPHIL # 0.1 TH/MM3 (0-0.2); BASOPHIL % 0.9 % (0.0-2.0); EOSINOPHIL # 0.3 TH/MM3 (0-0.4); EOSINOPHIL % 3.3 % (0.0-4.0); HEMATOCRIT 30.4 % (39.0-51.0); HEMO FLAGS DIFF FINAL; LYMPH % 19.3 % (9.0-44.0); LYMPHOCYTE # 1.5 TH/MM3 (1.0-4.8); MEAN CELL VOLUME 95.9 FL (80.0-100.0); MEAN CORPUSCULAR HEMOGLOBIN 31.8 PG (27.0-34.0); MEAN CORPUSCULAR HGB CONC 33.2 % (32.0-36.0); MONO % 13.8 % (0.0-8.0); NEUT % 62.7 % (16.0-70.0); PLATELET COUNT 126 TH/MM3 (150-450); RED BLOOD COUNT 3.17 MIL/MM3 (4.50-5.90); RED CELL DISTRIBUTION WIDTH 14.5 % (11.6-17.2); WHITE BLOOD COUNT 7.7 TH/MM3 (4.0-11.0)
[2016-08-26 07:09] LABS: POTASSIUM 3.9 MEQ/L (3.5-5.1)
[2016-08-26] MEDS: RESP: ALBUTEROL 2.5 MG/IPRATROPIUM 0.5 MG NEB (SCH) NEB ×2 (07:55→20:10)
[2016-08-26] MEDS: NYSTAT/DIPHENHY/LIDO MOUTHWASH (Adult) 120ML SWISH-SWAL SCH ×4 (09:14→20:23)
[2016-08-26] MEDS: SODIUM CHLORIDE 0.9% FLUSH 10 ML FLUSH IV FLUSH SCH ×2 (09:15→20:22)
[2016-08-26] MEDS: CHLORPHENIR/HYDROCOD LIQUID 8 MG/10 MG/5 ML CUP PO SCH ×2 (09:16→20:22)
[2016-08-26] MEDS: POLYETHYLENE GLYCOL 17 GM PKG PO SCH (09:16)
[2016-08-26] MEDS: NYSTATIN SUSP 500,000 U/5 ML CUP SWISH-SWAL SCH ×4 (09:16→20:22)
[2016-08-26] MEDS: THIAMINE HCL 100 MG TAB PO SCH (09:16)
[2016-08-26] MEDS: DOCUSATE SODIUM 100 MG CAP PO SCH ×2 (09:16→20:22)
[2016-08-26] MEDS: TAMSULOSIN HCL 0.4 MG CAP PO SCH (09:17)
[2016-08-26] MEDS: INSULIN DETEMIR 100 UNITS/ML VIAL SQ SCH ×2 (09:25→20:27)
--- NOTE | 2016-08-26 09:29 | RADRPT ---
EXAM DATE/TIME: 08/26/2016 08:44 [place] COMPARISON: CHEST SINGLE AP, August 24, 2016, 4:33. INDICATIONS : Evaluate lung status. Post bronchoscopy. MEDICAL HISTORY : Cardiovascular disease. Hypertension. Diabetes mellitus type 1. SURGICAL HISTORY : Thoracotomy, right ENCOUNTER: Subsequent ACUITY: 2 days PAIN SCORE: 0/10 LOCATION: Bilateral chest FINDINGS: The exam demonstrates significant interval reexpansion of the right lung. There is continued diffuse atelectasis and a small right-sided effusion. The left lung is clear. The heart is normal in size. CONCLUSION: 1. Continued pleural and parenchymal changes on the right. Findings are improved compared to previous study dated 08/24/16. Arpit Coyle MD on August 26, 2016 at 9:26 Board Certified Radiologist. This report was verified electronically.
--- NOTE | 2016-08-26 10:34 | MR ---
cc: MARLENE CORDOBA DATE 08/25/2016 PROCEDURE PERFORMED Bronchoscopy PREOPERATIVE DIAGNOSIS Atelectasis of the right lung. POSTOPERATIVE DIAGNOSIS No obstruction or endobronchial lesion seen. PROCEDURE Informed consent was obtained from the patient. The procedure and the complications including the complication of anesthesia, pneumothorax requiring chest tube, bleeding complications, injury to the blood vessels, lungs, nose, arrhythmia, and hypoxia were explained and he consented for the procedure. The patient was brought to the endoscopy suite and placed under general anesthesia. LMA tube was placed via anesthesiologist. The bronchoscope was placed through the endotracheal tube, vocal cords were normal. Trachea is normal. The main antonio is sharp. Bronchoscope advanced through the left lung, left upper lingula, lower lobe were visualized. A small amount of mucous suctioned. One mucosal lesion was seen. Then the bronchoscope pulled back and advanced to the right lung. A small amount of mucous was suctioned. No obstruction was seen. There was a stump of right upper and middle lobe seen. The right lower lobe subsegment bronchus was normal. Right lung washings were done and sent for routine culture, AV fungal culture and cytology. He tolerated the procedure well. MD DEISY Puri/ELADIO /8:32 PM /10:19 AM
--- NOTE | 2016-08-26 11:30 | HHI.PR ---
Subjective Remarks Pt states he feels ok, still has pain on the right. moving right upper extremity. denies any nausea or vomiting. SOB about the same Objective Vitals Vital Signs Date Time Temp Pulse Resp B/P Pulse Ox O2 Delivery O2 Flow Rate FiO2 08/26/16 11:00 97 08/26/16 11:00 98.5 91 18 115/75 97 08/26/16 11:00 97 Room Air 08/26/16 10:00 96 08/26/16 09:00 60 08/26/16 08:00 94 08/26/16 07:00 92 08/26/16 07:00 98.3 88 17 105/73 94 08/26/16 07:00 94 Room Air 08/26/16 05:54 82 08/26/16 04:29 84 08/26/16 04:17 98.1 84 105/53 96 08/26/16 03:34 Nasal Cannula 2.00 21 08/26/16 03:00 83 08/26/16 02:00 84 08/26/16 01:00 86 08/26/16 00:00 86 08/25/16 23:00 97.9 90 90/63 98 08/25/16 23:00 Nasal Cannula 2.00 21 08/25/16 23:00 88 08/25/16 22:00 110 08/25/16 21:15 92 20 133/83 99 08/25/16 21:00 91 20 140/78 99 Nasal Cannula 3 08/25/16 21:00 90 08/25/16 20:42 97.7 85 20 80/49 99 Nasal Cannula 3 08/25/16 20:00 92 08/25/16 19:00 87 08/25/16 19:00 Room Air 2.00 21 08/25/16 19:00 98.2 92 123/87 96 08/25/16 18:00 88 08/25/16 17:00 90 08/25/16 16:35 18 08/25/16 16:00 97.7 98 20 102/76 96 08/25/16 16:00 94 08/25/16 16:00 96 Room Air 08/25/16 15:00 103 08/25/16 14:00 94 08/25/16 13:00 91 08/25/16 12:00 97 Room Air 08/25/16 12:00 96 08/25/16 12:00 98.2 94 20 108/66 96 I/O 08/25/16 08/25/16 08/25/16 08/26/16 08/26/16 08/26/16 07:00 15:00 23:00 07:00 15:00 23:00 Intake Total 480 ml 1340 ml 240 ml Output Total 300 ml 350 ml 275 ml Balance 180 ml 990 ml -35 ml Intake Oral 480 ml 240 ml 240 ml IV Total 700 ml Other 400 ml Output Urine Total 300 ml 350 ml 275 ml # Bowel Movements 0 1 Result Diagram: 08/26/16 0548 08/26/16 0548 Imaging Last Impressions Chest X-Ray 08/26/16 0900 Signed Impressions: Service Date/Time: August 08:44 - CONCLUSION: 1. Continued pleural and parenchymal changes on the right. Findings are improved compared to previous study dated 08/24/16. Arpit Coyle MD Chest CT 08/23/16 0000 Signed Impressions: Service Date/Time: Tuesday, August 23, 2016 10:53 - CONCLUSION: 1. Thick lined pleura around a small contracted right lung with moderate airspace disease within the lung. 2. Adenopathy in mediastinum, stable in the interval. 3. Loculated air and fluid both in the apex and base that are in the pleural space.. Remberto Coyle MD FACR SPECT Scan-Bone Nuclear Medicine 08/05/16 0000 Signed Impressions: Service Date/Time: July 12:27 - CONCLUSION: 1. No evidence of metastatic disease. 2. Traumatic changes involving the right ribs Akash Wagner MD Abdomen/Pelvis CT 08/05/16 0000 Signed Impressions: Service Date/Time: July 01:22 - CONCLUSION: 1. Cirrhotic appearing liver with fatty infiltration. 2. Multiple gastric varices. 3. Nonspecific, nonobstructive bowel gas pattern most consistent with an ileus. 4. The known cavitary mass and probable adenopathy are again visualized in the anterior right lung base. Vickey Medina MD Lung Biopsy CT 08/04/16 0000 Signed Impressions: Service Date/Time: July 09:21 - CONCLUSION: Uncomplicated CT guided biopsy. Akash Wagner MD CT Angiography 08/04/16 0000 Signed Impressions: Service Date/Time: Thursday, August 04, 2016 11:47 - CONCLUSION: 1. No evidence of pulmonary embolism. 2. 5.5 cm right middle lobe mass suspicious for malignancy with possible metastatic adenopathy. This would be accessible to percutaneous biopsy. PET/CT scan is recommended to further evaluation if clinically indicated. Akash Wagner MD Objective Remarks GENERAL: Patient appearing older than stated age, in no acute distress. CARDIOVASCULAR: Normal rate and regular rhythm without murmurs RESPIRATORY: air movement seems slightly more improved on the right upper lung field, right mid to lower lung chiu with absent breath sounds. The rest of the lung chiu w faint crackles GASTROINTESTINAL: Abdomen soft, non-tender, non-distended. Normal active bowel sounds MUSCULOSKELETAL: Extremities without edema. NEURO: Alert & Oriented. has difficulty moving the right upper extremity due to pain on the chest area but improving Procedures 08/04- CT guided lung biopsy A/P Assessment and Plan 55-year-old male admitted with hemoptysis and right lung mass. He is status post thoracotomy on 08/17/16. Patient was transferred to CVICU on 08/22/16 secondary to hypoxia from pneumothorax. Patient is stabilizing. right lung imaging improving. Possible hospital-acquired pneumonia, patient is status post thoracotomy. CT surgery following. on vancomycin and Zosyn. ID following and recommends keeping current abx. Pt will need anaerobic coverage even if bronchial washings cx neg. Continue incentive spirometer and Acapella. Continue Mucomyst. Pulmonology following, s/p bronchoscopy, bronchial washing neg x 24 hrs Hypotension Resolved Hemoptysis Resolved Right-sided lung mass No lung cancer on pathology Status post right thoracotomy with right sided upper and middle lobectomy Cardiothoracic surgeon following pulm following Nicotine dependence Patient counseled to quit Alcohol abuse and dependence Patient counseled to quit Noted delirium tremens Diabetes mellitus type 2 Insulin sliding scale Levemir Diabetic diet Follow blood sugars Discharge Planning DVT prophylaxis SCDs given recent surgery and hemoptysis Encourage ambulation PT following recommending PT at rehab vs home health PT. Pt would prefer to go home and per PT's note from yesterday, he is doing better. Monitor Teena Fleming MD Aug 26, 2016 11:29
--- NOTE | 2016-08-26 15:20 | PD.CAR.PN ---
CVT Progress Note Subjective/Hospital Course: 55yr / old male 40pk year hx of tobacco abuse presented to ED with hemoptysis x 3 months / 25lbs recent weight loss No, PCP ( lost his insurance) , CT chest showed right middle lobe lung mass PMH: DM , peripheral neuropathy, partial PFT obtained FEV1 2.02 will schedule for surgery on am per Dr Seaman, covering for Dr Main for Right thoracotomy pulmonary resection, bronchoscopy r 08/16/16 No complaints, stable 08/17 surgery: Right thoracotomy, right upper and middle lobectomy, lysis of adhesions , lymph node dissection EBL 500ml 2000cc crystalloid 08/18 pt had some transient hypotension this am , given 250cc fluid bolus now improved, will transfer to stepdown later today resume long acting insulin and, continue pain control with trial management associate 08/19 knutson cath reinserted last pm/ bladder scan 400cc/ will check UA re-attempt removal today leave chest tube in place / drained 320cc/ 12 hrs continue aggressive pulm toileting , path report pending no further hypotension / pt encouraged to take po fluid 08/20 pt has poor cough effort c/o of mouth pain, difficulty swallowing / + UTI on reocephin WBC 24K check BC , continue pulm toileting, OOB, ambulate decrease pain meds , consult PT/ OT 08/21 Needs aggressive pulmonary toiletry and ambulation Maintain CT to suction 08/22 Transferred to CVICU yesterday afternoon for progressive hypoxia. Sats in the 80 's on NRB. Initiated BiPAP with improvement. Presently on NC and maintaining acceptable saturations. Needs encouragement for incentive spirometry Repeat CXR in am 08/23 pt up in chair, cxr noted, complete opacification right lung/ s/p right thoracotomy, right upper and middle lobectomy, minimal breath sounds on right, pt has had poor cough effort since surgery, concern for mucus plug, will consult pulmonology aggressive pulm toileting , await labs/ may need HCAP treatment / check sputum consult pulm for possible bronch 08/24 pt remains om room air, continue aggressive pulm toileting OOB , ambulate per Nursing staff, pt was seen by Dr Mejía last pm, await consultation note CXR noted no real improvement , however, pt is coughing up thick tenacious sputum leukocytosis improved continue current abx 08/25 pt for bronchoscopy today sputum culture no growth / possible aspiration on broad spectrum coverage continue pulm toileting 08/26 s/p bronch. small amount of mucus suctioned out cxr with some improvement remains on room air will f/u with PA and Lat CXr in am , if stable, then ok to dc from CVS standpoint with out pt follow up Objective: GENERAL: SKIN: Warm and dry. HEAD: Normocephalic. EYES: No scleral icterus. No injection or drainage. NECK: Supple, trachea midline. No JVD or lymphadenopathy. CARDIOVASCULAR: Regular rate and rhythm without murmurs, gallops, or rubs. RESPIRATORY: diminished breath sound on right with some coarse breath sounds . . No accessory muscle use. GASTROINTESTINAL: Abdomen soft, non-tender, nondistended. MUSCULOSKELETAL: No cyanosis, or edema. BACK: Nontender without obvious deformity. No CVA tenderness. Vital Signs Date Time Temp Pulse Resp B/P Pulse Ox O2 Delivery O2 Flow Rate FiO2 08/26/16 14:00 91 08/26/16 13:00 86 08/26/16 12:00 89 08/26/16 11:00 97 08/26/16 11:00 98.5 91 18 115/75 97 08/26/16 11:00 97 Room Air 08/26/16 10:00 96 08/26/16 09:00 60 08/26/16 08:00 94 08/26/16 07:00 92 08/26/16 07:00 98.3 88 17 105/73 94 08/26/16 07:00 94 Room Air 08/26/16 05:54 82 08/26/16 04:29 84 08/26/16 04:17 98.1 84 105/53 96 08/26/16 03:34 Nasal Cannula 2.00 21 08/26/16 03:00 83 08/26/16 02:00 84 08/26/16 01:00 86 08/26/16 00:00 86 08/25/16 23:00 97.9 90 90/63 98 08/25/16 23:00 Nasal Cannula 2.00 21 08/25/16 23:00 88 08/25/16 22:00 110 08/25/16 21:15 92 20 133/83 99 08/25/16 21:00 91 20 140/78 99 Nasal Cannula 3 08/25/16 21:00 90 08/25/16 20:42 97.7 85 20 80/49 99 Nasal Cannula 3 08/25/16 20:00 92 08/25/16 19:00 87 08/25/16 19:00 Room Air 2.00 21 08/25/16 19:00 98.2 92 123/87 96 08/25/16 18:00 88 08/25/16 17:00 90 08/25/16 16:35 18 08/25/16 16:00 97.7 98 20 102/76 96 08/25/16 16:00 94 08/25/16 16:00 96 Room Air Labs: Laboratory Tests Test 08/26/16 05:48 White Blood Count 7.7 TH/MM3 (4.0-11.0) Red Blood Count 3.17 MIL/MM3 (4.50-5.90) Hemoglobin 10.1 GM/DL (13.0-17.0) Hematocrit 30.4 % (39.0-51.0) Mean Corpuscular Volume 95.9 FL (80.0-100.0) Mean Corpuscular Hemoglobin 31.8 PG (27.0-34.0) Mean Corpuscular Hemoglobin 33.2 % Concent (32.0-36.0) Red Cell Distribution Width 14.5 % (11.6-17.2) Platelet Count 126 TH/MM3 (150-450) Mean Platelet Volume 10.0 FL (7.0-11.0) Neutrophils (%) (Auto) 62.7 % (16.0-70.0) Lymphocytes (%) (Auto) 19.3 % (9.0-44.0) Monocytes (%) (Auto) 13.8 % (0.0-8.0) Eosinophils (%) (Auto) 3.3 % (0.0-4.0) Basophils (%) (Auto) 0.9 % (0.0-2.0) Neutrophils # (Auto) 4.8 TH/MM3 (1.8-7.7) Lymphocytes # (Auto) 1.5 TH/MM3 (1.0-4.8) Monocytes # (Auto) 1.1 TH/MM3 (0-0.9) Eosinophils # (Auto) 0.3 TH/MM3 (0-0.4) Basophils # (Auto) 0.1 TH/MM3 (0-0.2) CBC Comment DIFF FINAL Differential Comment Sodium Level 139 MEQ/L (136-145) Potassium Level 3.9 MEQ/L (3.5-5.1) Chloride Level 105 MEQ/L (98-107) Carbon Dioxide Level 27.0 MEQ/L (21.0-32.0) Anion Gap 7 MEQ/L (5-15) Blood Urea Nitrogen 15 MG/DL (7-18) Creatinine 0.54 MG/DL (0.60-1.30) Estimat Glomerular Filtration 157 ML/MIN Rate (>89) Random Glucose 67 MG/DL (74-106) Calcium Level 7.7 MG/DL (8.5-10.1) Result Diagram: 08/26/1654708/26/16547 (1) Lung mass Plan: FEV1 2.02 path no growth in cultures to date path from OR no evidence of malignancy (2) Right thoracotomy, right upper and middle lobectomy, lysis of adhesions, lymph node dissection Plan: pulmonary toileting , nebs, ezpap acapella OOB/ ambulate path neg continue antibiotics, s/p bronch aggressive pulm toileting and antibiotics f/u CXR in am, if stable then ok to dc from CVS standpoint (3) Hemoptysis Plan: resolved (4) Tobacco abuse Plan: smoking cessation (5) Urinary retention Plan: appreciate urology in put, will need to go home with knutson bag and f/u appointment with Dr Gillis for trial removal repeat bladder scan this afternoon >500cc knutson cathreplaced / total of 3 times urology consult pending may need to go home with leg bag and outpt follow up Nisha Todd Aug 26, 2016 15:20
--- NOTE | 2016-08-26 18:32 | HHI.PR ---
Subjective Remarks 56 YOWM with DM,HTN, Empyema, s/p Thoracotomy CXR white out right lung not able to expacrtorate no fever had bronch no endobronchial lesion or mucosal obst Objective Vital Signs Vital Signs Date Time Temp Pulse Resp B/P Pulse Ox O2 Delivery O2 Flow Rate FiO2 08/26/16 17:00 89 08/26/16 16:00 94 08/26/16 15:00 97 Room Air 08/26/16 15:00 98.0 90 18 110/70 97 08/26/16 15:00 89 08/26/16 14:00 91 08/26/16 13:00 86 08/26/16 12:00 89 08/26/16 11:00 97 08/26/16 11:00 98.5 91 18 115/75 97 08/26/16 11:00 97 Room Air 08/26/16 10:00 96 08/26/16 09:00 60 08/26/16 08:00 94 08/26/16 07:00 92 08/26/16 07:00 98.3 88 17 105/73 94 08/26/16 07:00 94 Room Air 08/26/16 05:54 82 08/26/16 04:29 84 08/26/16 04:17 98.1 84 105/53 96 08/26/16 03:34 Nasal Cannula 2.00 21 08/26/16 03:00 83 08/26/16 02:00 84 08/26/16 01:00 86 08/26/16 00:00 86 08/25/16 23:00 97.9 90 90/63 98 08/25/16 23:00 Nasal Cannula 2.00 21 08/25/16 23:00 88 08/25/16 22:00 110 08/25/16 21:15 92 20 133/83 99 08/25/16 21:00 91 20 140/78 99 Nasal Cannula 3 08/25/16 21:00 90 08/25/16 20:42 97.7 85 20 80/49 99 Nasal Cannula 3 08/25/16 20:00 92 08/25/16 19:00 87 08/25/16 19:00 Room Air 2.00 21 08/25/16 19:00 98.2 92 123/87 96 I/O 6/7/17 6/708/25/16 08/26/16 08/26/16 08/26/16 07:00 15:00 23:00 07:00 15:00 23:00 Intake Total 480 ml 1340 ml 240 ml 2304 ml Output Total 300 ml 350 ml 275 ml 275 ml Balance 180 ml 990 ml -35 ml 2029 ml Intake Oral 480 ml 240 ml 240 ml 1080 ml IV Total 700 ml 1224 ml Other 400 ml Output Urine Total 300 ml 350 ml 275 ml 275 ml # Bowel Movements 0 1 Result Diagram: 08/26/1648 08/26/16547 Objective Remarks GENERAL: MBMN WM,NAD SKIN: Warm and dry. HEAD: Normocephalic. EYES: No scleral icterus. No injection or drainage. NECK: Supple, trachea midline. No JVD or lymphadenopathy. CARDIOVASCULAR: Regular rate and rhythm without murmurs, gallops, or rubs. RESPIRATORY: Breath sounds equal bilaterally. No accessory muscle use. Decreased BS right GASTROINTESTINAL: Abdomen soft, non-tender, nondistended. MUSCULOSKELETAL: No cyanosis, or edema. BACK: Nontender without obvious deformity. No CVA tenderness. A/P Assessment and Plan White out right lung, atelactesis, ? mucous plugging S/P Right Thoracotomy Empyema PLAN: DW Pt DW Dr.Tanuja James Check bronch results Cy Mejía MD Aug 26, 2016 18:32
[2016-08-26] MEDS: PANTOPRAZOLE SOD 40 MG DELAYED RELEASE TAB PO SCH (20:22)
[2016-08-27] VITALS (26 sets, daily range): BP systolic 92–131; BP diastolic 55–85; PULSE 81–109; RESP 16–18; TEMP 97.9–98.5; O2SAT 95–99
[2016-08-27] MEDS ORDERED: PHARMACY ORDERED LAB ONE (00:45)
[2016-08-27] MEDS: VANCOMYCIN INJ 1,500 MG in SODIUM CHLORID 0.9% 500 ML INJ 500 ML IV SCH (01:46)
[2016-08-27] MEDS: PIPERACIL-TAZO 3.375 GM PREMIX 50 ML IV SCH ×3 (04:41→16:02)
[2016-08-27] MEDS: ACETAMINOPHEN/HYDROcodone 325 MG/5 MG TAB PO PRN ×4 (04:42→21:52)
[2016-08-27] MEDS: INSULIN ASPART SUPPLEMENTAL SCALE SQ SCH ×4 (05:48→18:00)
[2016-08-27] MEDS: RESP: ALBUTEROL 2.5 MG/IPRATROPIUM 0.5 MG NEB (SCH) NEB ×3 (08:00→20:20)
--- NOTE | 2016-08-27 08:08 | RADRPT ---
EXAM DATE/TIME: 08/27/2016 07:40 [facility] COMPARISON: CHEST SINGLE AP, August 26, 2016, 8:44. CHEST PA & LAT, November 12, 2012, 19:32. INDICATIONS : Shortness of breath. MEDICAL HISTORY : Cardiovascular disease. Hypertension. Diabetes mellitus type 1. SURGICAL HISTORY : Thoracotomy. ENCOUNTER: Subsequent ACUITY: 2 days PAIN SCORE: 0/10 LOCATION: Bilateral chest FINDINGS: PA and lateral views of the chest demonstrate interval development of a right apical pneumothorax wit h an air fluid level. Blunting of right costophrenic angle suggests a dependent effusion as well inte rstitial changes in the right lung base actually represents an interval improvement where there was p reviously confluent consolidation. Left lung remains clear. Stable volume loss in the right hemithora x. Heart size is normal. Osseous structures are intact. CONCLUSION: 1. Interval development of a right apical pneumothorax with an air fluid level. This may be loculated . 2. Blunting of right costophrenic angle characteristic of a dependent effusion as well. 3. Improving aeration in the right base. There are still some interstitial changes at the confluent i nfiltrate seen previously is less conspicuous. 4. Left lung remains clear. Heart size is normal. Lavon Myers MD on August 27, 2016 at 8:03 Board Certified Radiologist. This report was verified electronically.
[2016-08-27] MEDS: SODIUM CHLORIDE 0.9% FLUSH 10 ML FLUSH IV FLUSH SCH ×2 (08:17→21:00)
[2016-08-27] MEDS: NYSTAT/DIPHENHY/LIDO MOUTHWASH (Adult) 120ML SWISH-SWAL SCH ×4 (08:17→21:00)
[2016-08-27] MEDS: CHLORPHENIR/HYDROCOD LIQUID 8 MG/10 MG/5 ML CUP PO SCH ×2 (08:18→21:50)
[2016-08-27] MEDS: DOCUSATE SODIUM 100 MG CAP PO SCH ×2 (08:18→21:50)
[2016-08-27] MEDS: POLYETHYLENE GLYCOL 17 GM PKG PO SCH (08:18)
[2016-08-27] MEDS: THIAMINE HCL 100 MG TAB PO SCH (08:18)
[2016-08-27] MEDS: NYSTATIN SUSP 500,000 U/5 ML CUP SWISH-SWAL SCH ×4 (08:18→21:50)
[2016-08-27] MEDS: TAMSULOSIN HCL 0.4 MG CAP PO SCH (08:18)
[2016-08-27] MEDS: INSULIN DETEMIR 100 UNITS/ML VIAL SQ SCH ×2 (08:27→21:52)
--- NOTE | 2016-08-27 12:57 | HHI.PR ---
Subjective Remarks feeling better today. SOB improved, able to move his arm more, pain better controlled. no nausea or vomiting Objective Vitals Vital Signs Date Time Temp Pulse Resp B/P Pulse Ox O2 Delivery O2 Flow Rate FiO2 08/27/16 12:00 109 08/27/16 11:00 97 08/27/16 11:00 95 Nasal Cannula 2.00 08/27/16 11:00 98.2 97 18 123/83 95 08/27/16 10:00 96 08/27/16 09:16 94 08/27/16 08:00 92 08/27/16 07:54 95 Room Air 08/27/16 07:54 95 21 08/27/16 07:00 85 08/27/16 07:00 98.5 101 18 131/85 98 08/27/16 07:00 98 Nasal Cannula 2.00 08/27/16 06:25 84 08/27/16 05:46 81 08/27/16 04:00 84 08/27/16 03:25 Nasal Cannula 2.00 21 08/27/16 03:00 97.9 88 108/55 98 08/27/16 03:00 85 08/27/16 02:00 84 08/27/16 01:00 84 08/27/16 00:00 86 08/26/16 23:00 89 08/26/16 23:00 Nasal Cannula 2.00 08/26/16 23:00 97.9 93 101/70 96 08/26/16 22:00 90 08/26/16 21:00 90 08/26/16 20:12 95 21 08/26/16 20:00 86 08/26/16 19:00 98.1 90 115/73 95 08/26/16 19:00 90 08/26/16 19:00 Nasal Cannula 2.00 08/26/16 18:00 92 08/26/16 17:00 89 08/26/16 16:00 94 08/26/16 15:00 97 Room Air 08/26/16 15:00 98.0 90 18 110/70 97 08/26/16 15:00 89 08/26/16 14:00 91 08/26/16 13:00 86 I/O 08/26/16 08/26/16 08/26/16 08/27/16 08/27/16 08/27/16 07:00 15:00 23:00 07:00 15:00 23:00 Intake Total 240 ml 2304 ml 240 ml Output Total 275 ml 275 ml 350 ml Balance -35 ml 2029 ml -110 ml Intake Oral 240 ml 1080 ml 240 ml IV Total 1224 ml Output Urine Total 275 ml 275 ml 350 ml # Bowel Movements 1 Result Diagram: 08/26/16 0548 08/27/16 0420 Imaging Last Impressions Chest X-Ray 08/27/16 0600 Signed Impressions: Service Date/Time: Saturday, August 27, 2016 07:40 - CONCLUSION: 1. Interval development of a right apical pneumothorax with an air fluid level. This may be loculated. 2. Blunting of right costophrenic angle characteristic of a dependent effusion as well. 3. Improving aeration in the right base. There are still some interstitial changes at the confluent infiltrate seen previously is less conspicuous. 4. Left lung remains clear. Heart size is normal. Lavon Myers MD Chest CT 08/23/16 0000 Signed Impressions: Service Date/Time: Tuesday, August 23, 2016 10:53 - CONCLUSION: 1. Thick lined pleura around a small contracted right lung with moderate airspace disease within the lung. 2. Adenopathy in mediastinum, stable in the interval. 3. Loculated air and fluid both in the apex and base that are in the pleural space.. Remberto Coyle MD FACR SPECT Scan-Bone Nuclear Medicine 08/05/16 0000 Signed Impressions: Service Date/Time: July 12:27 - CONCLUSION: 1. No evidence of metastatic disease. 2. Traumatic changes involving the right ribs Akash Wagner MD Abdomen/Pelvis CT 08/05/16 0000 Signed Impressions: Service Date/Time: July 01:22 - CONCLUSION: 1. Cirrhotic appearing liver with fatty infiltration. 2. Multiple gastric varices. 3. Nonspecific, nonobstructive bowel gas pattern most consistent with an ileus. 4. The known cavitary mass and probable adenopathy are again visualized in the anterior right lung base. Vickey Medina MD Lung Biopsy CT 08/04/16 0000 Signed Impressions: Service Date/Time: July 09:21 - CONCLUSION: Uncomplicated CT guided biopsy. Akash Wagner MD CT Angiography 08/04/16 0000 Signed Impressions: Service Date/Time: Thursday, August 04, 2016 11:47 - CONCLUSION: 1. No evidence of pulmonary embolism. 2. 5.5 cm right middle lobe mass suspicious for malignancy with possible metastatic adenopathy. This would be accessible to percutaneous biopsy. PET/CT scan is recommended to further evaluation if clinically indicated. Akash Wagner MD Objective Remarks GENERAL: Patient appearing older than stated age, in no acute distress. CARDIOVASCULAR: Normal rate and regular rhythm without murmurs RESPIRATORY: air movement seems slightly more improved on the right upper lung field, right mid to lower lung chiu with absent breath sounds. The rest of the lung chiu seem clear today GASTROINTESTINAL: Abdomen soft, non-tender, non-distended. Normal active bowel sounds MUSCULOSKELETAL: Extremities without edema. NEURO: Alert & Oriented. has difficulty moving the right upper extremity due to pain on the chest area but improving Procedures 08/04- CT guided lung biopsy A/P Assessment and Plan 55-year-old male admitted with hemoptysis and right lung mass. He is status post thoracotomy on 08/17/16. Patient was transferred to CVICU on 08/22/16 secondary to hypoxia from pneumothorax. Patient is stabilizing. right lung imaging improving. Possible hospital-acquired pneumonia, patient is status post thoracotomy. CT surgery following. on vancomycin and Zosyn. ID following and recommends keeping current abx. Pt will need anaerobic coverage even if bronchial washings cx neg. I did speak w Dr. Ansari, covering ID, and she will make recs after she sees patient. Continue incentive spirometer and Acapella. Continue Mucomyst. Pulmonology following, s/p bronchoscopy, bronchial washing neg x 48 hrs Chest xray today revealed right apical pneumothorax with an air fluid level which may be loculated. Repeat Chest xray in AM. Currently pt asymptomatic. Hypotension Resolved Hemoptysis Resolved Right-sided lung mass No lung cancer on pathology Status post right thoracotomy with right sided upper and middle lobectomy Cardiothoracic surgeon following pulm following Nicotine dependence Patient counseled to quit Alcohol abuse and dependence Patient counseled to quit Noted delirium tremens Diabetes mellitus type 2 Insulin sliding scale- not requiring additional insulin, continue to monitor and adjust long acting insulin Levemir twice a day Diabetic diet Follow blood sugars Discharge Planning DVT prophylaxis SCDs given recent surgery and hemoptysis Encourage ambulation PT following recommending PT at rehab vs home health PT. Pt would prefer to go home and per PT's note from yesterday, he is doing better. Monitor Interval development of a right apical pneumothorax with an air fluid level. Monitor pt clinically and repeat Chest x-ray in AM. CT sx following. awaiting final recs from ID for d/c abx Teena Fleming MD Aug 27, 2016 12:57
--- NOTE | 2016-08-27 15:01 | PD.CAR.PN ---
CVT Progress Note Subjective/Hospital Course: 55yr / old male 40pk year hx of tobacco abuse presented to ED with hemoptysis x 3 months / 25lbs recent weight loss No, PCP ( lost his insurance) , CT chest showed right middle lobe lung mass PMH: DM , peripheral neuropathy, partial PFT obtained FEV1 2.02 will schedule for surgery on am per Dr Seaman, covering for Dr Main for Right thoracotomy pulmonary resection, bronchoscopy r 08/16/16 No complaints, stable 08/17 surgery: Right thoracotomy, right upper and middle lobectomy, lysis of adhesions , lymph node dissection EBL 500ml 2000cc crystalloid 08/18 pt had some transient hypotension this am , given 250cc fluid bolus now improved, will transfer to stepdown later today resume long acting insulin and, continue pain control with supervisor ditching 08/19 knutson cath reinserted last pm/ bladder scan 400cc/ will check UA re-attempt removal today leave chest tube in place / drained 320cc/ 12 hrs continue aggressive pulm toileting , path report pending no further hypotension / pt encouraged to take po fluid 08/20 pt has poor cough effort c/o of mouth pain, difficulty swallowing / + UTI on reocephin WBC 24K check BC , continue pulm toileting, OOB, ambulate decrease pain meds , consult PT/ OT 08/21 Needs aggressive pulmonary toiletry and ambulation Maintain CT to suction 08/22 Transferred to CVICU yesterday afternoon for progressive hypoxia. Sats in the 80 's on NRB. Initiated BiPAP with improvement. Presently on NC and maintaining acceptable saturations. Needs encouragement for incentive spirometry Repeat CXR in am 08/23 pt up in chair, cxr noted, complete opacification right lung/ s/p right thoracotomy, right upper and middle lobectomy, minimal breath sounds on right, pt has had poor cough effort since surgery, concern for mucus plug, will consult pulmonology aggressive pulm toileting , await labs/ may need HCAP treatment / check sputum consult pulm for possible bronch 08/24 pt remains om room air, continue aggressive pulm toileting OOB , ambulate per Nursing staff, pt was seen by Dr Mejía last pm, await consultation note CXR noted no real improvement , however, pt is coughing up thick tenacious sputum leukocytosis improved continue current abx 08/25 pt for bronchoscopy today sputum culture no growth / possible aspiration on broad spectrum coverage continue pulm toileting 08/26 s/p bronch. small amount of mucus suctioned out cxr with some improvement remains on room air will f/u with PA and Lat CXr in am , if stable, then ok to dc from [facility] standpoint with out pt follow up 08/27 small loculated area right upper chest / with small ptx, pt remains on room air / pt wants to go home Dr Seaman reviewed films / no chest tube placement for now, will f/u with CXR in 2 weeks at f/u office visit + left air swelling, will check US to r/o DVT spoke with Dr Gillis, trials removal of knutson cath in am Objective: GENERAL: SKIN: Warm and dry. incision intact and well approximated right postero lateral chest wall HEAD: Normocephalic. EYES: No scleral icterus. No injection or drainage. NECK: Supple, trachea midline. No JVD or lymphadenopathy. CARDIOVASCULAR: Regular rate and rhythm without murmurs, gallops, or rubs. left arm with swelling RESPIRATORY: diminished right lower lobe , few coarse breath sounds No accessory muscle use. GASTROINTESTINAL: Abdomen soft, non-tender, nondistended. MUSCULOSKELETAL: No cyanosis, or edema. BACK: Nontender without obvious deformity. No CVA tenderness. Vital Signs Date Time Temp Pulse Resp B/P Pulse Ox O2 Delivery O2 Flow Rate FiO2 08/27/16 14:00 102 08/27/16 13:00 108 08/27/16 12:00 109 08/27/16 11:00 97 08/27/16 11:00 95 Nasal Cannula 2.00 08/27/16 11:00 98.2 97 18 123/83 95 08/27/16 10:00 96 08/27/16 09:16 94 08/27/16 08:00 92 08/27/16 07:54 95 Room Air 08/27/16 07:54 95 21 08/27/16 07:00 85 08/27/16 07:00 98.5 101 18 131/85 98 08/27/16 07:00 98 Nasal Cannula 2.00 08/27/16 06:25 84 08/27/16 05:46 81 08/27/16 04:00 84 08/27/16 03:25 Nasal Cannula 2.00 21 08/27/16 03:00 97.9 88 108/55 98 08/27/16 03:00 85 08/27/16 02:00 84 08/27/16 01:00 84 08/27/16 00:00 86 08/26/16 23:00 89 08/26/16 23:00 Nasal Cannula 2.00 21 08/26/16 23:00 97.9 93 101/70 96 08/26/16 22:00 90 08/26/16 21:00 90 08/26/16 20:12 95 21 08/26/16 20:00 86 08/26/16 19:00 98.1 90 115/73 95 08/26/16 19:00 90 08/26/16 19:00 Nasal Cannula 2.00 08/26/16 18:00 92 08/26/16 17:00 89 08/26/16 16:00 94 08/26/16 15:00 97 Room Air 08/26/16 15:00 98.0 90 18 110/70 97 08/26/16 15:00 89 Labs: Laboratory Tests Test 08/27/16 04:20 Creatinine 0.57 MG/DL (0.60-1.30) Estimat Glomerular Filtration 148 ML/MIN Rate (>89) Result Diagram: 08/26/16 0548 08/27/16 0420 Telemetry: NSR (1) Lung mass Plan: FEV1 2.02 path no growth in cultures to date path from OR no evidence of malignancy (2) Right thoracotomy, right upper and middle lobectomy, lysis of adhesions, lymph node dissection Plan: pulmonary toileting , nebs, ezpap acapella OOB/ ambulate path neg continue antibiotics, s/p bronch aggressive pulm toileting and antibiotics ok to dc from [facility] standpoint (3) Hemoptysis Plan: resolved (4) Tobacco abuse Plan: smoking cessation (5) Urinary retention Plan: spoke with Dr Gillis for trials removal of knutson cath in Nisha Keane Aug 27, 2016 15:01
--- NOTE | 2016-08-27 16:09 | RADRPT ---
EXAM DATE/TIME: 08/27/2016 15:13 [facility] COMPARISON: No previous studies available for comparison. INDICATIONS : Left arm swelling. MEDICAL HISTORY : Hypercholesterolemia. Hypertension. Neurologic problems. Dizziness. Cardiac disorders. Cough. Diabet es. Lung mass. SURGICAL HISTORY : Lobectomy. ENCOUNTER: Initial ACUITY: 1 day PAIN SCORE: 7/10 LOCATION: Left arm. FINDINGS: There is spontaneous flow documented in the brachial, basilic, cephalic, axillary, and subclavian vei ns. The vessels are compressible and augmentation response is documented. No filling defects are se en. The flow is phasic with respiration. Direction of flow in the jugular vein is caudal. CONCLUSION: Negative for deep venous thrombosis. Remberto Coyle MD FACR on August 27, 2016 at 16:06 Board Certified Radiologist. This report was verified electronically.
--- NOTE | 2016-08-27 16:26 | HHI.IDPN ---
Subjective Subjective Remarks ID X cover for Dr Moran chart reviewd 56 M Mr. Price is a 56-year-old male with past medical history significant for [id number] history of tobacco use, chronic alcohol abuse(1 pint daily per reports), DM with neuropathy who was admitted on 08/04/16. Patient presented to the emergency room complaining of increased weakness and fatigue. On admission he complained of hemoptysis which has been going on for the last three months, usually starts in the morning when he coughs up bright red blood and then throughout the day gets more like a anya color. He has lost about 25 pounds over the last few months. Cardiothoracic surgery was consulted and the patient underwent Right thoracotomy, right upper and middle lobectomy, lysis of adhesions, lymph node dissection. Intraoperative cultures showed normal respiratory deb. Pathology of the right lung demonstrates a spindle cell proliferation makes with the matrix cells possible abscess patient. The right upper and middle lobe biopsy was suggestive of bronchiolitis , severe acute suppurative and chronic organizing pneumonitis and pleuritis and pleural abscess formation but negative for neoplasia. Denies having any fever, chills, night sweats, has been complaining of some pain in his shins, thighs and arms. No nausea, vomiting, diarrhea. ID consulted for evaluation and Mment of possible empyema, health care associated pneumonia. BAL clx were negative - final He is afebrile Co R sided CT, ow/ OK Antibiotics zosyn vanco Past Medical History ETOHism Allergies: Coded Allergies: No Known Allergies (Unverified , 03/22/13) Objective . Vital Signs Date Time Temp Pulse Resp B/P Pulse Ox O2 Delivery O2 Flow Rate FiO2 08/27/16 16:00 99 08/27/16 15:00 98.2 97 18 123/81 99 08/27/16 15:00 99 Nasal Cannula 2.00 08/27/16 15:00 99 08/27/16 14:00 102 08/27/16 13:00 108 08/27/16 12:00 109 08/27/16 11:00 97 08/27/16 11:00 95 Nasal Cannula 2.00 08/27/16 11:00 98.2 97 18 123/83 95 08/27/16 10:00 96 08/27/16 09:16 94 08/27/16 08:00 92 08/27/16 07:54 95 Room Air 08/27/16 07:54 95 21 08/27/16 07:00 85 08/27/16 07:00 98.5 101 18 131/85 98 08/27/16 07:00 98 Nasal Cannula 2.00 08/27/16 06:25 84 08/27/16 05:46 81 08/27/16 04:00 84 08/27/16 03:25 Nasal Cannula 2.00 21 08/27/16 03:00 97.9 88 108/55 98 08/27/16 03:00 85 08/27/16 02:00 84 08/27/16 01:00 84 08/27/16 00:00 86 08/26/16 23:00 89 08/26/16 23:00 Nasal Cannula 2.00 21 08/26/16 23:00 97.9 93 101/70 96 08/26/16 22:00 90 08/26/16 21:00 90 08/26/16 20:12 95 21 08/26/16 20:00 86 08/26/16 19:00 98.1 90 115/73 95 08/26/16 19:00 90 08/26/16 19:00 Nasal Cannula 2.00 08/26/16 18:00 92 08/26/16 17:00 89 08/26/16 08/26/16 08/27/16 15:00 23:00 07:00 Intake Total 2304 ml 240 ml Output Total 275 ml 350 ml Balance 2029 ml -110 ml Intake Oral 1080 ml 240 ml IV Total 1224 ml Output Urine Total 275 ml 350 ml . Laboratory Tests Test 08/26/16 05:48 White Blood Count 7.7 TH/MM3 Red Blood Count 3.17 MIL/MM3 Hemoglobin 10.1 GM/DL Hematocrit 30.4 % Mean Corpuscular Volume 95.9 FL Mean Corpuscular Hemoglobin 31.8 PG Mean Corpuscular Hemoglobin 33.2 % Concent Red Cell Distribution Width 14.5 % Platelet Count 126 TH/MM3 Mean Platelet Volume 10.0 FL Neutrophils (%) (Auto) 62.7 % Lymphocytes (%) (Auto) 19.3 % Monocytes (%) (Auto) 13.8 % Eosinophils (%) (Auto) 3.3 % Basophils (%) (Auto) 0.9 % Neutrophils # (Auto) 4.8 TH/MM3 Lymphocytes # (Auto) 1.5 TH/MM3 Monocytes # (Auto) 1.1 TH/MM3 Eosinophils # (Auto) 0.3 TH/MM3 Basophils # (Auto) 0.1 TH/MM3 CBC Comment DIFF FINAL Differential Comment Laboratory Tests Test 08/26/16 08/27/16 05:48 04:20 Sodium Level 139 MEQ/L Potassium Level 3.9 MEQ/L Chloride Level 105 MEQ/L Carbon Dioxide Level 27.0 MEQ/L Anion Gap 7 MEQ/L Blood Urea Nitrogen 15 MG/DL Creatinine 0.54 MG/DL 0.57 MG/DL Estimat Glomerular Filtration 157 ML/MIN 148 ML/MIN Rate Random Glucose 67 MG/DL Calcium Level 7.7 MG/DL Microbiology Date/Time Procedure Status Source Growth 08/25/16 21:22 Gram Stain - Final Complete Bronchial Washings Other 08/25/16 21:22 Bronchial Culture - Final Complete Bronchial Washings Other NO GROWTH IN 48 HOURS. 08/25/16 21:22 Acid Fast Stain - Final Resulted Bronchial Washings Other NO ACID FAST BACILLI SEEN 08/25/16 21:22 Mycobacterial Culture Resulted Bronchial Washings Other Pending 08/25/16 21:22 Fungal Smear - Final Resulted Bronchial Washings Other NO FUNGAL ELEMENTS SEEN. 08/25/16 21:22 Fungal Culture Resulted Bronchial Washings Other Pending Imaging Last Impressions Chest X-Ray 08/27/16 0600 Signed Impressions: Service Date/Time: Saturday, August 27, 2016 07:40 - CONCLUSION: 1. Interval development of a right apical pneumothorax with an air fluid level. This may be loculated. 2. Blunting of right costophrenic angle characteristic of a dependent effusion as well. 3. Improving aeration in the right base. There are still some interstitial changes at the confluent infiltrate seen previously is less conspicuous. 4. Left lung remains clear. Heart size is normal. Lavon Myers MD Upper Extremity Ultrasound 08/27/16 0000 Signed Impressions: Service Date/Time: Saturday, August 27, 2016 15:13 - CONCLUSION: Negative for deep venous thrombosis. Remberto Coyle MD FACR Chest CT 08/23/16 0000 Signed Impressions: Service Date/Time: Tuesday, August 23, 2016 10:53 - CONCLUSION: 1. Thick lined pleura around a small contracted right lung with moderate airspace disease within the lung. 2. Adenopathy in mediastinum, stable in the interval. 3. Loculated air and fluid both in the apex and base that are in the pleural space.. Remberto Coyle MD FACR SPECT Scan-Bone Nuclear Medicine 08/05/16 0000 Signed Impressions: Service Date/Time: July 12:27 - CONCLUSION: 1. No evidence of metastatic disease. 2. Traumatic changes involving the right ribs Akash Wagner MD Abdomen/Pelvis CT 08/05/16 0000 Signed Impressions: Service Date/Time: July 01:22 - CONCLUSION: 1. Cirrhotic appearing liver with fatty infiltration. 2. Multiple gastric varices. 3. Nonspecific, nonobstructive bowel gas pattern most consistent with an ileus. 4. The known cavitary mass and probable adenopathy are again visualized in the anterior right lung base. Vickey Medina MD Lung Biopsy CT 08/04/16 0000 Signed Impressions: Service Date/Time: July 09:21 - CONCLUSION: Uncomplicated CT guided biopsy. Akash Wagner MD CT Angiography 08/04/16 0000 Signed Impressions: Service Date/Time: Thursday, August 04, 2016 11:47 - CONCLUSION: 1. No evidence of pulmonary embolism. 2. 5.5 cm right middle lobe mass suspicious for malignancy with possible metastatic adenopathy. This would be accessible to percutaneous biopsy. PET/CT scan is recommended to further evaluation if clinically indicated. Akash Wagner MD Physical Exam GENERAL: This is a well-nourished, well-developed patient, in no apparent distress. SKIN: No rashes, ecchymoses or lesions. Cool and dry. EYES: Pupils equal round and reactive. Extraocular motions intact. No scleral icterus. No injection or drainage. ENT: Nose without bleeding, purulent drainage or septal hematoma. Throat without erythema, tonsillar hypertrophy or exudate. Uvula midline. Airway patent. CARDIOVASCULAR: Regular rate and rhythm without murmurs, gallops, or rubs. RESPIRATORY: Clear to auscultation. Breath sounds equal bilaterally. No wheezes , rales, or rhonchi. Incision R chest well approximated , strry strips in place Previous CT site covered by intact dressing knutson in place with clear yellow urione GASTROINTESTINAL: Abdomen soft, non-tender, nondistended. No hepato-splenomegaly , or palpable masses. No guarding. MUSCULOSKELETAL: Extremities without clubbing, cyanosis, or edema. NEUROLOGICAL: Awake and alert. Non focal Assessment & Plan Remarks Lung empyema in setting of alcoholism, possible lung mass/cancer. Possible aspiration pneumonia as primary etiology or post obstructive pneumonia. Normal resp deb points in favor of aspiration. path confirmed acute inflamation/abscess formation - BAL clx was negative Chronic smoker Chronic alcoholism (1 pint per day per records) Weight loss can be from infection as well as malignancy. Recs cont Zosyn IV dc Vanco IV (target 15-20) will switch to PO augmentin to complete 4-6 weeks course of abx, however the total duration will depend on clinical and radiological response dw Dr Bernadette Ansari,Nel Wolf MD Aug 27, 2016 16:26
--- NOTE | 2016-08-27 16:39 | HHI.PR ---
Subjective Remarks 56 YOWM with DM,HTN, Empyema, s/p Thoracotomy CXR white out right lung not able to expacrtorate no fever had bronch no endobronchial lesion or mucosal obst BAL cultures negative CXR some improvement in aeration, loculated ptx Objective Vital Signs Vital Signs Date Time Temp Pulse Resp B/P Pulse Ox O2 Delivery O2 Flow Rate FiO2 08/27/16 16:00 99 08/27/16 15:00 98.2 97 18 123/81 99 08/27/16 15:00 99 Nasal Cannula 2.00 08/27/16 15:00 99 08/27/16 14:00 102 08/27/16 13:00 108 08/27/16 12:00 109 08/27/16 11:00 97 08/27/16 11:00 95 Nasal Cannula 2.00 08/27/16 11:00 98.2 97 18 123/83 95 08/27/16 10:00 96 08/27/16 09:16 94 08/27/16 08:00 92 08/27/16 07:54 95 Room Air 08/27/16 07:54 95 21 08/27/16 07:00 85 08/27/16 07:00 98.5 101 18 131/85 98 08/27/16 07:00 98 Nasal Cannula 2.00 08/27/16 06:25 84 08/27/16 05:46 81 08/27/16 04:00 84 08/27/16 03:25 Nasal Cannula 2.00 21 08/27/16 03:00 97.9 88 108/55 98 08/27/16 03:00 85 08/27/16 02:00 84 08/27/16 01:00 84 08/27/16 00:00 86 08/26/16 23:00 89 08/26/16 23:00 Nasal Cannula 2.00 21 08/26/16 23:00 97.9 93 101/70 96 08/26/16 22:00 90 08/26/16 21:00 90 08/26/16 20:12 95 21 08/26/16 20:00 86 08/26/16 19:00 98.1 90 115/73 95 08/26/16 19:00 90 08/26/16 19:00 Nasal Cannula 2.00 08/26/16 18:00 92 08/26/16 17:00 89 I/O 08/26/16 08/26/16 08/26/16 08/27/16 08/27/16 08/27/16 07:00 15:00 23:00 07:00 15:00 23:00 Intake Total 240 ml 2304 ml 240 ml Output Total 275 ml 275 ml 350 ml Balance -35 ml 2029 ml -110 ml Intake Oral 240 ml 1080 ml 240 ml IV Total 1224 ml Output Urine Total 275 ml 275 ml 350 ml # Bowel Movements 1 Result Diagram: 08/26/16 0548 08/27/16 0420 Objective Remarks GENERAL: MBMN WM,NAD SKIN: Warm and dry. HEAD: Normocephalic. EYES: No scleral icterus. No injection or drainage. NECK: Supple, trachea midline. No JVD or lymphadenopathy. CARDIOVASCULAR: Regular rate and rhythm without murmurs, gallops, or rubs. RESPIRATORY: Breath sounds equal bilaterally. No accessory muscle use. Decreased BS right GASTROINTESTINAL: Abdomen soft, non-tender, nondistended. MUSCULOSKELETAL: No cyanosis, or edema. BACK: Nontender without obvious deformity. No CVA tenderness. A/P Assessment and Plan White out right lung, atelactesis, ? mucous plugging S/P Right Thoracotomy Empyema PLAN: WILLIE Pt WILLIE James Stable from pulm standpoint Cy Mejía MD Aug 27, 2016 16:38
[2016-08-27] MEDS: PANTOPRAZOLE SOD 40 MG DELAYED RELEASE TAB PO SCH (21:50)
[2016-08-27] MEDS: AMOXICILLIN/CLAVULANATE K 500 MG TAB PO SCH (22:00)
[2016-08-28] VITALS (16 sets, daily range): BP systolic 96–124; BP diastolic 71–91; PULSE 76–110; RESP 16–20; TEMP 97.6–98.5; O2SAT 95–99
[2016-08-28] MEDS: AMOXICILLIN/CLAVULANATE K 500 MG TAB PO SCH (05:40)
[2016-08-28] MEDS: ACETAMINOPHEN/HYDROcodone 325 MG/5 MG TAB PO PRN (05:40)
[2016-08-28] MEDS: INSULIN ASPART SUPPLEMENTAL SCALE SQ SCH ×2 (05:42→12:25)
--- NOTE | 2016-08-28 08:16 | HHI.PR ---
Subjective Remarks Patient appears comfortable eating in the chair. Denies any chest pain or shortness of breath. Says he has a walker at home. Denies having any fever or chills. No nausea or vomiting. No constipation. Objective Vitals Vital Signs Date Time Temp Pulse Resp B/P Pulse Ox O2 Delivery O2 Flow Rate FiO2 08/28/16 06:40 16 08/28/16 06:00 95 08/28/16 05:00 95 08/28/16 04:00 95 08/28/16 03:00 95 08/28/16 03:00 95 Room Air 08/28/16 03:00 98.5 95 16 96/71 95 08/28/16 02:00 96 08/28/16 01:00 89 08/28/16 00:00 94 08/27/16 23:00 93 08/27/16 23:00 95 Room Air 08/27/16 23:00 98.5 93 16 99/70 95 08/27/16 22:00 95 08/27/16 21:00 97 08/27/16 20:20 95 21 08/27/16 20:00 97 08/27/16 19:00 98.4 97 18 92/62 97 08/27/16 19:00 99 08/27/16 19:00 97 Nasal Cannula 2.00 08/27/16 18:00 97 08/27/16 17:00 104 08/27/16 16:00 99 08/27/16 15:00 98.2 97 18 123/81 99 08/27/16 15:00 99 Nasal Cannula 2.00 08/27/16 15:00 99 08/27/16 14:00 102 08/27/16 13:00 108 08/27/16 12:00 109 08/27/16 11:00 97 08/27/16 11:00 95 Nasal Cannula 2.00 08/27/16 11:00 98.2 97 18 123/83 95 08/27/16 10:00 96 08/27/16 09:16 94 I/O 08/27/16 08/27/16 08/27/16 08/28/16 08/28/16 08/28/16 07:00 15:00 23:00 07:00 15:00 23:00 Intake Total 240 ml 980 ml 240 ml Output Total 350 ml 200 ml 200 ml Balance -110 ml 780 ml 40 ml Intake Oral 240 ml 980 ml 240 ml Output Urine Total 350 ml 200 ml 200 ml Stool Total 0 ml # Bowel Movements 1 0 Result Diagram: 08/26/16 0548 08/27/16 0420 Imaging Last Impressions Chest X-Ray 08/27/16 0600 Signed Impressions: Service Date/Time: Saturday, August 27, 2016 07:40 - CONCLUSION: 1. Interval development of a right apical pneumothorax with an air fluid level. This may be loculated. 2. Blunting of right costophrenic angle characteristic of a dependent effusion as well. 3. Improving aeration in the right base. There are still some interstitial changes at the confluent infiltrate seen previously is less conspicuous. 4. Left lung remains clear. Heart size is normal. Lavon Myers MD Upper Extremity Ultrasound 08/27/16 0000 Signed Impressions: Service Date/Time: Saturday, August 27, 2016 15:13 - CONCLUSION: Negative for deep venous thrombosis. Remberto Coyle MD FACR Chest CT 08/23/16 0000 Signed Impressions: Service Date/Time: Tuesday, August 23, 2016 10:53 - CONCLUSION: 1. Thick lined pleura around a small contracted right lung with moderate airspace disease within the lung. 2. Adenopathy in mediastinum, stable in the interval. 3. Loculated air and fluid both in the apex and base that are in the pleural space.. Remberto Coyle MD FACR SPECT Scan-Bone Nuclear Medicine 08/05/16 0000 Signed Impressions: Service Date/Time: July 12:27 - CONCLUSION: 1. No evidence of metastatic disease. 2. Traumatic changes involving the right ribs Akash Wagner MD Abdomen/Pelvis CT 08/05/16 0000 Signed Impressions: Service Date/Time: July 01:22 - CONCLUSION: 1. Cirrhotic appearing liver with fatty infiltration. 2. Multiple gastric varices. 3. Nonspecific, nonobstructive bowel gas pattern most consistent with an ileus. 4. The known cavitary mass and probable adenopathy are again visualized in the anterior right lung base. Vickey Medina MD Lung Biopsy CT 08/04/16 0000 Signed Impressions: Service Date/Time: July 09:21 - CONCLUSION: Uncomplicated CT guided biopsy. Akash Wagner MD CT Angiography 08/04/16 0000 Signed Impressions: Service Date/Time: Thursday, August 04, 2016 11:47 - CONCLUSION: 1. No evidence of pulmonary embolism. 2. 5.5 cm right middle lobe mass suspicious for malignancy with possible metastatic adenopathy. This would be accessible to percutaneous biopsy. PET/CT scan is recommended to further evaluation if clinically indicated. Akash Wagner MD Objective Remarks GENERAL: Patient is 56 yo male, appearing older than stated age, in no acute distress. CARDIOVASCULAR: Normal rate and regular rhythm without murmurs RESPIRATORY: Air movement improving on the right upper lung field, right mid to lower lung hciu with absent breath sounds. GASTROINTESTINAL: Abdomen soft, non-tender, non-distended. Normal active bowel sounds MUSCULOSKELETAL: Extremities without edema. NEURO: Alert and oriented. has difficulty moving the right upper extremity due to pain on the chest area but improving Procedures 08/04- CT guided lung biopsy A/P Assessment and Plan 55-year-old male admitted with hemoptysis and right lung mass. He is status post thoracotomy on 08/17/16. Patient was transferred to CVICU on 08/22/16 secondary to hypoxia from pneumothorax. Patient is improving. right lung imaging improving. Possible hospital-acquired pneumonia, patient is status post thoracotomy. CT surgery following. on vancomycin and Zosyn. ID following and recommends keeping current abx. Pt will need anaerobic coverage even if bronchial washings cx neg Per ID Dr. Ansari, covering ID, and she will make recs for abx after she sees patient. Continue incentive spirometer and Acapella. Continue Mucomyst. Pulmonology following, s/p bronchoscopy, bronchial washing neg x 48 hrs Chest xray today revealed right apical pneumothorax with an air fluid level which may be loculated. Repeat Chest xray in AM. Currently pt asymptomatic. Hypotension Resolved Hemoptysis Resolved Right-sided lung mass No lung cancer on pathology Status post right thoracotomy with right sided upper and middle lobectomy Cardiothoracic surgeon following pulm following Nicotine dependence Patient counseled to quit Alcohol abuse and dependence Patient counseled to quit Noted delirium tremens Diabetes mellitus type 2 Insulin sliding scale- not requiring additional insulin, continue to monitor and adjust long acting insulin Levemir twice a day Diabetic diet Follow blood sugars Discharge Planning DVT prophylaxis SCDs given recent surgery and hemoptysis Encourage ambulation PT following recommending PT at rehab vs home health PT. Pt would prefer to go home and per PT's note from yesterday, he is doing better. Monitor Interval development of a right apical pneumothorax with an air fluid level. Monitor pt clinically and repeat Chest x-ray in AM. CT sx following. awaiting final recs from ID for d/c abx Марина Wilkins MD Aug 28, 2016 08:16
[2016-08-28] MEDS ORDERED: GNP100TA3 PO (08:23)
[2016-08-28] MEDS ORDERED: DOCU1CAP39 PO (08:23)
[2016-08-28] MEDS ORDERED: LEVEMIR SQ (08:23)
[2016-08-28] MEDS ORDERED: HYDR-3516 PO (08:23)
[2016-08-28] MEDS ORDERED: TAMS5CAP PO (08:23)
[2016-08-28] MEDS ORDERED: AUGM500T7 PO ×2 (08:23→08:29)
[2016-08-28] MEDS ORDERED: LACTCHW3 CHEW (08:29)
[2016-08-28] MEDS ORDERED: EPINEPHrine HCL (1:10,000) 1 MG/10 ML SYRINGE ONE (08:37)
[2016-08-28] MEDS ORDERED: ATROPINE SULFATE 1 MG/10 ML SYRINGE ONE (08:37)
[2016-08-28] MEDS: DOCUSATE SODIUM 100 MG CAP PO SCH (09:00)
[2016-08-28] MEDS: POLYETHYLENE GLYCOL 17 GM PKG PO SCH (09:00)
[2016-08-28] MEDS: NYSTAT/DIPHENHY/LIDO MOUTHWASH (Adult) 120ML SWISH-SWAL SCH (09:00)
[2016-08-28] MEDS: RESP: ALBUTEROL 2.5 MG/IPRATROPIUM 0.5 MG NEB (SCH) NEB ×2 (09:04→13:47)
--- NOTE | 2016-08-28 09:34 | RADRPT ---
EXAM DATE/TIME: 08/28/2016 08:46 [facility] COMPARISON: CHEST PA & LAT, August 27, 2016, 7:40. INDICATIONS : Shortness of breath. MEDICAL HISTORY : Cardiovascular disease. Hypertension. Diabetes mellitus type 1. SURGICAL HISTORY : Thoracotomy. ENCOUNTER: Subsequent ACUITY: 3 days PAIN SCORE: 0/10 LOCATION: Bilateral chest FINDINGS: There is an air-fluid level in the apex of the right lung with pleural rind present about the right l jolene. Left lung is clear. Heart and pulmonary vascularity are normal. CONCLUSION: Stable chest from 08/27/2016. Hydropneumothorax is present on the right similar to what was described previously. Remberto Coyle MD FACR on August 28, 2016 at 9:24 Board Certified Radiologist. This report was verified electronically.
[2016-08-28] MEDS: INSULIN DETEMIR 100 UNITS/ML VIAL SQ SCH (09:46)
[2016-08-28] MEDS: SODIUM CHLORIDE 0.9% FLUSH 10 ML FLUSH IV FLUSH SCH (09:47)
[2016-08-28] MEDS: NYSTATIN SUSP 500,000 U/5 ML CUP SWISH-SWAL SCH (09:48)
[2016-08-28] MEDS: TAMSULOSIN HCL 0.4 MG CAP PO SCH (09:48)
[2016-08-28] MEDS: CHLORPHENIR/HYDROCOD LIQUID 8 MG/10 MG/5 ML CUP PO SCH (09:48)
[2016-08-28] MEDS: THIAMINE HCL 100 MG TAB PO SCH (09:49)
--- NOTE | 2016-08-28 09:55 | HHI.DS ---
Discharge Summary Admission Date August 04, 2016 at 13:36 Discharge Date: Aug 28, 2016 Admitting Diagnosis lung mass (1) Right thoracotomy, right upper and middle lobectomy, lysis of adhesions, lymph node dissection Diagnosis: Principal (2) Pneumonia ICD Code: J18.9 Diagnosis: Principal (3) Lung mass ICD Code: R91.8 (4) Hemoptysis ICD Code: R04.2 Diagnosis: Secondary (5) Urinary retention ICD Code: R33.9 Diagnosis: Principal (6) Tobacco abuse ICD Code: Z72.0 Diagnosis: Secondary Procedures 08/04- CT guided lung biopsy Brief History - From Admission This is a 55 year old male who presents to the emergency department with 6 months of hemoptysis with rust colored sputum, shortness of breath, worse with exertion, improved with rest associated with 25 pounds weight loss and generalized fatigue. Patient has a long smoking history. He has no primary care physician and doesn't have insurance. Patient seen in ER, as per patient he states he started with Hemoptysis three months ago but was improving with time, he has productive cough, worsening Fatigue, and weakness with exertion. Shortness of breath. states has no insurance and no Medical Doctor, do not take anything for Diabetes. CBC/BMP: 08/26/16 0548 08/27/16 0420 Significant Findings Laboratory Tests Test 08/26/16 08/27/16 08/27/16 05:48 01:00 04:20 Red Blood Count 3.17 MIL/MM3 (4.50-5.90) Hemoglobin 10.1 GM/DL (13.0-17.0) Hematocrit 30.4 % (39.0-51.0) Platelet Count 126 TH/MM3 (150-450) Monocytes (%) (Auto) 13.8 % (0.0-8.0) Monocytes # (Auto) 1.1 TH/MM3 (0-0.9) Creatinine 0.54 MG/DL 0.57 MG/DL (0.60-1.30) (0.60-1.30) Random Glucose 67 MG/DL (74-106) Calcium Level 7.7 MG/DL (8.5-10.1) Vancomycin Level Trough 21.6 MCG/ML (5.0-10.0) Imaging Last Impressions Chest X-Ray 08/28/16 0600 Signed Impressions: Service Date/Time: Sunday, August 28, 2016 08:46 - CONCLUSION: Stable chest from 08/27/2016. Hydropneumothorax is present on the right similar to what was described previously. Remberto Coyle MD FACR Upper Extremity Ultrasound 08/27/16 0000 Signed Impressions: Service Date/Time: Saturday, August 27, 2016 15:13 - CONCLUSION: Negative for deep venous thrombosis. Remberto Coyle MD FACR Chest CT 08/23/16 0000 Signed Impressions: Service Date/Time: Tuesday, August 23, 2016 10:53 - CONCLUSION: 1. Thick lined pleura around a small contracted right lung with moderate airspace disease within the lung. 2. Adenopathy in mediastinum, stable in the interval. 3. Loculated air and fluid both in the apex and base that are in the pleural space.. Remberto Coyle MD FACR SPECT Scan-Bone Nuclear Medicine 08/05/16 0000 Signed Impressions: Service Date/Time: July 12:27 - CONCLUSION: 1. No evidence of metastatic disease. 2. Traumatic changes involving the right ribs Akash Wagner MD Abdomen/Pelvis CT 08/05/16 0000 Signed Impressions: Service Date/Time: July 01:22 - CONCLUSION: 1. Cirrhotic appearing liver with fatty infiltration. 2. Multiple gastric varices. 3. Nonspecific, nonobstructive bowel gas pattern most consistent with an ileus. 4. The known cavitary mass and probable adenopathy are again visualized in the anterior right lung base. Vickey Medina MD Lung Biopsy CT 08/04/16 0000 Signed Impressions: Service Date/Time: July 09:21 - CONCLUSION: Uncomplicated CT guided biopsy. Akash Wagner MD CT Angiography 08/04/16 0000 Signed Impressions: Service Date/Time: Thursday, August 04, 2016 11:47 - CONCLUSION: 1. No evidence of pulmonary embolism. 2. 5.5 cm right middle lobe mass suspicious for malignancy with possible metastatic adenopathy. This would be accessible to percutaneous biopsy. PET/CT scan is recommended to further evaluation if clinically indicated. Akash Wagner MD PE at Discharge GENERAL: Patient is 56 yo male, appearing older than stated age, in no acute distress. CARDIOVASCULAR: Normal rate and regular rhythm without murmurs RESPIRATORY: Air movement improving on the right upper lung field, right mid to lower lung chiu with absent breath sounds. GASTROINTESTINAL: Abdomen soft, non-tender, non-distended. Normal active bowel sounds MUSCULOSKELETAL: Extremities without edema. NEURO: Alert and oriented. has difficulty moving the right upper extremity due to pain on the chest area but improving Hospital Course 55-year-old male admitted with hemoptysis and right lung mass. He is status post thoracotomy on 08/17/16. Patient was transferred to CVICU on 08/22/16 secondary to hypoxia from pneumothorax. Patient is improving. right lung imaging improving. Possible hospital-acquired pneumonia, patient is status post thoracotomy. CT surgery following. on vancomycin and Zosyn. ID following and recommends keeping current abx. Pt will need anaerobic coverage even if bronchial washings cx neg Per ID Dr. Ansari, covering ID, and she will make recs for abx after she sees patient. Continue incentive spirometer and Acapella. Continue Mucomyst. Pulmonology following, s/p bronchoscopy, bronchial washing neg x 48 hrs Chest xray today revealed right apical pneumothorax with an air fluid level which may be loculated. Repeat Chest xray in AM. Currently pt asymptomatic. Hypotension Resolved Hemoptysis Resolved Right-sided lung mass No lung cancer on pathology Status post right thoracotomy with right sided upper and middle lobectomy Cardiothoracic surgeon following pulm following Nicotine dependence Patient counseled to quit Alcohol abuse and dependence Patient counseled to quit Noted delirium tremens Diabetes mellitus type 2 Insulin sliding scale- not requiring additional insulin, continue to monitor and adjust long acting insulin Levemir twice a day Diabetic diet Follow blood sugars Discharge Planning DVT prophylaxis SCDs given recent surgery and hemoptysis Encourage ambulation PT following recommending PT at rehab vs home health PT. Pt would prefer to go home and per PT's note from yesterday, he is doing better. Monitor Interval development of a right apical pneumothorax with an air fluid level. Monitor pt clinically and repeat Chest x-ray in AM. CT sx following. awaiting final recs from ID for d/c abx. Trial of voiding before DC failed. He was dC home with knutson, to follow up as OP with urology. Patient improved, DC home with home health . To follow up as OP with PCP and consultants Pt Condition on Discharge: Stable Discharge Disposition: Disch w/ Home Health Serv Discharge Time: > 30 minutes Discharge Instructions DIET: Follow Instructions for: Heart Healthy Diet Activities you can perform: Regular-No Restrictions Follow up Referrals: Appointment for Follow Up with Dara Seaman MD Appointment for Follow Up with Ty Frank MD Appointment for Follow Up with Cy Mejía MD Infectious Disease - 1 Week with Sue Lan MD Urology - 09/02/16 @ [facility] with Kishore Gillis MD New Medications: Lactobacillus Acidophilus (Lactinex) 1 Chew 1 TAB CHEW DAILY Nutritional Supplement #60 Ref 0 TAB Amoxicillin-Clavulanate (Augmentin) 500-125 mg Tab 500 MG PO Q8HR infection #100 TAB Docusate Sodium (Dok) 100 Mg Cap 100 MG PO BID Constipation #60 CAP Hydrocodone-Acetaminophen (Hydrocodone-Acetaminophen) 5-325 mg Tab 1 TAB PO Q4H PRN pain management #15 TAB Insulin Detemir Inj (Levemir Inj) 1,000 unit/ 10 ML Vial 10 UNITS SQ BID Blood Sugar Management #60 INJECTION Tamsulosin (Flomax) 0.4 Mg Cap 0.4 MG PO DAILY urinary retention #30 CAP Thiamine HCl (Gnp Vitamin B-1) 100 Mg Tab 100 MG PO DAILY mvt #30 TAB Марина Wilkins MD Aug 28, 2016 09:55
== END 2016-08-28 14:32 | disposition home health service (06) | DRG 163 ==
LOC: NEPE 09:12 → NEDA 13:26 → OBSVTOIN 13:36 → N04A 19:43 → HCVR 08-17 13:01 → HCIN 08-19 09:04 → HCVR 08-21 10:24 → HCIN 08-23 13:05
PROVIDERS: ADMIT Hospitalist; ATTEND Hospitalist
PROC: 0BBK3ZX Excision of Right Lung, Percutaneous Approach, Diagnostic (ICD-10-PCS; 2016-08-05)
PROC: 0BTC0ZZ Resection of Right Upper Lung Lobe, Open Approach (ICD-10-PCS; 2016-08-17)
PROC: 07B70ZZ Excision of Thorax Lymphatic, Open Approach (ICD-10-PCS; 2016-08-17)
PROC: 0BTD0ZZ Resection of Right Middle Lung Lobe, Open Approach (ICD-10-PCS; principal; 2016-08-17 07:26)
PROC: 5A09357 Assistance with Respiratory Ventilation, Less than 24 Consecutive Hours, Continuous Positive Airway Pressure (ICD-10-PCS; 2016-08-21)
PROC: 0BJ08ZZ Inspection of Tracheobronchial Tree, Via Natural or Artificial Opening Endoscopic (ICD-10-PCS; 2016-08-25)
DX: J86.9 Pyothorax without fistula (principal); J69.0 Pneumonitis due to inhalation of food and vomit; F10.231 Alcohol dependence with withdrawal delirium; J18.9 Pneumonia, unspecified organism; B37.0 Candidal stomatitis; E11.42 Type 2 diabetes mellitus with diabetic polyneuropathy; I95.9 Hypotension, unspecified; J44.9 Chronic obstructive pulmonary disease, unspecified; J44.0 Chronic obstructive pulmonary disease with (acute) lower respiratory infection; E11.65 Type 2 diabetes mellitus with hyperglycemia; R04.2 Hemoptysis; N39.0 Urinary tract infection, site not specified; J98.11 Atelectasis; K74.60 Unspecified cirrhosis of liver; K76.0 Fatty (change of) liver, not elsewhere classified; R63.4 Abnormal weight loss; K59.00 Constipation, unspecified; R59.0 Localized enlarged lymph nodes; R09.02 Hypoxemia; F41.9 Anxiety disorder, unspecified; F17.210 Nicotine dependence, cigarettes, uncomplicated; Y95 Nosocomial condition; Z68.25 Body mass index [BMI] 25.0-25.9, adult; Z80.9 Family history of malignant neoplasm, unspecified
CPT/HCPCS: 32405; 36430; 71010; 71020; 71250; 71275; 74177; 77012; 78306; 78320; 78399; 80048; 80053; 80061; 80074; 80202; 81001; 82565; 82948; 83036; 83735; 83880; 84100; 84439; 84443; 85014; 85018; 85025; 85027; 85610; 85652; 85730; 86850; 86900; 86901; 86920; 87015; 87040; 87070; 87086; 87102; 87116; 87205; 87206; 88305; 88307; 88309; 88341; 88342; 93005; 93971; 94002; 94060; 94150; 94640; 94664; 94667; 94668; 99222; A9503; J0171; J0461; J0690; J0696; J1815; J1885; J2060; J2175; J2250; J2270; J2370; J2405; J2543; J2710; J3010; J3370; J3411; J7030; J7040; J7050; J7120; J7608; J7613; P9016; Q9963; Q9967

== ENCOUNTER 2016-09-27 11:07 | Inpatient (IN) | payer SELFPAY ==
[2016-09-27] VITALS (15 sets, daily range): BP systolic 75–151; BP diastolic 57–93; PULSE 96–110; RESP 13–28; TEMP 98.1–98.6; O2SAT 96–100
[~2016-09-27] VITALS: Ht 175.3 cm; Wt 71.1 kg
[~2016-09-27 11:07] MED LIST changes: -ANTI25TA2 PO; +AUGM500T7 PO; +DOCU1CAP39 PO; -GLIP5 PO; -GLUCTAB PO; +GNP100TA3 PO; +HYDR-3516 PO; +LACTCHW3 CHEW; +LEVEMIR SQ; -LISI-360 PO; -NOVORP2 SQ; +TAMS5CAP PO
[2016-09-27] MEDS ORDERED: SODIUM CHLOR 0.9% 1000 ML INJ 1,000 ML IV ONE ×3 (11:18→13:15)
[2016-09-27 11:30] LABS: AUTOMATED NEUTROPHIL # 6.3 TH/MM3 (1.8-7.7); BASOPHIL # 0.1 TH/MM3 (0-0.2); BASOPHIL % 0.6 % (0.0-2.0); EOSINOPHIL # 0.2 TH/MM3 (0-0.4); EOSINOPHIL % 1.8 % (0.0-4.0); HEMATOCRIT 37.2 % (39.0-51.0); HEMO FLAGS DIFF FINAL; LYMPH % 32.3 % (9.0-44.0); LYMPHOCYTE # 3.5 TH/MM3 (1.0-4.8); MEAN CELL VOLUME 95.1 FL (80.0-100.0); MEAN CORPUSCULAR HEMOGLOBIN 31.8 PG (27.0-34.0); MEAN CORPUSCULAR HGB CONC 33.5 % (32.0-36.0); MONO % 7.9 % (0.0-8.0); NEUT % 57.4 % (16.0-70.0); PLATELET COUNT 241 TH/MM3 (150-450); RED BLOOD COUNT 3.91 MIL/MM3 (4.50-5.90); RED CELL DISTRIBUTION WIDTH 15.4 % (11.6-17.2)
[2016-09-27] MEDS ORDERED: SODIUM CHLORIDE 0.9% FLUSH 10 ML FLUSH IVF PRN (11:30)
[2016-09-27] MEDS ORDERED: MORPHINE SULFATE 8 MG/ML INJ IV PUSH ONE (11:30)
[2016-09-27] MEDS ORDERED: ONDANSETRON HCL 4 MG/2 ML VIAL IVP ONE (11:30)
--- NOTE | 2016-09-27 11:35 | PD ---
HPI Chief Complaint: Altered Mental Status Time Seen by Provider: 11:18 Travel History International Travel<30 days: No Contact w/Intl Traveler<30days: No Traveled to known affect area: No History of Present Illness HPI The patient is a 56-year-old male who presents to the emergency department for near syncope. The patient was recently hospitalized over one month ago for benign tumor in the right lung, underwent partial right pneumonectomy with a prolonged hospital course. The patient is discharged on August 28 with home health care. The patient states her last 4 days he has had some lightheadedness and dizziness that is worse with standing upright and better with sitting down and lying supine. The patient does state he recently had edema to lower extremities which has resolved, now notes orthostatic symptoms. He denies any chest pain, does note mild shortness of breath worse with exertion which is been constant since he had a partial right lung removal. He doesn't complain of mild nausea with the symptoms today and also has the urge to have a bowel movement. The patient denies any headache, does complain of weakness the lower extremities with standing upright and states that they "shakes ". The patient does not have a local primary physician. The patient has been eating at home and drinking ensure shakes, but has still had some weight loss over the last several months. He denies any dark colored stools or rectal bleeding. The patient has had diarrhea, worse at night since he was discharged month ago, loose, occasionally watery. He denies any history of C. difficile. PFSH Past Medical History Cancer: Yes (lung mass) Cardiovascular Problems: Yes High Cholesterol: Yes Chemotherapy: No Congestive Heart Failure: No Diabetes: Yes (type 2, not currently on medications) Diminished Hearing: No Endocrine: Yes Gastrointestinal Disorders: No Genitourinary: No Hypertension: Yes (not on meds) Immune Disorder: No Implanted Vascular Access Dvce: No Musculoskeletal: No Neurologic: Yes Psychiatric: No Reproductive: No Respiratory: No Immunizations Current: Yes Migraines: No Seizures: No Thyroid Disease: No Past Surgical History Other Surgery: No Social History Alcohol Use: Yes (4 beers daily) Tobacco Use: Yes (1 PPD) Substance Use: No Allergies-Medications (Allergen,Severity, Reaction): Coded Allergies: No Known Allergies (Unverified , 09/27/16) Reported Meds & Prescriptions Reported Meds & Active Scripts Active Lactinex (Lactobacillus Acidophilus) 1 Chew 1 Tab CHEW DAILY Augmentin (Amoxicillin-Clavulanate) 500-125 mg Tab 500 Mg PO Q8HR Flomax (Tamsulosin HCl) 0.4 Mg Cap 0.4 Mg PO DAILY Gnp Vitamin B-1 (Thiamine HCl) 100 Mg Tab 100 Mg PO DAILY Review of Systems Except as stated in HPI: all other systems reviewed are Neg General / Constitutional: No: Fever, Chills Eyes: Positive: Blurred Vision HENT: Positive: Lightheadedness Cardiovascular: Positive: Syncope, No: Chest Pain or Discomfort, Irregular Rhythm, Tachycardia, Diaphoresis Respiratory: Positive: Shortness of Breath Gastrointestinal: Positive: Nausea, No: Vomiting, Diarrhea, Abdominal Pain Genitourinary: No: Dysuria Musculoskeletal: Positive: Weakness Neurologic: Positive: Dizziness, Syncope, No: Headache Physical Exam Narrative GENERAL: Awake, alert, pleasant 56-year-old male who appears his stated age and is in no acute respiratory distress. SKIN: Focused skin assessment warm/dry. HEAD: Atraumatic. Normocephalic. EYES: Pupils equal and round. No scleral icterus. No injection or drainage. ENT: No nasal bleeding or discharge. Slightly dry mucous membranes. NECK: Trachea midline. No JVD. CARDIOVASCULAR: Regular, tachycardic with a heart rate of 120. RESPIRATORY: No accessory muscle use. Diminished breath sounds on the right side. GASTROINTESTINAL: Abdomen soft, non-tender, nondistended. No rebound tenderness. Back: Well-healed transverse scar in the right midthoracic region. MUSCULOSKELETAL: No obvious deformities. No clubbing. No cyanosis. No edema. NEUROLOGICAL: Awake and alert. No obvious cranial nerve deficits. Motor grossly within normal limits. Normal speech. Nonfocal. PSYCHIATRIC: Appropriate mood and affect; insight and judgment normal. Data Data Last Documented VS Vital Signs Date Time Temp Pulse Resp B/P Pulse Ox O2 Delivery O2 Flow Rate FiO2 09/27/16 12:03 Nasal Cannula 09/27/16 12:03 106 16 134/83 99 2 09/27/16 11:29 98.3 Orders Complete Blood Count With Diff (09/27/16 11:18) Comprehensive Metabolic Panel (09/27/16 11:18) Magnesium (Mg) (09/27/16 11:18) Ckmb (Isoenzyme) Profile (09/27/16 11:18) Troponin I (09/27/16 11:18) Ecg Monitoring (09/27/16 11:18) Iv Access Insert/Monitor (09/27/16 11:18) Oximetry (09/27/16 11:18) Ondansetron Inj (Zofran Inj) (09/27/16 11:30) Sodium Chloride 0.9% Flush (Ns Flush) (09/27/16 11:30) Sodium Chlor 0.9% 1000 Ml Inj (Ns 1000 M (09/27/16 11:18) Orthostatic Vital Signs (09/27/16 11:18) Lactic Acid (09/27/16 11:18) Morphine Inj (Morphine Inj) (09/27/16 11:30) Blood Culture (09/27/16 12:02) Urinalysis - C+S If Indicated (09/27/16 12:02) Chest, Single Ap (09/27/16 ) C Diff Toxin Pcr (09/27/16 12:04) Electrocardiogram (09/27/16 11:13) Cefepime Inj (Maxipime Inj) (09/27/16 12:30) Azithromycin Inj (Zithromax Inj) (09/27/16 12:30) Ct Thorax/ Chest Wo Iv Contras (09/27/16 ) Labs Laboratory Tests Test 09/27/16 09/27/16 11:20 11:30 White Blood Count 11.0 TH/MM3 Red Blood Count 3.91 MIL/MM3 Hemoglobin 12.4 GM/DL Hematocrit 37.2 % Mean Corpuscular Volume 95.1 FL Mean Corpuscular Hemoglobin 31.8 PG Mean Corpuscular Hemoglobin 33.5 % Concent Red Cell Distribution Width 15.4 % Platelet Count 241 TH/MM3 Mean Platelet Volume 8.1 FL Neutrophils (%) (Auto) 57.4 % Lymphocytes (%) (Auto) 32.3 % Monocytes (%) (Auto) 7.9 % Eosinophils (%) (Auto) 1.8 % Basophils (%) (Auto) 0.6 % Neutrophils # (Auto) 6.3 TH/MM3 Lymphocytes # (Auto) 3.5 TH/MM3 Monocytes # (Auto) 0.9 TH/MM3 Eosinophils # (Auto) 0.2 TH/MM3 Basophils # (Auto) 0.1 TH/MM3 CBC Comment DIFF FINAL Differential Comment Sodium Level 137 MEQ/L Potassium Level 3.9 MEQ/L Chloride Level 103 MEQ/L Carbon Dioxide Level 21.6 MEQ/L Anion Gap 12 MEQ/L Blood Urea Nitrogen 11 MG/DL Creatinine 1.10 MG/DL Estimat Glomerular Filtration 69 ML/MIN Rate Random Glucose 194 MG/DL Calcium Level 9.1 MG/DL Magnesium Level 1.7 MG/DL Total Bilirubin 0.7 MG/DL Aspartate Amino Transf 22 U/L (AST/SGOT) Alanine Aminotransferase 15 U/L (ALT/SGPT) Alkaline Phosphatase 115 U/L Total Creatine Kinase 16 U/L Troponin I LESS THAN 0.02 NG/ML Total Protein 9.2 GM/DL Albumin 2.6 GM/DL Lactic Acid Level 6.8 mmol/L MDM Medical Decision Making Medical Screen Exam Complete: Yes Emergency Medical Condition: Yes Medical Record Reviewed: Yes Interpretation(s) EKG reveals sinus tachycardia with a heart rate of 114. Short OK interval of 104 ms, no delta wave noted. Laboratory Tests Test 09/27/16 09/27/16 11:20 11:30 White Blood Count 11.0 TH/MM3 Red Blood Count 3.91 MIL/MM3 Hemoglobin 12.4 GM/DL Hematocrit 37.2 % Mean Corpuscular Volume 95.1 FL Mean Corpuscular Hemoglobin 31.8 PG Mean Corpuscular Hemoglobin 33.5 % Concent Red Cell Distribution Width 15.4 % Platelet Count 241 TH/MM3 Mean Platelet Volume 8.1 FL Neutrophils (%) (Auto) 57.4 % Lymphocytes (%) (Auto) 32.3 % Monocytes (%) (Auto) 7.9 % Eosinophils (%) (Auto) 1.8 % Basophils (%) (Auto) 0.6 % Neutrophils # (Auto) 6.3 TH/MM3 Lymphocytes # (Auto) 3.5 TH/MM3 Monocytes # (Auto) 0.9 TH/MM3 Eosinophils # (Auto) 0.2 TH/MM3 Basophils # (Auto) 0.1 TH/MM3 CBC Comment DIFF FINAL Differential Comment Sodium Level 137 MEQ/L Potassium Level 3.9 MEQ/L Chloride Level 103 MEQ/L Carbon Dioxide Level 21.6 MEQ/L Anion Gap 12 MEQ/L Blood Urea Nitrogen 11 MG/DL Creatinine 1.10 MG/DL Estimat Glomerular Filtration 69 ML/MIN Rate Random Glucose 194 MG/DL Calcium Level 9.1 MG/DL Magnesium Level 1.7 MG/DL Total Bilirubin 0.7 MG/DL Aspartate Amino Transf 22 U/L (AST/SGOT) Alanine Aminotransferase 15 U/L (ALT/SGPT) Alkaline Phosphatase 115 U/L Total Creatine Kinase 16 U/L Troponin I LESS THAN 0.02 NG/ML Total Protein 9.2 GM/DL Albumin 2.6 GM/DL Lactic Acid Level 6.8 mmol/L Last Impressions Chest X-Ray 09/27/16 0000 Signed Impressions: Service Date/Time: Tuesday, September 27, 2016 12:05 - CONCLUSION: Worsening consolidation, collapse and/or right pleural effusion with almost completely opacified right hemithorax. Eric Abarca MD Differential Diagnosis Differential diagnosis includes orthostatic hypotension, dehydration, hyponatremia, circulatory dilation, autonomic dysregulation, symptomatic anemia , malnutrition, arrhythmia. Narrative Course IV was established, labs are drawn and sent, and the patient was placed on cardiac telemetry monitoring and continuous pulse oximetry monitoring. EKG was ordered and interpreted. Orthostatic vital signs were obtained. The patient was administered 1 L of IV fluids. The patient's white count is normal. BUN and creatinine are normal, however, lactic acid is elevated at 6.3. The patient appears to be dehydrated with orthostatic hypotension, he was unable to have orthostatics completely evaluated secondary to symptoms. His blood pressure did improve to the 120s and 130s, however, heart rate stayed elevated above 100. The patient's symptoms did improve, patient was noted to have a lactic acid 6.3, therefore, UA, chest x-ray, blood cultures were obtained. The patient will need 23 hour observation for IV fluids, reevaluation of lactic acid , few improved tomorrow and UA/chest x-ray/CT for unremarkable and initial blood culture is unremarkable, patient most likely could be discharged home tomorrow. The patient and his family are comfortable with this plan of care and disposition. Sepsis Criteria SIRS Criteria (2 or more): Heart rate over 90 Severe Sepsis (+one): Hypotension Septic Shock Criteria: Lactic acid >=4 Criteria Outcome: Meets severe sepsis criteria Physician Communication [facility] Communication [facility] hour [facility]. I discussed the patient with Dr. Wilkins who agrees with admission. Diagnosis Primary Impression: Orthostatic hypotension Additional Impressions: Lactic acidosis Pneumonia Qualified Code: J18.9 - Pneumonia of right lung due to infectious organism, unspecified part of lung Admitting Information Admitting Physician Requests: Admit Condition: Stable Adonay Morgan MD Sep 27, 2016 11:35
[2016-09-27 11:36] LABS: CHLORIDE 103 MEQ/L (98-107); POTASSIUM 3.9 MEQ/L (3.5-5.1); SODIUM (NA) 137 MEQ/L (136-145)
[2016-09-27 11:41] LABS: ANION GAP 12 MEQ/L (5-15); BICARBONATE 21.6 MEQ/L (21.0-32.0); BLOOD UREA NITROGEN 11 MG/DL (7-18); MAGNESIUM 1.7 MG/DL (1.5-2.5)
[2016-09-27 11:44] LABS: ALT (GPT) 15 U/L (12-78); AST (GOT) 22 U/L (15-37); GLOMERULAR FILTRATION RATE 69 ML/MIN (>89)
[2016-09-27 11:46] LABS: TOTAL BILIRUBIN ADULT 0.7 MG/DL (0.2-1.0)
[2016-09-27 11:47] LABS: ALKALINE PHOSPHATASE 115 U/L (45-117)
[2016-09-27 11:53] LABS: CREATINE KINASE 16 U/L (39-308)
[2016-09-27] MEDS ORDERED: AZITHROMYCIN INJ 500 MG in SODIUM CHLOR 0.9% 250 ML INJ 250 ML IV ONE (12:30)
[2016-09-27] MEDS ORDERED: CEFEPIME INJ 2,000 MG in SODIUM CHLORIDE 0.9% INJ 100 ML IV ONE (12:30)
--- NOTE | 2016-09-27 12:56 | RADRPT ---
EXAM DATE/TIME: 09/27/2016 12:05 [facility] COMPARISON: CHEST PA & LAT, August 28, 2016, 8:46. INDICATIONS : Syncope MEDICAL HISTORY : Hypertension. Hypercholesterolemia. Diabetes mellitus type II. Lung mass SURGICAL HISTORY : Lobectomy. Right lung biopsy ENCOUNTER: Initial ACUITY: 1 day PAIN SCORE: 0/10 LOCATION: Bilateral chest FINDINGS: There is worsening right pleural effusion and consolidation and/or collapse of the right lung almost completely opacified right hemithorax. The left lung is clear. CONCLUSION: Worsening consolidation, collapse and/or right pleural effusion with almost completely opacified righ t hemithorax. Eric Abarca MD on September 27, 2016 at 12:53 Board Certified Radiologist. This report was verified electronically.
[2016-09-27 13:09] LABS: BLOOD, URINE NEG (NEG); GLUCOSE,URINE NEG (NEG); KETONE, URINE NEG (NEG); NITRITE,URINE NEG (NEG)
[2016-09-27 13:21] LABS: RBC, URINE 0-3 /hpf (0-3); URINE COLOR YELLOW (YELLW/STRAW)
[2016-09-27 13:22] LABS: SQUAMOUS EPITHELIAL CELL URINE 0-5 /hpf (0-5); WHITE BLOOD CELL CAST, URINE 0-2 /lpf
[2016-09-27 13:23] LABS: COMMENT (UR) CULT NOT INDICATED; CULTURE IF INDICATED CULT NOT INDICATED
--- NOTE | 2016-09-27 13:26 | EKG ---
Date Performed: 09/27/2016 Time Performed: 11:13:01 PTAGE: 56 years EKG: SINUS TACHYCARDIA WITH SHORT CA INTERVAL ABNORMAL RHYTHM ECG Compared to prior tracing no s ignificant change PREVIOUS TRACING : 08/04/2016 09.30 DOCTOR: Louie Sevilla Interpretating Date/Time 09/27/2016 13:23:51
[2016-09-27] MEDS ORDERED: SODIUM CHLORIDE 0.9% FLUSH 10 ML FLUSH IV FLUSH PRN (13:30)
[2016-09-27] MEDS ORDERED: LACTULOSE SYRUP 20 GM/30 ML CUP PO PRN (13:30)
[2016-09-27] MEDS ORDERED: MAGNESIUM HYDROXIDE SUSP 30 ML CUP PO PRN (13:30)
[2016-09-27] MEDS ORDERED: SENNOSIDES 8.6 MG TAB PO PRN (13:30)
[2016-09-27] MEDS ORDERED: ACETAMINOPHEN 325 MG TAB PO PRN (13:30)
[2016-09-27] MEDS ORDERED: ONDANSETRON HCL 4 MG/2 ML VIAL IVP PRN (13:30)
[2016-09-27] MEDS ORDERED: BISACODYL 10 MG SUPP RECTAL PRN (13:30)
[2016-09-27] MEDS ORDERED: Vancomycin Consult Pharmacy 1 EA OTHER SCH (14:00)
--- NOTE | 2016-09-27 14:01 | RADRPT ---
EXAM DATE/TIME: 09/27/2016 13:36 [facility] COMPARISON: CT THORAX W/O CONTRAST, August 23, 2016, 10:53. CHEST SINGLE AP, September 27, 2016, 12:05. INDICATIONS : Abnormal chest xray. RADIATION DOSE: 7.82 CTDIvol (mGy) MEDICAL HISTORY : Hypertension. Diabetes. Right lung mass. SURGICAL HISTORY : Partial right lung removal. ENCOUNTER: Initial ACUITY: 3 days PAIN SCALE: 0/10 LOCATION: Right chest TECHNIQUE: Volumetric scanning of the chest was performed. Using automated exposure control and adjustment of t he mA and/or kV according to patient size, radiation dose was kept as low as reasonably achievable to obtain optimal diagnostic quality images. DICOM format image data is available electronically for r eview and comparison. FINDINGS: The patient's right upper lobe has been resected surgically since the prior examination and ther e are 3 fractures on the right side most likely from pneumonectomy. There is more pleural effusion si nce the prior examination which causes compressive collapse of parts of the remaining of the right court ng. The effusion appears loculated. Coronary artery calcifications are seen typically seen with CAD a nd need to be evaluated clinically. CONCLUSION: Very large right pleural effusion significantly increased in size since the prior examination in this patient who has undergone resection of the right upper lobe since that time. Eric Abarca MD on September 27, 2016 at 13:52 Board Certified Radiologist. This report was verified electronically.
[2016-09-27 14:03] LABS: APTT (PATIENT) 26.4 SEC (24.3-30.1); INTERNATIONAL NORMALIZED RATIO 1.1 RATIO; PROTHROMBIN TIME - PATIENT 12.5 SEC (9.8-11.6)
[2016-09-27 14:14] LABS: HEMATOCRIT 31.9 % (39.0-51.0); MEAN CELL VOLUME 94.8 FL (80.0-100.0); MEAN CORPUSCULAR HEMOGLOBIN 31.7 PG (27.0-34.0); MEAN CORPUSCULAR HGB CONC 33.4 % (32.0-36.0); PLATELET COUNT 178 TH/MM3 (150-450); RED BLOOD COUNT 3.36 MIL/MM3 (4.50-5.90); REVIEW FLAG FINAL; WHITE BLOOD COUNT 9.7 TH/MM3 (4.0-11.0)
[2016-09-27] MEDS: SODIUM CHLOR 0.9% 1000 ML INJ 1,000 ML IV SCH (16:06)
[2016-09-27] MEDS: VANCOMYCIN INJ 1,000 MG in SODIUM CHLOR 0.9% 250 ML INJ 250 ML IV SCH (16:07)
[2016-09-27 16:08] LABS: LACTIC ACID GHOST NOT REPORTABLE
[2016-09-27] MEDS ORDERED: CHLORHEXIDINE GLUCONATE 2 % 1 PACK (2 CLOTHS)(extra cloths) TOPICAL PRN (16:15)
--- NOTE | 2016-09-27 16:30 | HHI.HP ---
[facility] No Primary Care Physician Admission Diagnosis orthostatic hypotension, lactic acidosis, pneumonia, severe sepsis Diagnoses: (1) Septic shock Diagnosis: Principal (2) Lactic acidosis Diagnosis: Principal (3) Loculated pleural effusion Diagnosis: Principal (4) Orthostatic hypotension Diagnosis: Principal (5) Diabetes Diagnosis: Secondary Chief Complaint: Lightheadedness, dizziness, near syncope Travel History International Travel<30 Days: No Contact w/Intl Traveler <30 Da: No Traveled to Known Affected Are: No Sepsis Criteria SIRS Criteria (2 or more): Heart rate over 90, RR > 20 or PaCO2 < 32 Sepsis Criteria (SIRS+source): Infect source susp/known Severe Sepsis (+one): Lactate >2 Septic Shock Criteria: Lactic acid >=4 Criteria Outcome: Meets septic shock criteria History of Present Illness Written by Estevan Rouse, acting as scribe for Dr. Wilkins on 09/27/16 at 16: 30. This note was transcribed by scribe Estevan GONZALEZ. I, Dr. Марина Wilkins personally performed the history, physical exam, and medical decision making; and confirmed the accuracy of the information in the transcribed note. Authenticated by Dr. Марина Wilkins on 09/27/16 at 16:30. 56 year-old male with recent history of hospitalization because of lung mass status post thoracotomy with right upper and middle lobectomy, loculated effusion, empyema, urinary retention, new onset diabetes who presented to hospital today because of lightheadedness, dizziness, disequilibrium. Patient states that he was out at the store to go shopping and he was having difficulty with ambulation that whenever he stood up he felt as if he was drunk and had lightheadedness, dizziness and near syncope. Patient had to sit down and the symptoms went away. He indicates that [employer] liters called the police and ambulance and the patient indicates that he was subjected to sobriety testing because of his symptoms. His subsequently brought to the hospital for evaluation. Upon presentation patient had significant hypotension. Unable to perform orthostatic testing due to low blood pressure. Patient was given 1 L of IV fluids with significant improvement. Blood pressure had improved, however further workup showed multiple abnormalities to include severe lactic acidosis, complete white out of the right lung with effusion. Patient was discharged home with long-term antibiotics of Augmentin. He has had intermittent episodes of diarrhea. Patient indicates he has not had any problems with urinating this time. Patient with significant findings indicating septic shock and will be admitted to ICU for continued management. Review of Systems Constitutional: COMPLAINS OF: Dizziness Gastrointestinal: COMPLAINS OF: Diarrhea Neurologic: COMPLAINS OF: Poor Balance Except as stated in HPI: all other systems reviewed are Neg Past Family Social History Past Medical History Right lung mass Empyema Loculated effusion Diabetes Urinary retention Hypertension Hyperlipidemia Past Surgical History Right lung thoracotomy with right upper and middle lobe removal Chest tube placement Reported Medications Reported Meds & Active Scripts Active Lactinex (Lactobacillus Acidophilus) 1 Chew 1 Tab CHEW DAILY Augmentin (Amoxicillin-Clavulanate) 500-125 mg Tab 500 Mg PO Q8HR Flomax (Tamsulosin HCl) 0.4 Mg Cap 0.4 Mg PO DAILY Gnp Vitamin B-1 (Thiamine HCl) 100 Mg Tab 100 Mg PO DAILY Allergies: Coded Allergies: No Known Allergies (Unverified , 09/27/16) Family History Reviewed is significant for father with dementia, diabetes. Mother with heart disease, brother with lung cancer Social History Patient still smoking a couple cigarettes a day, prior to his recent hospitalization he was smoking 1 pack a cigarettes a day since he was 15 years old. He is no longer drinking any alcohol, denies any illicit drugs Physical Exam Vital Signs Vital Signs Date Time Temp Pulse Resp B/P Pulse Ox O2 Delivery O2 Flow Rate FiO2 09/27/16 14:30 98.6 108 21 151/91 99 09/27/16 14:18 108 16 150/93 100 Nasal Cannula 2 09/27/16 13:31 109 16 109/72 100 Nasal Cannula 2 09/27/16 12:03 Nasal Cannula 09/27/16 12:03 106 16 134/83 99 Nasal Cannula 2 09/27/16 11:45 107 16 123/79 98 Nasal Cannula 2 09/27/16 11:37 09/27/16 11:29 98.3 102 16 94/70 100 Nasal Cannula 2 09/27/16 11:29 100 Nasal Cannula 2 09/27/16 11:29 100 Nasal Cannula 2 09/27/16 11:24 105 16 75/57 105 16 78/59 Physical Exam GENERAL: Well-developed, well-nourished, in no acute distress. alert and orientated HEENT: Head is normocephalic without any lesions or masses noted. Facial features are symmetric. Eyes: Pupils equal round reactive to light. Extraocular muscles are intact. Conjunctivae were clear. Oropharyngeal: Pharynx without any erythema edema. Tongue is midline without deviation. Buccal mucosa is moist without any masses or lesions NECK: Supple without any masses. Trachea midline no deviation. No JVD, no bruits are appreciated CARDIAC: Regular rhythm, tachycardia. S1/S2 are heard. No murmurs gallops or rubs. LUNGS: Absent lung sounds over right lung field. No wheeze, rhonchi or rales. No use of accessory muscles on inspiration or expiration. ABDOMEN: Soft, nontender. Nondistended. Bowel sounds heard in all 4 quadrants. No organomegaly or masses. Negative rebound, negative guarding EXTREMITIES: No edema, pulses are equal bilaterally. No cyanosis or clubbing NEUROLOGY: Mood and affect appear appropriate. Cranial nerves II through XII grossly intact. Muscle strength 5/5 in upper and lower extremities bilaterally. Deep tendon reflexes are 2+ in upper and lower extremities bilaterally. Laboratory Laboratory Tests Test 09/27/16 09/27/16 09/27/16 09/27/16 11:20 11:30 13:00 14:05 White Blood Count 11.0 9.7 Red Blood Count 3.91 3.36 Hemoglobin 12.4 10.6 Hematocrit 37.2 31.9 Mean Corpuscular Volume 95.1 94.8 Mean Corpuscular Hemoglobin 31.8 31.7 Mean Corpuscular Hemoglobin 33.5 33.4 Concent Red Cell Distribution Width 15.4 15.0 Platelet Count 241 178 Mean Platelet Volume 8.1 8.0 Neutrophils (%) (Auto) 57.4 Lymphocytes (%) (Auto) 32.3 Monocytes (%) (Auto) 7.9 Eosinophils (%) (Auto) 1.8 Basophils (%) (Auto) 0.6 Neutrophils # (Auto) 6.3 Lymphocytes # (Auto) 3.5 Monocytes # (Auto) 0.9 Eosinophils # (Auto) 0.2 Basophils # (Auto) 0.1 CBC Comment DIFF FINAL Differential Comment Prothrombin Time 12.5 Prothromb Time International 1.1 Ratio Activated Partial 26.4 Thromboplast Time Sodium Level 137 Potassium Level 3.9 Chloride Level 103 Carbon Dioxide Level 21.6 Anion Gap 12 Blood Urea Nitrogen 11 Creatinine 1.10 Estimat Glomerular Filtration 69 Rate Random Glucose 194 Calcium Level 9.1 Magnesium Level 1.7 Total Bilirubin 0.7 Aspartate Amino Transf 22 (AST/SGOT) Alanine Aminotransferase 15 (ALT/SGPT) Alkaline Phosphatase 115 Total Creatine Kinase 16 Troponin I LESS THAN 0.02 Total Protein 9.2 Albumin 2.6 Lactic Acid Level 6.8 3.3 Urine Color YELLOW Urine Turbidity CL Urine pH 7.0 Urine Specific [place] 1.010 Urine Protein NEG Urine Glucose (UA) NEG Urine Ketones NEG Urine Occult Blood NEG Urine Nitrite NEG Urine Bilirubin NEG Urine Leukocyte Esterase NEG Urine RBC 0-3 Urine WBC 3-5 Urine Squamous Epithelial 0-5 Cells Urine Hyaline Casts 3-5 Urine White Blood Cell Casts 0-2 Microscopic Urinalysis Comment CULT NOT INDICATED Date/Time Procedure Status Source Growth 09/27/16 13:00 Legionella Antigen Received Urine Random Urine Pending 09/27/16 13:00 Streptococcus pneumoniae Antigen (M Received Urine Random Urine Pending 09/27/16 12:10 Aerobic Blood Culture Received Blood Peripheral Pending 09/27/16 12:10 Anaerobic Blood Culture Received Blood Peripheral Pending Result Diagram: 09/27/16 1405 09/27/16 1120 Imaging Last Impressions Chest X-Ray 09/27/16 0000 Signed Impressions: Service Date/Time: Tuesday, September 27, 2016 12:05 - CONCLUSION: Worsening consolidation, collapse and/or right pleural effusion with almost completely opacified right hemithorax. Eric Abarca MD Chest CT 09/27/16 0000 Signed Impressions: Service Date/Time: Tuesday, September 27, 2016 13:36 - CONCLUSION: Very large right pleural effusion significantly increased in size since the prior examination in this patient who has undergone resection of the right upper lobe since that time. Eric Abarca MD Septic Shock Reassessment Heart: Other (sinus tachycardia) Lungs: Other (absent lung sounds in the right lung chiu) Skin: Warm, Moist Peripheral Pulses: Bounding Right Radial Bounding Left Radial Capillary Refill: Brisk, <2 seconds Assessment and Plan Assessment and Plan Septic shock Patient meets criteria with tachycardia, tachypnea, presumed right empyema, significant lactic acidosis, hypotension Patient started on empirical antibiotics to include cefepime, patient was given a dose of Zithromax in the emergency department Blood cultures were ascertained Urinalysis is clear Legionella, streptococcal pneumoniae antigen are pending We'll need to acquire sample to culture of the pleural effusion Infectious disease consulted for recommendations Hypotension with orthostasis Could be secondary to severe sepsis, Continue IV fluids Obtain orthostatic vitals Right lung loculated effusion/empyema Status post recent right thoracotomy with upper and middle lobectomies Ultrasound-guided thoracentesis requested obtain cultures and testing from sample Pulmonology consulted for further recommendations Diarrhea illness in adult patient Patient risk for C. difficile infection due to continued antibiotic use Obtain C. difficile culture Diabetes Recent hemoglobin A1c 12.2 Accu-Cheks with sliding scale insulin Obtain diabetic education/dietary education History of urinary retention Continue Flomax DVT prevention Sequential compression devices Avoid chemical prophylaxis secondary to possible procedure Critical Care Time excluding procedures: 60 min Discussed Condition With patient. nurse, ER physician Dr Butt, family Physician Certification 2 Midnight Certification Type: Admission for Inpatient Services Order for Inpatient Services The services are ordered in accordance with Medicare regulations or non- Medicare payer requirements, as applicable. In the case of services not specified as inpatient-only, they are appropriately provided as inpatient services in accordance with the 2-midnight benchmark. Estimated LOS (days): 2 days is the estimated time the patient will need to remain in the hospital, assuming treatment plan goals are met and no additional complications. Post-Hospital Plan: Not yet determined Problem Qualifiers (1) Diabetes: Qualified Code: E13.8 - Other specified diabetes mellitus with complication, without long-term current use of insulin Estevan Rouse Sep 27, 2016 16:30 Марина Wilkins MD Sep 27, 2016 16:56
[2016-09-27] MEDS ORDERED: DEXTROSE 50% IN WATER 50 ML VIAL(D50) IV PRN (17:15)
[2016-09-27] MEDS ORDERED: GLUCAGON 1 MG/ML VIAL OTHER PRN (17:15)
[2016-09-27] MEDS ORDERED: MORPHINE SULFATE 4 MG/ML INJ IV PUSH PRN (18:00)
--- NOTE | 2016-09-27 18:49 | RADRPT ---
EXAM DATE/TIME: 09/27/2016 18:38 [facility] COMPARISON: CT THORAX W/O CONTRAST, September 27, 2016, 13:36. CHEST EXPIRATION ONLY, August 05, 2016, 11:47. INDICATIONS : Post thoracentesis. MEDICAL HISTORY : Hypertension. Right lung mass. SURGICAL HISTORY : Partial right lung removal. ENCOUNTER: Subsequent ACUITY: 2 days PAIN SCORE: Non-responsive. LOCATION: Bilateral chest FINDINGS: A single frontal expiratory view of the chest was performed. The lungs are symmetrically aerated and clear. No evidence of pneumothorax. Mediastinal structures are in the midline. The cardio-mediastinal contours and bronchopulmonary markings are unremarkable for an expiratory exam . Osseous structures are intact. CONCLUSION: There is no pneumothorax on the right. The left lung is clear. Remberto Coyle MD FACR on September 27, 2016 at 18:46 Board Certified Radiologist. This report was verified electronically.
--- NOTE | 2016-09-27 18:59 | RADRPT ---
EXAM DATE/TIME: 09/27/2016 17:00 [facility] COMPARISON: CHEST EXPIRATION ONLY, September 27, 2016, 18:38. INDICATIONS : Right pleural effusion. MEDICAL HISTORY : Hypercholesterolemia. Diabetes mellitus type 2. Hypertension. SURGICAL HISTORY : Right pneumonectomy. ENCOUNTER: Subsequent ACUITY: 2 days PAIN SCORE: 2/10 LOCATION: Right chest FLUID: Total volume of 2000 cc of clear, yellow fluid was removed. Fluid was sent to lab for ordered studies. TECHNIQUE: 1. Ultrasound guidance for thoracentesis. 2. Thoracentesis. The risks, benefits, and alternatives to ultrasound guided thoracentesis were explained to the patien t in lay simple terms, including the risk of bleeding and infection. Written and verbal informed con sent was obtained. Appropriate area for thoracentesis was marked under ultrasound guidance with the patient in the uprig ht position. Overlying skin was prepped and draped in the usual sterile fashion and with local anest hetic, a dermatotomy was made with an 11 blade scalpel. A 6 Prydeinig thoracentesis catheter was placed in the pleural space and fluid was removed. Catheter was then removed and a sterile dressing applie d. There were no immediate complications. The patient tolerated the procedure well and the left the ultrasound suite in stable condition. Chest radiograph is to be obtained. CONCLUSION: Uncomplicated ultrasound guided thoracentesis. Erik Currei MD on September 27, 2016 at 18:57 Board Certified Radiologist. This report was verified electronically.
[2016-09-27] MEDS: ACETAMINOPHEN/HYDROcodone 325 MG/5 MG TAB PO PRN (19:43)
[2016-09-27 19:47] LABS: C. DIFF EPI 027 PRESUMPTIVE NEGATIVE (NEGATIVE); C. DIFF TOXIN PCR NEGATIVE (NEGATIVE)
[2016-09-27 20:11] LABS: PLEURAL FLUID LYMPHS 95 %
[2016-09-27] MEDS: DOCUSATE SODIUM 50 MG/SENNA 8.6 MG TAB PO SCH (20:12)
[2016-09-27] MEDS: CEFEPIME INJ 2,000 MG in SODIUM CHLORIDE 0.9% INJ 100 ML IV SCH (20:17)
[2016-09-27] MEDS: MUPIROCIN 2% OINT 1 APPLIC/GM SYR NASAL SCH (20:18)
[2016-09-27] MEDS: SODIUM CHLORIDE 0.9% FLUSH 10 ML FLUSH IV FLUSH SCH (20:18)
[2016-09-27] MEDS: INSULIN ASPART SUPPLEMENTAL SCALE SQ SCH (20:34)
[2016-09-27] MEDS ORDERED: ACETAMINOPHEN/HYDROcodone 325 MG/5 MG TAB PO ONE (21:45)
[2016-09-28] VITALS (26 sets, daily range): BP systolic 65–145; BP diastolic 48–94; PULSE 86–100; RESP 13–39; TEMP 97.6–98.5; O2SAT 90–99
[2016-09-28] MEDS: SODIUM CHLOR 0.9% 1000 ML INJ 1,000 ML IV SCH ×3 (00:21→20:31)
[2016-09-28] MEDS: VANCOMYCIN INJ 1,000 MG in SODIUM CHLOR 0.9% 250 ML INJ 250 ML IV SCH ×2 (02:35→15:14)
[2016-09-28] MEDS: ACETAMINOPHEN/HYDROcodone 325 MG/5 MG TAB PO PRN ×5 (02:40→20:59)
[2016-09-28] MEDS: CHLORHEXIDINE GLUCONATE 2 % 1 PACK (2 CLOTHS)(taper/protocol) TOPICAL SCH (04:00)
[2016-09-28] MEDS: CEFEPIME INJ 2,000 MG in SODIUM CHLORIDE 0.9% INJ 100 ML IV SCH ×3 (04:52→20:31)
[2016-09-28 05:03] LABS: AUTOMATED NEUTROPHIL # 3.8 TH/MM3 (1.8-7.7); BASOPHIL # 0.1 TH/MM3 (0-0.2); BASOPHIL % 0.7 % (0.0-2.0); EOSINOPHIL # 0.3 TH/MM3 (0-0.4); EOSINOPHIL % 4.2 % (0.0-4.0); HEMATOCRIT 31.4 % (39.0-51.0); HEMO FLAGS DIFF FINAL; LYMPH % 35.3 % (9.0-44.0); LYMPHOCYTE # 2.6 TH/MM3 (1.0-4.8); MEAN CELL VOLUME 94.3 FL (80.0-100.0); MEAN CORPUSCULAR HEMOGLOBIN 30.8 PG (27.0-34.0); MEAN CORPUSCULAR HGB CONC 32.6 % (32.0-36.0); MONO % 7.1 % (0.0-8.0); NEUT % 52.7 % (16.0-70.0); PLATELET COUNT 172 TH/MM3 (150-450); RED BLOOD COUNT 3.33 MIL/MM3 (4.50-5.90); RED CELL DISTRIBUTION WIDTH 15.1 % (11.6-17.2); WHITE BLOOD COUNT 7.3 TH/MM3 (4.0-11.0)
--- NOTE | 2016-09-28 05:38 | MB ---
cc: MANUEL HILL MD DATE OF CONSULTATION 09/27/[address] Wilkins REASON Severe sepsis. HISTORY OF PRESENT ILLNESS This is a 56-year-old white male who was brought to the emergency department with orthostatic hypotension. The patient also developed altered mental status and near-syncope. The patient was hospitalized about a month ago for a benign tumor in the right lung and he also had lung empyema. He underwent partial right pneumonectomy. He was eventually discharged from the hospital on an oral course of Augmentin to be given for six weeks. He was discharged on August 27 with Augmentin, 30-day supply, and he was supposed to follow up with Infectious Disease outpatient. The patient developed problems with altered mental status and was wobbly on his feet and it seemed as if he drunk while he was outside. Police attended to him and reportedly gave him a sobriety test and then he was brought to the emergency department. He was noted to have low blood pressure. He was given IV fluids and his blood pressure improved. He also had a tachycardia and elevated lactic acid of 6.8. Chest x-ray was performed and it showed worsening consolidation and collapse and/or right pleural effusion with almost completely opacified right hemithorax. The patient was taken for thoracentesis and 2 liters of fluid was removed from the right lung. He is now hypotensive with a blood pressure of 73/61 and his heart rate is 118. He is awake and alert and tells me that he feels fine. He states that he was seeing spots at one point during the time when he was feeling wobbly earlier in the day. Pleural fluid culture has been sent and information is not yet available. PAST MEDICAL HISTORY 1. Diabetes mellitus. 2. Peripheral neuropathy. 3. Right lung empyema. 4. 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 5. Right upper and middle lobectomy and lymph node dissection. The lymph node was benign reactive lymph node. Pathology on the specimen showed extensive lung and pleural abscess formation and bronchiolitis. 6. Hyperlipidemia. ALLERGIES No known drug allergies. MEDICATIONS 1. Flomax. 2. Cefepime. 3. Vancomycin. 4. Morphine sulfate p.r.n. 5. Lactinex. 6. Thiamine. SOCIAL HISTORY The patient smokes a pack of cigarettes a day. He drinks alcohol in the form of beers. No illicit drugs. FAMILY HISTORY Noncontributory. REVIEW OF SYSTEMS CONSTITUTIONAL: No fever or chills. HEAD, EARS, NOSE AND THROAT: The patient is seeing spots in the vision. No diplopia. No difficulty swallowing or soreness of the throat. NECK: No neck pain or swelling. RESPIRATORY: Occasional cough with phlegm. No hemoptysis. CARDIOVASCULAR: No palpitation or chest pain. GASTROINTESTINAL: No nausea, vomiting or abdominal pain or diarrhea. GENITOURINARY: No urgency, frequency or dysuria. HEMATOPOIETIC: No easy bruising or bleeding. INTEGUMENTARY: No skin rash or itching. ENDOCRINE: No polyuria or polydipsia. NEUROLOGIC: Difficulty with coordination with weakness and wobbliness of the feet and unsteadiness on ambulation. PSYCHIATRIC: No mood changes. PHYSICAL EXAMINATION GENERAL: This is a slender male who is awake and alert and in no acute distress currently. VITAL SIGNS: Temperature of 98.1, BP 73/61, heart rate 118, respirations 20. HEENT: The head is atraumatic. Extraocular movements grossly intact, pupils reactive to light. No icterus. Oropharynx - No visible lesions, no thrush. NECK: Supple. No adenopathy. LUNGS: Clear breath sounds clear that are diminished at the right base. HEART: Regular rate and rhythm, without murmurs, rubs or gallops. ABDOMEN: Bowel sounds present. Soft. No tenderness appreciated. RECTAL: Not performed. EXTREMITIES: No clubbing or cyanosis or edema. SKIN: No rash. NEUROLOGIC: No gross focal findings. PSYCHIATRIC: The patient is calm and cooperative. LABORATORY DATA WBC 9.7, platelet count 178, hemoglobin 10.6. Creatinine 1.1, BUN 11, estimated GFR 69, sodium 137. Liver function tests normal. Pleural fluid cultures pending. IMPRESSION 1. Right-sided pleural effusion. 2. Hypotension, possible sepsis versus dehydration. 3. History of right thoracotomy and also right upper and right middle lobectomy. The patient has had no hemoptysis since discharge from the hospital, appears to have been responding well to the antibiotic treatment before this new development of pleural effusion. RECOMMENDATIONS 1. Continue cefepime. 2. Continue vancomycin. 3. Follow pleural fluid culture. 4. Follow clinical status. Thank you for this consultation. The patient will be followed by Dr. Ansari who will be assuming [facility] coverage tomorrow. Manuel Hill MD FD/VALERIE /6:58 PM /5:23 AM
--- NOTE | 2016-09-28 05:54 | MB ---
cc: MARLENE CORDOBA DATE OF CONSULTATION 09/27/2016 REQUESTING PHYSICIAN Requested by Estevan Rouse MD REASON FOR CONSULTATION Pulmonary management and pleural effusion. HISTORY OF PRESENT ILLNESS Mr. Price is a 56-year-old male with history of hypertension and diabetes mellitus. The patient was recently admitted at [facility]. He was found to have a lung density. He had a right middle lobe/lower lobectomy and was found to have inflammatory process, chronic organizing bronchitis and pneumonitis. The patient was still taking antibiotic. The patient felt that over the last day or so he was feeling very weak and dizzy. When he tries to get up, he feels that his head is spinning. He went to [employer]; when he was leaving the telephone clerk telegraph office over there felt that he was drunk and they called the weeder. The police came and checked him out and took a sobriety test and [facility] was called. The patient was asked to come to the hospital because his blood pressure was running low. The patient did not want to come via [facility] so he asked his cousin to bring him to the hospital. When the patient arrived in the hospital he was found to have a large pleural effusion. He had a thoracentesis done and 2 liters of fluid was removed. The patient was mildly hypertensive. He was given 2 liters of fluid. He feels better. Blood pressure is better controlled, not requiring any pressors. PAST MEDICAL HISTORY Significant for - 1. Hypertension. 2. Diabetes mellitus. 3. Recent thoracotomy with right upper and middle lobectomy done. MEDICATIONS He is currently taking - 1. Thiamine 100 mg a day. 2. Flomax 0.4 mg a day. 3. Lactinex 1 tablet daily. 4. Cefepime 2 grams q. 8 hours. 5. Vancomycin IV. 6. Taylor for pain. 7. Morphine for pain. ALLERGIES No known drug allergies. SOCIAL HISTORY He is , lives with his girlfriend and his mother. He has history of 40 pack-year smoking, one pack a day; he recently quit. He used to drink heavily but cut down now. 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 FAMILY HISTORY He has two daughters who are healthy. REVIEW OF SYSTEMS Denies any weight loss. Feels weak and dizzy. No fever or chills. PHYSICAL EXAMINATION GENERAL: A well-built, well-nourished male, not in any acute distress. VITAL SIGNS: Blood pressure 144/78, heart rate 105, respirations 20, temperature 98.1, saturation 98% on room air. HEENT: Examination unremarkable. NECK: Supple. JVP not raised. CHEST: Equal bilaterally. No rhonchi. CV: S1 and S2 normal. ABDOMEN: Benign. EXTREMITIES: No edema. LABORATORY EVALUATION WBC count 9.7, hemoglobin 10.6, hematocrit 31.8, MCV 94, platelet count 178. Sodium 137, potassium 3.9, chloride 103, pCO2 21, BUN 11, creatinine 1.1. Lactic acid 6.8, repeat 3.3 and the last one was 1.8. IMPRESSION 1. Large pleural effusion status post thoracentesis. 2. Need to rule out sepsis. 3. History of a recent right thoracotomy, right middle and lower lobectomy. 4. Diabetes mellitus. 5. Hypertension. PLAN 1. The patient is hemodynamically stable now. 2. Continue IV fluid. 3. Antibiotics - cefepime and vancomycin. 4. Check pleural fluid studies. He is stable on room air. 5. Further treatment will depend on his course in the hospital. Thank you Dr. Estevan Rouse for this consultation. MD DEISY Puri/VALERIE /7:55 PM /5:44 AM
[2016-09-28 06:12] LABS: ALKALINE PHOSPHATASE 81 U/L (45-117); ALT (GPT) 11 U/L (12-78); ANION GAP 7 MEQ/L (5-15); AST (GOT) 18 U/L (15-37); BICARBONATE 23.2 MEQ/L (21.0-32.0); BLOOD UREA NITROGEN 12 MG/DL (7-18); CHLORIDE 113 MEQ/L (98-107); GLOMERULAR FILTRATION RATE 134 ML/MIN (>89); POTASSIUM 3.9 MEQ/L (3.5-5.1); SODIUM (NA) 143 MEQ/L (136-145); TOTAL BILIRUBIN ADULT 0.8 MG/DL (0.2-1.0)
[2016-09-28] MEDS: INSULIN ASPART SUPPLEMENTAL SCALE SQ SCH ×4 (06:56→20:33)
[2016-09-28] MEDS: MUPIROCIN 2% OINT 1 APPLIC/GM SYR NASAL SCH ×2 (09:00→20:32)
[2016-09-28] MEDS: DOCUSATE SODIUM 50 MG/SENNA 8.6 MG TAB PO SCH ×2 (09:00→20:32)
[2016-09-28] MEDS: SODIUM CHLORIDE 0.9% FLUSH 10 ML FLUSH IV FLUSH SCH ×2 (09:00→20:32)
[2016-09-28] MEDS: LACTOBACILLUS ACIDOPHILUS TAB PO SCH (09:57)
[2016-09-28] MEDS: TAMSULOSIN HCL 0.4 MG CAP PO SCH (09:57)
[2016-09-28] MEDS: THIAMINE HCL 100 MG TAB PO SCH (09:57)
--- NOTE | 2016-09-28 10:15 | HHI.PR ---
Subjective Remarks In bed. Says he feels improved today. No lightheadedness. No n/v/d/c. Patient without fevers, he complaints of chills. Says he did not get out of bed yet. Satting well on room air at this time. Did not have a BM yet. Had thoracentesis fluid nonbloody Objective Vitals Vital Signs Date Time Temp Pulse Resp B/P Pulse Ox O2 Delivery O2 Flow Rate FiO2 09/28/16 07:56 14 09/28/16 07:00 90 09/28/16 06:00 90 09/28/16 04:00 88 09/28/16 04:00 98.2 94 18 120/86 98 09/28/16 03:00 90 23 140/93 97 09/28/16 02:39 95 09/28/16 02:01 90 15 144/90 98 09/28/16 02:00 92 09/28/16 00:00 98.4 90 15 106/81 98 09/28/16 00:00 90 09/27/16 23:00 96 18 100/75 96 09/27/16 22:00 100 13 118/85 98 09/27/16 21:00 104 15 109/73 98 09/27/16 20:00 109 09/27/16 20:00 98.2 106 18 129/87 99 09/27/16 19:28 108 25 108/83 100 09/27/16 19:01 110 28 97/74 100 09/27/16 18:00 98.1 105 20 144/78 99 09/27/16 17:15 97 21 09/27/16 14:30 98.6 108 21 151/91 99 09/27/16 14:18 108 16 150/93 100 Nasal Cannula 2 09/27/16 13:31 109 16 109/72 100 Nasal Cannula 2 09/27/16 12:03 Nasal Cannula 09/27/16 12:03 106 16 134/83 99 Nasal Cannula 2 09/27/16 11:45 107 16 123/79 98 Nasal Cannula 2 09/27/16 11:37 09/27/16 11:29 98.3 102 16 94/70 100 Nasal Cannula 2 09/27/16 11:29 100 Nasal Cannula 2 09/27/16 11:29 100 Nasal Cannula 2 09/27/16 11:24 105 16 75/57 105 16 78/59 I/O 09/27/16 09/27/16 09/27/16 09/28/16 09/28/16 09/28/16 07:00 15:00 23:00 07:00 15:00 23:00 Intake Total 2000 ml 1020 ml 1270 ml Output Total 526 ml 2000 ml 1000 ml Balance 1474 ml -980 ml 270 ml Intake Oral 240 ml 60 ml IV Total 2000 ml 780 ml 1210 ml Output Urine Total 525 ml 1000 ml Stool Total 1 ml Drainage Total 2000 ml # Voids 0 2 # Bowel Movements 0 0 Result Diagram: 09/28/16 0425 09/28/16 0425 Imaging Last Impressions Thoracentesis Ultrasound 09/27/16 0000 Signed Impressions: Service Date/Time: Tuesday, September 27, 2016 17:00 - CONCLUSION: Uncomplicated ultrasound guided thoracentesis. Erik Currie MD Chest X-Ray 09/27/16 0000 Signed Impressions: Service Date/Time: Tuesday, September 27, 2016 18:38 - CONCLUSION: There is no pneumothorax on the right. The left lung is clear. Remberto Coyle MD FACR Chest CT 09/27/16 0000 Signed Impressions: Service Date/Time: Tuesday, September 27, 2016 13:36 - CONCLUSION: Very large right pleural effusion significantly increased in size since the prior examination in this patient who has undergone resection of the right upper lobe since that time. Eric Abarca MD Objective Remarks GENERAL: Well-developed, well-nourished, in no acute distress. alert and orientated CARDIAC: Regular rhythm, tachycardia. S1/S2 are heard. No murmurs gallops or rubs. LUNGS: Absent lung sounds over right lung field. No wheeze, rhonchi or rales. No use of accessory muscles on inspiration or expiration. Postsurgical scars healing well. ABDOMEN: Soft, nontender. Nondistended. Bowel sounds heard in all 4 quadrants. No organomegaly or masses. Negative rebound, negative guarding EXTREMITIES: No edema, pulses are equal bilaterally. No cyanosis or clubbing NEUROLOGY: Mood and affect appear appropriate. Cranial nerves II through XII grossly intact. Muscle strength 5/5 in upper and lower extremities bilaterally. Deep tendon reflexes are 2+ in upper and lower extremities bilaterally. A/P Problem List: (1) Septic shock ICD Code: A41.9 Status: Acute (2) Lactic acidosis ICD Code: E87.2 Status: Acute (3) Loculated pleural effusion ICD Code: J90 Status: Acute (4) Orthostatic hypotension ICD Code: I95.1 Status: Acute (5) Diabetes ICD Code: E11.9 Status: Acute Assessment and Plan Septic shock. Resolving Patient meets criteria on admission with tachycardia, tachypnea, presumed right empyema, significant lactic acidosis, hypotension BP better controlled continue IVF Lactic acid 6.8 on admission , trending down and now back to normal Patient started on empirical antibiotics to include cefepime, patient was given a dose of Zithromax in the emergency department Continue cefepime and vancomycin IV, pharmacy consult for vanco levels. Infectious disease consulted for recommendations Blood cultures pending Urinalysis is clear Legionella, streptococcal pneumoniae antigen are pending Culture of the pleural effusion pending Hypotension with orthostasis. Resolving Could be secondary to severe sepsis Continue IV fluids Obtain orthostatic vitals PT eval Right lung loculated effusion/empyema Status post recent right thoracotomy with upper and middle lobectomies S/P Ultrasound-guided thoracentesis Fluid cultures and testing from sample Pulmonology consulted for further recommendations, Dr Mejía ff Diarrhea illness in adult patient Patient risk for C. difficile infection due to continued antibiotic use C. difficile is negative. Continue probiotic Diabetes mellitus 2 , uncontrolled A1c 12.2 Recent hemoglobin A1c 12.2 Accu-Cheks with sliding scale insulin. Start detemir at night Diabetic education/dietary education History of urinary retention Continue Flomax Moderated protein calorie malnutrition: Albumin is 1.8, muscle waisting. prealbumin pending. Add ensure to diet. Consult machinery cleaner. DVT prevention Sequential compression devices Avoid chemical prophylaxis secondary to possible procedure Discussed Condition With patient, nurse Problem Qualifiers (1) Diabetes: Qualified Code: E13.8 - Other specified diabetes mellitus with complication, without long-term current use of insulin Марина Wilkins MD Sep 28, 2016 10:15
--- NOTE | 2016-09-28 19:55 | HHI.PR ---
Subjective Remarks 56 YOWM with recent thoracotomy, with SOB Had right TC, 2 L fluid removed Feels much better No Fever No CP Objective Vital Signs Vital Signs Date Time Temp Pulse Resp B/P Pulse Ox O2 Delivery O2 Flow Rate FiO2 09/28/16 18:05 18 09/28/16 16:00 97.8 86 22 145/83 99 09/28/16 13:00 97.6 100 22 119/91 90 09/28/16 13:00 100 09/28/16 12:45 92 15 145/91 97 09/28/16 12:45 92 09/28/16 12:35 96 09/28/16 12:35 96 23 126/85 99 09/28/16 12:25 86 16 123/78 99 09/28/16 12:25 86 09/28/16 12:11 88 09/28/16 12:11 88 19 112/77 99 09/28/16 12:06 98 09/28/16 12:06 98 39 82/48 98 09/28/16 12:04 100 31 67/49 94 09/28/16 12:04 100 09/28/16 12:02 98 24 65/48 98 09/28/16 12:02 98 09/28/16 12:00 100 31 86/67 99 09/28/16 12:00 100 09/28/16 10:00 96 09/28/16 10:00 96 25 119/84 99 09/28/16 09:00 98 26 140/94 99 09/28/16 09:00 98 09/28/16 08:00 86 09/28/16 08:00 98.5 86 13 119/81 97 09/28/16 07:00 90 09/28/16 06:00 90 09/28/16 04:00 88 09/28/16 04:00 98.2 94 18 120/86 98 09/28/16 03:00 90 23 140/93 97 09/28/16 02:39 95 09/28/16 02:01 90 15 144/90 98 09/28/16 02:00 92 09/28/16 00:00 98.4 90 15 106/81 98 09/28/16 00:00 90 09/27/16 23:00 96 18 100/75 96 09/27/16 22:00 100 13 118/85 98 09/27/16 21:00 104 15 109/73 98 09/27/16 20:00 109 09/27/16 20:00 98.2 106 18 129/87 99 I/O 09/27/16 09/27/16 09/27/16 09/28/16 09/28/16 09/28/16 07:00 15:00 23:00 07:00 15:00 23:00 Intake Total 2000 ml 1020 ml 1270 ml 1450 ml Output Total 526 ml 2000 ml 1000 ml 500 ml Balance 1474 ml -980 ml 270 ml 950 ml Intake Oral 240 ml 60 ml 520 ml IV Total 2000 ml 780 ml 1210 ml 930 ml Output Urine Total 525 ml 1000 ml 500 ml Stool Total 1 ml Drainage Total 2000 ml # Voids 0 2 # Bowel Movements 0 0 Result Diagram: 09/28/1642409/28/16424 Objective Remarks GENERAL: MBMN WM, NAD SKIN: Warm and dry. HEAD: Normocephalic. EYES: No scleral icterus. No injection or drainage. NECK: Supple, trachea midline. No JVD or lymphadenopathy. CARDIOVASCULAR: Regular rate and rhythm without murmurs, gallops, or rubs. RESPIRATORY: Breath sounds equal bilaterally. No accessory muscle use. GASTROINTESTINAL: Abdomen soft, non-tender, nondistended. MUSCULOSKELETAL: No cyanosis, or edema. BACK: Nontender without obvious deformity. No CVA tenderness. A/P Assessment and Plan Right Pl eff, s/p TC Recent Right middle and lower lobectomy Dysnoea improved PLAN: Cont Abx IVF Check cultures Stable on RA Cy Mejía MD Sep 28, 2016 19:55
[2016-09-28] MEDS: INSULIN DETEMIR 100 UNITS/ML VIAL SQ SCH (20:57)
--- NOTE | 2016-09-28 22:51 | HHI.IDPN ---
Subjective Subjective Remarks chart was reviewed 56 yo male sp RML/RUL resection admitted with R pleural effusion sp thoracenthesis- clx neg at 24 hrs admitted with lactic acidosis (6.8) no fever, no leukocytosis He is doing fine except noted to be orthostatic no co severe diarrhea (having it since d/c), but non today Antibiotics cefepime vanco lactobac Allergies: Coded Allergies: No Known Allergies (Unverified , 09/27/16) Objective . Vital Signs Date Time Temp Pulse Resp B/P Pulse Ox O2 Delivery O2 Flow Rate FiO2 09/28/16 20:06 91 09/28/16 20:00 98.4 88 15 141/88 96 09/28/16 19:00 88 16 135/90 98 09/28/16 18:05 18 09/28/16 16:00 97.8 86 22 145/83 99 09/28/16 13:00 97.6 100 22 119/91 90 09/28/16 13:00 100 09/28/16 12:45 92 15 145/91 97 09/28/16 12:45 92 09/28/16 12:35 96 09/28/16 12:35 96 23 126/85 99 09/28/16 12:25 86 16 123/78 99 09/28/16 12:25 86 09/28/16 12:11 88 09/28/16 12:11 88 19 112/77 99 09/28/16 12:06 98 09/28/16 12:06 98 39 82/48 98 09/28/16 12:04 100 31 67/49 94 09/28/16 12:04 100 09/28/16 12:02 98 24 65/48 98 09/28/16 12:02 98 09/28/16 12:00 100 31 86/67 99 09/28/16 12:00 100 09/28/16 10:00 96 09/28/16 10:00 96 25 119/84 99 09/28/16 09:00 98 26 140/94 99 09/28/16 09:00 98 09/28/16 08:00 86 09/28/16 08:00 98.5 86 13 119/81 97 09/28/16 07:00 90 09/28/16 06:00 90 09/28/16 04:00 88 09/28/16 04:00 98.2 94 18 120/86 98 09/28/16 03:00 90 23 140/93 97 09/28/16 02:39 95 09/28/16 02:01 90 15 144/90 98 09/28/16 02:00 92 09/28/16 00:00 98.4 90 15 106/81 98 09/28/16 00:00 90 09/27/16 23:00 96 18 100/75 96 09/27/16 09/27/16 09/28/16 15:00 23:00 07:00 Intake Total 2000 ml 1020 ml 1270 ml Output Total 526 ml 2000 ml 1000 ml Balance 1474 ml -980 ml 270 ml Intake Oral 240 ml 60 ml IV Total 2000 ml 780 ml 1210 ml Output Urine Total 525 ml 1000 ml Stool Total 1 ml Drainage Total 2000 ml # Voids 0 2 # Bowel Movements 0 0 . Laboratory Tests Test 09/27/16 09/27/16 09/28/16 11:20 14:05 04:25 White Blood Count 11.0 TH/MM3 9.7 TH/MM3 7.3 TH/MM3 Red Blood Count 3.91 MIL/MM3 3.36 MIL/MM3 3.33 MIL/MM3 Hemoglobin 12.4 GM/DL 10.6 GM/DL 10.2 GM/DL Hematocrit 37.2 % 31.9 % 31.4 % Mean Corpuscular Volume 95.1 FL 94.8 FL 94.3 FL Mean Corpuscular Hemoglobin 31.8 PG 31.7 PG 30.8 PG Mean Corpuscular Hemoglobin 33.5 % 33.4 % 32.6 % Concent Red Cell Distribution Width 15.4 % 15.0 % 15.1 % Platelet Count 241 TH/MM3 178 TH/MM3 172 TH/MM3 Mean Platelet Volume 8.1 FL 8.0 FL 7.9 FL Neutrophils (%) (Auto) 57.4 % 52.7 % Lymphocytes (%) (Auto) 32.3 % 35.3 % Monocytes (%) (Auto) 7.9 % 7.1 % Eosinophils (%) (Auto) 1.8 % 4.2 % Basophils (%) (Auto) 0.6 % 0.7 % Neutrophils # (Auto) 6.3 TH/MM3 3.8 TH/MM3 Lymphocytes # (Auto) 3.5 TH/MM3 2.6 TH/MM3 Monocytes # (Auto) 0.9 TH/MM3 0.5 TH/MM3 Eosinophils # (Auto) 0.2 TH/MM3 0.3 TH/MM3 Basophils # (Auto) 0.1 TH/MM3 0.1 TH/MM3 CBC Comment DIFF FINAL DIFF FINAL Differential Comment Laboratory Tests Test 09/27/16 09/27/16 09/27/16 09/27/16 11:20 11:30 14:05 19:02 Sodium Level 137 MEQ/L Potassium Level 3.9 MEQ/L Chloride Level 103 MEQ/L Carbon Dioxide Level 21.6 MEQ/L Anion Gap 12 MEQ/L Blood Urea Nitrogen 11 MG/DL Creatinine 1.10 MG/DL Estimat Glomerular Filtration 69 ML/MIN Rate Random Glucose 194 MG/DL Calcium Level 9.1 MG/DL Magnesium Level 1.7 MG/DL Total Bilirubin 0.7 MG/DL Aspartate Amino Transf 22 U/L (AST/SGOT) Alanine Aminotransferase 15 U/L (ALT/SGPT) Alkaline Phosphatase 115 U/L Total Creatine Kinase 16 U/L Troponin I LESS THAN 0.02 NG/ML Total Protein 9.2 GM/DL Albumin 2.6 GM/DL Lactic Acid Level 6.8 mmol/L 3.3 mmol/L 1.8 mmol/L Test 09/28/16 04:25 Sodium Level 143 MEQ/L Potassium Level 3.9 MEQ/L Chloride Level 113 MEQ/L Carbon Dioxide Level 23.2 MEQ/L Anion Gap 7 MEQ/L Blood Urea Nitrogen 12 MG/DL Creatinine 0.62 MG/DL Estimat Glomerular Filtration 134 ML/MIN Rate Random Glucose 82 MG/DL Calcium Level 8.3 MG/DL Total Bilirubin 0.8 MG/DL Aspartate Amino Transf 18 U/L (AST/SGOT) Alanine Aminotransferase 11 U/L (ALT/SGPT) Alkaline Phosphatase 81 U/L Total Protein 6.7 GM/DL Albumin 1.8 GM/DL Prealbumin 7 MG/DL Microbiology Date/Time Procedure Status Source Growth 09/27/16 11:20 Aerobic Blood Culture - Preliminary Resulted Blood Peripheral NO GROWTH IN 1 DAY 09/27/16 11:20 Anaerobic Blood Culture - Preliminary Resulted Blood Peripheral NO GROWTH IN 1 DAY 09/27/16 12:10 Aerobic Blood Culture - Preliminary Resulted Blood Peripheral NO GROWTH IN 1 DAY 09/27/16 12:10 Anaerobic Blood Culture - Preliminary Resulted Blood Peripheral NO GROWTH IN 1 DAY 09/27/16 13:00 Legionella Antigen - Final Complete Urine Random Urine PRESUMPTIVE NEGATIVE FOR LEGIONELLA P... 09/27/16 13:00 Streptococcus pneumoniae Antigen (M - Final Complete Urine Random Urine PRESUMPTIVE NEGATIVE FOR STREPTOCOCCU... 09/27/16 18:23 Gram Stain - Final Resulted Fluid Pleural Fluid 09/27/16 18:23 Body Fluid Culture - Preliminary Resulted Fluid Pleural Fluid NO GROWTH IN 24 HOURS. 09/27/16 18:23 Acid Fast Stain Received Fluid Pleural Fluid Pending 09/27/16 18:23 Mycobacterial Culture Received Fluid Pleural Fluid Pending 09/27/16 18:23 Fungal Smear - Final Resulted Fluid Pleural Fluid NO FUNGAL ELEMENTS SEEN. 09/27/16 18:23 Fungal Culture Resulted Fluid Pleural Fluid Pending 09/28/16 20:55 Gram Stain Received Sputum Expectorated Sputum Pending 09/28/16 20:55 Sputum Culture Received Sputum Expectorated Sputum Pending Imaging Last Impressions Thoracentesis Ultrasound 09/27/16 0000 Signed Impressions: Service Date/Time: Tuesday, September 27, 2016 17:00 - CONCLUSION: Uncomplicated ultrasound guided thoracentesis. Erik Currie MD Chest X-Ray 09/27/16 0000 Signed Impressions: Service Date/Time: Tuesday, September 27, 2016 18:38 - CONCLUSION: There is no pneumothorax on the right. The left lung is clear. Remberto Coyle MD FACR Chest CT 09/27/16 0000 Signed Impressions: Service Date/Time: Tuesday, September 27, 2016 13:36 - CONCLUSION: Very large right pleural effusion significantly increased in size since the prior examination in this patient who has undergone resection of the right upper lobe since that time. Eric Abarca MD Physical Exam CONSTITUTIONAL/GENERAL: This is an adequately nourished patient, in no apparent distress. TUBES/LINES/DRAINS: SKIN: No jaundice, rashes, or lesions. Skin temperature appropriate. Not diaphoretic. EYES: No scleral icterus. No injection or drainage. Fundi not examined. ENT: Hearing grossly normal. Nose without bleeding or purulent drainage. Oral mucosae without visible erythema, exudates, masses, or lesions. NECK: Trachea midline. Supple, nontender. CARDIOVASCULAR: Regular rate and rhythm without murmurs, gallops, or rubs. No JVD. RESPIRATORY/CHEST: Symmetric, unlabored respirations. Clear to auscultation. Breath sounds equal bilaterally. No wheezes, rales, or rhonchi. GASTROINTESTINAL: Abdomen soft, non-tender, nondistended. No hepato-splenomegaly , or palpable masses. No guarding. Bowel sounds present. GENITOURINARY: Without palpable bladder distension. MUSCULOSKELETAL: Extremities without clubbing, cyanosis, or edema. . No mottling or clubbing. LYMPHATICS: No palpable cervical axaillae or supraclavicular adenopathy. NEUROLOGICAL: Awake and alert. Motor and sensory grossly within normal limits. Follows commands. Clear speech. Moves all extremities. PSYCHIATRIC: No obvious anxiety/depression. no apparent hallucinations or other psychotic thought process. Assessment & Plan Remarks sp RUL/RML lobectomy Pleural effusion, clx negtive - lactic acidosis resolved, lymphacyte predominant effusion Lactic acidosis suspected sepsis on presentation blood clx negatgive Diarrhea, c.diff negative rec's: Cont current abx (vanco, cefepime)m for now monitor clx Nel Ansari MD Sep 28, 2016 22:51
[2016-09-29] VITALS (9 sets, daily range): BP systolic 80–154; BP diastolic 46–102; PULSE 84–96; RESP 14–25; TEMP 98.1–98.6; O2SAT 95–99
[2016-09-29] MEDS: ACETAMINOPHEN/HYDROcodone 325 MG/5 MG TAB PO PRN ×5 (00:34→21:28)
[2016-09-29] MEDS ORDERED: VANCOMYCIN TROUGH ONE (01:45)
[2016-09-29] MEDS: VANCOMYCIN INJ 1,000 MG in SODIUM CHLOR 0.9% 250 ML INJ 250 ML IV SCH ×2 (01:48→14:00)
[2016-09-29] MEDS: CHLORHEXIDINE GLUCONATE 2 % 1 PACK (2 CLOTHS)(taper/protocol) TOPICAL SCH (01:48)
[2016-09-29] MEDS: CEFEPIME INJ 2,000 MG in SODIUM CHLORIDE 0.9% INJ 100 ML IV SCH ×3 (04:28→21:34)
[2016-09-29 04:39] LABS: AUTOMATED NEUTROPHIL # 3.3 TH/MM3 (1.8-7.7); BASOPHIL % 0.4 % (0.0-2.0); EOSINOPHIL # 0.3 TH/MM3 (0-0.4); EOSINOPHIL % 5.6 % (0.0-4.0); HEMATOCRIT 31.3 % (39.0-51.0); HEMO FLAGS DIFF FINAL; LYMPH % 31.3 % (9.0-44.0); LYMPHOCYTE # 1.8 TH/MM3 (1.0-4.8); MEAN CELL VOLUME 95.6 FL (80.0-100.0); MEAN CORPUSCULAR HEMOGLOBIN 31.3 PG (27.0-34.0); MEAN CORPUSCULAR HGB CONC 32.8 % (32.0-36.0); MONO % 7.8 % (0.0-8.0); NEUT % 54.9 % (16.0-70.0); PLATELET COUNT 153 TH/MM3 (150-450); RED BLOOD COUNT 3.27 MIL/MM3 (4.50-5.90); RED CELL DISTRIBUTION WIDTH 14.4 % (11.6-17.2); WHITE BLOOD COUNT 5.9 TH/MM3 (4.0-11.0)
[2016-09-29 05:00] LABS: POTASSIUM 3.8 MEQ/L (3.5-5.1)
[2016-09-29 05:03] LABS: BICARBONATE 24.7 MEQ/L (21.0-32.0); MAGNESIUM 1.5 MG/DL (1.5-2.5)
[2016-09-29] MEDS: INSULIN ASPART SUPPLEMENTAL SCALE SQ SCH ×4 (06:07→21:00)
[2016-09-29] MEDS ORDERED: MAGNESIUM SULFATE 1 GM PREMIX 100 ML IV ONE (06:15)
[2016-09-29] MEDS: SODIUM CHLOR 0.9% 1000 ML INJ 1,000 ML IV SCH ×3 (06:25→21:35)
--- NOTE | 2016-09-29 08:21 | HHI.PR ---
Subjective Remarks In bed, says she feels somehow better. he is still dizzy. Hid BP dropped with standing. Associated lightheadedness. No fever or chills.No n/v/d/c. Objective Vitals Vital Signs Date Time Temp Pulse Resp B/P Pulse Ox O2 Delivery O2 Flow Rate FiO2 09/29/16 06:30 90 16 133/91 95 09/29/16 04:19 98.3 86 16 137/90 09/29/16 00:22 98.3 96 25 133/89 96 09/29/16 00:00 84 14 09/28/16 20:37 86 16 108/81 98 09/28/16 20:36 86 16 144/88 98 09/28/16 20:06 91 09/28/16 20:00 98.4 88 15 141/88 96 09/28/16 19:00 88 16 135/90 98 09/28/16 18:05 18 09/28/16 16:00 97.8 86 22 145/83 99 09/28/16 13:00 97.6 100 22 119/91 90 09/28/16 13:00 100 09/28/16 12:45 92 15 145/91 97 09/28/16 12:45 92 09/28/16 12:35 96 09/28/16 12:35 96 23 126/85 99 09/28/16 12:25 86 16 123/78 99 09/28/16 12:25 86 09/28/16 12:11 88 09/28/16 12:11 88 19 112/77 99 09/28/16 12:06 98 09/28/16 12:06 98 39 82/48 98 09/28/16 12:04 100 31 67/49 94 09/28/16 12:04 100 09/28/16 12:02 98 24 65/48 98 09/28/16 12:02 98 09/28/16 12:00 100 31 86/67 99 09/28/16 12:00 100 09/28/16 10:00 96 09/28/16 10:00 96 25 119/84 99 09/28/16 09:00 98 26 140/94 99 09/28/16 09:00 98 I/O 09/28/16 09/28/16 09/28/16 09/29/16 09/29/16 09/29/16 07:00 15:00 23:00 07:00 15:00 23:00 Intake Total 1270 ml 1450 ml 1760 ml 1255 ml Output Total 1000 ml 500 ml 650 ml 1950 ml Balance 270 ml 950 ml 1110 ml -695 ml Intake Oral 60 ml 520 ml 860 ml 220 ml IV Total 1210 ml 930 ml 900 ml 1035 ml Output Urine Total 1000 ml 500 ml 650 ml 1950 ml # Voids 2 2 4 # Bowel Movements 0 0 0 Result Diagram: 09/29/160 09/29/16 0430 Imaging Last Impressions Thoracentesis Ultrasound 09/27/16 0000 Signed Impressions: Service Date/Time: Tuesday, September 27, 2016 17:00 - CONCLUSION: Uncomplicated ultrasound guided thoracentesis. Erik Currie MD Chest X-Ray 09/27/16 0000 Signed Impressions: Service Date/Time: Tuesday, September 27, 2016 18:38 - CONCLUSION: There is no pneumothorax on the right. The left lung is clear. Remberto Coyle MD FACR Chest CT 09/27/16 0000 Signed Impressions: Service Date/Time: Tuesday, September 27, 2016 13:36 - CONCLUSION: Very large right pleural effusion significantly increased in size since the prior examination in this patient who has undergone resection of the right upper lobe since that time. Eric Abarca MD Objective Remarks GENERAL: Well-developed, well-nourished, in no acute distress. alert and orientated CARDIAC: Regular rhythm, tachycardia. S1/S2 are heard. No murmurs gallops or rubs. LUNGS: Absent lung sounds over right lung field. No wheeze, rhonchi or rales. No use of accessory muscles on inspiration or expiration. Postsurgical scars healing well. ABDOMEN: Soft, nontender. Nondistended. Bowel sounds heard in all 4 quadrants. No organomegaly or masses. Negative rebound, negative guarding EXTREMITIES: No edema, pulses are equal bilaterally. No cyanosis or clubbing NEUROLOGY: Mood and affect appear appropriate. Cranial nerves II through XII grossly intact. Muscle strength 5/5 in upper and lower extremities bilaterally. Deep tendon reflexes are 2+ in upper and lower extremities bilaterally. A/P Problem List: (1) Septic shock ICD Code: A41.9 Status: Acute (2) Lactic acidosis ICD Code: E87.2 Status: Acute (3) Loculated pleural effusion ICD Code: J90 Status: Acute (4) Orthostatic hypotension ICD Code: I95.1 Status: Acute (5) Diabetes ICD Code: E11.9 Status: Acute Assessment and Plan Septic shock. Resolving Patient meets criteria on admission with tachycardia, tachypnea, presumed right empyema, significant lactic acidosis, hypotension BP better controlled continue IVF Lactic acid 6.8 on admission , trending down and now back to normal Patient started on empirical antibiotics to include cefepime, patient was given a dose of Zithromax in the emergency department Continue cefepime and vancomycin IV, pharmacy consult for vanco levels. Infectious disease consulted for recommendations Blood cultures NTD Urinalysis is clear Legionella, streptococcal pneumoniae antigen are negative Culture of the pleural effusion pending Hypotension with orthostasis. Could be secondary to severe sepsis Continue IV fluids Obtain orthostatic vitals. Start Flor[facility] PT eval Right lung loculated effusion/empyema Status post recent right thoracotomy with upper and middle lobectomies S/P Ultrasound-guided thoracentesis Fluid cultures and testing from sample Pulmonology consulted for further recommendations, Dr Mejía ff Diarrhea illness in adult patient Patient risk for C. difficile infection due to continued antibiotic use C. difficile is negative. Continue probiotic Diabetes mellitus 2 , uncontrolled A1c 12.2 Recent hemoglobin A1c 12.2 Accu-Cheks with sliding scale insulin. Start detemir at night Diabetic education/dietary education History of urinary retention Continue Flomax Moderated protein calorie malnutrition: Albumin is 1.8, muscle waisting. prealbumin pending. Add ensure to diet. Consult picker box operator. DVT prevention Sequential compression devices Avoid chemical prophylaxis secondary to possible procedure Discussed Condition With patient, nurse Problem Qualifiers (1) Diabetes: Qualified Code: E13.8 - Other specified diabetes mellitus with complication, without long-term current use of insulin Марина Wilkins MD Sep 29, 2016 08:21
[2016-09-29] MEDS: SODIUM CHLORIDE 0.9% FLUSH 10 ML FLUSH IV FLUSH SCH ×2 (09:00→21:00)
[2016-09-29] MEDS: DOCUSATE SODIUM 50 MG/SENNA 8.6 MG TAB PO SCH ×2 (09:00→21:00)
[2016-09-29] MEDS: MUPIROCIN 2% OINT 1 APPLIC/GM SYR NASAL SCH ×2 (09:14→21:33)
[2016-09-29] MEDS: LACTOBACILLUS ACIDOPHILUS TAB PO SCH (09:15)
[2016-09-29] MEDS: TAMSULOSIN HCL 0.4 MG CAP PO SCH (09:16)
[2016-09-29] MEDS: THIAMINE HCL 100 MG TAB PO SCH (09:16)
[2016-09-29] MEDS: INSULIN DETEMIR 100 UNITS/ML VIAL SQ SCH ×2 (09:23→21:43)
[2016-09-29 15:37] LABS: BODY FLUID LDH 101 U/L (()); BODY FLUID LDH SOURCE PLEURAL (())
[2016-09-29] MEDS ORDERED: FLUDROCORTISONE ACETATE 0.1 MG TAB PO ONE (17:30)
--- NOTE | 2016-09-29 17:55 | HHI.PR ---
Subjective Remarks 56 YOWM with recent thoracotomy, with SOB Had right TC, 2 L fluid removed Feels much better No Fever No CP Pl fluid cultures negative Feels dizzy on getting up Objective Vital Signs Vital Signs Date Time Temp Pulse Resp B/P Pulse Ox O2 Delivery O2 Flow Rate FiO2 09/29/16 16:00 111/80 09/29/16 16:00 98.6 88 19 137/95 96 09/29/16 14:59 20 09/29/16 12:00 98.1 85 17 112/77 99 95/62 09/29/16 08:00 89 09/29/16 08:00 98.4 87 17 110/81 99 80/46 09/29/16 06:30 90 16 133/91 95 09/29/16 04:19 98.3 86 16 137/90 09/29/16 00:22 98.3 96 25 133/89 96 09/29/16 00:00 84 14 09/28/16 20:37 86 16 108/81 98 09/28/16 20:36 86 16 144/88 98 09/28/16 20:06 91 09/28/16 20:00 98.4 88 15 141/88 96 09/28/16 19:00 88 16 135/90 98 I/O 09/28/16 09/28/16 09/28/16 09/29/16 09/29/16 09/29/16 07:00 15:00 23:00 07:00 15:00 23:00 Intake Total 1270 ml 1450 ml 1760 ml 1255 ml Output Total 1000 ml 500 ml 650 ml 1950 ml Balance 270 ml 950 ml 1110 ml -695 ml Intake Oral 60 ml 520 ml 860 ml 220 ml IV Total 1210 ml 930 ml 900 ml 1035 ml Output Urine Total 1000 ml 500 ml 650 ml 1950 ml # Voids 2 2 4 # Bowel Movements 0 0 0 Result Diagram: 09/29/1642909/29/16429 Objective Remarks GENERAL: MBMN WM, NAD SKIN: Warm and dry. HEAD: Normocephalic. EYES: No scleral icterus. No injection or drainage. NECK: Supple, trachea midline. No JVD or lymphadenopathy. CARDIOVASCULAR: Regular rate and rhythm without murmurs, gallops, or rubs. RESPIRATORY: Breath sounds equal bilaterally. No accessory muscle use. GASTROINTESTINAL: Abdomen soft, non-tender, nondistended. MUSCULOSKELETAL: No cyanosis, or edema. BACK: Nontender without obvious deformity. No CVA tenderness. A/P Assessment and Plan Right Pl eff, s/p TC Recent Right middle and lower lobectomy Dysnoea improved PLAN: Cont Abx IVF Check cultures Stable on RA Check postural changes of BP Cy Mejía MD Sep 29, 2016 17:55
[2016-09-30] VITALS: BP 152/97; PULSE 86; RESP 18; TEMP 97.7; O2SAT 94
[2016-09-30] MEDS: VANCOMYCIN INJ 1,250 MG in SODIUM CHLOR 0.9% 250 ML INJ 250 ML IV SCH ×2 (02:22→14:36)
[2016-09-30] MEDS: ACETAMINOPHEN/HYDROcodone 325 MG/5 MG TAB PO PRN ×5 (02:26→18:38)
[2016-09-30 04:00] VITALS: BP 141/101; PULSE 87; RESP 20; TEMP 97.2; O2SAT 95
[2016-09-30] MEDS: CHLORHEXIDINE GLUCONATE 2 % 1 PACK (2 CLOTHS)(taper/protocol) TOPICAL SCH (04:00)
[2016-09-30] MEDS: CEFEPIME INJ 2,000 MG in SODIUM CHLORIDE 0.9% INJ 100 ML IV SCH ×3 (05:55→21:20)
[2016-09-30] MEDS: INSULIN ASPART SUPPLEMENTAL SCALE SQ SCH ×4 (05:55→21:30)
[2016-09-30 08:00] VITALS: BP_SYST 136; BP_SYST 70; BP_DIAS 50; BP_DIAS 97; PULSE 84; RESP 18; TEMP 97.5; O2SAT 97
[2016-09-30] MEDS: SODIUM CHLORIDE 0.9% FLUSH 10 ML FLUSH IV FLUSH SCH ×2 (09:03→21:20)
[2016-09-30] MEDS: DOCUSATE SODIUM 50 MG/SENNA 8.6 MG TAB PO SCH ×2 (09:04→21:00)
[2016-09-30] MEDS: MUPIROCIN 2% OINT 1 APPLIC/GM SYR NASAL SCH ×2 (09:05→21:21)
[2016-09-30] MEDS: TAMSULOSIN HCL 0.4 MG CAP PO SCH (09:05)
[2016-09-30] MEDS: LACTOBACILLUS ACIDOPHILUS TAB PO SCH (09:05)
[2016-09-30] MEDS: FLUDROCORTISONE ACETATE 0.1 MG TAB PO SCH (09:05)
[2016-09-30] MEDS: THIAMINE HCL 100 MG TAB PO SCH (09:05)
[2016-09-30] MEDS: INSULIN DETEMIR 100 UNITS/ML VIAL SQ SCH ×2 (09:07→21:29)
[2016-09-30] MEDS: SODIUM CHLOR 0.9% 1000 ML INJ 1,000 ML IV SCH ×2 (09:11→21:24)
[2016-09-30 12:00] VITALS: BP 128/85; PULSE 79; RESP 19; TEMP 97.7; O2SAT 96
[2016-09-30 16:00] VITALS: BP 137/81; PULSE 91; RESP 19; TEMP 98.5; O2SAT 96
--- NOTE | 2016-09-30 16:35 | HHI.PR ---
Subjective Remarks Patient is in bed at this time says he doesn't feel dizzy. However he feels dizzy when he is walking and his blood pressure drops today again. Florinef did not help. He denies chest pain or shortness of breath at this time. No fever or chills. No vomiting able to eat. No headaches, change in vision, new motor deficit or sensory deficit. Objective Vitals Vital Signs Date Time Temp Pulse Resp B/P Pulse Ox O2 Delivery O2 Flow Rate FiO2 09/30/16 16:09 18 09/30/16 16:00 98.5 91 19 137/81 96 09/30/16 12:00 97.7 79 19 128/85 96 09/30/16 08:00 97.5 84 18 136/97 97 70/50 09/30/16 04:00 97.2 87 20 141/101 95 09/30/16 00:00 97.7 86 18 152/97 94 09/29/16 21:00 93 09/29/16 20:00 98.5 90 16 154/102 99 I/O 09/29/16 09/29/16 09/29/16 09/30/16 09/30/16 09/30/16 07:00 15:00 23:00 07:00 15:00 23:00 Intake Total 1255 ml 700 ml 300 ml 0 ml 600 ml Output Total 1950 ml 600 ml 400 ml 400 ml Balance -695 ml 700 ml -300 ml -400 ml 200 ml Intake Oral 220 ml 300 ml 0 ml IV Total 1035 ml 700 ml 600 ml Output Urine Total 1950 ml 600 ml 400 ml 400 ml # Voids 4 # Bowel Movements 0 Result Diagram: 09/29/16 0430 09/29/16 0430 Imaging Last Impressions Thoracentesis Ultrasound 09/27/16 0000 Signed Impressions: Service Date/Time: Tuesday, September 27, 2016 17:00 - CONCLUSION: Uncomplicated ultrasound guided thoracentesis. Erik Currie MD Chest X-Ray 09/27/16 Signed Impressions: Service Date/Time: Tuesday, September 27, 2016 18:38 - CONCLUSION: There is no pneumothorax on the right. The left lung is clear. Remberto Coyle MD FACR Chest CT 09/27/16 Signed Impressions: Service Date/Time: Antonio, September 27, 2016 13:36 - CONCLUSION: Very large right pleural effusion significantly increased in size since the prior examination in this patient who has undergone resection of the right upper lobe since that time. Eric Abarca MD Objective Remarks GENERAL: Well-developed, well-nourished, in no acute distress. alert and orientated CARDIAC: Regular rhythm, tachycardia. S1/S2 are heard. No murmurs gallops or rubs. LUNGS: Absent lung sounds over right lung field. No wheeze, rhonchi or rales. No use of accessory muscles on inspiration or expiration. Postsurgical scars healing well. ABDOMEN: Soft, nontender. Nondistended. Bowel sounds heard in all 4 quadrants. No organomegaly or masses. Negative rebound, negative guarding EXTREMITIES: No edema, pulses are equal bilaterally. No cyanosis or clubbing NEUROLOGY: Mood and affect appear appropriate. Cranial nerves II through XII grossly intact. Muscle strength 5/5 in upper and lower extremities bilaterally. Deep tendon reflexes are 2+ in upper and lower extremities bilaterally. A/P Problem List: (1) Septic shock ICD Code: A41.9 Status: Acute (2) Lactic acidosis ICD Code: E87.2 Status: Acute (3) Loculated pleural effusion ICD Code: J90 Status: Acute (4) Orthostatic hypotension ICD Code: I95.1 Status: Acute (5) Diabetes ICD Code: E11.9 Status: Acute Assessment and Plan Septic shock. Resolving Patient meets criteria on admission with tachycardia, tachypnea, presumed right empyema, significant lactic acidosis, hypotension BP better controlled continue IVF Lactic acid 6.8 on admission , trending down and now back to normal Patient started on empirical antibiotics to include cefepime, patient was given a dose of Zithromax in the emergency department Continue cefepime and vancomycin IV, pharmacy consult for vanco levels. Infectious disease consulted for recommendations Blood cultures NTD Urinalysis is clear Legionella, streptococcal pneumoniae antigen are negative Culture of the pleural effusion pending Hypotension with orthostasis. Could be secondary to severe sepsis Continue IV fluids Obtain orthostatic vitals. Started Florinef, not much improvement. Start midodrine. Consult cardiology as patient with severe orthostatic hypotension not responding much to meds. PT eval Right lung loculated effusion/empyema Status post recent right thoracotomy with upper and middle lobectomies S/P Ultrasound-guided thoracentesis Fluid cultures and testing from sample Pulmonology consulted for further recommendations, Dr Alfonzo davis Diarrhea illness in adult patient Patient risk for C. difficile infection due to continued antibiotic use C. difficile is negative. Continue probiotic Diabetes mellitus 2 , uncontrolled A1c 12.2 Recent hemoglobin A1c 12.2 Accu-Cheks with sliding scale insulin. Start detemir at night Diabetic education/dietary education History of urinary retention Continue Flomax Moderated protein calorie malnutrition: Albumin is 1.8, muscle waisting. prealbumin pending. Add ensure to diet. Consult cosmetic surgeon. DVT prevention Sequential compression devices Avoid chemical prophylaxis secondary to possible procedure Discussed Condition With patient, nurse Problem Qualifiers (1) Diabetes: Qualified Code: E13.8 - Other specified diabetes mellitus with complication, without long-term current use of insulin Марина Wilkins MD Sep 30, 2016 16:35
[2016-09-30] MEDS: MIDODRINE 5 MG TAB PO SCH (18:38)
--- NOTE | 2016-09-30 18:50 | HHI.PR ---
Subjective Remarks 56 YOWM with recent thoracotomy, with SOB Had right TC, 2 L fluid removed Feels much better No Fever No CP Pl fluid cultures negative Feels dizzy on getting up has postural hypotension Objective Vital Signs Vital Signs Date Time Temp Pulse Resp B/P Pulse Ox O2 Delivery O2 Flow Rate FiO2 09/30/16 16:09 18 09/30/16 16:00 98.5 91 19 137/81 96 09/30/16 12:00 97.7 79 19 128/85 96 09/30/16 08:00 97.5 84 18 136/97 97 70/50 09/30/16 04:00 97.2 87 20 141/101 95 09/30/16 00:00 97.7 86 18 152/97 94 09/29/16 21:00 93 09/29/16 20:00 98.5 90 16 154/102 99 I/O 09/29/16 09/29/16 09/29/16 09/30/16 09/30/16 09/30/16 07:00 15:00 23:00 07:00 15:00 23:00 Intake Total 1255 ml 700 ml 300 ml 0 ml 600 ml Output Total 1950 ml 600 ml 400 ml 400 ml Balance -695 ml 700 ml -300 ml -400 ml 200 ml Intake Oral 220 ml 300 ml 0 ml IV Total 1035 ml 700 ml 600 ml Output Urine Total 1950 ml 600 ml 400 ml 400 ml # Voids 4 # Bowel Movements 0 Result Diagram: 09/29/16 0430 09/29/16 0430 Objective Remarks GENERAL: MBMN WM, NAD SKIN: Warm and dry. HEAD: Normocephalic. EYES: No scleral icterus. No injection or drainage. NECK: Supple, trachea midline. No JVD or lymphadenopathy. CARDIOVASCULAR: Regular rate and rhythm without murmurs, gallops, or rubs. RESPIRATORY: Breath sounds equal bilaterally. No accessory muscle use. GASTROINTESTINAL: Abdomen soft, non-tender, nondistended. MUSCULOSKELETAL: No cyanosis, or edema. BACK: Nontender without obvious deformity. No CVA tenderness. A/P Assessment and Plan Right Pl eff, s/p TC Recent Right middle and lower lobectomy Dysnoea improved PLAN: Cont Abx IVF Check cultures Stable on RA [facility] Cardiology consulted. Cy Mejía MD Sep 30, 2016 18:50
[2016-09-30 20:00] VITALS: BP 161/98; PULSE 79; RESP 16; TEMP 98.3; O2SAT 96
--- NOTE | 2016-09-30 22:17 | HHI.PR ---
Addendum to Inpatient Note Additional Information no fever normal WBC all cultures are negative dw Nel Graham dc, MD Sep 30, 2016 22:17
[2016-10-01] VITALS (7 sets, daily range): BP systolic 58–167; BP diastolic 43–107; PULSE 63–94; RESP 18–20; TEMP 96.7–97.8; O2SAT 96–99
[2016-10-01] MEDS: ACETAMINOPHEN/HYDROcodone 325 MG/5 MG TAB PO PRN ×5 (01:20→22:15)
[2016-10-01] MEDS ORDERED: PHARMACY ORDERED LAB ONE (01:45)
[2016-10-01] MEDS: CHLORHEXIDINE GLUCONATE 2 % 1 PACK (2 CLOTHS)(taper/protocol) TOPICAL SCH (03:28)
[2016-10-01] MEDS: MIDODRINE 5 MG TAB PO SCH ×3 (06:18→17:39)
[2016-10-01] MEDS: INSULIN ASPART SUPPLEMENTAL SCALE SQ SCH ×4 (06:20→21:00)
[2016-10-01 06:36] LABS: AUTOMATED NEUTROPHIL # 3.6 TH/MM3 (1.8-7.7); BASOPHIL % 0.5 % (0.0-2.0); EOSINOPHIL # 0.3 TH/MM3 (0-0.4); EOSINOPHIL % 4.5 % (0.0-4.0); HEMATOCRIT 31.3 % (39.0-51.0); HEMO FLAGS DIFF FINAL; LYMPH % 28.4 % (9.0-44.0); LYMPHOCYTE # 1.7 TH/MM3 (1.0-4.8); MEAN CELL VOLUME 94.4 FL (80.0-100.0); MEAN CORPUSCULAR HEMOGLOBIN 31.1 PG (27.0-34.0); MEAN CORPUSCULAR HGB CONC 32.9 % (32.0-36.0); MONO % 8.1 % (0.0-8.0); NEUT % 58.5 % (16.0-70.0); PLATELET COUNT 154 TH/MM3 (150-450); RED BLOOD COUNT 3.32 MIL/MM3 (4.50-5.90); RED CELL DISTRIBUTION WIDTH 14.4 % (11.6-17.2); WHITE BLOOD COUNT 6.1 TH/MM3 (4.0-11.0)
[2016-10-01 06:45] LABS: POTASSIUM 3.6 MEQ/L (3.5-5.1)
[2016-10-01 06:50] LABS: BICARBONATE 27.1 MEQ/L (21.0-32.0); MAGNESIUM 1.4 MG/DL (1.5-2.5)
[2016-10-01] MEDS: SODIUM CHLOR 0.9% 1000 ML INJ 1,000 ML IV SCH ×2 (07:24→17:24)
[2016-10-01] MEDS: TAMSULOSIN HCL 0.4 MG CAP PO SCH (08:10)
[2016-10-01] MEDS: FLUDROCORTISONE ACETATE 0.1 MG TAB PO SCH (08:10)
[2016-10-01] MEDS: LACTOBACILLUS ACIDOPHILUS TAB PO SCH (08:11)
[2016-10-01] MEDS: THIAMINE HCL 100 MG TAB PO SCH (08:11)
--- NOTE | 2016-10-01 08:46 | HHI.PR ---
Subjective Remarks The patient is in bed says he doesn't feel dizzy this time. However she was dizzy in the morning and try to get up. His blood pressure is still dropping and she feels lightheadedness at that time. Denies chest pain or shortness of breath. He is satting well on room air at this time. He has no fevers or chills. Says he feels good when he is in bed however he can walk because of the dizziness. Objective Vitals Vital Signs Date Time Temp Pulse Resp B/P Pulse Ox O2 Delivery O2 Flow Rate FiO2 10/01/16 07:18 20 10/01/16 04:00 97.3 81 20 159/98 98 10/01/16 00:00 97.7 63 20 167/107 98 139/92 97/68 09/30/16 20:00 98.3 79 16 161/98 96 09/30/16 16:00 98.5 91 19 137/81 96 09/30/16 12:00 97.7 79 19 128/85 96 I/O 09/30/16 09/30/16 09/30/16 10/01/16 10/01/16 10/01/16 06:59 14:59 22:59 06:59 14:59 22:59 Intake Total 0 ml 600 ml 240 ml Output Total 400 ml 400 ml 800 ml Balance -400 ml 200 ml -560 ml Intake Oral 0 ml 240 ml IV Total 600 ml Output Urine Total 400 ml 400 ml 800 ml # Bowel Movements 0 Result Diagram: 10/01/16 0550 10/01/16 0550 Imaging Last Impressions Thoracentesis Ultrasound 09/27/16 0000 Signed Impressions: Service Date/Time: Tuesday, September 27, 2016 17:00 - CONCLUSION: Uncomplicated ultrasound guided thoracentesis. Erik Currie MD Chest X-Ray 09/27/16 0000 Signed Impressions: Service Date/Time: Tuesday, September 27, 2016 18:38 - CONCLUSION: There is no pneumothorax on the right. The left lung is clear. Remberto Coyle MD FACR Chest CT 09/27/16 0000 Signed Impressions: Service Date/Time: Tuesday, September 27, 2016 13:36 - CONCLUSION: Very large right pleural effusion significantly increased in size since the prior examination in this patient who has undergone resection of the right upper lobe since that time. Eric Abarca MD Objective Remarks GENERAL: Well-developed, well-nourished, in no acute distress. alert and orientated CARDIAC: Regular rhythm, tachycardia. S1/S2 are heard. No murmurs gallops or rubs. LUNGS: Absent lung sounds over right lung field. No wheeze, rhonchi or rales. No use of accessory muscles on inspiration or expiration. Postsurgical scars healing well. ABDOMEN: Soft, nontender. Nondistended. Bowel sounds heard in all 4 quadrants. No organomegaly or masses. Negative rebound, negative guarding EXTREMITIES: No edema, pulses are equal bilaterally. No cyanosis or clubbing NEUROLOGY: Mood and affect appear appropriate. Cranial nerves II through XII grossly intact. Muscle strength 5/5 in upper and lower extremities bilaterally. Deep tendon reflexes are 2+ in upper and lower extremities bilaterally. A/P Problem List: (1) Septic shock ICD Code: A41.9 Status: Acute (2) Lactic acidosis ICD Code: E87.2 Status: Acute (3) Loculated pleural effusion ICD Code: J90 Status: Acute (4) Orthostatic hypotension ICD Code: I95.1 Status: Acute (5) Diabetes ICD Code: E11.9 Status: Acute Assessment and Plan Septic shock. Resolving Patient meets criteria on admission with tachycardia, tachypnea, presumed right empyema, significant lactic acidosis, hypotension BP better controlled continue IVF Lactic acid 6.8 on admission , trending down and now back to normal Patient started on empirical antibiotics to include cefepime, patient was given a dose of Zithromax in the emergency department Continue cefepime and vancomycin IV, pharmacy consult for vanco levels. Infectious disease consulted for recommendations Blood cultures NTD Urinalysis is clear Legionella, streptococcal pneumoniae antigen are negative Culture of the pleural effusion pending Hypotension with orthostasis. Could be secondary to severe sepsis Continue IV fluids Obtain orthostatic vitals. Started Florinef, not much improvement. Start midodrine, increased dose today to 10 mg 3 times a day. Consult cardiology as patient with severe orthostatic hypotension not responding much to meds. PT eval Right lung loculated effusion/empyema Status post recent right thoracotomy with upper and middle lobectomies S/P Ultrasound-guided thoracentesis Fluid cultures and testing from sample Pulmonology consulted for further recommendations, Dr Mejía ff Diarrhea illness in adult patient Patient risk for C. difficile infection due to continued antibiotic use C. difficile is negative. Continue probiotic Diabetes mellitus 2 , uncontrolled A1c 12.2 Recent hemoglobin A1c 12.2 Accu-Cheks with sliding scale insulin. Start detemir at night Diabetic education/dietary education History of urinary retention Continue Flomax Moderated protein calorie malnutrition: Albumin is 1.8, muscle waisting. prealbumin pending. Add ensure to diet. Consult rating examiner. DVT prevention Sequential compression devices Avoid chemical prophylaxis secondary to possible procedure Discussed Condition With patient, nurse, family at bedside Problem Qualifiers (1) Diabetes: Qualified Code: E13.8 - Other specified diabetes mellitus with complication, without long-term current use of insulin Марина Wilkins MD Oct 01, 2016 08:46
--- NOTE | 2016-10-01 08:58 | PD.CONS ---
HPI Service cardiology Consult Requested By Dr. Wilkins Reason for Consult hypotension Primary Care Physician No Primary Care Physician History of Present Illness 56 yo WM with history of tobacco abuse, recent hospitalization for PNA and sepsis with subsequent R-sided thoracotomy who was rehospitalized several days ago for dizziness and lightheadedness. He underwent R-sided thoracentesis with improvement in SOB. BP have been fluctuating with positional changes. Patient states he does not feel immediately lightheaded with postural changes; but does start to feel lightheaded after walking approximately 50 feet. He has been feeling this way since discharge from initial hospitalization several weeks ago. He denies chest pain, SOB or palpitations. He smokes 1 ppd, no significant family history. Review of Systems Consitutional: COMPLAINS OF: Fatigue, Weight loss, DENIES: Fever, Chills, Weight gain Respiratory: COMPLAINS OF: See HPI, DENIES: Cough, Snoring, Shortness of breath, Wheezing, Sputum production Cardiovascular: COMPLAINS OF: See HPI, DENIES: Chest pain, Palpitations, Syncope, Tachycardia Gastrointestinal: DENIES: Nausea, Vomiting, Change in bowel habits, Reflux, Bloody stools, Melena Past Family Social History Allergies: Coded Allergies: No Known Allergies (Unverified , 09/27/16) Past Medical History Past Medical History Right lung mass Empyema Loculated effusion Diabetes Urinary retention Hypertension Hyperlipidemia Past Surgical History Right lung thoracotomy with right upper and middle lobe removal Chest tube placement Reported Medications Reported Meds & Active Scripts Active Lactinex (Lactobacillus Acidophilus) 1 Chew 1 Tab CHEW DAILY Augmentin (Amoxicillin-Clavulanate) 500-125 mg Tab 500 Mg PO Q8HR Flomax (Tamsulosin HCl) 0.4 Mg Cap 0.4 Mg PO DAILY Gnp Vitamin B-1 (Thiamine HCl) 100 Mg Tab 100 Mg PO DAILY Active Ordered Medications Current Medications Medications (Trade) Dose Ordered Sig/Ernestina Route Start Time Stop Time Status Last Admin (NS 1000 ml Inj) 1,000 ml @ 100 mls/hr Q10H IV 09/27/16 13:24 10/01/16 07:24 (NS Flush) 2 ml UNSCH PRN IV FLUSH 09/27/16 13:30 (NS Flush) 2 ml BID IV FLUSH 09/27/16 21:00 09/30/16 21:20 (Tylenol) 650 mg Q4H PRN PO 09/27/16 13:30 (Zofran Inj) 4 mg Q6H PRN IVP 09/27/16 13:30 (Kaela-Colace) 1 tab BID PO 09/27/16 21:00 (Milk Of Magnesia Liq) 30 ml Q12H PRN PO 09/27/16 13:30 (Senokot) 17.2 mg Q12H PRN PO 09/27/16 13:30 (Dulcolax Supp) 10 mg DAILY PRN RECTAL 09/27/16 13:30 (Lactulose Liq) 30 ml DAILY PRN PO 09/27/16 13:30 Miscellaneous Information Patient in critical care unit? Ass... [id number] .XX 09/27/16 16:15 09/27/16 16:15 (Bactroban Nasal 2% Oint) 1 applic BID NASAL 09/27/16 21:00 09/30/16 21:21 (Chlorhexidine 2% Cloth) 3 pack DAILY@04 TOPICAL 09/28/16 04:00 10/02/16 04:01 (Chlorhexidine 2% Cloth) 3 pack UNSCH PRN TOPICAL 09/27/16 16:15 10/02/16 16:03 ([place] 5-325 Mg) 1 tab Q4H PRN PO 09/27/16 18:00 10/01/16 06:18 (Morphine Inj) 2 mg Q4HR PRN IV PUSH 09/27/16 18:00 (Flomax) 0.4 mg DAILY PO 09/28/16 09:00 10/01/16 08:10 (Vitamin B1) 100 mg DAILY PO 09/28/16 09:00 10/01/16 08:11 (Lactinex) 1 tab DAILY PO 09/28/16 09:00 10/01/16 08:11 (D50w (Vial) Inj) 50 ml UNSCH PRN IV 09/27/16 17:15 (Glucagon Inj) 1 mg UNSCH PRN OTHER 09/27/16 17:15 (Levemir Inj) 5 units BID SQ 09/28/16 21:00 09/30/16 21:29 (Florinef) 0.1 mg DAILY PO 09/30/16 09:00 10/01/16 08:10 (Proamatine) 5 mg TID@,12,17 PO 09/30/16 17:00 10/01/16 06:18 Family History Reviewed is significant for father with dementia, diabetes. Mother with heart disease, brother with lung cancer Social History Patient still smoking a couple cigarettes a day, prior to his recent hospitalization he was smoking 1 pack a cigarettes a day since he was 15 years old. He is no longer drinking any alcohol, denies any illicit drugs Physical Exam Vital Signs Vital Signs Date Time Temp Pulse Resp B/P Pulse Ox O2 Delivery O2 Flow Rate FiO2 10/01/16 07:18 20 10/01/16 04:00 97.3 81 20 159/98 98 10/01/16 00:00 97.7 63 20 167/107 98 139/92 97/68 09/30/16 20:00 98.3 79 16 161/98 96 09/30/16 16:00 98.5 91 19 137/81 96 09/30/16 12:00 97.7 79 19 128/85 96 Physical Exam EYES: Pupils equal and round. No scleral icterus ENT: No nasal bleeding or discharge. Mucous membranes pink and moist. NECK: Trachea midline. No JVD. CARDIOVASCULAR: Regular rate and rhythm. no murmurs RESPIRATORY: No accessory muscle use. Clear to auscultation. Breath sounds equal bilaterally. GASTROINTESTINAL: Abdomen soft, non-tender, nondistended. MUSCULOSKELETAL: Extremities without clubbing, cyanosis, or edema. No obvious deformities. NEUROLOGICAL: Awake and alert. No obvious cranial nerve deficits. Normal speech. PSYCHIATRIC: Appropriate mood and affect; insight and judgment normal. Laboratory Laboratory Tests Test 10/01/16 05:50 White Blood Count 6.1 Red Blood Count 3.32 Hemoglobin 10.3 Hematocrit 31.3 Mean Corpuscular Volume 94.4 Mean Corpuscular Hemoglobin 31.1 Mean Corpuscular Hemoglobin 32.9 Concent Red Cell Distribution Width 14.4 Platelet Count 154 Mean Platelet Volume 8.0 Neutrophils (%) (Auto) 58.5 Lymphocytes (%) (Auto) 28.4 Monocytes (%) (Auto) 8.1 Eosinophils (%) (Auto) 4.5 Basophils (%) (Auto) 0.5 Neutrophils # (Auto) 3.6 Lymphocytes # (Auto) 1.7 Monocytes # (Auto) 0.5 Eosinophils # (Auto) 0.3 Basophils # (Auto) 0.0 CBC Comment DIFF FINAL Differential Comment Sodium Level 144 Potassium Level 3.6 Chloride Level 110 Carbon Dioxide Level 27.1 Anion Gap 7 Blood Urea Nitrogen 7 Creatinine 0.43 Estimat Glomerular Filtration 205 Rate Random Glucose 112 Calcium Level 8.3 Magnesium Level 1.4 Date/Time Procedure Status Source Growth 09/28/16 20:55 Gram Stain - Final Complete Sputum Expectorated Sputum 09/28/16 20:55 Sputum Culture - Final Complete Sputum Expectorated Sputum MODERATE GROWTH NORMAL RESPIRATORY PEPITO 09/27/16 18:23 Fungal Smear - Final Resulted Fluid Pleural Fluid NO FUNGAL ELEMENTS SEEN. 09/27/16 18:23 Fungal Culture Resulted Fluid Pleural Fluid Pending 09/27/16 18:23 Acid Fast Stain - Final Resulted Fluid Pleural Fluid NO ACID FAST BACILLI SEEN 09/27/16 18:23 Mycobacterial Culture Resulted Fluid Pleural Fluid Pending 09/27/16 13:00 Legionella Antigen - Final Complete Urine Random Urine PRESUMPTIVE NEGATIVE FOR LEGIONELLA P... 09/27/16 13:00 Streptococcus pneumoniae Antigen (M - Final Complete Urine Random Urine PRESUMPTIVE NEGATIVE FOR STREPTOCOCCU... 09/27/16 12:10 Aerobic Blood Culture - Preliminary Resulted Blood Peripheral NO GROWTH IN 3 DAYS 09/27/16 12:10 Anaerobic Blood Culture - Preliminary Resulted Blood Peripheral NO GROWTH IN 3 DAYS Result Diagram: 10/01/16 0550 10/01/16 0550 Imaging Last Impressions Thoracentesis Ultrasound 09/27/16 0000 Signed Impressions: Service Date/Time: Tuesday, September 27, 2016 17:00 - CONCLUSION: Uncomplicated ultrasound guided thoracentesis. Erik Currie MD Chest X-Ray 09/27/16 0000 Signed Impressions: Service Date/Time: Tuesday, September 27, 2016 18:38 - CONCLUSION: There is no pneumothorax on the right. The left lung is clear. Remberto Coyle MD FACR Chest CT 09/27/16 0000 Signed Impressions: Service Date/Time: Tuesday, September 27, 2016 13:36 - CONCLUSION: Very large right pleural effusion significantly increased in size since the prior examination in this patient who has undergone resection of the right upper lobe since that time. Eric Abarca MD Assessment and Plan Problem List: (1) Orthostatic hypotension Assessment and Plan orthostatic hypotension- continue current medical regimen including midodrine and florinef. patient does not appear to feel symptomatic with postural changes. consider support stockings. Peggy Morrell Oct 01, 2016 08:58
[2016-10-01] MEDS: MUPIROCIN 2% OINT 1 APPLIC/GM SYR NASAL SCH ×2 (09:00→22:08)
[2016-10-01] MEDS: INSULIN DETEMIR 100 UNITS/ML VIAL SQ SCH ×2 (09:00→22:12)
[2016-10-01] MEDS: DOCUSATE SODIUM 50 MG/SENNA 8.6 MG TAB PO SCH ×2 (09:00→21:00)
[2016-10-01] MEDS: SODIUM CHLORIDE 0.9% FLUSH 10 ML FLUSH IV FLUSH SCH ×2 (09:00→21:00)
[2016-10-01] MEDS: MULTIVITAMIN TAB PO SCH (12:28)
--- NOTE | 2016-10-01 18:48 | HHI.PR ---
Subjective Remarks 56 YOWM with recent thoracotomy, with SOB Had right TC, 2 L fluid removed Feels much better No Fever No CP Pl fluid cultures negative Feels dizzy on getting up has postural hypotension Objective Vital Signs Vital Signs Date Time Temp Pulse Resp B/P Pulse Ox O2 Delivery O2 Flow Rate FiO2 10/01/16 18:33 20 10/01/16 17:11 97.8 85 19 158/105 96 118/89 93/64 10/01/16 13:08 97.5 86 19 152/107 97 116/88 96/63 10/01/16 09:11 96.7 94 19 101/77 99 93/67 58/43 10/01/16 04:00 97.3 81 20 159/98 98 10/01/16 00:00 97.7 63 20 167/107 98 139/92 97/68 09/30/16 20:00 98.3 79 16 161/98 96 I/O 09/30/16 09/30/16 09/30/16 10/01/16 10/01/16 10/01/16 07:00 15:00 23:00 07:00 15:00 23:00 Intake Total 0 ml 600 ml 240 ml 1250 ml Output Total 400 ml 400 ml 800 ml Balance -400 ml 200 ml -560 ml 1250 ml Intake Oral 0 ml 240 ml 1250 ml IV Total 600 ml Output Urine Total 400 ml 400 ml 800 ml # Voids 6 # Bowel Movements 0 1 Result Diagram: 10/01/16 0550 10/01/16 0550 Objective Remarks GENERAL: MBMN WM, NAD SKIN: Warm and dry. HEAD: Normocephalic. EYES: No scleral icterus. No injection or drainage. NECK: Supple, trachea midline. No JVD or lymphadenopathy. CARDIOVASCULAR: Regular rate and rhythm without murmurs, gallops, or rubs. RESPIRATORY: Breath sounds equal bilaterally. No accessory muscle use. GASTROINTESTINAL: Abdomen soft, non-tender, nondistended. MUSCULOSKELETAL: No cyanosis, or edema. BACK: Nontender without obvious deformity. No CVA tenderness. A/P Assessment and Plan Right Pl eff, s/p TC Recent Right middle and lower lobectomy Dysnoea improved PLAN: Cont Abx IVF Stable on RA Florinef, midodrine and support stockings Stable from pulm standpoint Cy Mejía MD Oct 01, 2016 18:48
[2016-10-02] VITALS: BP 136/96; PULSE 75; RESP 16; TEMP 97.2; O2SAT 97
[2016-10-02] MEDS: SODIUM CHLOR 0.9% 1000 ML INJ 1,000 ML IV SCH ×2 (03:24→11:54)
[2016-10-02] MEDS: CHLORHEXIDINE GLUCONATE 2 % 1 PACK (2 CLOTHS)(taper/protocol) TOPICAL SCH (03:40)
[2016-10-02 04:00] VITALS: BP 150/90; PULSE 82; RESP 18; TEMP 98.3; O2SAT 98
[2016-10-02] MEDS: MIDODRINE 5 MG TAB PO SCH ×3 (05:52→17:00)
[2016-10-02] MEDS: ACETAMINOPHEN/HYDROcodone 325 MG/5 MG TAB PO PRN ×4 (05:52→19:46)
[2016-10-02] MEDS: INSULIN ASPART SUPPLEMENTAL SCALE SQ SCH ×4 (05:56→20:58)
[2016-10-02 08:00] VITALS: BP_SYST 129; BP_SYST 74; BP_SYST 99; BP_DIAS 50; BP_DIAS 68; BP_DIAS 85; PULSE 90; RESP 19; TEMP 96.9; O2SAT 96
[2016-10-02] MEDS: TAMSULOSIN HCL 0.4 MG CAP PO SCH (08:35)
[2016-10-02] MEDS: MULTIVITAMIN TAB PO SCH (08:35)
[2016-10-02] MEDS: THIAMINE HCL 100 MG TAB PO SCH (08:35)
[2016-10-02] MEDS: LACTOBACILLUS ACIDOPHILUS TAB PO SCH (08:35)
[2016-10-02] MEDS: FLUDROCORTISONE ACETATE 0.1 MG TAB PO SCH (08:35)
[2016-10-02] MEDS: INSULIN DETEMIR 100 UNITS/ML VIAL SQ SCH (08:36)
[2016-10-02] MEDS: DOCUSATE SODIUM 50 MG/SENNA 8.6 MG TAB PO SCH ×2 (08:37→20:57)
[2016-10-02] MEDS: MUPIROCIN 2% OINT 1 APPLIC/GM SYR NASAL SCH ×2 (08:37→20:57)
[2016-10-02] MEDS: SODIUM CHLORIDE 0.9% FLUSH 10 ML FLUSH IV FLUSH SCH ×2 (08:39→20:57)
[2016-10-02 12:00] VITALS: BP_SYST 105; BP_SYST 121; BP_SYST 152; BP_DIAS 106; BP_DIAS 74; BP_DIAS 93; PULSE 82; RESP 20; TEMP 97.3; O2SAT 98
--- NOTE | 2016-10-02 15:02 | HHI.PR ---
Subjective Remarks Patient seen in follow up for persistent symptomatic orthostatic hypotension Appears somehat iproved today on florinef bid and midodrine tid Objective Vitals Vital Signs Date Time Temp Pulse Resp B/P Pulse Ox O2 Delivery O2 Flow Rate FiO2 10/02/16 12:00 121/93 10/02/16 12:00 105/74 10/02/16 12:00 97.3 82 20 152/106 98 10/02/16 08:00 99/68 10/02/16 08:00 96.9 90 19 129/85 96 10/02/16 08:00 74/50 10/02/16 04:00 98.3 82 18 150/90 98 10/02/16 00:00 97.2 75 16 136/96 97 10/01/16 20:00 97.4 82 18 161/104 98 140/94 105/77 10/01/16 19:30 78 10/01/16 18:33 20 10/01/16 17:11 97.8 85 19 158/105 96 118/89 93/64 I/O 10/01/16 10/01/16 10/01/16 10/02/16 10/02/16 10/02/16 07:00 15:00 23:00 07:00 15:00 23:00 Intake Total 240 ml 2070 ml 360 ml 547 ml Output Total 800 ml 650 ml 650 ml 300 ml Balance -560 ml 1420 ml -290 ml 247 ml Intake Oral 240 ml 2070 ml 360 ml IV Total 547 ml Output Urine Total 800 ml 650 ml 650 ml 300 ml # Voids 6 # Bowel Movements 0 1 0 Result Diagram: 10/01/16 0550 10/01/16 0550 Objective Remarks GENERAL: This is a well-nourished, well-developed patient, in no apparent distress. CARDIOVASCULAR: Regular rate and rhythm without murmurs, gallops, or rubs. RESPIRATORY: Clear to auscultation. Breath sounds equal bilaterally. No wheezes , rales, or rhonchi. GASTROINTESTINAL: Abdomen soft, non-tender, nondistended. Normal active bowel sounds MUSCULOSKELETAL: Extremities without clubbing, cyanosis, or edema. NEURO: Alert & Oriented x4 to person, place, time, situation. Moves all ext x4 A/P Problem List: (1) Lactic acidosis ICD Code: E87.2 Status: Acute Plan: cultures are all negative off abx ID consult appreciated (2) Orthostatic hypotension ICD Code: I95.1 Status: Acute Plan: midodrine and florinef some improvement in symptoms on this regimen (3) Diabetes ICD Code: E11.9 Status: Acute Plan: Hg A1C 12.2 07/2016 (4) Pleural effusion ICD Code: J90 Status: Acute Plan: right sided s/p thoracentesis Cultures negative stable on Room air status post thoracotomy with right upper and middle lobectomy due to Mass, path showed empyema and bronchiolitis Problem Qualifiers (1) Diabetes: Qualified Code: E13.8 - Other specified diabetes mellitus with complication, without long-term current use of insulin Sharon Loja MD Oct 02, 2016 15:02
[2016-10-02 16:08] VITALS: BP_SYST 100; BP_SYST 116; BP_SYST 122; BP_DIAS 60; BP_DIAS 78; BP_DIAS 80; PULSE 86; RESP 21; TEMP 98.1; O2SAT 100
[2016-10-02 21:12] VITALS: BP 146/91; PULSE 78; RESP 16; TEMP 97.4; O2SAT 98
[2016-10-03] VITALS: BP_SYST 102; BP_SYST 104; BP_SYST 151; BP_DIAS 69; BP_DIAS 80; BP_DIAS 94; PULSE 80; RESP 18; TEMP 97.5; O2SAT 98
[2016-10-03] MEDS: ACETAMINOPHEN/HYDROcodone 325 MG/5 MG TAB PO PRN (05:40)
[2016-10-03] MEDS: INSULIN ASPART SUPPLEMENTAL SCALE SQ SCH (06:08)
[2016-10-03] MEDS: MIDODRINE 5 MG TAB PO SCH (06:23)
[2016-10-03 08:25] VITALS: BP 154/101; PULSE 84; RESP 19; TEMP 97.5; O2SAT 98
[2016-10-03] MEDS: SODIUM CHLORIDE 0.9% FLUSH 10 ML FLUSH IV FLUSH SCH (09:00)
[2016-10-03] MEDS: INSULIN DETEMIR 100 UNITS/ML VIAL SQ SCH ×2 (09:00→10:39)
[2016-10-03] MEDS: MUPIROCIN 2% OINT 1 APPLIC/GM SYR NASAL SCH (09:00)
[2016-10-03] MEDS: DOCUSATE SODIUM 50 MG/SENNA 8.6 MG TAB PO SCH (09:00)
[2016-10-03] MEDS ORDERED: IBUPROFEN 400 MG TAB PO SCH (09:00)
[2016-10-03] MEDS ORDERED: FLUD.1 PO (09:21)
[2016-10-03] MEDS ORDERED: MIDO5TAB PO (09:21)
[2016-10-03] MEDS ORDERED: IBUP400T20 PO (09:21)
[2016-10-03] MEDS ORDERED: LEVEMIR SQ (09:21)
--- NOTE | 2016-10-03 09:21 | HHI.DCPOC ---
Discharge Care Plan Diagnosis: (1) Orthostatic hypotension (2) Diabetes Goals to Promote Your Health * To prevent worsening of your condition and complications * To maintain your health at the optimal level Directions to Meet Your Goals Take your medications as prescribed Follow your dietary instruction Follow activity as directed Keep your appointments as scheduled Take your immunizations and boosters as scheduled If your symptoms worsen call your PCP, if no PCP go to Urgent Care Center or Emergency Room Smoking is Dangerous to Your Health. Avoid second hand smoke Call the 24-hour hour crisis hotline for domestic abuse at Sharon Loja MD Oct 03, 2016 09:21
--- NOTE | 2016-10-03 09:37 | HHI.DS ---
Discharge Summary Admission Date Sep 27, 2016 at 13:07 Discharge Date: Oct 03, 2016 Admitting Diagnosis orthostatic hypotension, lactic acidosis, pneumonia, severe sepsis (1) Lactic acidosis ICD Code: E87.2 (2) Orthostatic hypotension ICD Code: I95.1 (3) Diabetes ICD Code: E11.9 (4) Pleural effusion ICD Code: J90 Procedures none Brief History - From Admission Written by Estevan Rouse, acting as scribe for Dr. Wilkins on 09/27/16 at 16: 30. This note was transcribed by scribe Estevan GONZALEZ. I, Dr. Марина Wilkins personally performed the history, physical exam, and medical decision making; and confirmed the accuracy of the information in the transcribed note. Authenticated by Dr. Марина Wilkins on 09/27/16 at 16:30. 56 year-old male with recent history of hospitalization because of lung mass status post thoracotomy with right upper and middle lobectomy, loculated effusion, empyema, urinary retention, new onset diabetes who presented to hospital today because of lightheadedness, dizziness, disequilibrium. Patient states that he was out at the store to go shopping and he was having difficulty with ambulation that whenever he stood up he felt as if he was drunk and had lightheadedness, dizziness and near syncope. Patient had to sit down and the symptoms went away. He indicates that S[employer] liters called the police and ambulance and the patient indicates that he was subjected to sobriety testing because of his symptoms. His subsequently brought to the hospital for evaluation. Upon presentation patient had significant hypotension. Unable to perform orthostatic testing due to low blood pressure. Patient was given 1 L of IV fluids with significant improvement. Blood pressure had improved, however further workup showed multiple abnormalities to include severe lactic acidosis, complete white out of the right lung with effusion. Patient was discharged home with long-term antibiotics of Augmentin. He has had intermittent episodes of diarrhea. Patient indicates he has not had any problems with urinating this time. Patient with significant findings indicating septic shock and will be admitted to ICU for continued management. CBC/BMP: 10/01/16 0550 10/01/16 0550 Significant Findings Laboratory Tests Test 10/01/16 10/01/16 01:29 05:50 Vancomycin Level Trough 15.5 MCG/ML (5.0-10.0) Red Blood Count 3.32 MIL/MM3 (4.50-5.90) Hemoglobin 10.3 GM/DL (13.0-17.0) Hematocrit 31.3 % (39.0-51.0) Monocytes (%) (Auto) 8.1 % (0.0-8.0) Eosinophils (%) (Auto) 4.5 % (0.0-4.0) Chloride Level 110 MEQ/L (98-107) Creatinine 0.43 MG/DL (0.60-1.30) Random Glucose 112 MG/DL (74-106) Calcium Level 8.3 MG/DL (8.5-10.1) Magnesium Level 1.4 MG/DL (1.5-2.5) PE at Discharge GENERAL: This is a well-nourished, well-developed patient, in no apparent distress. CARDIOVASCULAR: Regular rate and rhythm without murmurs, gallops, or rubs. RESPIRATORY: Clear to auscultation. Breath sounds equal bilaterally. No wheezes , rales, or rhonchi. GASTROINTESTINAL: Abdomen soft, non-tender, nondistended. Normal active bowel sounds MUSCULOSKELETAL: Extremities without clubbing, cyanosis, or edema. NEURO: Alert & Oriented x4 to person, place, time, situation. Moves all ext x4 Pt update on day of discharge Patient seen today. Much improved with symptoms despite vital signs. Patient instructed on discharge planning Hospital Course This patient is a 56-year-old male with orthostatic hypotension and uncontrolled diabetes. Patient was treated with medicines for the same and his symptoms of his orthostatic hypotension. No Pt Condition on Discharge: Good Discharge Disposition: Discharge Home Discharge Time: > 30 minutes Discharge Instructions DIET: Follow Instructions for: Diabetic Diet Activities you can perform: Regular-No Restrictions Follow up Referrals: PCP Follow-up - 1 Week New Medications: Fludrocortisone (Fludrocortisone) 0.1 Mg Tab 0.1 MG PO DAILY Blood Pressure Management #31 TAB Ibuprofen (Ibuprofen) 400 Mg Tab 400 MG PO DAILY Blood Pressure Management #31 TAB Insulin Detemir Inj (Levemir Inj) 1,000 unit/ 10 ML Vial 5 UNITS SQ BID Blood Sugar Management #62 INJECTION Midodrine (Midodrine) 5 Mg Tab 10 MG PO TID@07,12,17 Blood Pressure Management #93 TAB Continued Medications: Lactobacillus Acidophilus (Lactinex) 1 Chew 1 TAB CHEW DAILY Nutritional Supplement #60 Ref 0 TAB Tamsulosin (Flomax) 0.4 Mg Cap 0.4 MG PO DAILY urinary retention #30 CAP Thiamine HCl (Gnp Vitamin B-1) 100 Mg Tab 100 MG PO DAILY mvt #30 TAB Discontinued Medications: Amoxicillin-Clavulanate (Augmentin) 500-125 mg Tab 500 MG PO Q8HR infection #100 TAB Sharon Loja MD Oct 03, 2016 09:37
[2016-10-03] MEDS: THIAMINE HCL 100 MG TAB PO SCH (10:37)
[2016-10-03] MEDS: TAMSULOSIN HCL 0.4 MG CAP PO SCH (10:37)
[2016-10-03] MEDS: MULTIVITAMIN TAB PO SCH (10:37)
[2016-10-03] MEDS: FLUDROCORTISONE ACETATE 0.1 MG TAB PO SCH (10:37)
[2016-10-03] MEDS: LACTOBACILLUS ACIDOPHILUS TAB PO SCH (10:37)
[2016-10-03 11:07] VITALS: BP 94/74; PULSE 102
--- NOTE | 2016-10-03 12:01 | HHI.FF ---
Face to Face Verification Diagnosis: (1) Orthostatic hypotension (2) Diabetes Physical Therapy Order: Evaluate and Treat Home Health Nursing Order: Medical education Diabetic education Telehealth I have seen patient Chris Price on 10/03/16. My clinical findings support the need for the requested home health care services because: Deconditioned w/ increased weakness Med compliance is questionable I certify that my clinical findings support that this patient is homebound because: Unsteady gait/balance Sharon Loja MD Oct 03, 2016 12:01
== END 2016-10-03 11:37 | disposition home health service (06) | DRG 638 ==
LOC: PHED 11:07 → PHEDA 13:07 → PHICU 14:25 → PH3A 09-29 06:34
PROVIDERS: ADMIT Hospitalist; ATTEND Hospitalist
PROC: 0W993ZX Drainage of Right Pleural Cavity, Percutaneous Approach, Diagnostic (ICD-10-PCS; principal; 2016-09-27)
DX: E11.69 Type 2 diabetes mellitus with other specified complication (principal); I95.1 Orthostatic hypotension; J90 Pleural effusion, not elsewhere classified; E44.0 Moderate protein-calorie malnutrition; E87.2 Acidosis; E11.65 Type 2 diabetes mellitus with hyperglycemia; E11.43 Type 2 diabetes mellitus with diabetic autonomic (poly)neuropathy; R19.7 Diarrhea, unspecified; E78.00 Pure hypercholesterolemia, unspecified; I10 Essential (primary) hypertension; E78.5 Hyperlipidemia, unspecified; Z80.1 Family history of malignant neoplasm of trachea, bronchus and lung; Z83.3 Family history of diabetes mellitus; Z82.49 Family history of ischemic heart disease and other diseases of the circulatory system; F17.210 Nicotine dependence, cigarettes, uncomplicated
CPT/HCPCS: 32555; 71010; 71250; 80048; 80053; 80202; 81001; 82150; 82550; 82945; 82948; 83605; 83615; 83735; 83986; 84134; 84157; 84484; 85025; 85027; 85610; 85730; 87015; 87040; 87070; 87102; 87116; 87205; 87206; 87449; 87493; 87641; 89051; 93005; 96361; 96365; 96368; 96375; C1729; J0456; J0692; J1815; J2405; J3370; J3475; J7030; J7050

== ENCOUNTER → 2016-12-23 | Outpatient (CLI) | payer OTHER ==
[~2016-12-23] MED LIST changes: -AUGM500T7 PO; -DOCU1CAP39 PO; +FLUD.1 PO; +GABA100C4 PO; +GLIP5TAB8 PO; -HYDR-3516 PO; +IBUP400T20 PO; +MIDO5TAB PO
[2016-12-23 10:55] LABS: ANION GAP 7 MEQ/L (5-15); AST (GOT) 24 U/L (15-37); BICARBONATE 25.6 MEQ/L (21.0-32.0); BLOOD UREA NITROGEN 16 MG/DL (7-18); CHLORIDE 104 MEQ/L (98-107); GLOMERULAR FILTRATION RATE 97 ML/MIN (>89); GLUCOSE,FASTING 134 MG/DL (74-99); POTASSIUM 4.6 MEQ/L (3.5-5.1); SODIUM (NA) 137 MEQ/L (136-145)
[2016-12-23 11:01] LABS: ALKALINE PHOSPHATASE 111 U/L (45-117); ALT (GPT) 16 U/L (12-78); HDL CHOLESTEROL 44.9 MG/DL (40.0-60.0); LDL CHOLESTEROL 80 MG/DL (0-99); TOTAL BILIRUBIN ADULT 0.8 MG/DL (0.2-1.0)
[2016-12-23 17:01] LABS: HEMOGLOBIN A1a 1.1 %; HEMOGLOBIN A1b 0.7 %; HEMOGLOBIN Ao 84.4 %; HEMOGLOBIN F 1.1 %; HEMOGLOBIN LA1C 2.3 %; HEMOGLOBIN P3 3.7 %
== END ==
LOC: CLAB 10:04
PROVIDERS: ATTEND Family Medicine
DX: E11.9 Type 2 diabetes mellitus without complications (principal); I95.1 Orthostatic hypotension; J90 Pleural effusion, not elsewhere classified; R91.8 Other nonspecific abnormal finding of lung field; R33.9 Retention of urine, unspecified; Z72.0 Tobacco use
CPT/HCPCS: 36415; 80053; 80061; 83036; 84153

== ENCOUNTER 2017-08-26 05:37 | Emergency (ER) | payer MEDICAID, OTHER ==
[~2017-08-26] VITALS: Ht 175.3 cm; Wt 76.4 kg
[~2017-08-26 05:37] MED LIST changes: -GNP100TA3 PO; +IBUP1TAB5 PO; -IBUP400T20 PO; +THIA100 PO
[2017-08-26 05:42] VITALS: BP 134/77; PULSE 108; RESP 14; TEMP 97.4; O2SAT 97
[2017-08-26] MEDS ORDERED: MIDO10TA PO (05:55)
[2017-08-26] MEDS ORDERED: LEVEMIR SQ (05:55)
[2017-08-26 06:00] VITALS: BP_SYST 147; BP_SYST 154; BP_DIAS 94; BP_DIAS 96; PULSE 104; O2SAT 98
--- NOTE | 2017-08-26 06:14 | PD ---
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 Pt is right sided and worst with movement. Pt has frequent falls because of his orthostatic hypotension and fell today. Said he wakes up once he is on the floor. Has scabs on his bilateral knees from recent falls. +Nausea and vomiting. Denies any fever, cough, chest pain, sob, abdominal pain, focal weakness or new numbness. Pt has diabetic neuropathy and has tingling in his toes and fingers. Pt also drinks 4 beers a day, last drink was yesterday. PFSH Past Medical History Heart Rhythm Problems: No Cancer: No (lung mass was benign) Cardiovascular Problems: Yes High Cholesterol: Yes Chemotherapy: No Chest Pain: No Congestive Heart Failure: No Cirrhosis: Yes Diabetes: Yes (type 2, not currently on medications) Diminished Hearing: No Endocrine: Yes Gastrointestinal Disorders: No Genitourinary: No Headaches: No Hypertension: Yes (not on meds) Immune Disorder: No Implanted Vascular Access Dvce: No Musculoskeletal: No Neurologic: Yes Psychiatric: No Reproductive: No Respiratory: No Immunizations Current: Yes Migraines: No Radiation Therapy: No Seizures: No Thyroid Disease: No Past Surgical History Thoracic Surgery: Yes (PARTIAL R LUNG REMOVAL month ago for benign tumor) Other Surgery: No Social History Alcohol Use: Yes (4 beers daily) Tobacco Use: Yes (1 PPD) Substance Use: No Allergies-Medications (Allergen,Severity, Reaction): Coded Allergies: No Known Allergies (Unverified Adverse Reaction, Unknown, 08/26/17) Reported Meds & Prescriptions Reported Meds & Active Scripts Active [place] (Hydrocodone-Acetaminophen) 7.5-325 mg Tab 1 Tab PO Q4H PRN Zofran (Ondansetron HCl) 4 Mg Tab 4 Mg PO Q6HR PRN Protonix (Pantoprazole Sodium) 40 Mg Tab 40 Mg PO DAILY Ibuprofen 400 Mg Tab 400 Mg PO BID Reported Midodrine 10 Mg Tab 10 Mg PO TID Levemir Inj (Insulin Detemir) 1,000 unit/ 10 ML Vial 15 Units SQ DAILY Do not mix with any other Insulin. Review of Systems Except as stated in HPI: all other systems reviewed are Neg Physical Exam Narrative GENERAL: 57 SKIN: Focused skin assessment warm/dry. HEAD: Atraumatic. Normocephalic. EYES: Pupils equal and round. No scleral icterus. No injection or drainage. ENT: No nasal bleeding or discharge. Mucous membranes pink and moist. NECK: Trachea midline. No JVD. CARDIOVASCULAR: Regular rate and rhythm. No murmur appreciated. RESPIRATORY: No accessory muscle use. Clear to auscultation. Breath sounds equal bilaterally. GASTROINTESTINAL: Abdomen soft, non-tender, nondistended. No rebound tenderness or guarding. BACK: No midline thoracic or lumbar ttp. +TTP right paraspinal diffusely from T11-L5. MUSCULOSKELETAL: No obvious deformities. No clubbing. No cyanosis. No edema. NEUROLOGICAL: Awake and alert. No obvious cranial nerve deficits. Motor grossly within normal limits. Normal speech. PSYCHIATRIC: Appropriate mood and affect; insight and judgment normal. Data Data Last Documented VS Vital Signs Date Time Temp Pulse Resp B/P (MAP) Pulse Ox O2 Delivery O2 Flow Rate FiO2 08/26/17 09:55 98 17 120/75 (90) 96 08/26/17 08:25 Room Air 08/26/17 05:42 97.4 Orders Orders Complete Blood Count With Diff (08/26/17 06:09) Comprehensive Metabolic Panel (08/26/17 06:09) Urinalysis - C+S If Indicated (08/26/17 06:09) Alcohol (Ethanol) (08/26/17 06:09) Electrocardiogram (08/26/17 ) Ketorolac Inj (Toradol Inj) (08/26/17 06:15) Diazepam (Valium) (08/26/17 06:15) Ondansetron Odt (Zofran Odt) (08/26/17 07:00) Chest, Single Ap (08/26/17 07:31) Ct Abd/Pel W/O Iv Contrast (08/26/17 08:34) Ed Discharge Order (08/26/17 09:46) Labs Laboratory Tests Test 08/26/17 06:10 08/26/17 07:56 White Blood Count 5.9 TH/MM3 Red Blood Count 3.83 MIL/MM3 Hemoglobin 13.5 GM/DL Hematocrit 39.4 % Mean Corpuscular Volume 103.1 FL Mean Corpuscular Hemoglobin 35.3 PG Mean Corpuscular Hemoglobin Concent 34.3 % Red Cell Distribution Width 13.7 % Platelet Count 102 TH/MM3 Mean Platelet Volume 8.0 FL Neutrophils (%) (Auto) 53.4 % Lymphocytes (%) (Auto) 34.6 % Monocytes (%) (Auto) 7.8 % Eosinophils (%) (Auto) 3.4 % Basophils (%) (Auto) 0.8 % Neutrophils # (Auto) 3.2 TH/MM3 Lymphocytes # (Auto) 2.0 TH/MM3 Monocytes # (Auto) 0.5 TH/MM3 Eosinophils # (Auto) 0.2 TH/MM3 Basophils # (Auto) 0.0 TH/MM3 CBC Comment DIFF FINAL Differential Comment Blood Urea Nitrogen 7 MG/DL Creatinine 1.10 MG/DL Random Glucose 150 MG/DL Total Protein 7.5 GM/DL Albumin 2.7 GM/DL Calcium Level 7.9 MG/DL Alkaline Phosphatase 140 U/L Aspartate Amino Transf (AST/SGOT) 111 U/L Alanine Aminotransferase (ALT/SGPT) 48 U/L Total Bilirubin 1.1 MG/DL Sodium Level 141 MEQ/L Potassium Level 3.9 MEQ/L Chloride Level 107 MEQ/L Carbon Dioxide Level 24.4 MEQ/L Anion Gap 10 MEQ/L Estimat Glomerular Filtration Rate 69 ML/MIN Ethyl Alcohol Level 287 MG/DL Urine Collection Type CLEAN CATCH Urine Color YELLOW Urine Turbidity CLEAR Urine pH 6.5 Urine Specific [place] LESS/EQUAL 1.005 Urine Protein NEG mg/dL Urine Glucose (UA) NEG mg/dL Urine Ketones NEG mg/dL Urine Occult Blood LARGE Urine Nitrite NEG Urine Bilirubin NEG Urine Urobilinogen 0.2 MG/DL Urine Leukocyte Esterase NEG Urine RBC 20-24 /hpf Urine Squamous Epithelial Cells 0-5 /hpf Microscopic Urinalysis Comment CULT NOT INDICATED MDM Medical Decision Making Medical Screen Exam Complete: Yes Emergency Medical Condition: Yes Interpretation(s) EKG: Sinus tachycardia at 102bpm. Normal axis. No significant ST elevation or depression. Differential Diagnosis Musculoskeletal pain vs. pyelonephritis vs. orthostatic hypotension Narrative Course 57yo M here with c/o right sided back pain for about 1 week. There is no tenderness in midline cervical, thoracic or lumbar spine. Pt has no abdominal pain. It seem musculoskeletal to me but pt said he is vomiting foamy vomit. Showed me and looks like sputum but said he was not coughing. Pt given zofran. Pt also given valium and toradol for pain. Labs reviewed, no leukocytosis. H /H normal. Mild thrombocytopenia at 102,000. CMP is pending. Sign out to next team to follow up urinalysis, labs and reevaluate. Diagnosis Primary Impression: Back pain Qualified Codes: M54.9 - Dorsalgia, unspecified Scripts Hydrocodone-Acetaminophen ([place]) 7.5-325 mg Tab 1 TAB PO Q4H Y for PAIN, #12 TAB 0 Refills Prov: Vinh Mccabe MD 08/26/17 Ondansetron (Zofran) 4 Mg Tab 4 MG PO Q6HR Y for NAUSEA OR VOMITING, #15 TAB 0 Refills Prov: Vinh Mccabe MD 08/26/17 Pantoprazole (Protonix) 40 Mg Tab 40 MG PO DAILY for Reflux, #30 TAB 0 Refills Prov: Vinh Mccabe MD 08/26/17 Daya Munoz DO Aug 26, 2017 06:14
[2017-08-26] MEDS ORDERED: DIAZEPAM 5 MG TAB PO ONE (06:15)
[2017-08-26] MEDS ORDERED: KETOROLAC TROMETHAMINE 30 MG/ML (IVP) VIAL IV PUSH ONE (06:15)
[2017-08-26 06:35] LABS: AUTOMATED NEUTROPHIL # 3.2 TH/MM3 (1.8-7.7); BASOPHIL % 0.8 % (0.0-2.0); EOSINOPHIL # 0.2 TH/MM3 (0-0.4); EOSINOPHIL % 3.4 % (0.0-4.0); HEMATOCRIT 39.4 % (39.0-51.0); HEMOGLOBIN 13.5 GM/DL (13.0-17.0); LYMPH % 34.6 % (9.0-44.0); MEAN CELL VOLUME 103.1 FL (80.0-100.0); MEAN CORPUSCULAR HEMOGLOBIN 35.3 PG (27.0-34.0); MEAN CORPUSCULAR HGB CONC 34.3 % (32.0-36.0); MONO % 7.8 % (0.0-8.0); MONOCYTE # 0.5 TH/MM3 (0-0.9); NEUT % 53.4 % (16.0-70.0); PLATELET COUNT 102 TH/MM3 (150-450); RED BLOOD COUNT 3.83 MIL/MM3 (4.50-5.90); RED CELL DISTRIBUTION WIDTH 13.7 % (11.6-17.2); WHITE BLOOD COUNT 5.9 TH/MM3 (4.0-11.0)
[2017-08-26 06:41] LABS: CHLORIDE 107 MEQ/L (98-107); SODIUM (NA) 141 MEQ/L (136-145)
[2017-08-26 06:45] LABS: ALBUMIN 2.7 GM/DL (3.4-5.0); BICARBONATE 24.4 MEQ/L (21.0-32.0); CALCIUM 7.9 MG/DL (8.5-10.1); GLUCOSE,RANDOM 150 MG/DL (74-106)
[2017-08-26 06:46] LABS: BLOOD UREA NITROGEN 7 MG/DL (7-18)
[2017-08-26 06:48] LABS: ALT (GPT) 48 U/L (12-78); AST (GOT) 111 U/L (15-37)
[2017-08-26 06:49] LABS: GLOMERULAR FILTRATION RATE 69 ML/MIN (>89)
[2017-08-26 06:50] LABS: TOTAL BILIRUBIN ADULT 1.1 MG/DL (0.2-1.0); TOTAL PROTEIN 7.5 GM/DL (6.4-8.2)
[2017-08-26 06:51] LABS: ALKALINE PHOSPHATASE 140 U/L (45-117)
[2017-08-26] MEDS ORDERED: ONDANSETRON ODT 4 MG TAB PO ONE (07:00)
[2017-08-26 07:25] VITALS: BP 102/69; PULSE 106; RESP 17; O2SAT 99
--- NOTE | 2017-08-26 07:56 | RADRPT ---
EXAM DATE: 08/26/2017 7:51 AM EDT AGE/SEX: 57 years / Male INDICATIONS: Chest pain. CLINICAL DATA: This is the patient's initial encounter. Patient reports that signs and symptoms have been present for 1 day and indicates a pain score of 1/10. MEDICAL/SURGICAL HISTORY: Hypertension. Diabetes mellitus type II. . Right lobectomy COMPARISON: . FINDINGS: There is mild pleural-parenchymal scarring at the central right lung base and in the lateral right up per lobe consistent with previous surgery. Mild apical pleural thickening. Left lung is clear. Cardia c contours are satisfactory. CONCLUSION: Postoperative changes on the right. No definite acute disease Electronically signed by: Dexter Lemus MD 08/26/2017 7:55 AM EDT
[2017-08-26 08:00] LABS: BILIRUBIN, URINE NEG (NEG); BLOOD, URINE LARGE (NEG); GLUCOSE,URINE NEG (NEG); KETONE, URINE NEG (NEG); NITRITE,URINE NEG (NEG); PH, URINE 6.5 (5.0-8.5); URINE COLOR YELLOW (YELLW/STRAW); URINE LEUKOCYTE ESTERASE NEG (NEG)
[2017-08-26 08:25] VITALS: BP 108/75; PULSE 100; RESP 18; O2SAT 98
[2017-08-26 08:27] LABS: SQUAMOUS EPITHELIAL CELL URINE 0-5 /hpf (0-5)
--- NOTE | 2017-08-26 09:07 | PD ---
Physical Exam Date Seen by Provider: Aug 26, 2017 Time Seen by Provider: 09:06 Narrative This 57-year-old male is complaining of right flank pain since last night. He does not recall any injury. He has no history of kidney stones. He did have surgery on his right lung last year. He apparently had a benign tumor. Postoperatively he had pleural effusion that was drained. The pain is having is nonpleuritic in nature and is not aggravated by deep breathing. It is aggravated by certain movements. Gentleman has orthostatic hypotension and he does fall quite often. He has a lot of scrapes on his knees. He does drink alcohol. He says his last drink of alcohol was 5:00 pm yesterday and blood alcohol level was ordered and is come back at 287. Data Data Last Documented VS Vital Signs Date Time Temp Pulse Resp B/P (MAP) Pulse Ox O2 Delivery O2 Flow Rate FiO2 08/26/17 08:25 100 18 108/75 (86) 98 Room Air 08/26/17 05:42 97.4 Orders Orders Complete Blood Count With Diff (08/26/17 06:09) Comprehensive Metabolic Panel (08/26/17 06:09) Urinalysis - C+S If Indicated (08/26/17 06:09) Alcohol (Ethanol) (08/26/17 06:09) Electrocardiogram (08/26/17 ) Ketorolac Inj (Toradol Inj) (08/26/17 06:15) Diazepam (Valium) (08/26/17 06:15) Ondansetron Odt (Zofran Odt) (08/26/17 07:00) Chest, Single Ap (08/26/17 07:31) Ct Abd/Pel W/O Iv Contrast (08/26/17 08:34) Labs Laboratory Tests Test 08/26/17 06:10 08/26/17 07:56 White Blood Count 5.9 TH/MM3 Red Blood Count 3.83 MIL/MM3 Hemoglobin 13.5 GM/DL Hematocrit 39.4 % Mean Corpuscular Volume 103.1 FL Mean Corpuscular Hemoglobin 35.3 PG Mean Corpuscular Hemoglobin Concent 34.3 % Red Cell Distribution Width 13.7 % Platelet Count 102 TH/MM3 Mean Platelet Volume 8.0 FL Neutrophils (%) (Auto) 53.4 % Lymphocytes (%) (Auto) 34.6 % Monocytes (%) (Auto) 7.8 % Eosinophils (%) (Auto) 3.4 % Basophils (%) (Auto) 0.8 % Neutrophils # (Auto) 3.2 TH/MM3 Lymphocytes # (Auto) 2.0 TH/MM3 Monocytes # (Auto) 0.5 TH/MM3 Eosinophils # (Auto) 0.2 TH/MM3 Basophils # (Auto) 0.0 TH/MM3 CBC Comment DIFF FINAL Differential Comment Blood Urea Nitrogen 7 MG/DL Creatinine 1.10 MG/DL Random Glucose 150 MG/DL Total Protein 7.5 GM/DL Albumin 2.7 GM/DL Calcium Level 7.9 MG/DL Alkaline Phosphatase 140 U/L Aspartate Amino Transf (AST/SGOT) 111 U/L Alanine Aminotransferase (ALT/SGPT) 48 U/L Total Bilirubin 1.1 MG/DL Sodium Level 141 MEQ/L Potassium Level 3.9 MEQ/L Chloride Level 107 MEQ/L Carbon Dioxide Level 24.4 MEQ/L Anion Gap 10 MEQ/L Estimat Glomerular Filtration Rate 69 ML/MIN Ethyl Alcohol Level 287 MG/DL Urine Collection Type CLEAN CATCH Urine Color YELLOW Urine Turbidity CLEAR Urine pH 6.5 Urine Specific [place] LESS/EQUAL 1.005 Urine Protein NEG mg/dL Urine Glucose (UA) NEG mg/dL Urine Ketones NEG mg/dL Urine Occult Blood LARGE Urine Nitrite NEG Urine Bilirubin NEG Urine Urobilinogen 0.2 MG/DL Urine Leukocyte Esterase NEG Urine RBC 20-24 /hpf Urine Squamous Epithelial Cells 0-5 /hpf Microscopic Urinalysis Comment CULT NOT INDICATED MDM Medical Record Reviewed: Yes Supervised Visit with RADHA: No Differential Diagnosis Differential includes renal colic, UTI, musculoskeletal pain Narrative Course Urinalysis did show some blood in the urine so a CT scan was ordered to assess for possible kidney stone. The CT shows a perinephric hematoma. He is also not noted to have hepatic steatosis and question of some varices. I have conveyed these findings to the patient. As previously stated his blood alcohol today is 287 he says he has not drank in about over 12 hours. He does admit to daily drinking. I have spent some time with him telling him about the cirrhosis and risks of further drinking. In addition drinking is undoubtedly not helpful to his orthostatic hypotension. I am going to put him on Protonix. He has been taking a large amount of ibuprofen and I told him he cannot take this. I will also prescribe some Zofran and a few tablets of [place] for his pain. Diagnosis Primary Impression: Perinephric hematoma Scripts Hydrocodone-Acetaminophen ([place]) 7.5-325 mg Tab 1 TAB PO Q4H Y for PAIN, #12 TAB 0 Refills Prov: Vinh Mccabe MD 08/26/17 Ondansetron (Zofran) 4 Mg Tab 4 MG PO Q6HR Y for NAUSEA OR VOMITING, #15 TAB 0 Refills Prov: Vinh Mccabe MD 08/26/17 Pantoprazole (Protonix) 40 Mg Tab 40 MG PO DAILY for Reflux, #30 TAB 0 Refills Prov: Vinh Mccabe MD 08/26/17 Disposition: 01 DISCHARGE HOME Condition: Stable Vinh Mccabe MD Aug 26, 2017 09:07
--- NOTE | 2017-08-26 09:26 | RADRPT ---
EXAM DATE: 08/26/2017 9:04 AM EDT AGE/SEX: 57 years / Male INDICATIONS: Right flank pain x 1 week. Nausea and vomiting. CLINICAL DATA: This is the patient's initial encounter. Patient reports that signs and symptoms have been present for 1 week and indicates a pain score of 7/10. MEDICAL/SURGICAL HISTORY: Cardiovascular disease. Diabetes. Cirrhosis. Hypertension. Lobect mervat. RADIATION DOSE: 6.61 CTDI (mGy) COMPARISON: No prior exams available for comparison. TECHNIQUE: Multiple contiguous axial images were obtained through the abdomen. Images were obtained using multiple row detector helical technique. Using dose reduction techniques, radiation dose was ke pt as low as reasonably achievable to obtain optimal diagnostic quality images. FINDINGS: Lower Lungs: Tiny right pleural effusion.. Liver: The liver has a homogeneously low density without space-occupying lesion. There is no dilation of the biliary tree. Gallbladder is unremarkable. Spleen: Homogeneous density without enlargement. Pancreas: Unremarkable without mass or calcification. Kidneys: A perinephric hematoma is seen tracking in a circumferential fashion around the right kidne y. This reaches a maximum thickness of 1.3 cm. No compression of the right renal parenchyma is apprec iated. Left kidney is unremarkable. No hydronephrosis or hydroureter on either side.. Adrenal Glands: Unremarkable. Aorta: The aorta and proximal iliac vessels are grossly unremarkable without aneurysmal dilation. Bowel/Mesentery: Varicosities are seen at the GE junction. The bowel loops are grossly unremarkable. The cecum and sigmoid colon have a normal configuration. Abdominal Wall: Intact. Retroperitoneum: No evidence of adenopathy in the retrocrural, para-aortic, or deep pelvic regions. Bladder: There is smooth mural thickening involving the urinary bladder without a discrete mass. No stones.. Reproductive Organs: No abnormal masses or calcifications seen. Inguinal: The inguinal region is unremarkable without evidence of adenopathy. Bony Structures: Unremarkable. CONCLUSION: 1. Perinephric hematoma involving the right kidney with maximum thickness 13 mm. 2. Hepatic steatosis. 3. GE junction varicosities. This raises concern for underlying portal hypertension. 4. Small right pleural effusion. Electronically signed by: Chris Richardson MD 08/26/2017 9:25 AM EDT
[2017-08-26] MEDS ORDERED: HYDR-3288 PO (09:45)
[2017-08-26] MEDS ORDERED: PROT40TA PO (09:45)
[2017-08-26] MEDS ORDERED: ZOFR4TAB PO (09:45)
[2017-08-26 09:55] VITALS: BP 120/75
--- NOTE | 2017-08-26 16:04 | EKG ---
Date Performed: 08/26/2017 Time Performed: 06:16:07 PTAGE: 57 years EKG: SINUS TACHYCARDIA ABNORMAL RHYTHM ECG Since the PREVIOUS TRACING , no significant change noted PREVIOUS TRACIN09/27/2016 11.13 DOCTOR: Modesta Harmon Interpretating Date/Time 08/26/2017 16:00:32
== END 2017-08-26 09:57 | disposition home or self-care (01) ==
LOC: PHED 05:37
DX: M54.9 Dorsalgia, unspecified (principal); S37.011A Minor contusion of right kidney, initial encounter; X58.XXXA Exposure to other specified factors, initial encounter; R94.31 Abnormal electrocardiogram [ECG] [EKG]; D69.6 Thrombocytopenia, unspecified; Y90.8 Blood alcohol level of 240 mg/100 ml or more; E11.40 Type 2 diabetes mellitus with diabetic neuropathy, unspecified; E78.00 Pure hypercholesterolemia, unspecified; I10 Essential (primary) hypertension; J42 Unspecified chronic bronchitis; I95.1 Orthostatic hypotension; R29.6 Repeated falls; R11.2 Nausea with vomiting, unspecified; K74.60 Unspecified cirrhosis of liver; F17.200 Nicotine dependence, unspecified, uncomplicated; Z79.899 Other long term (current) drug therapy
CPT/HCPCS: 71045; 74176; 80053; 80307; 81001; 85025; 93005; 96374; 99285; J1885

== ENCOUNTER 2018-03-23 09:59 | Inpatient (IN) ==
[2018-03-23] MEDS ORDERED: Morphine Inj 4 MG/ML Vial IV.PUSH ONE (10:21)
[2018-03-23] MEDS ORDERED: Ketorolac Inj 30 MG/ML (IVP) Vial IV.PUSH ONE (10:21)
--- NOTE | 2018-03-23 10:27 | ED ---
HPI General Chief Complaint: Fall Stated Complaint: fall Time Seen by Provider: 03/23/18 10:05 Source: patient Mode of arrival: EMS Limitations: no limitations History of Present Illness HPI Narrative: The patient is a 57-year-old male who presents to the emergency department via EMS for left hip and pelvis pain after falling. The patient states he fell on Tuesday evening at home, landed on his left hip. The patient states he has had progressing left hip pain that radiates into the left groin since Tuesday night. The pain is exacerbated by weightbearing and ambulation and slightly alleviated at rest. Occasionally the pain radiates to the left mid thigh. He denies any history of previous pelvic or hip fractures. The patient does have a history of diabetic neuropathy. The patient denies any head injury during the fall denies any headache, loss of consciousness, neck pain, chest pain, shortness of breath, nausea, vomiting, or abdominal pain. Symptoms are moderate to severe, worse with weightbearing, palpation, and movement, and minimally alleviated at rest. MD complaint: Reports fall Onset (ago): day(s) Fall from: standing Fall witnessed: yes, by family Place fall occurred: home Loss of consciousness: none Prolonged down time: no Symptoms prior to fall: Reports none Context: Reports tripped/slipped Location of injury: Reports pelvis Severity: severe Severity scale (1-10): 8 Quality: Reports aching Associated symptoms (after fall): Reports denies Related Data Home Medications Medication Instructions Recorded Confirmed No Known Home Medications 03/23/18 03/23/18 Allergies Allergy/AdvReac Type Severity Reaction Status Date / Time No Known Allergies Unknown Uncoded 08/26/17 05:48 Review of Systems ROS: all other systems reviewed are negative [facility] Medical History Medical History Diabetes (Acute) HTN (hypertension) (Acute) Social History Social History Second Hand Smoke Exposure: Yes Smoking Status: Current every day smoker Tobacco Type: Cigarettes How Often Do You Have a Drink Containing Alcohol: 4 or more times a week Recent Travel in [facility] within the Last 8 Weeks: No Recent Out of Country Travel within the Last 8 Weeks: No Immunization History Tetanus Immunization: <5 Years Exam Narrative Exam Narrative: GENERAL: Awake, alert, pleasant 57-year-old male who appears his stated age and is in no acute respiratory distress. SKIN: Focused skin assessment warm/dry. HEAD: Atraumatic. Normocephalic. EYES: Pupils equal and round. No scleral icterus. No injection or drainage. ENT: No nasal bleeding or discharge. Mucous membranes pink and moist. NECK: Trachea midline. No JVD. CARDIOVASCULAR: Regular, tachycardic with a heart rate of 100. Well-healed scar right lateral to posterior chest. RESPIRATORY: No accessory muscle use. Clear to auscultation. Breath sounds equal bilaterally. GASTROINTESTINAL: Abdomen soft, non-tender, nondistended. MUSCULOSKELETAL: No obvious leg length discrepancy. Tenderness noted over the posterior aspect of the left hip and the left groin. Limited ability to flex left hip and knee secondary to pain. Positive left dorsalis pedal pulse. Decreased hair growth noted on the lower extremities bilaterally. NEUROLOGICAL: Awake and alert. No obvious cranial nerve deficits. Motor grossly within normal limits. Normal speech. Sensation is symmetric to the lower extremities bilaterally. PSYCHIATRIC: Appropriate mood and affect; insight and judgment normal. Course Initial Documented Vital Signs Temperature 97.9 F 03/23/18 10:04 Pulse Rate 101 H 03/23/18 10:04 Respiratory Rate 20 03/23/18 10:04 Blood Pressure 107/70 03/23/18 10:04 Pulse Oximetry 99 03/23/18 10:04 Last Documented Vital Signs Temperature 97.9 F 03/23/18 10:04 Pulse Rate 101 H 03/23/18 10:07 Respiratory Rate 20 03/23/18 10:07 Blood Pressure 107/70 03/23/18 10:04 Pulse Oximetry 100 03/23/18 10:07 Medical Decision Making [facility] Narrative Medical decision making narrative: IV was established, labs are drawn and sent, and the patient was placed on cardiac telemetry monitoring and continuous pulse oximetry monitoring. X-ray of the pelvis and left hip was obtained. The patient was administered morphine, Toradol, and IV fluids. X-ray of the pelvis and left hip is positive for a left femoral neck fracture. The patient's pain significantly improved with morphine. Laboratory evaluation was essentially unremarkable. I discussed the patient with the physician publisher assistant, Emile, on- call for Dr. Jasso. After discussion it was agreed the patient will be kept n.p.o. for possible surgery later today, orthopedics did order a CT of the left hip and requested that it be performed prior to the patient going to the floor. I discussed the findings with the patient at bedside. I discussed the patient with Dr. Arpit Ramirez who agrees with admission. Medical Screen Exam Complete: Yes Emergency Medical Condition: Yes Differential Diagnosis Differential Diagnosis: Differential diagnosis includes hip fracture, hip dislocation, pelvic fracture, hematoma, contusion, sprain, strain, mechanical fall. Lab Data Lab results reviewed: Yes I reviewed the patient's lab results. Result diagrams: 03/23/18 10:33 03/23/18 10:33 Lab Results 03/23/18 03/23/18 03/23/18 Range/Units 10:33 10:33 10:33 WBC 8.3 (4.0-11.0) th/mm3 RBC 3.84 L (4.50-5.90) mil/mm3 Hgb 13.4 (13.0-17.0) gm/dL Hct 39.8 (39.0-51.0) % MCV 103.5 H (80.0-100.0) fL MCH 34.8 H (27.0-34.0) pg MCHC 33.6 (32.0-36.0) % RDW 14.5 (11.6-17.2) % Plt Count 134 L (150-450) th/mm3 MPV 10.1 (7.0-11.0) fL Neut % (Auto) 69.4 (16.0-70.0) % Lymph % (Auto) 17.2 (9.0-44.0) % [place] % (Auto) 10.1 H (0.0-8.0) % Eos % (Auto) 2.5 (0.0-4.0) % Baso % (Auto) 0.8 (0.0-2.0) % Neut # (Auto) 5.7 (1.8-7.7) th/mm3 Lymph # (Auto) 1.4 (1.0-4.8) th/mm3 [place] # (Auto) 0.8 (0.0-0.9) th/mm3 Eos # (Auto) 0.2 (0.0-0.4) th/mm3 Baso # (Auto) 0.1 (0.0-0.2) th/mm3 WBC Differential . Differential Comment Auto diff final PT 12.2 H (9.8-11.6) sec INR 1.2 Ratio APTT 26.6 (23.4-31.7) sec Sodium 134 L (136-145) meq/L Potassium 4.3 (3.5-5.1) meq/L Chloride 102 (98-107) meq/L Carbon Dioxide 22.4 (21.0-32.0) meq/L Anion Gap 10 (5-15) meq/L BUN 17 (7-18) mg/dL Creatinine 1.16 (0.60-1.30) mg/dL Estimated GFR 65 L (>89) mL/min Random Glucose 103 (74-106) mg/dL Calcium 8.7 (8.5-10.1) mg/dL Total Bilirubin 1.4 H (0.2-1.0) mg/dL AST 40 H (15-37) U/L ALT 27 (12-78) U/L Alkaline Phosphatase 216 H (45-117) U/L Total Protein 8.0 (6.4-8.2) g/dL Albumin 3.1 L (3.4-5.0) g/dL Imaging Data Attestation: I personally reviewed and interpreted this imaging study as follows : My impression: X-ray of the left hip reveals left femoral neck fracture Radiologist's impression: Hip X-Ray 03/23/18 10:22 CONCLUSION: Acute fracture of the left femoral neck likely in the basicervical region. Chest X-Ray 03/23/18 11:03 CONCLUSION: 1. No acute cardiopulmonary abnormality is identified. 2. Stable changes in the right hemithorax suggesting prior partial lung resection. Discharge Plan Discharge Disposition Patient Disposition: ED Admit(ED Internal Use Only) Discharge Condition Condition: Stable Discharge Order Discharge Orders: ED Use Only Admit Order (Routine); Ordered 03/23/18 Ordered By: Adonay Morgan Discharge Details Diagnosis: Closed fracture of neck of left femur Physicians Team ED Provider: Adonay Morgan Primary Care Provider: Primary Care Physici,No Rxs /Orders / Referrals /Forms Prescriptions: No Action No Known Home Medications RF: 0 Status ED Status: Admitted Patient
[2018-03-23 10:58] LABS: Baso # (Auto) 0.1 th/mm3 (0.0-0.2); Baso % (Auto) 0.8 % (0.0-2.0); Eos # (Auto) 0.2 th/mm3 (0.0-0.4); Eos % (Auto) 2.5 % (0.0-4.0); Hematocrit 39.8 % (39.0-51.0); Hemoglobin 13.4 gm/dL (13.0-17.0); Lymph # (Auto) 1.4 th/mm3 (1.0-4.8); Lymph % (Auto) 17.2 % (9.0-44.0); Mean Corpuscular HGB Conc 33.6 % (32.0-36.0); Mean Corpuscular Hemoglobin 34.8 pg (27.0-34.0); Mean Corpuscular Volume 103.5 fL (80.0-100.0); Mean Platelet Volume 10.1 fL (7.0-11.0); Mono # (Auto) 0.8 th/mm3 (0.0-0.9); Mono % (Auto) 10.1 % (0.0-8.0); Neut # (Auto) 5.7 th/mm3 (1.8-7.7); Neut % (Auto) 69.4 % (16.0-70.0); Platelet Count 134 th/mm3 (150-450); Red Blood Count 3.84 mil/mm3 (4.50-5.90); Red Cell Distribution Width 14.5 % (11.6-17.2); White Blood Count 8.3 th/mm3 (4.0-11.0)
[2018-03-23 11:05] LABS: Activated Partial Thrombo Time 26.6 sec (23.4-31.7); INR 1.2 Ratio; Prothrombin Time 12.2 sec (9.8-11.6)
[2018-03-23 11:09] LABS: Albumin 3.1 g/dL (3.4-5.0); Anion Gap 10 meq/L (5-15); Aspartate Aminotransferase 40 U/L (15-37); Blood Urea Nitrogen 17 mg/dL (7-18); Calcium 8.7 mg/dL (8.5-10.1); Carbon Dioxide 22.4 meq/L (21.0-32.0); Chloride 102 meq/L (98-107); Glomerular Filtration Rate 65 mL/min (>89); Glucose,Random 103 mg/dL (74-106); Potassium 4.3 meq/L (3.5-5.1); Sodium 134 meq/L (136-145)
[2018-03-23 11:12] LABS: Alanine Aminotransferase 27 U/L (12-78); Alkaline Phosphatase 216 U/L (45-117)
--- NOTE | 2018-03-23 11:41 | XR ---
EXAM DATE: 03/23/2018 11:31 AM EST AGE/SEX: 57 years / Male INDICATIONS: Left hip pain post fall. CLINICAL DATA: This is the patient's initial encounter. Patient reports that signs and symptoms have been present for 4 - 6 days and indicates a pain score of 10/10. MEDICAL/SURGICAL HISTORY: None. None. COMPARISON: [facility], CT ABDOMEN & PELVIS W/O CONTRAST, 08/26/2017. . FINDINGS: 5 images of the pelvis and left hip joint demonstrate a fracture of the left femoral neck that is not well visualized given the rotation of the femur but appears to be near the basicervical region. It i s at least minimally displaced. No other fracture or dislocation is identified. Sacroiliac joints and pubic symphysis demonstrate no abnormality. There is arterial vascular calcification. No soft tissue abnormality or radiopaque foreign body is identified. CONCLUSION: Acute fracture of the left femoral neck likely in the basicervical region. Electronically signed by: Dexter Durham MD Board Certified Radiologist 03/23/2018 11:40 AM EST
--- NOTE | 2018-03-23 11:44 | XR ---
EXAM DATE: 03/23/2018 11:33 AM EST AGE/SEX: 57 years / Male INDICATIONS: Injury post fall. CLINICAL DATA: This is the patient's initial encounter. Patient reports that signs and symptoms have been present for 4 - 6 days and indicates a pain score of 0/10. MEDICAL/SURGICAL HISTORY: None. None. COMPARISON: [facility], CHEST SINGLE AP, 08/26/2017. [facility], XR CHEST PA AND LAT, 11/12/2016. . FINDINGS: Upright AP view of the chest demonstrates a normal-sized cardiac silhouette with stable configuration of the trachea and findings suggesting volume loss in the right hemithorax. EKG lines overlie the pa tient. No pleural effusion, airspace consolidation, or pneumothorax is identified. There is chronic r ight costophrenic angle blunting with stable diaphragmatic tenting or linear scar at the right base. Bones and soft tissues demonstrate no acute abnormality. Right ribs have a stable appearance. CONCLUSION: 1. No acute cardiopulmonary abnormality is identified. 2. Stable changes in the right hemithorax suggesting prior partial lung resection. Electronically signed by: Dexter Durham MD Board Certified Radiologist 03/23/2018 11:43 AM EST
[2018-03-23] MEDS ORDERED: Acetaminophen 325 MG Tablet PO PRN (12:59)
[2018-03-23] MEDS ORDERED: Morphine Inj 4 MG/ML Vial IV.PUSH PRN (13:01)
--- NOTE | 2018-03-23 14:11 | CT ---
EXAM DATE: 03/23/2018 1:51 PM EST AGE/SEX: 57 years / Male INDICATIONS: Fell 4 days ago, complains of left hip pain CLINICAL DATA: This is the patient's initial encounter. Patient reports that signs and symptoms have been present for 1 day and indicates a pain score of 5/10. MEDICAL/SURGICAL HISTORY: Diabetes. Hypertension. None. RADIATION DOSE: 9.85 CTDI (mGy) COMPARISON: [facility], HIP LEFT W AP PELVIS 2V, 03/23/2018. . TECHNIQUE: Multiple contiguous axial images were acquired using a multirow detector CT scanner witho ut contrast. Multiplanar reconstruction was performed in the sagittal and coronal planes. Using aut omated exposure control and adjustment of the mA and/or kV according to patient size, radiation dose was kept as low as reasonably achievable to obtain optimal diagnostic quality images. DICOM format i mage data is available electronically for review and comparison. FINDINGS: Bones: A mildly angulated nondisplaced tracking fracture is identified through the left femoral neck . Acetabulum is intact. Joints: Femoral head remains well-seated within the acetabulum without evidence of dislocation. Ther e is no significant arthropathy. Soft Tissues: No significant periarticular inflammation or hematoma is noted. Other: No foreign bodies seen. CONCLUSION: 1. Mildly angulated, nondisplaced fracture of the left femoral neck fracture. 2. Intact acetabulum Electronically signed by: Gregorio Sexton MD Board Certified Radiologist 03/23/2018 2:10 PM EST
[2018-03-23] MEDS ORDERED: Dextrose 50% in Water 50 ML Vial IV.PUSH PRN (14:16)
--- NOTE | 2018-03-23 14:21 | P.HPIM ---
History of Present Illness Primary Care Physician: No Primary Care Physician Chief Complaint: Leg Pain History of Present Illness: Mr. Price is a 57 year old male. 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 He also has orthostatic hypotension chronically which he attributes to his diabetes. 2 days ago he had a fall after tripping on a rug. He had pain in his left leg but thought this would get better. It has worsened. He comes in for evaluation and is found to have a fracture of his left femoral neck. Surgical intervention is needed. No other complaints from this patient. Inpatient Certification Inpatient Certification: I certify that the inpatient services were ordered in accordance with Medicare regulations governing the order. This includes certification that hospital inpatient services are reasonable and necessary and in the case of services not specified as inpatient-only under 42 CFR 419.22(n), that they are appropriately provided as inpatient services in accordance to with the 2-midnight benchmark under 43 CFR 412.3(e) Estimated Total Length of Stay (Days): 3 Plans for Post Hospital Care: SNF Review of Systems Constitutional: No fevers, no chills no night sweats, no fatigue, no weakness Eyes: No eye pain, no blurry vision, no loss of vision ENT: No sore throat, no ear pain, no rhinorrhea Cardiovascular: No chest pain, no tachycardia, no palpitations, no syncope Respiratory: No wheezing, no cough, no shortness of breath Gastrointestinal: No abdominal pain, no black tarry stools, no bright red blood per rectum, no vomiting, no diarrhea Musculoskeletal: joint pain, no muscle cramps, no stiffness Integumentary: No rash, no ulcers, no drainage Neurologic: No sensory loss, no loss of motor function, no dizziness Psychiatric: No behavioral changes, no hallucinations, no suicidal ideations [facility] Medical History Medical History Diabetes (Acute) HTN (hypertension) (Acute) Family History Family History Other Osteoarthritis Social History Social History Second Hand Smoke Exposure: Yes Smoking Status: Current every day smoker Tobacco Type: Cigarettes How Often Do You Have a Drink Containing Alcohol: 4 or more times a week Recent Travel in [facility] within the Last 8 Weeks: No Recent Out of Country Travel within the Last 8 Weeks: No Immunization History Tetanus Immunization: <5 Years Medications and Allergies Allergies Allergy/AdvReac Type Severity Reaction Status Date / Time No Known Allergies Allergy Verified 03/23/18 13:12 Home Medications Medication Instructions Recorded Confirmed Type No Known Home Medications 03/23/18 03/23/18 History Active Medications: Active Medications Acetaminophen (Tylenol) 650 mg PO Q4H PRN PRN Reason: Temp > 100.4 Al Hydroxide/Mg Hydroxide (Milk Of Joselin Jo) 30 ml PO Q12H PRN PRN Reason: Mild Constipation Sodium Chloride (Ns Inj) 1,000 mls @ 80 mls/hr IV.CONT .[id number] TODD Morphine Sulfate (Morphine Inj) 2 mg IV.PUSH Q4H PRN PRN Reason: Pain 3 to 6 Morphine Sulfate (Morphine Inj) 4 mg IV.PUSH Q4H PRN PRN Reason: Pain 7 to 10 Ondansetron HCl (Zofran Inj) 4 mg IV.PUSH Q6H PRN PRN Reason: NAUSEA OR VOMITING Sodium Chloride (Ns Flush) 2 ml IV.FLUSH PRN PRN PRN Reason: FLUSH AFTER USING IV ACCESS Sodium Chloride (Ns Flush) 2 ml IV.FLUSH BID TODD Physical Exam Vital signs: Last Vital Signs Temp 97.9 F 03/23/18 10:04 Pulse 101 H 03/23/18 10:07 Resp 20 03/23/18 10:07 BP 107/70 03/23/18 10:04 Pulse Ox 100 03/23/18 10:07 Intake & Output 03/21/18 03/22/18 03/23/18 03/24/18 06:59 06:59 06:59 06:59 Weight 77.111 kg Narrative: GENERAL: NAD, A&Ox3 HEAD: Normocephalic. NECK: Supple, trachea midline. No lymphadenopathy. EYES: No scleral icterus. No injection or drainage. CARDIOVASCULAR: Regular rate and rhythm without murmurs, gallops, or rubs. RESPIRATORY: Breath sounds equal bilaterally. No accessory muscle use. GASTROINTESTINAL: Abdomen soft, non-tender, nondistended. MUSCULOSKELETAL: No cyanosis, or edema. Decreased range of motion at left hip secondary to pain SKIN: Warm and dry. NEURO: No focal neurological deficits. Results Labs CBC & Chem 7: 03/23/18 10:33 03/23/18 10:[address] 03/23/18 00:00 CONCLUSION: 1. Mildly angulated, nondisplaced fracture of the left femoral neck fracture. 2. Intact acetabulum Hip X-Ray 03/23/18 10:22 CONCLUSION: Acute fracture of the left femoral neck likely in the basicervical region. Chest X-Ray 03/23/18 11:03 CONCLUSION: 1. No acute cardiopulmonary abnormality is identified. 2. Stable changes in the right hemithorax suggesting prior partial lung resection. Caprini VTE Risk Assessment Caprini VTE Risk Assessment: No/Low Risk (score <= 1) Caprini Risk Assessment Model: Point Value = 1 Point Value = 2 Point Value = 3 Point Value = 5 Age 41-60 Minor surgery BMI > 25 kg/m2 Swollen legs Varicose veins or History of unexplained or recurrent spontaneous Oral contraceptives or hormone replacement Sepsis (< 1 month) Serious lung disease, including pneumonia (< 1 month) Abnormal pulmonary function Acute myocardial infarction Congestive heart failure (< 1 month) History of inflammatory bowel disease Medical patient at bed rest Age 61-74 Arthroscopic surgery Major open surgery (> 45 min) Laparoscopic surgery (> 45 min) Malignancy Confined to bed (> 72 hours) Immobilizing plaster cast Central venous access Age >= 75 History of VTE Family history of VTE Factor V Leiden Prothrombin [id number] Lupus anticoagulant Anticardiolipin antibodies Elevated serum homocysteine Heparin-induced thrombocytopenia Other congenital or acquired thrombophilia Stroke (< 1 month) Elective arthroplasty Hip, pelvis, or leg fracture Acute spinal cord injury (< 1 month) Prophylaxis Regimen: Total Risk Factor Score Risk Level Prophylaxis Regimen 0-1 Low Early ambulation 2 Moderate Order ONE of the following: *Sequential Compression Device (SCD) *Heparin 5000 units SQ BID 3-4 Higher Order ONE of the following medications: *Heparin 5000 units SQ TID *Enoxaparin/Lovenox 40 mg SQ daily (WT < 150 kg, CrCl > 30 mL/min) *Enoxaparin/Lovenox 30 mg SQ daily (WT < 150 kg, CrCl > 10-29 mL/min) *Enoxaparin/Lovenox 30 mg SQ BID (WT < 150 kg, CrCl > 30 mL/min) AND/OR *Sequential Compression Device (SCD) 5 or more Highest Order ONE of the following medications: *Heparin 5000 units SQ TID (Preferred with Epidurals) *Enoxaparin/Lovenox 40 mg SQ daily (WT < 150 kg, CrCl > 30 mL/min) *Enoxaparin/Lovenox 30 mg SQ daily (WT < 150 kg, CrCl > 10-29 mL/min) *Enoxaparin/Lovenox 30 mg SQ BID (WT < 150 kg, CrCl > 30 mL/min) AND *Sequential Compression Device (SCD) Assessment and Plan Plan 57-year-old male admitted secondary to acute left hip fracture Acute left femoral neck fracture N.p.o. Surgery pending Orthopedic surgeons consulted Continue as needed pain treatments Plan for physical therapy after surgery Diabetes mellitus type 2 Follow blood sugars Insulin sliding scale Diabetic diet after n.p.o. status no longer needed Orthostatic hypotension Caution with position changes This is a chronic condition for him No adjustments and treatments needed DVT prophylaxis SCDs for now Lovenox in a.m.
[2018-03-23] MEDS: Sod Chloride 0.9% Inj 1,000 ML IV.CONT SCH (14:47)
[2018-03-23] MEDS: Morphine Inj 4 MG/ML Vial IV.PUSH PRN ×2 (14:54→22:07)
[2018-03-23] MEDS: Insulin NovoLOG Aspart Correctional Sugar Inj SQ SCH ×2 (18:04→22:22)
--- NOTE | 2018-03-23 18:04 | P.CONOP ---
[facility] Orthopedics Consult Note - [facility] Consult date: 03/23/18 Chief complaint: Left femoral neck fracture Narrative: Chris is a 57-year-old male. He had a fall approximately 3 days ago. He has had significant left hip pain since his fall. He describes a mechanical fall where he tripped over a rug. He landed on his left hip. He has had difficulty standing or ambulating. He has a history of diabetes and history of orthostatic hypotension. He presented emergency room today where x-rays revealed a displaced left femoral neck fracture. He is currently awake and alert in the emergency department. His only complaint is his left hip. Pain is improved with rest. Pain is worse with movement. He smokes approximately three quarters of a pack of cigarettes a day. He drinks 1-2 beers most nights. Review of Systems Patient denies fevers, chills, weight loss, headache, visual changes, hearing loss, chest pain, palpitations, shortness of breath, nausea, vomiting, no urinary changes, diarrhea, bowel changes, neck pain, back pain, skin rashes, weakness of extremities, easy bleeding, enlarged lymph nodes, numbness of extremities, anxiety, or depression. He complains of left hip pain Patient's social history, past medical history, and family history were reviewed on chart and with patient. [facility] - History History Provided By: Patient, Banquet Cook / EMT - Medical History Medical History: Medical History (Last Reviewed 03/23/18 @ 18:01 by Marv Stern MD) Diabetes HTN (hypertension) - Family History Family History: Family History (Last Reviewed 03/23/18 @ 18:01 by Marv Stern MD) Other Osteoarthritis - Social History I have reviewed the patient's Social History: Yes - Tobacco History Second Hand Smoke Exposure: Yes Tobacco Use In Past 30 Days: Yes Smoking Status: Current every day smoker Tobacco Type: Cigarettes - Alcohol History How Often Do You Have a Drink Containing Alcohol: 4 or more times a week - Travel History Recent Travel in the [place] Within the Last 8 Weeks: No Recent Travel Out of the Country Within the Last 8 Weeks: No - Immunization History Tetanus Immunization: <5 Years Medications and Allergies Active Medications: Active Medications Acetaminophen (Tylenol) 650 mg PO Q4H PRN PRN Reason: Temp > 100.4 Al Hydroxide/Mg Hydroxide (Milk Of Magnesia Liq) 30 ml PO Q12H PRN PRN Reason: Mild Constipation Sodium Chloride 40 ml/ (Bupivacaine Liposome 20 ml) 0 ml P-ARTICULR ONCE ONE Stop: 03/23/18 17:34 Dextrose (D50w Vial) 50 ml IV.PUSH UNSCH PRN PRN Reason: PER HYPOGLYCEMIA PROTOCOL Enoxaparin Sodium (Lovenox Inj) 40 mg SQ DAILY TODD Glucagon (Glucagon Inj) 1 mg OTHER PRN PRN PRN Reason: for Hypoglycemia Protocol Sodium Chloride (Ns Inj) 1,000 mls @ 80 mls/hr IV.CONT .[id number] TODD Last Admin: 03/23/18 14:47 Dose: 80 mls/hr Tranexamic Acid / Sodium (Chloride) 100 mls @ 200 mls/hr IV.SIG ONCE TODD Insulin Aspart (Novolog Insulin Correctional Sugar Inj) 0 unit SQ ACHS TODD; Protocol Morphine Sulfate (Morphine Inj) 2 mg IV.PUSH Q4H PRN PRN Reason: Pain 3 to 6 Morphine Sulfate (Morphine Inj) 4 mg IV.PUSH Q4H PRN PRN Reason: Pain 7 to 10 Last Admin: 03/23/18 14:54 Dose: 4 mg Ondansetron HCl (Zofran Inj) 4 mg IV.PUSH Q6H PRN PRN Reason: NAUSEA OR VOMITING Sodium Chloride (Ns Flush) 2 ml IV.FLUSH PRN PRN PRN Reason: FLUSH AFTER USING IV ACCESS Sodium Chloride (Ns Flush) 2 ml IV.FLUSH BID [facility] Allergies Allergy/AdvReac Type Severity Reaction Status Date / Time No Known Allergies Allergy Verified 03/23/18 13:12 Home Medications Medication Instructions Recorded Confirmed Type No Known Home Medications 03/23/18 03/23/18 History Exam Vital signs: Vital Signs 03/23/18 10:04 03/23/18 10:07 03/23/18 14:48 Temperature 97.9 F Pulse Rate 101 H 101 H 96 H Respiratory Rate 20 20 16 Blood Pressure 107/70 124/83 Pulse Oximetry 99 100 99 Intake & Output 03/22/18 03/23/18 03/23/18 18:59 06:59 18:59 Weight 77.111 kg Narrative: Chris is a 57-year-old male. General: Awake and alert. No acute distress. Appears well-developed well- nourished Head: Normocephalic, atraumatic pupils are equal Neck: Soft, nontender, trachea midline Abdomen: Soft, nondistended Examination of right arm reveals no pain or deformity with shoulder, elbow, or wrist motion. Skin is intact. Radial pulse is palpable. Normal capillary refill in fingers. Sensation is intact in radial, ulnar, and median nerve distributions. Template Layout Worker strength is +5. No lymphadenopathy noted. Examination of left arm reveals no pain or deformity with shoulder, elbow, or wrist motion. Skin is intact. Radial pulse is palpable. Normal capillary refill in fingers. Sensation is intact in radial, ulnar, and median nerve distributions. Template Layout Worker strength is +5. No lymphadenopathy noted. Examination of left lower extremity reveals pain with any hip motion. He has no tenderness around his knee or ankle. Skin is intact. Sensation is intact in left foot but mildly diminished in both feet secondary to by diabetic neuropathy. Dorsalis pedis pulse is palpable. Normal capillary refill and feet. Thigh and calf compartments are soft. No lymphadenopathy noted. +5 strength of ankle dorsiflexion and plantarflexion. Examination of right lower extremity reveals no pain or deformity with hip, knee , or ankle motion. Skin is intact. Sensation is intact in right foot. Dorsalis pedis pulse is palpable. Normal capillary refill and feet. Thigh and calf compartments are soft. No lymphadenopathy noted. +5 strength of ankle dorsiflexion and plantarflexion. Results - Labs Result Diagrams: 03/23/18 10:33 03/23/18 10:33 Labs: Laboratory Results - last 24 hr 03/23/18 03/23/18 03/23/18 10:33 10:33 10:33 WBC 8.3 RBC 3.84 L Hgb 13.4 Hct 39.8 MCV 103.5 H MCH 34.8 H MCHC 33.6 RDW 14.5 Plt Count 134 L MPV 10.1 Neut % (Auto) 69.4 Lymph % (Auto) 17.2 [place] % (Auto) 10.1 H Eos % (Auto) 2.5 Baso % (Auto) 0.8 Neut # (Auto) 5.7 Lymph # (Auto) 1.4 [place] # (Auto) 0.8 Eos # (Auto) 0.2 Baso # (Auto) 0.1 WBC Differential . Differential Comment Auto diff final PT 12.2 H INR 1.2 APTT 26.6 Sodium 134 L Potassium 4.3 Chloride 102 Carbon Dioxide 22.4 Anion Gap 10 BUN 17 Creatinine 1.16 Estimated GFR 65 L Random Glucose 103 Calcium 8.7 Total Bilirubin 1.4 H AST 40 H ALT 27 Alkaline Phosphatase 216 H Total Protein 8.0 Albumin 3.1 L - Diagnostic results Imaging: Impressions Hip CT 03/23/18 00:00 CONCLUSION: 1. Mildly angulated, nondisplaced fracture of the left femoral neck fracture. 2. Intact acetabulum Hip X-Ray 03/23/18 10:22 CONCLUSION: Acute fracture of the left femoral neck likely in the basicervical region. Chest X-Ray 03/23/18 11:03 CONCLUSION: 1. No acute cardiopulmonary abnormality is identified. 2. Stable changes in the right hemithorax suggesting prior partial lung resection. Assessment and Plan - Assessment and Plan Chris has a partially displaced left femoral neck fracture from a fall. Treatment options were discussed including open reduction internal fixation, bipolar hemiarthroplasty, and total hip arthroplasty. The risk and benefits of each option were discussed in depth with patient. Given patient's relatively young age and moderate activity level, I would recommend total hip arthroplasty. Informed consent was obtained after discussion of the risk and benefits. The risk and benefits of surgery were discussed in depth with patient. The risk of surgery include bleeding, infection, injuries to arteries, nerves, or blood vessels, infection, wound complications, leg length discrepancy, hip dislocation, trochanteric bursitis, painful hardware, and need for further surgery. I also discussed medical complications including blood clots, pneumonia, stroke, heart attack, and . Informed consent was obtained and all questions were answered. N.p.o.--plan on surgery today Calcium and vitamin D supplementation Physical therapy consult Follow-up with Dr. Stern in 2 weeks EMILY Daley Lovenox A mid-level provider in my office (nurse practitioner or physician pathologist assistant) may see this patient on follow-up visits and continue to implement the objectives of this plan including: Starting or adjusting medications, injections , cast application, orthotics, brace application, physical therapy, radiological studies (including x-ray, MRI, CT, ultrasound, bone scan), vascular studies, neurologic studies, specialist consultation, and proceeding with surgical management, as appropriate.
[2018-03-23] MEDS ORDERED: SODIUM CHLOR 0.9% IV.SIG ONE (18:55)
[2018-03-23] MEDS ORDERED: Sodium Chlor 0.9% Inj 40 ML, Bupivacaine Liposo PF 1.3% Inj 20 ML P-ARTICULR ONE ×2 (18:55)
[2018-03-23] MEDS ORDERED: TRANEXAMIC ACID IV.SIG ONE (18:55)
[2018-03-24] MEDS: Morphine Inj 4 MG/ML Vial IV.PUSH PRN (02:15)
[2018-03-24] MEDS: Sod Chloride 0.9% Inj 1,000 ML IV.CONT SCH (02:56)
[2018-03-24 06:07] LABS: Baso # (Auto) 0.1 th/mm3 (0.0-0.2); Baso % (Auto) 0.9 % (0.0-2.0); Eos # (Auto) 0.1 th/mm3 (0.0-0.4); Eos % (Auto) 2.1 % (0.0-4.0); Hematocrit 36.7 % (39.0-51.0); Hemoglobin 12.4 gm/dL (13.0-17.0); Lymph # (Auto) 1.4 th/mm3 (1.0-4.8); Lymph % (Auto) 24.8 % (9.0-44.0); Mean Corpuscular HGB Conc 33.8 % (32.0-36.0); Mean Corpuscular Hemoglobin 34.2 pg (27.0-34.0); Mean Corpuscular Volume 101.2 fL (80.0-100.0); Mean Platelet Volume 9.5 fL (7.0-11.0); Mono # (Auto) 0.6 th/mm3 (0.0-0.9); Mono % (Auto) 11.1 % (0.0-8.0); Neut # (Auto) 3.5 th/mm3 (1.8-7.7); Neut % (Auto) 61.1 % (16.0-70.0); Platelet Count 110 th/mm3 (150-450); Red Blood Count 3.62 mil/mm3 (4.50-5.90); Red Cell Distribution Width 14.3 % (11.6-17.2); White Blood Count 5.8 th/mm3 (4.0-11.0)
[2018-03-24 06:33] LABS: Alanine Aminotransferase 23 U/L (12-78); Albumin 2.6 g/dL (3.4-5.0); Anion Gap 7 meq/L (5-15); Aspartate Aminotransferase 41 U/L (15-37); Blood Urea Nitrogen 17 mg/dL (7-18); Calcium 8.6 mg/dL (8.5-10.1); Carbon Dioxide 23.5 meq/L (21.0-32.0); Chloride 106 meq/L (98-107); Glomerular Filtration Rate Greater Than 89 mL/min (>89); Glucose,Random 81 mg/dL (74-106); Potassium 4.5 meq/L (3.5-5.1); Sodium 136 meq/L (136-145)
[2018-03-24 06:36] LABS: Alkaline Phosphatase 183 U/L (45-117); Total Protein 7.1 g/dL (6.4-8.2)
--- NOTE | 2018-03-24 07:19 | P.PNOP ---
Subjective Interval history: s/p fall left hip pain. no other complaints. Physical Exam Vital signs: Vital Signs 03/23/18 10:04 03/23/18 10:07 03/23/18 14:48 Temperature 97.9 F Pulse Rate 101 H 101 H 96 H Respiratory Rate 20 20 16 Blood Pressure 107/70 124/83 Pulse Oximetry 99 100 99 03/24/18 00:00 Temperature 98.1 F Pulse Rate 92 H Respiratory Rate 18 Blood Pressure 133/79 Pulse Oximetry Intake & Output 03/23/18 03/24/18 03/24/18 18:59 06:59 18:59 Intake Total 1000 / 1000 Balance 1000 / 1000 Weight 77.111 kg Intake: IV 1000 / 1000 NS Inj 1,000 ML @ 80 mls/hr IV. 1000 / 1000 CONT .[id number] Rx#:[id number] Narrative: LLE: pain in hip with motion. nvi Results - Labs CBC & Chem 7: 03/24/18 05:47 03/24/18 05:47 Laboratory Results - last 24 hr 03/23/18 03/23/18 03/23/18 10:33 10:33 10:33 WBC 8.3 RBC 3.84 L Hgb 13.4 Hct 39.8 MCV 103.5 H MCH 34.8 H MCHC 33.6 RDW 14.5 Plt Count 134 L MPV 10.1 Neut % (Auto) 69.4 Lymph % (Auto) 17.2 [place] % (Auto) 10.1 H Eos % (Auto) 2.5 Baso % (Auto) 0.8 Neut # (Auto) 5.7 Lymph # (Auto) 1.4 [place] # (Auto) 0.8 Eos # (Auto) 0.2 Baso # (Auto) 0.1 WBC Differential . Differential Comment Auto diff final PT 12.2 H INR 1.2 APTT 26.6 Sodium 134 L Potassium 4.3 Chloride 102 Carbon Dioxide 22.4 Anion Gap 10 BUN 17 Creatinine 1.16 Estimated GFR 65 L POC Glucose Random Glucose 103 Calcium 8.7 Total Bilirubin 1.4 H AST 40 H ALT 27 Alkaline Phosphatase 216 H Total Protein 8.0 Albumin 3.1 L 03/23/18 03/24/18 03/24/18 22:22 05:47 05:47 WBC 5.8 RBC 3.62 L Hgb 12.4 L Hct 36.7 L MCV 101.2 H MCH 34.2 H MCHC 33.8 RDW 14.3 Plt Count 110 L MPV 9.5 Neut % (Auto) 61.1 Lymph % (Auto) 24.8 [place] % (Auto) 11.1 H Eos % (Auto) 2.1 Baso % (Auto) 0.9 Neut # (Auto) 3.5 Lymph # (Auto) 1.4 [place] # (Auto) 0.6 Eos # (Auto) 0.1 Baso # (Auto) 0.1 WBC Differential . Differential Comment Auto diff final PT INR APTT Sodium 136 Potassium 4.5 Chloride 106 Carbon Dioxide 23.5 Anion Gap 7 BUN 17 Creatinine 0.70 Estimated GFR Greater than 89 POC Glucose 86 Random Glucose 81 Calcium 8.6 Total Bilirubin 0.9 AST 41 H ALT 23 Alkaline Phosphatase 183 H Total Protein 7.1 D Albumin 2.6 L - Imaging Impressions Hip CT 03/23/18 00:00 CONCLUSION: 1. Mildly angulated, nondisplaced fracture of the left femoral neck fracture. 2. Intact acetabulum Hip X-Ray 03/23/18 10:22 CONCLUSION: Acute fracture of the left femoral neck likely in the basicervical region. Chest X-Ray 03/23/18 11:03 CONCLUSION: 1. No acute cardiopulmonary abnormality is identified. 2. Stable changes in the right hemithorax suggesting prior partial lung resection. Assessment and Plan - Assessment and Plan 1) Left Femoral Neck Fx -NWB -npo 0-surgery with milad today for anterior EDNA
[2018-03-24] MEDS ORDERED: Tobramycin Sulfate 1,200 MG Vial (for ortho/sterile core) OTHER ONE (07:21)
[2018-03-24] MEDS: Insulin NovoLOG Aspart Correctional Sugar Inj SQ SCH ×3 (08:20→17:18)
[2018-03-24] MEDS ORDERED: SODIUM CHLOR 0.9% IV.SIG ONE ×2 (09:00→15:00)
[2018-03-24] MEDS ORDERED: Enoxaparin Inj 40 MG/0.4 ML Syringe SQ SCH (09:00)
[2018-03-24] MEDS ORDERED: TRANEXAMIC ACID IV.SIG ONE ×2 (09:00→15:00)
[2018-03-24] MEDS ORDERED: ceFAZolin Inj 1 GM Vial (Addvantage) IV.SIG ONE (09:50)
[2018-03-24] MEDS ORDERED: Promethazine 25 MG Supp RECTAL PRN (12:01)
[2018-03-24] MEDS ORDERED: Bisacodyl 10 MG Supp RECTAL PRN (12:01)
[2018-03-24] MEDS ORDERED: Post-op Orders (for Pharmacy) OTHER STA (12:01)
--- NOTE | 2018-03-24 12:11 | P.OP ---
- Preoperative Diagnosis (1) Closed fracture of neck of left femur Date of procedure: 03/24/18 Procedure: Left total hip arthroplasty by anterior approach Anesthesia: NEELIMA Surgeon: Marv Stern MD Career Development Specialist: JACQUI Pretty PA-C The surgical procedure was assisted by my physician cleaner assistant. My P.A. presence was necessary throughout this case for the manipulation and positioning of the surgical extremity. My P.A. was assisting me throughout the duration of this procedure. The skill set of a physician cleaner assistant was medically necessary to complete this procedure. During the surgical case the director of technology was working at the back table and the physician cleaner assistant was directly assisting me. Operation and Findings: PLAN OF ACTIVITY Weight bear as tolerated. IMPLANTS USED DePuy Corail size [13] collared stem with a size [52] [place] Gription cup, [52 /36] Altrx poly liner, and a [36+1.5] Biolox ceramic head. DETAILS OF PROCEDURE: This patient had a fall proxy 3 days ago resulting in displaced left femoral neck fracture. He presented the emergency room last night where x-rays revealed a displaced left femoral neck fracture. I discussed 3 treatment options with patient including open reduction internal fixation, hemiarthroplasty, and total hip replacement. I discussed the risk and benefits of each of these procedures. Patient wished to proceed with total hip arthroplasty. The patient wished to proceed with surgery and informed consent was obtained. Operative site was marked. I discussed both posterior approach and anterior approach with the patient and decision was made for anterior approach. Patient was brought to OR and placed on OR table. IV sedation and general anesthesia was administered by anesthesiologist. Patient positioned on a Ivy table and was given IV antibiotics. Time-out procedure was performed. The hip and thigh were prepped with alcohol followed by Hibiclens. The thigh was draped in the usual sterile fashion. Clean Air Suite was used for this procedure. The procedure began with a 5-inch incision over the anterolateral thigh. Subcutaneous tissue was dissected with Bovie. The fascia over the tensa fasciae latae was incised. Care was taken to avoid injury to the lateral femoral cutaneous nerve. The tensor muscle was retracted laterally. Sartorius was retracted medially. Retractors were now placed. The reflected head of the rectus is now elevated. A capsulotomy was performed over the anterior head capsule. Sutures were placed to help retract the capsule. At this point the femoral head and neck were identified. The fracture was visualized and had significant displacement. With soft tissue protected, oscillating saw was used to make a cut through the femoral neck, the femoral head was now removed. At this point attention was turned to preparation of the acetabulum. The labrum was excised. The acetabulum was sequentially reamed up to size [52]. A [place] cup was now placed. Fluoroscopy was used to aid in identification of appropriate version. Cup was fully impacted and found to have excellent fit. Hole eliminator was now placed. The liner was now impacted into the cup. At this point the hip was externally rotated. A hook was placed around the proximal femur. The capsule was released off the lateral and medial femur. The hip was now extended and adducted. Retractors were placed around the proximal femur to allow for exposure. A box osteotome was used to remove the lateral cortex of the femoral neck. A broach was used to help lateralize the prosthesis. Canal finder was used to create a path down the canal. Next, the canal was sequentially broached up to size [13]. This was found to be an excellent fit. Calcar planer was placed. A standard head was placed, and the hip was reduced. The hip was found to have excellent stability with good range of motion. The leg lengths were measured under fluoroscopy and found to be equal compared to preoperatively. Trial broach was removed. The Corail stem was opened. Stem was fully impacted into the proximal femur in appropriate version. The real stem did not seat completely and was approximately 3 mm prominent. Fluoroscopy revealed that the left leg was now approximately 3 mm longer than the left. The standard femoral head was placed. The hip was again reduced. Fluoroscopy confirmed excellent alignment of prosthesis. The wound was thoroughly irrigated and capsule was closed with #1 Vicryl. The fascia over the tensor fasciae muscle was closed with #1 Vicryl, subcutaneous tissue was closed with 3-0 Vicryl and the skin was closed with amarjit and Dermabond skin closure. The capsule layers, muscle, and subcutaneous tissue were injected with a mixture of saline and bupivicaine. Dressings were applied. The patient was transferred to Recovery Room in stable condition.
[2018-03-24] MEDS ORDERED: fentaNYL Citrate Inj 100 MCG/2 ML Ampul ONE (12:31)
--- NOTE | 2018-03-24 12:39 | P.PNOP ---
Subjective Interval history: POd 0 s/p left anterior EDNA stable in pacu Physical Exam Vital signs: Vital Signs 03/23/18 14:48 03/24/18 00:00 03/24/18 02:12 Temperature 98.1 F Pulse Rate 96 H 92 H Respiratory Rate 16 18 Blood Pressure 124/83 133/79 133/79 Pulse Oximetry 99 03/24/18 02:13 03/24/18 03:00 03/24/18 04:00 Temperature Pulse Rate Respiratory Rate Blood Pressure 128/74 104/62 Pulse Oximetry 97 100 98 03/24/18 05:00 03/24/18 06:00 03/24/18 07:00 Temperature Pulse Rate Respiratory Rate Blood Pressure 97/59 L 103/62 126/73 Pulse Oximetry 94 L 96 96 Intake & Output 03/23/18 03/24/18 03/24/18 18:59 06:59 18:59 Intake Total 1000 / 1000 Balance 1000 / 1000 Weight 77.111 kg Intake: IV 1000 / 1000 NS Inj 1,000 ML @ 80 mls/hr IV. 1000 / 1000 CONT .[id number] [facility] Rx#:[id number] Narrative: LLE: dressing clean and dry. intact. nvi Results - Labs CBC & Chem 7: 03/24/18 05:47 03/24/18 05:47 Laboratory Results - last 24 hr 03/23/18 03/24/18 03/24/18 22:22 05:47 05:47 WBC 5.8 RBC 3.62 L Hgb 12.4 L Hct 36.7 L MCV 101.2 H MCH 34.2 H MCHC 33.8 RDW 14.3 Plt Count 110 L MPV 9.5 Neut % (Auto) 61.1 Lymph % (Auto) 24.8 [place] % (Auto) 11.1 H Eos % (Auto) 2.1 Baso % (Auto) 0.9 Neut # (Auto) 3.5 Lymph # (Auto) 1.4 [place] # (Auto) 0.6 Eos # (Auto) 0.1 Baso # (Auto) 0.1 WBC Differential . Differential Comment Auto diff final Sodium 136 Potassium 4.5 Chloride 106 Carbon Dioxide 23.5 Anion Gap 7 BUN 17 Creatinine 0.70 Estimated GFR Greater than 89 POC Glucose 86 Random Glucose 81 Calcium 8.6 Total Bilirubin 0.9 AST 41 H ALT 23 Alkaline Phosphatase 183 H Total Protein 7.1 D Albumin 2.6 L 03/24/18 03/24/18 07:59 12:32 WBC RBC Hgb Hct MCV MCH MCHC RDW Plt Count MPV Neut % (Auto) Lymph % (Auto) [place] % (Auto) Eos % (Auto) Baso % (Auto) Neut # (Auto) Lymph # (Auto) [place] # (Auto) Eos # (Auto) Baso # (Auto) WBC Differential Differential Comment Sodium Potassium Chloride Carbon Dioxide Anion Gap BUN Creatinine Estimated GFR POC Glucose 83 107 Random Glucose Calcium Total Bilirubin AST ALT Alkaline Phosphatase Total Protein Albumin - Imaging Impressions Hip CT 03/23/18 00:00 CONCLUSION: 1. Mildly angulated, nondisplaced fracture of the left femoral neck fracture. 2. Intact acetabulum Assessment and Plan - Assessment and Plan 1) Left Femoral Neck Fx s/p conversion to anterior left EDNA - POD 0 -WBAT -maintain surgical dressing til POD 7, then begin daily dressing changes with primapore. maintain underlying surgical mesh. -keep clean and dry -DVT prophylaxis -scripts on chart -CM for home with C vs SNF -f/u with [facility] or [facility] in 2 weeks [facility] Prescription Drug Monitoring Database has been queried and verified prior to prescribing the controlled subsection. Patient is having significant pain caused by [] which will last more than 3 days. Trial of alternative treatment options other than prescribed opioids has not helped. I believe that it is medically necessary to treat the patients pain because it is affecting patients ability to [].
--- NOTE | 2018-03-24 12:40 | P.DCO ---
- Physical Therapy Physical Therapy: Gait training Hip: Total hip, Protocol: Left, Progress to weight bearing Left Lower Extremity Weight Bearing: Weight bearing as tolerated - Nursing Dressing changes: Do not change dressing (x 7 days), Daily dressing change ( beginning on POD 7 with primapore dressing. maintain underlying surgical mesh. ) - Certification Need for Home Health services: I have seen patient Chris Price on 03/24/18. My clinical findings support the need for the requested home health care services because: Need for Home Health Services: Limited mobility due to disease progression Homebound Certification: I certify that my clinical findings support that this patient is homebound because: Homebound Certification: Post-op weakness
[2018-03-24] MEDS ORDERED: *morphine SULFATE 4 MG/ML PERIprocedure ONLY ONE (12:51)
[2018-03-24] MEDS ORDERED: Vancomycin Inj 1 GM/200 ML PIGGYBACK IV.SIG SCH (13:00)
[2018-03-24] MEDS ORDERED: ceFAZolin Inj 2,000 MG in Sodium Chlor 0.9% Inj 80 ML IV.SIG SCH (13:00)
[2018-03-24] MEDS: Calcium/Vitamin D 250/125 MG Tablet PO SCH ×2 (13:00→17:20)
[2018-03-24] MEDS ORDERED: Tranexamic Acid Inj 1,000 MG in Sodium Chlor 0.9% Inj 100 ML IV.SIG SCH (14:00)
--- NOTE | 2018-03-24 15:00 | OTSOAPIP ---
ATTEMPTED TO SEE PATIENT, HOWEVER PATIENT IS STILL OFF FLOOR FOR SURGERY THIS DATE. WILL REATTEMPT NEXT DAY. Therapist: Mahsa White, OTR/L Signature on file
--- NOTE | 2018-03-24 16:31 | P.PNIM ---
Subjective Interval history: Pain control. No distress. No nausea or vomiting. Status post hip repair surgery this morning. Physical Exam Vital signs: Last Vital Signs Temp 98.1 F 03/24/18 13:45 Pulse 91 H 03/24/18 13:45 Resp 14 03/24/18 13:45 BP 102/52 L 03/24/18 13:45 Pulse Ox 97 03/24/18 13:45 Intake & Output 03/22/18 03/23/18 03/24/18 03/25/18 06:59 06:59 06:59 06:59 Intake Total 1000 / 1000 Balance 1000 / 1000 Weight 77.111 kg 77.111 kg Narrative: GENERAL: NAD, A&Ox3 HEAD: Normocephalic. NECK: Supple, trachea midline. No lymphadenopathy. EYES: No scleral icterus. No injection or drainage. CARDIOVASCULAR: Regular rate and rhythm without murmurs, gallops, or rubs. RESPIRATORY: Breath sounds equal bilaterally. No accessory muscle use. GASTROINTESTINAL: Abdomen soft, non-tender, nondistended. MUSCULOSKELETAL: No cyanosis, or edema. Decreased range of motion at left hip secondary to pain SKIN: Warm and dry. NEURO: No focal neurological deficits. Results Labs CBC & Chem 7: 03/24/18 05:47 03/24/18 05:47 Assessment and Plan (1) Closed fracture of neck of left femur: Code(s): S72.002A - Fracture of unspecified part of neck of left femur, initial encounter for closed fracture Status: Acute Plan 57-year-old male admitted secondary to acute left hip fracture Patient's hip fracture was repaired on 03/24/2018. Continue pain management. Monitor for continue PT. Acute left femoral neck fracture N.p.o. Surgery pending Orthopedic surgeons consulted Continue as needed pain treatments Plan for physical therapy after surgery Diabetes mellitus type 2 Follow blood sugars Insulin sliding scale Diabetic diet after n.p.o. status no longer needed Orthostatic hypotension Caution with position changes This is a chronic condition for him No adjustments and treatments needed DVT prophylaxis SCDs for now Lovenox in a.m. Progress Note: Quality VTE Deep Vein Thrombosis/Pulmonary Embolism Present on Admission: No _ (1) Closed fracture of neck of left femur Qualifiers: Encounter type: initial encounter Fracture healing: Qualified Code(s): S72.002A - Fracture of unspecified part of neck of left femur, initial encounter for closed fracture
--- NOTE | 2018-03-24 16:49 | XR ---
EXAM DATE: 03/24/2018 4:45 PM EST AGE/SEX: 57 years / Male INDICATIONS: Left hip. CLINICAL DATA: This is the patient's initial encounter. Patient reports that signs and symptoms have been present for 1 day and indicates a pain score of Nonresponsive. MEDICAL/SURGICAL HISTORY: Non-responsive. Non-responsive. COMPARISON: No prior exams available for comparison. FINDINGS: Total hip arthroplasty is in place. The femoral and acetabular components appear intact. There are no signs of loosening or fracture. CONCLUSION: Intact total hip prosthesis for technique. Electronically signed by: Elizabeth Abarca MD Board Certified Radiologist 03/24/2018 4:48 PM EST
[2018-03-24] MEDS: ceFAZolin 2 GM Premix Inj 2 GM/50 ML PIGGYBACK IV.SIG SCH (17:21)
[2018-03-24] MEDS: Celecoxib 200 MG Capsule PO SCH (20:23)
[2018-03-24] MEDS: Senna/Docusate Sodium 8.6/50 MG Tablet PO SCH (20:24)
[2018-03-24] MEDS: Vancomycin Inj 1,000 MG in Sodium Chlor 0.9% Inj 250 ML IV.SIG SCH (23:59)
[2018-03-25] MEDS: Zolpidem Tartrate 5 MG Tablet PO PRN (00:24)
[2018-03-25] MEDS: ceFAZolin 2 GM Premix Inj 2 GM/50 ML PIGGYBACK IV.SIG SCH ×2 (01:52→10:27)
[2018-03-25] MEDS: Insulin NovoLOG Aspart Correctional Sugar Inj SQ SCH ×5 (02:09→21:30)
[2018-03-25 05:29] LABS: Hemoglobin 9.4 gm/dL (13.0-17.0)
[2018-03-25] MEDS: Celecoxib 200 MG Capsule PO SCH ×2 (08:47→21:17)
[2018-03-25] MEDS: Calcium/Vitamin D 250/125 MG Tablet PO SCH ×3 (08:47→17:29)
[2018-03-25] MEDS: Senna/Docusate Sodium 8.6/50 MG Tablet PO SCH ×2 (08:47→21:19)
--- NOTE | 2018-03-25 08:47 | P.PNIM ---
Subjective Interval history: In bed appears in nad. No fever or chills No n/v/d/c. Denies chest pain or sob. Physical Exam Vital signs: Last Vital Signs Temp 98.4 F 03/25/18 03:59 Pulse 89 03/25/18 03:59 Resp 17 03/25/18 03:59 BP 107/69 03/25/18 03:59 Pulse Ox 97 03/25/18 03:59 Intake & Output 03/23/18 03/24/18 03/25/18 03/26/18 06:59 06:59 06:59 06:59 Intake Total 1000 / 1000 1450 / 1450 Output Total 1175 / 1175 Balance 1000 / 1000 275 / 275 Weight 77.111 kg 80.2 kg Narrative: GENERAL: NAD, A&Ox3 CARDIOVASCULAR: Regular rate and rhythm without murmurs, gallops, or rubs. RESPIRATORY: Breath sounds equal bilaterally. No accessory muscle use. GASTROINTESTINAL: Abdomen soft, non-tender, nondistended. MUSCULOSKELETAL: No cyanosis, or edema. Left hip dressing cdi. SKIN: Warm and dry. NEURO: No focal neurological deficits. Results Labs CBC & Chem 7: 03/25/18 04:56 03/24/18 05:47 Imaging Imaging: Impressions Hip X-Ray 03/24/18 00:00 CONCLUSION: Intact total hip prosthesis for technique. Assessment and Plan (1) Closed fracture of neck of left femur: Code(s): S72.002A - Fracture of unspecified part of neck of left femur, initial encounter for closed fracture Status: Acute Plan 57-year-old male admitted secondary to acute left hip fracture Patient's hip fracture was repaired on 03/24/2018. Continue pain management. Monitor for continue PT. Acute left femoral neck fracture s.p surgwey 03/24/18 Orthopedic surgeons consulted Continue as needed pain treatments Consult physical therapy, recommends rehab Diabetes mellitus type 2 Follow blood sugars Insulin sliding scale Diabetic diet Orthostatic hypotension Caution with position changes This is a chronic condition for him No adjustments and treatments needed DVT prophylaxis SCDs, Lovenox DC plan: DC to rehab Progress Note: Quality VTE Deep Vein Thrombosis/Pulmonary Embolism Present on Admission: No _ (1) Closed fracture of neck of left femur Qualifiers: Encounter type: initial encounter Fracture healing: Qualified Code(s): S72.002A - Fracture of unspecified part of neck of left femur, initial encounter for closed fracture
[2018-03-25] MEDS ORDERED: Celecoxib 200 MG Capsule PO SCH (09:00)
--- NOTE | 2018-03-25 09:16 | P.PNOP ---
Subjective Interval history: Pt admits pain well controlled. RN at bedside. No complaints Physical Exam Vital signs: Vital Signs 03/24/18 12:23 03/24/18 12:30 03/24/18 12:45 Temperature 97.9 F Pulse Rate 109 H 107 H 96 H Respiratory Rate 14 14 14 Blood Pressure 103/58 L 95/59 L 101/63 Pulse Oximetry 95 97 96 03/24/18 13:00 03/24/18 13:30 03/24/18 13:45 Temperature 98.1 F Pulse Rate 93 H 91 H 91 H Respiratory Rate 14 14 14 Blood Pressure 81/50 L 81/51 L 102/52 L Pulse Oximetry 98 98 97 03/24/18 16:00 03/24/18 19:41 03/24/18 23:30 Temperature 97.5 F L 98.0 F 98.1 F Pulse Rate 95 H 90 92 H Respiratory Rate 20 17 17 Blood Pressure 131/75 96/55 L 104/55 L Pulse Oximetry 97 96 96 03/25/18 03:59 Temperature 98.4 F Pulse Rate 89 Respiratory Rate 17 Blood Pressure 107/69 Pulse Oximetry 97 Intake & Output 03/24/18 03/25/18 03/25/18 18:59 06:59 18:59 Intake Total 50 / 50 1400 / 1400 Output Total 1175 / 1175 Balance 50 / 50 225 / 225 Weight 77.111 kg 80.2 kg Intake: IV 50 / 50 1400 / 1400 LR 1000 mL Inj 1,000 ML @ 80 1000 / 1000 mls/hr IV.CONT .[id number] [facility] Rx# :[id number] Ofirmev Inj 1,000 mg In 100 ml 100 / 100 @ 400 mls/hr IV.SIG Q12H [facility] Rx #:[id number] Vancomycin Inj 1,000 MG In NS 250 / 250 Inj 250 ML @ 250 mls/hr IV.SIG Q12H [facility] Rx#:[id number] Ancef 2 GM Premix Inj 2 gm In 50 / 50 50 / 50 50 ml @ 100 mls/hr IV.SIG Q8H [facility] Rx#:[id number] Output: Urine 1175 / 1175 Other: Date of Last Bowel Movement 03/23/18 Weight On Admission 77.111 kg Narrative: Dressing dry and intact. Tender to palpation with mild swelling around incision site. Appropriate range of motion expected post operatively. Freely able to move distal digits. No calf pain. Negative Vincent's sign. Good cap refill. 2+ pedal pulses. Neurovascular intact. Results - Labs CBC & Chem 7: 03/25/18 04:56 03/24/18 05:47 Laboratory Results - last 24 hr 03/24/18 03/24/18 03/24/18 12:32 16:01 23:51 Hgb Hct POC Glucose 107 152 H 146 H 03/25/18 03/25/18 04:56 08:12 Hgb 9.4 L D Hct 28.0 L POC Glucose 175 H - Imaging Impressions Hip X-Ray 03/24/18 00:00 CONCLUSION: Intact total hip prosthesis for technique. Assessment and Plan - Problem List (1) Closed fracture of neck of left femur Code(s): S72.002A - Fracture of unspecified part of neck of left femur, initial encounter for closed fracture Status: Acute Qualifiers: Encounter type: initial encounter Qualified Code(s): S72.002A - Fracture of unspecified part of neck of left femur, initial encounter for closed fracture - Assessment and Plan 1) Left Femoral Neck Fx s/p conversion to anterior left EDNA - POD 1 -WBAT -maintain surgical dressing til POD 7, then begin daily dressing changes with primapore. maintain underlying surgical mesh. -keep clean and dry -DVT prophylaxis -scripts on chart -CM for home with HHC vs SNF -f/u with [facility] or [facility] in 2 weeks - clear for d/c from orthopedic standpoint [employer] Prescription Drug Monitoring Database has been queried and verified prior to prescribing the controlled subsection. Patient is having significant pain caused by [] which will last more than 3 days. Trial of alternative treatment options other than prescribed opioids has not helped. I believe that it is medically necessary to treat the patients pain because it is affecting patients ability to [].
[2018-03-25] MEDS: Vancomycin Inj 1,000 MG in Sodium Chlor 0.9% Inj 250 ML IV.SIG SCH ×2 (10:27→21:19)
[2018-03-25] MEDS: Enoxaparin Inj 40 MG/0.4 ML Syringe SQ SCH (11:01)
[2018-03-26] MEDS: Zolpidem Tartrate 5 MG Tablet PO PRN (02:06)
[2018-03-26] MEDS: Celecoxib 200 MG Capsule PO SCH ×2 (08:28→21:34)
[2018-03-26] MEDS: Calcium/Vitamin D 250/125 MG Tablet PO SCH ×3 (08:28→17:00)
[2018-03-26] MEDS: Senna/Docusate Sodium 8.6/50 MG Tablet PO SCH ×2 (08:28→21:34)
[2018-03-26] MEDS: Insulin NovoLOG Aspart Correctional Sugar Inj SQ SCH ×4 (08:30→21:43)
[2018-03-26] MEDS: Vancomycin Inj 1,000 MG in Sodium Chlor 0.9% Inj 250 ML IV.SIG SCH ×2 (09:47→22:26)
[2018-03-26] MEDS: Enoxaparin Inj 40 MG/0.4 ML Syringe SQ SCH (11:36)
--- NOTE | 2018-03-26 13:49 | P.PNIM ---
Subjective Interval history: The patient is in bed, he was noted with low blood pressure as he was up and doing physical therapy and his blood pressure dropped. However blood pressure is better controlled now. Will give 1 L received 1 L normal saline. Patient is however asymptomatic no lightheadedness, no chest pain or shortness of breath. No nausea or vomiting eating well. Physical Exam Vital signs: Last Vital Signs Temp 98.2 F 03/26/18 12:00 Pulse 92 H 03/26/18 12:00 Resp 16 03/26/18 12:00 BP 128/73 03/26/18 12:00 Pulse Ox 98 03/26/18 12:00 Intake & Output 03/24/18 03/25/18 03/26/18 03/27/18 06:59 06:59 06:59 06:59 Intake Total 1000 / 1000 1450 / 1450 650 / 650 250 / 250 Output Total 1175 / 1175 Balance 1000 / 1000 275 / 275 650 / 650 250 / 250 Weight 77.111 kg 80.2 kg Narrative: GENERAL: NAD, A&Ox3 CARDIOVASCULAR: Regular rate and rhythm without murmurs, gallops, or rubs. RESPIRATORY: Breath sounds equal bilaterally. No accessory muscle use. GASTROINTESTINAL: Abdomen soft, non-tender, nondistended. MUSCULOSKELETAL: No cyanosis, or edema. Left hip dressing cdi. SKIN: Warm and dry. NEURO: No focal neurological deficits. Results Labs CBC & Chem 7: 03/25/18 04:56 03/24/18 05:47 Assessment and Plan (1) Closed fracture of neck of left femur: Code(s): S72.002A - Fracture of unspecified part of neck of left femur, initial encounter for closed fracture Status: Acute Plan 57-year-old male admitted secondary to acute left hip fracture Patient's hip fracture was repaired on 03/24/2018. Continue pain management. Monitor for continue PT. Acute left femoral neck fracture s.p surgwey 03/24/18 Orthopedic surgeons consulted Continue as needed pain treatments Consult physical therapy, recommends rehab Diabetes mellitus type 2 Follow blood sugars Insulin sliding scale Diabetic diet Orthostatic hypotension Caution with position changes This is a chronic condition for him No adjustments and treatments needed DVT prophylaxis SCDs, Lovenox DC plan: DC to rehab when arrangements done Progress Note: Quality VTE Deep Vein Thrombosis/Pulmonary Embolism Present on Admission: No _ (1) Closed fracture of neck of left femur Qualifiers: Encounter type: initial encounter Fracture healing: Qualified Code(s): S72.002A - Fracture of unspecified part of neck of left femur, initial encounter for closed fracture
--- NOTE | 2018-03-26 16:02 | P.PNOP ---
Subjective Interval history: Pt admits his pain is well controlled, although he does not feel strong enough to be discharged and is unclear if he is safe to go home vs rehab. Physical Exam Vital signs: Vital Signs 03/25/18 20:25 03/25/18 23:27 03/26/18 08:00 Temperature 99.1 F 99.1 F 98.5 F Pulse Rate 97 H 96 H 90 Respiratory Rate 17 17 16 Blood Pressure 122/76 127/75 142/81 H Pulse Oximetry 96 97 95 03/26/18 08:29 03/26/18 11:35 03/26/18 12:00 Temperature 98.2 F Pulse Rate 92 H Respiratory Rate 20 20 16 Blood Pressure 128/73 Pulse Oximetry 98 Intake & Output 03/25/18 03/26/18 03/26/18 18:59 06:59 18:59 Intake Total 400 / 400 250 / 250 250 / 250 Balance 400 / 400 250 / 250 250 / 250 Intake: IV 400 / 400 250 / 250 250 / 250 Ofirmev Inj 1,000 mg In 100 ml 100 / 100 @ 400 mls/hr IV.SIG Q12H [facility] Rx #:[id number] Vancomycin Inj 1,000 MG In NS 250 / 250 250 / 250 250 / 250 Inj 250 ML @ 250 mls/hr IV.SIG Q12H [facility] Rx#:[id number] Ancef 2 GM Premix Inj 2 gm In 50 / 50 50 ml @ 100 mls/hr IV.SIG Q8H [facility] Rx#:[id number] Other: Date of Last Bowel Movement 03/23/18 03/23/18 03/23/18 Narrative: Dressing dry and intact. Tender to palpation with mild swelling around incision site. Appropriate range of motion expected post operatively. Freely able to move distal digits. No calf pain. Negative Vincent's sign. Good cap refill. 2+ pedal pulses. Neurovascular intact. Results - Labs CBC & Chem 7: 03/25/18 04:56 03/24/18 05:47 Laboratory Results - last 24 hr 03/25/18 03/25/18 03/26/18 17:24 21:29 07:48 POC Glucose 178 H 143 H 137 H 03/26/18 11:39 POC Glucose 202 H Assessment and Plan - Problem List (1) Closed fracture of neck of left femur Code(s): S72.002A - Fracture of unspecified part of neck of left femur, initial encounter for closed fracture Status: Acute Qualifiers: Encounter type: initial encounter Qualified Code(s): S72.002A - Fracture of unspecified part of neck of left femur, initial encounter for closed fracture - Assessment and Plan 1) Left Femoral Neck Fx s/p conversion to anterior left EDNA - POD 2 -WBAT -maintain surgical dressing til POD 7, then begin daily dressing changes with primapore. maintain underlying surgical mesh. -keep clean and dry -DVT prophylaxis -scripts on chart -CM for home with C vs SNF -f/u with [facility] or [facility] in 2 weeks - clear for d/c from orthopedic standpoint [employer] Prescription Drug Monitoring Database has been queried and verified prior to prescribing the controlled subsection. Patient is having significant pain caused by [] which will last more than 3 days. Trial of alternative treatment options other than prescribed opioids has not helped. I believe that it is medically necessary to treat the patients pain because it is affecting patients ability to [].
[2018-03-26] MEDS ORDERED: Sod Chloride 0.9% Inj 1,000 ML IV.SIG ONE ×2 (17:40→19:00)
[2018-03-26 21:14] VITALS: RESP 18
[2018-03-27 04:17] LABS: Baso % (Auto) 0.7 % (0.0-2.0); Eos # (Auto) 0.2 th/mm3 (0.0-0.4); Eos % (Auto) 2.8 % (0.0-4.0); Hematocrit 28.6 % (39.0-51.0); Hemoglobin 9.8 gm/dL (13.0-17.0); Lymph # (Auto) 1.6 th/mm3 (1.0-4.8); Lymph % (Auto) 21.4 % (9.0-44.0); Mean Corpuscular HGB Conc 34.2 % (32.0-36.0); Mean Corpuscular Hemoglobin 34.6 pg (27.0-34.0); Mean Corpuscular Volume 101.4 fL (80.0-100.0); Mean Platelet Volume 10.2 fL (7.0-11.0); Mono # (Auto) 0.7 th/mm3 (0.0-0.9); Mono % (Auto) 9.5 % (0.0-8.0); Neut # (Auto) 4.8 th/mm3 (1.8-7.7); Neut % (Auto) 65.6 % (16.0-70.0); Platelet Count 93 th/mm3 (150-450); Red Blood Count 2.82 mil/mm3 (4.50-5.90); Red Cell Distribution Width 14.3 % (11.6-17.2); White Blood Count 7.3 th/mm3 (4.0-11.0)
[2018-03-27 04:28] LABS: Anion Gap 5 meq/L (5-15); Blood Urea Nitrogen 11 mg/dL (7-18); Chloride 109 meq/L (98-107); Glomerular Filtration Rate Greater Than 89 mL/min (>89); Glucose,Random 86 mg/dL (74-106); Sodium 138 meq/L (136-145)
[2018-03-27 04:55] LABS: Platelet Morphology Normal (Normal); Spherocytes 1+
--- NOTE | 2018-03-27 07:14 | P.PNOP ---
Subjective Interval history: POD 3 s/p Left Anterior EDNA doing well. out of bed with walker. states he thinks he is ready to go home Physical Exam Vital signs: Vital Signs 03/26/18 08:00 03/26/18 08:29 03/26/18 11:35 Temperature 98.5 F Pulse Rate 90 Respiratory Rate 16 20 20 Blood Pressure 142/81 H Pulse Oximetry 95 03/26/18 12:00 03/26/18 16:00 03/26/18 16:01 Temperature 98.2 F 98.4 F Pulse Rate 92 H 93 H Respiratory Rate 16 16 Blood Pressure 128/73 97/62 L Pulse Oximetry 98 03/26/18 19:45 03/27/18 00:05 03/27/18 03:45 Temperature 98.6 F 98.3 F 98.2 F Pulse Rate 93 H 87 90 Respiratory Rate 18 18 18 Blood Pressure 161/99 H 141/83 H 122/78 Pulse Oximetry 98 95 96 Intake & Output 03/26/18 03/27/18 03/27/18 18:59 06:59 18:59 Intake Total 1330 / 1330 550 / 550 Output Total 575 / 575 Balance 1330 / 1330 -25 / -25 Weight 77.111 kg Intake: IV 250 / 250 250 / 250 Vancomycin Inj 1,000 MG In NS 250 / 250 250 / 250 Inj 250 ML @ 250 mls/hr IV.SIG Q12H [facility] Rx#:[id number] Oral 1080 / 1080 300 / 300 Output: Urine 575 / 575 Other: # Voids 6 Date of Last Bowel Movement 03/23/18 03/26/18 # Bowel Movements 0 0 Narrative: LLE: dressing clean and dry. intact. NVI Results - Labs CBC & Chem 7: 03/27/18 03:15 03/27/18 03:15 Laboratory Results - last 24 hr 03/26/18 03/26/18 03/26/18 07:48 11:39 15:56 WBC RBC Hgb Hct MCV MCH MCHC RDW Plt Count MPV Prelim Diff (Auto) Neut % (Auto) Lymph % (Auto) Cross % (Auto) Eos % (Auto) Baso % (Auto) Neut # (Auto) Lymph # (Auto) Cross # (Auto) Eos # (Auto) Baso # (Auto) WBC Differential Diff Scan Differential Comment Platelet Estimate Platelet Morphology Spherocytes Sodium Potassium Chloride Carbon Dioxide Anion Gap BUN Creatinine Estimated GFR POC Glucose 137 H 202 H 119 H Random Glucose Calcium 03/27/18 03/27/18 03:15 03:15 WBC 7.3 RBC 2.82 L Hgb 9.8 L Hct 28.6 L MCV 101.4 H MCH 34.6 H MCHC 34.2 RDW 14.3 Plt Count 93 L MPV 10.2 Prelim Diff (Auto) Slide review pending Neut % (Auto) 65.6 Lymph % (Auto) 21.4 Cross % (Auto) 9.5 H Eos % (Auto) 2.8 Baso % (Auto) 0.7 Neut # (Auto) 4.8 Lymph # (Auto) 1.6 Cross # (Auto) 0.7 Eos # (Auto) 0.2 Baso # (Auto) 0.0 WBC Differential . Diff Scan Auto diff confirmed Differential Comment . Platelet Estimate Low L Platelet Morphology Normal Spherocytes 1+ H Sodium 138 Potassium 4.0 Chloride 109 H Carbon Dioxide 24.0 Anion Gap 5 BUN 11 Creatinine 0.57 L Estimated GFR Greater than 89 POC Glucose Random Glucose 86 Calcium 8.0 L Assessment and Plan - Problem List (1) Closed fracture of neck of left femur Code(s): S72.002A - Fracture of unspecified part of neck of left femur, initial encounter for closed fracture Status: Acute Qualifiers: Encounter type: initial encounter Qualified Code(s): S72.002A - Fracture of unspecified part of neck of left femur, initial encounter for closed fracture - Assessment and Plan 1) Left Femoral Neck Fx s/p conversion to anterior left EDNA - POD 3 -WBAT -maintain surgical dressing til POD 7, then begin daily dressing changes with primapore. maintain underlying surgical mesh. -keep clean and dry -DVT prophylaxis -scripts on chart -CM for home with [facility] -f/u with [facility] or [facility] in 2 weeks - clear for d/c from orthopedic standpoint [employer] Prescription Drug Monitoring Database has been queried and verified prior to prescribing the controlled subsection. Patient is having significant pain caused by [] which will last more than 3 days. Trial of alternative treatment options other than prescribed opioids has not helped. I believe that it is medically necessary to treat the patients pain because it is affecting patients ability to [].
[2018-03-27] MEDS: Celecoxib 200 MG Capsule PO SCH (08:59)
[2018-03-27] MEDS: Senna/Docusate Sodium 8.6/50 MG Tablet PO SCH (08:59)
[2018-03-27] MEDS: Calcium/Vitamin D 250/125 MG Tablet PO SCH (08:59)
[2018-03-27] MEDS: Insulin NovoLOG Aspart Correctional Sugar Inj SQ SCH ×2 (08:59→12:44)
[2018-03-27 09:56] VITALS: BP 151/74; PULSE 93; TEMP 98.5; O2SAT 93
[2018-03-27] MEDS: Enoxaparin Inj 40 MG/0.4 ML Syringe SQ SCH (11:37)
--- NOTE | 2018-03-27 12:01 | P.DS ---
DS: Providers Date of admission: 03/23/18 13:01 Primary care physician: No Primary Care Physician Brief History from admission: Mr. Price is a 57 year old male. 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 He also has orthostatic hypotension chronically which he attributes to his diabetes. 2 days ago he had a fall after tripping on a rug. He had pain in his left leg but thought this would get better. It has worsened. He comes in for evaluation and is found to have a fracture of his left femoral neck. Surgical intervention is needed. No other complaints from this patient. DS: Diagnosis Discharge Diagnosis (1) Closed fracture of neck of left femur: Status: Acute DS: Summary 57-year-old male admitted secondary to acute left hip fracture. Patient's hip fracture was repaired on 03/24/2018. Continue pain management. Monitor for continue PT. Acute left femoral neck fracture s.p surgwey 03/24/18 Orthopedic surgeons consulted Continue as needed pain treatments Consult physical therapy, recommends rehab Diabetes mellitus type 2 Follow blood sugars Insulin sliding scale Diabetic diet Orthostatic hypotension Caution with position changes This is a chronic condition for him No adjustments and treatments needed DVT prophylaxis SCDs, Lovenox The patient improved, discharge Home with home health in stable condition to follow-up with PCP and consultants as outpatient. Time Spent with Patient Total time spent providing and/or coordinating discharge services:> 30 min Quality: VTE Deep Vein Thrombosis/Pulmonary Embolism Present on Admission: No Exam Narrative Exam Narrative: GENERAL: NAD, A&Ox3 CARDIOVASCULAR: Regular rate and rhythm without murmurs, gallops, or rubs. RESPIRATORY: Breath sounds equal bilaterally. No accessory muscle use. GASTROINTESTINAL: Abdomen soft, non-tender, nondistended. MUSCULOSKELETAL: No cyanosis, or edema. Left hip dressing cdi. SKIN: Warm and dry. NEURO: No focal neurological deficits. Results Labs on day of discharge: Labs from last 24 hours 03/27/18 03/27/18 03/27/18 11:21 07:13 03:15 WBC RBC Hgb Hct MCV MCH MCHC RDW Plt Count MPV Prelim Diff (Auto) Neut % (Auto) Lymph % (Auto) [place] % (Auto) Eos % (Auto) Baso % (Auto) Neut # (Auto) Lymph # (Auto) [place] # (Auto) Eos # (Auto) Baso # (Auto) WBC Differential Diff Scan Differential Comment Platelet Estimate Platelet Morphology Spherocytes Sodium 138 Potassium 4.0 Chloride 109 H Carbon Dioxide 24.0 Anion Gap 5 BUN 11 Creatinine 0.57 L Estimated GFR Greater than 89 POC Glucose 125 H 120 H Random Glucose 86 Calcium 8.0 L 03/27/18 03/26/18 03/26/18 03:15 15:56 11:39 WBC 7.3 RBC 2.82 L Hgb 9.8 L Hct 28.6 L MCV 101.4 H MCH 34.6 H MCHC 34.2 RDW 14.3 Plt Count 93 L MPV 10.2 Prelim Diff (Auto) Slide review pending Neut % (Auto) 65.6 Lymph % (Auto) 21.4 [place] % (Auto) 9.5 H Eos % (Auto) 2.8 Baso % (Auto) 0.7 Neut # (Auto) 4.8 Lymph # (Auto) 1.6 [place] # (Auto) 0.7 Eos # (Auto) 0.2 Baso # (Auto) 0.0 WBC Differential . Diff Scan Auto diff confirmed Differential Comment . Platelet Estimate Low L Platelet Morphology Normal Spherocytes 1+ H Sodium Potassium Chloride Carbon Dioxide Anion Gap BUN Creatinine Estimated GFR POC Glucose 119 H 202 H Random Glucose Calcium Impressions ITS Impressions Hip CT 03/23/18 00:00 CONCLUSION: 1. Mildly angulated, nondisplaced fracture of the left femoral neck fracture. 2. Intact acetabulum Chest X-Ray 03/23/18 11:03 CONCLUSION: 1. No acute cardiopulmonary abnormality is identified. 2. Stable changes in the right hemithorax suggesting prior partial lung resection. Hip X-Ray 03/24/18 00:00 CONCLUSION: Intact total hip prosthesis for technique. Discharge Plan Discharge Disposition Patient Disposition: W/Home Health Service Discharge Condition Condition: Stable Discharge Order Discharge Orders: Discharge Order (Routine); Ordered 03/27/18 Ordered By: Марина Wilkins Orthopedic Clear for Discharge (Routine); Ordered 03/27/18 Ordered By: Messi Musa Discharge Details Anticipated Discharge Date: 03/27/18 Discharge Comment: DC when arrangements are done Physicians Team ED Provider: Adonay Morgan Primary Care Provider: Primary Care Physici,[facility] Attending Provider: Марина Wilkins Other Providers: Marv Stern Rxs /Orders / Referrals /Forms Prescriptions: New hydrocodone-acetaminophen [[place]] 10-325 mg Tablet 1 tab PO Q4H Qty: 40 RF: 0 rivaroxaban [Xarelto] 10 mg Tablet 10 mg PO DAILY Qty: 14 RF: 0 gabapentin 300 mg Capsule 300 mg PO TID Qty: 40 RF: 0 Ambulatory Orders / Order Sets / DME: Walker With Front Wheels (1 each) (Routine) Location: Determined by Patient Ordered By: Messi Musa Walker Folding (Routine) Location: Determined by Patient Ordered By: Messi Musa Referrals: Primary [facility] Eng [Primary Care Provider] - See Instructions Marv Stern MD [Physician] - See Instructions (2 weeks) Discharge Instructions Patient Printed Instructions: Hydrocodone/Acetaminophen (By mouth), Gabapentin (By mouth), Rivaroxaban (By mouth), How to Choose and Use a Walker (GEN), Anterior Hip Replacement (DC) Additional Instructions: Prescription for Xarelto, [place] and Gabapentin provided at discharge Weight bearing as tolerated Maintain surgical dressing ( no dressing changes for 7 days then may removed outer later and change daily with primapore but maintain surgical mesh) Follow up with Dr De Los Santos or his physician respiratory therapist assistant in 2 weeks as directed Post Discharge Care Plan Care Plan Goals: Discharge Care Plan Goals for Total Hip Replacement You had a hip replacement surgery. This means your natural hip was replaced with an artificial joint (prosthesis). You may be recovering at home or in a rehabilitation facility. Either way, you must take care of your new hip. Here are some goals to help you heal well. Directions to Meet your Goals: 1. Activity & Exercises: * Take pain medicine as directed by your doctor. * Dont drive until your doctor says its OK. And never drive while taking opioid pain medicine. * Wear the support stockings you were given in the hospital as directed by your surgeon. * Dont sit for more than 30 to 45 minutes at one time. * Dont lean forward while sitting. * Dont cross your legs. * Keep your feet flat on the floor. Dont turn your foot or leg inward. This stresses your hip joint. * Use an elevated toilet seat for 6 weeks after surgery. * Nap if you are tired, but dont stay in bed all day. * Sit on a firm cushion when you ride in a car and avoid sitting too low. Try not to bend your hip too much when getting in and out of the car. 2. Prevent Falls/Injury: * Follow your doctors orders regarding how much weight to put on the affected leg. * Dont bend at the hip when you bend over. Don't bend at the waist to put on socks and shoes. And avoid picking up items from the floor. * Use a cane, crutches, a walker, or handrails until your balance, flexibility, and strength improve. And remember to ask for help from others when you need it. * Free up your hands so that you can use them to keep balance. Use a desiree pack , apron, or pockets to carry things. * Arrange your household to keep the items you need handy. Keep everything else out of the way. * Remove items that may cause you to fall, such as throw rugs and electrical cords. * Use nonslip bath mats, grab bars, an elevated toilet seat, and a shower chair in your bathroom * Sit on a shower stool or chair when you shower to keep from falling. 3. Precautions: * Prevent infection. Any infection will need to be treated immediately. Call your doctor right away if you think you might have an infection. * Tell your dentist that you have an artificial joint and take antibiotics as prescribed before any dental work. * Tell all your healthcare providers about your artificial joint before any medical procedure. * Maintain a healthy weight. Get help to lose any extra pounds. Added body weight puts stress on the joints. 4. Incision Care: * Prevent infection by washing your hands often. If an infection occurs, it will need to be treated right away. * Call your doctor right away if you think you may have an infection. Symptoms include a fever or an incision that leaks white, green, or yellow fluid. * Don't soak your incision in water until your doctor says its OK. This means no hot tubs, bathtubs, or swimming pools. * Follow your doctor's instructions for changing the dressing. * Dont rub the incision, or apply creams or lotions to it. * If you notice any redness or drainage around the bandage site, contact your surgeon's office immediately. 5. Follow-Up: Do Not miss your follow-up appointment. Keep up with all your appointments and yearly check ups When to call your doctor: Call your doctor right away if you have: Hip pain gets worse Pain or swelling in your calf or leg not related to your incision Tenderness or redness in your calf Fever of 100.4F (38C) or higher, or as directed by your healthcare provider Shaking chills Swelling or redness at the incision site gets worse Fluid draining from the incision Call 911: Call 911 right away if you have: Chest pain Shortness of breath Any pain or tenderness in your calf Status ED Status: Left Department Discharge Information Discharge Date/Time: 03/27/18 12:44
== END 2018-03-27 12:44 | disposition home health service (06) | DRG 470 ==
LOC: NEPC 09:59 → NEDA 13:01 → N06 19:00 → NEDA 19:11 → NEDH 03-24 00:34 → N03 03-24 01:57 → N06 03-24 14:21
PROVIDERS: ADMIT Hospitalist; ATTEND Hospitalist
CPT/HCPCS: 71010; 71045; 73501; 73502; 73700; 76000; 80048; 80053; 82948; 82962; 85014; 85018; 85025; 85610; 85730; 90774; 90775; 90784; 94150; 96374; 96375; 97110; 97116; 97162; 97167; 97530; 99285; C1713; C1776; C8952; J0131; J0690; J1580; J1650; J1815; J1885; J2250; J2270; J2405; J3010; J3370; J7030; J7050; J7120